=== PATIENT | male | born 1965 ===

== ENCOUNTER 2017-02-21 09:48 | Inpatient (IN) | payer MEDICARE ==
[2017-02-21 10:06] VITALS: BMI 36.3
[2017-02-21] MEDS ORDERED: Albuterol-Ipratrop 3 mg / 0.5 (3 ml) UD IH STA ×2 (11:28→13:46)
[2017-02-21] MEDS ORDERED: Sodium Chloride 0.9% 1,000 ML IV ONE (11:29)
[2017-02-21 11:54] LABS: BASO # 0.1 K/uL (0.0-0.2); BASO % 1.1 % (0.0-2.0); EOS # 0.6 K/uL (0.0-0.7); EOS % 4.2 % (0.0-4.0); HEMATOCRIT 39.1 % (35.0-51.0); LYMPH # 2.5 K/uL (1.0-4.3); LYMPH % 18.4 % (20.0-40.0); MEAN CELL VOLUME 88.2 fL (80.0-94.0); MEAN CORPUSCULAR HEMOGLOBIN 29.4 pg (27.0-31.0); MEAN CORPUSCULAR HGB CONC 33.3 g/dL (33.0-37.0); MEAN PLATELET VOLUME 9.3 fL (7.2-11.7); MONO # 0.9 K/uL (0.0-0.8); MONO % 6.5 % (0.0-10.0); NRBC % 0.1 % (0.0-2.0); RED CELL DISTRIBUTION WIDTH 13.1 % (11.5-14.5); WHITE BLOOD COUNT 13.4 K/uL (4.8-10.8)
--- NOTE | 2017-02-21 12:18 | RAD ---
PROCEDURE: CHEST RADIOGRAPH, 1 VIEW HISTORY: Shortness of breath COMPARISON: 09/28/2016 FINDINGS: LUNGS: Moderate venous congestion. Right hilar prominence. Patchy increased marked at the right lung base. PLEURA: As above. CARDIOVASCULAR: Normal. OSSEOUS STRUCTURES: No significant abnormalities. Probable small loose osteochondral body at the superior aspect of the left glenohumeral joint space. VISUALIZED UPPER ABDOMEN: Normal. OTHER FINDINGS: None. IMPRESSION: Moderate venous congestion. Right hilar prominence. Patchy increased marked at the right lung base.
[2017-02-21 12:21] LABS: URINE BILIRUBIN NEGATIVE (NEGATIVE); URINE BLOOD NEGATIVE (NEGATIVE); URINE COLOR Yellow (YELLOW); URINE GLUCOSE (UA) 3+ mg/dL (Normal); URINE KETONE NEGATIVE (NEGATIVE); URINE LEUKOCYTE ESTERASE NEG Leu/uL (Negative); URINE PROTEIN NEGATIVE (NEGATIVE); URINE UROBILINOGEN NORMAL mg/dL (0.2-1.0)
--- NOTE | 2017-02-21 12:51 | C.PDOC ---
History Of Present Illness 51 year old patient, with a past medical history of asthma, hypertension, hypercholesterolemia, CHF, and diabetes, presents to the emergency department complaining of congestion and shortness of breath developing over the past 2 days. Patient admits to not taking all of his medications for the past 2 weeks because of "insurance problems." Patient describes the shortness of breath feels like "chest tightness". Patient denies fever, chills, severe headache, dizziness, wheezing, palpitations, orthopnea, PND, abdominal pain, nausea, or vomiting, denies peripheral edema. Pt sts, " took all my medication this AM including my BP medictaion, INsulin, Aspirin". PMD: Clinic (Dr Knapp) PMH: as per HPI PSH: Denies Home meds: As per EMR except as noted - Pt takes Levemir 80 units in AM and 50 at night. He is on Novolog sliding scale for in between. He also uses an albuterol inhaler that he did not have with him. Allergies: NKDA FH: DM SH: Smokes about a pack/2-3 days (heavy smoking past 2 ppd/ "years"), social Etoh use, denies drug Time Seen by Provider: 02/21/17 11:23 Chief Complaint (Nursing): Cough, Cold, Congestion History Per: Patient History/Exam Limitations: no limitations Onset/Duration Of Symptoms: Days (2) Current Symptoms Are (Timing): Still Present Location Of Pain: Other (chest tightness) Sick Contacts (Context): None Associated Symptoms: Other (congestion) Ear Symptoms: Bilateral: None Severity: Mild Pain Scale Rating Of: 3 Recent travel outside of the [place]: No Past Medical History Reviewed: Historical Data, Nursing Documentation, Vital Signs Vital Signs: Last Vital Signs Temp 97.3 F L 02/21/17 20:09 Pulse 82 02/21/17 20:09 Resp 20 02/21/17 20:09 BP 92/66 L 02/21/17 20:09 Pulse Ox 95 02/21/17 20:09 - Medical History PMH: Asthma, CHF, Diabetes, HTN, Hypercholesterolemia Family History: States: Unknown Family Hx - Social History Hx Tobacco Use: Yes Hx Alcohol Use: Yes Hx Substance Use: No - Immunization History Hx Tetanus Toxoid Vaccination: No Hx Influenza Vaccination: Yes Hx Pneumococcal Vaccination: No Review Of Systems Except As Marked, All Systems Reviewed And Found Negative. Constitutional: Negative for: Fever, Chills Cardiovascular: Positive for: Other (chest tightness). Negative for: Palpitations Respiratory: Positive for: Shortness of Breath, Other (congestion). Negative for: Wheezing Gastrointestinal: Negative for: Nausea, Vomiting, Abdominal Pain Neurological: Negative for: Headache, Dizziness Physical Exam - Physical Exam Appears: Well, Non-toxic, No Acute Distress Skin: Normal Color, Warm, No Rash Head: Atraumatic, Normacephalic Eye(s): bilateral: PERRL Nose: Discharge (B/L nasal congestion) Oral Mucosa: Moist Tongue: Normal Appearing Throat: Normal Neck: Normal ROM, Trachea Midline Cardiovascular: Rhythm Regular, No JVD Respiratory: Decreased Breath Sounds (slight Right base), No Accessory Muscle Use, No Stridor, No Wheezing Gastrointestinal/Abdominal: Soft, No Tenderness, No Distention, No Guarding Back: No CVA Tenderness Extremity: Normal ROM, No Pedal Edema Neurological/Psych: Oriented x3, Normal Speech ED Course And Treatment - Laboratory Results Result Diagrams: 02/21/17 11:50 02/21/17 12:40 ECG: Interpreted By Me, Viewed By Me ECG Rhythm: Sinus Rhythm, PVC (occasional) ECG Interpretation: No Changes From Prior Interpretation Of ECG: occasional PVC. Left axis deviation. Rate From EC (bpm) O2 Sat by Pulse Oximetry: 94 (room air) Pulse Ox Interpretation: Abnormal - Other Rad CXR X-Ray: Read By Radiologist Interpretation: FINDINGS: LUNGS: Moderate venous congestion. Right hilar prominence. Patchy increased marked at the right lung base. PLEURA: As above. CARDIOVASCULAR: Normal. OSSEOUS STRUCTURES: No significant abnormalities. Probable small loose osteochondral body at the superior aspect of the left glenohumeral joint space. VISUALIZED UPPER ABDOMEN: Normal. OTHER FINDINGS: None. IMPRESSION: Moderate venous congestion. Right hilar prominence. Patchy increased marked at the right lung base. Progress Note: Plan: -EKG. -Labs. -Chest x-ray. -Duoneb, Rocephin, IV fluids , Azithromycin, Solu-Medrol. Diagnostics review, CXR review. Pt has clinical finidngs c/w PNA r/o viral illness, CHF exacerbation. Case discussed with Hospitalist and admission arranged to telementry. Disposition - Disposition Disposition: HOSPITALIZED Disposition Time: 13:28 Condition: STABLE - Clinical Impression Clinical Impression: Acute exacerbation of CHF (congestive heart failure), Pneumonia - PA / TOBY MAKER / Resident Statement MD/DO has reviewed & agrees with the documentation as recorded. - Scribe Statement The provider has reviewed the documentation as recorded by the Scribe Octavia Ellis All medical record entries made by the Scribe were at my direction and personally dictated by me. I have reviewed the chart and agree that the record accurately reflects my personal performance of the history, physical exam, medical decision making, and the department course for this patient. I have also personally directed, reviewed, and agree with the discharge instructions and disposition.
[2017-02-21 12:52] LABS: CHLORIDE 100 mmol/L (98-107); POTASSIUM 4.2 mmol/L (3.6-5.2); SODIUM 139 mmol/L (132-148)
[2017-02-21 12:54] LABS: GFR AFRICAN-AMERICAN > 60
[2017-02-21] MEDS ORDERED: Azithromycin 500 MG in Sodium Chloride 0.9% 250 ML IVPB STA (12:54)
[2017-02-21 12:55] LABS: ALB/GLOB RATIO 1.1 (1.0-2.1); ALKALINE PHOSPHATASE 99 U/L (38-126); ALT/SGPT 11 U/L (21-72); AST/SGOT 13 U/L (17-59); BILIRUBIN,TOTAL 0.9 mg/dL (0.2-1.3); BLOOD UREA NITROGEN 18 mg/dL (9-20); CARBON DIOXIDE 25 mmol/L (22-30); GLUCOSE,RANDOM 235 mg/dL (75-110); TOTAL PROTEIN 7.2 g/dL (6.3-8.3)
[2017-02-21 12:56] LABS: CALCIUM 8.5 mg/dl (8.6-10.4)
[2017-02-21] MEDS ORDERED: Azithromycin 500mg/250ML NS 500 MG/250 ML BAG IVPB ONE (13:05)
[2017-02-21 13:16] LABS: INR 1.1
[2017-02-21] MEDS ORDERED: cefTRIAXone IV 1 gm in Dextros 50 ML IVPB ONE (13:51)
--- NOTE | 2017-02-21 15:39 | CP.PCM.HP ---
<Joo Zamudio - Last Filed: 02/21/17 16:21> History of Present Illness - History of Present Illness History of Present Illness: CC: "I'm having trouble breathing" HPI: 51 year old male with a PMH of DM2, asthma and CHF who presents to the ED with shortness of breath and chest tightness of 2 days duration. He stated that the symptoms came on gradually and progressively gotten worse. He reports that he has not had medication for 2 weeks due to gap between insurance policies. He also states that he felt sick a few nights ago with fevers, chills and diffuse body aches. He awoke with the symptoms resolved but noted some difficulty breathing had worsened. Similar episodes have occurred 5 years ago and 1 year ago, which he was hospitalized. Patient is complaining of chest discomfort but not quantifiable pain. He described it as someone is sitting on his chest. Laying down and exertion exacerbates his symptoms while nothing alleviates them. Patient sleeps with 3 pillows at night. He states that he gets fatigue and SOB after 10 feet of walking. His last ECHO was several years ago. Admits to recent illness, chest pain, palpitations, shortness of breath, wheezing and cough. Denies leg swelling, nausea, vomiting, diarrhea, constipation, abdominal pain. PMH: CHF, DM2, asthma Meds: Lasix, Coreg, Lipitor, Enalapril, ASA 81, Insulin Allergies: NKDA PSH: none Hosp: 2012 and 2016 for CHF FH: Mother has DM2, father of cardiac-related problems, brother from DM2 complications Social: Pt lives with his and 3 children. He is on SSD. Current 6-7 cigarette/day smoker down from 2-3 PPD x 37 yrs. Never a heavy drinker of alcohol. Remote marijuana use in the . Present on Admission - Present on Admission Any Indicators Present on Admission: No History of DVT/PE: No History of Uncontrolled Diabetes: No Urinary Catheter: No Decubitus Ulcer Present: No Review of Systems - Constitutional Constitutional: absent: Chills, Fever - EENT Eyes: absent: Blurred Vision, Change in Vision Ears: absent: Ear Discharge, Dizziness Nose/Mouth/Throat: absent: Nasal Congestion, Nasal Discharge - Cardiovascular Cardiovascular: Chest Pain (described as a tightness in the anterior chest), Chest Pain with Activity, Dyspnea, Dyspnea on Exertion, Orthopnea, Palpitations. absent: Leg Edema - Respiratory Respiratory: Cough, Dyspnea, Dyspnea on Exertion, Wheezing. absent: Hemoptysis - Gastrointestinal Gastrointestinal: absent: Abdominal Pain, Constipation, Diarrhea, Nausea, Vomiting - Genitourinary Genitourinary: absent: Change in Urinary Stream, Difficulty Urinating, Dysuria - Musculoskeletal Musculoskeletal: Arthralgias, Back Pain, Myalgias. absent: Joint Swelling - Integumentary Integumentary: absent: Change in Pigmentation, New Lesions, Wounds - Neurological Neurological: absent: Confusion, Dizziness, Numbness, Syncope, Tingling, Vertigo , Weakness - Psychiatric Psychiatric: absent: Homicidal Ideation, Suicidal Ideation - Endocrine Endocrine: Fatigue. absent: Palpitations, Polydipsia, Polyphagia, Polyuria - Hematologic/Lymphatic Hematologic: absent: Easy Bleeding, Easy Bruising, Lymphadenopathy Past Patient History - Past Medical History & Family History Past Medical History?: Yes - Past Social History Smoking Status: Heavy Smoker > 10 Cigarettes Daily - CARDIAC Hx Congestive Heart Failure: Yes Hx Hypercholesterolemia: Yes Hx Hypertension: Yes - PULMONARY Hx Asthma: Yes - ENDOCRINE/METABOLIC Hx Endocrine Disorders: Yes Hx Diabetes Mellitus Type 2: Yes - MUSCULOSKELETAL/RHEUMATOLOGICAL Hx Falls: No - PSYCHIATRIC Hx Substance Use: No - SURGICAL HISTORY Hx Surgeries: No - ANESTHESIA Hx Anesthesia: No Meds Allergies/Adverse Reactions: Allergies Allergy/AdvReac Type Severity Reaction Status Date / Time No Known Allergies Allergy Verified 02/21/17 10:06 Physical Exam - Constitutional Appears: No Acute Distress - Head Exam Head Exam: ATRAUMATIC, NORMOCEPHALIC - Eye Exam Eye Exam: EOMI, Normal appearance - ENT Exam ENT Exam: Mucous Membranes Moist - Neck Exam Neck exam: Positive for: Normal Inspection - Respiratory Exam Respiratory Exam: Decreased Breath Sounds, Wheezes, NORMAL BREATHING PATTERN. absent: Accessory Muscle Use, Respiratory Distress - Cardiovascular Exam Cardiovascular Exam: RRR, +S1, +S2 - GI/Abdominal Exam GI & Abdominal Exam: Normal Bowel Sounds, Soft. absent: Distended, Firm, Guarding, Rebound, Tenderness - Extremities Exam Extremities exam: Positive for: normal capillary refill, pedal pulses present. Negative for: calf tenderness, pedal edema - Back Exam Back exam: absent: CVA tenderness (L), CVA tenderness (R) - Neurological Exam Neurological exam: Alert, CN II-XII Intact, Oriented x3 - Psychiatric Exam Psychiatric exam: Normal Affect, Normal Mood - Skin Skin Exam: Dry, Intact, Normal Color, Warm Results - Vital Signs Recent Vital Signs: Last Vital Signs Temp 98.4 F 02/21/17 13:42 Pulse 97 H 02/21/17 14:35 Resp 21 02/21/17 14:35 BP 104/71 02/21/17 14:35 Pulse Ox 91 L 02/21/17 14:35 - Labs Result Diagrams: 02/21/17 11:50 02/21/17 12:40 Assessment & Plan - Assessment and Plan (Free Text) Plan: 1. CHF Admit to telemetry CXR: Moderate venous congestion. Right hilar prominence. Patchy increased marked at the right lung base (see full report) EKG HA1C, TSH/T4, Lipid panel Stephany x 3, first one negative ECHO Duoneb 3 ml INH RQ6 ASA 81 mg PO daily Digoxin 0.25 mg PO dialy Enalapril 2.5 mg PO daily Lasix 40 mg PO daily Hold home dose of coreg for now as per Dr. Lizarraga I's & O's daily weights HHD 2. DM ISS Accuchecks HA1C Monitor glucose 3. Prophylactic Measures Protonix 40 mg PO daily SCDs Lovenox 40 mg SC daily <Javy Lizarraga H - Last Filed: 02/21/17 18:45> Results - Vital Signs Recent Vital Signs: Last Vital Signs Temp 98.4 F 02/21/17 13:42 Pulse 97 H 02/21/17 14:35 Resp 18 02/21/17 16:34 BP 104/71 02/21/17 14:35 Pulse Ox 91 L 02/21/17 14:35 - Labs Result Diagrams: 02/21/17 11:50 02/21/17 12:40 Labs: Laboratory Results - last 24 hr 02/21/17 16:38 POC Glucose (mg/dL) 244 H Attending/Attestation - Attestation I have personally seen and examined this patient.: Yes I have fully participated in the care of the patient.: Yes I have reviewed all pertinent clinical information: Yes Notes (Text): 02/21/17 18:43 Medical attending: Patient was seen and examined by me, agrees the above note by medical equipment technician. We reviewed the chest x-ray as well as the lab work. His chest x-ray shows a lot of pulmonary congestion and edema. The patient tells us that normally he takes Lasix however he hasn't taken his medication for the past 2 weeks because he ran out. He has been given Lasix in the emergency room has urinated several times ready he says that he feels only somewhat better. As documented above the resident note the patient has to have several pillows to sleep on, reports orthopnea as well particularly during the night. Shortness of breath on exertion as well So at this time were to give Lasix were to repeat a chest x-ray tomorrow. The patient should get an echo as well just to measure his ejection fraction will hold off on a beta qian for the time being and if tomorrow he feels better after getting more diuresis then we'll consider adding back on something such as Coreg for example Thank you very much, Javy Lizarraga
[2017-02-21] MEDS ORDERED: (Novolin R) Insulin Human Regular 100 units/ml vial ONE (18:13)
[2017-02-21] MEDS: (Novolin R) Insulin Human Regular 100 units/ml vial SC SCH ×3 (18:17→22:29)
[2017-02-21 19:00] LABS: T4 5.8 ug/dL (5.5-11.0)
[2017-02-21 19:14] LABS: THYROID STIMULATING HORMONE 0.52 mIU/L (0.46-4.68)
[2017-02-21] MEDS: Albuterol-Ipratrop 3 mg / 0.5 (3 ml) UD INH SCH (22:19)
[2017-02-21] MEDS ORDERED: (Lantus) Insulin Glargine, Recombinant SC ONE (23:14)
[2017-02-21] MEDS ORDERED: (Novolog) Insulin Aspart, Recombinant 100 u/ml 10 ml vial SC ONE (23:56)
[2017-02-22] MEDS: Albuterol-Ipratrop 3 mg / 0.5 (3 ml) UD INH SCH ×4 (01:40→19:33)
[2017-02-22 06:42] LABS: BASO % 0.1 % (0.0-2.0); HEMATOCRIT 37.4 % (35.0-51.0); LYMPH # 1.3 K/uL (1.0-4.3); LYMPH % 9.2 % (20.0-40.0); MEAN CELL VOLUME 89.1 fL (80.0-94.0); MEAN CORPUSCULAR HEMOGLOBIN 29.4 pg (27.0-31.0); MEAN PLATELET VOLUME 9.8 fL (7.2-11.7); MONO # 0.7 K/uL (0.0-0.8); MONO % 4.7 % (0.0-10.0); PLATELET COUNT 218 K/uL (130-400); RED CELL DISTRIBUTION WIDTH 12.8 % (11.5-14.5)
[2017-02-22 06:50] LABS: CHLORIDE 99 mmol/L (98-107); POTASSIUM 4.4 mmol/L (3.6-5.2); SODIUM 136 mmol/L (132-148)
[2017-02-22 06:52] LABS: ALB/GLOB RATIO 1.2 (1.0-2.1); ALKALINE PHOSPHATASE 107 U/L (38-126); ALT/SGPT 17 U/L (21-72); AST/SGOT 17 U/L (17-59); BILIRUBIN,TOTAL 0.7 mg/dL (0.2-1.3); BLOOD UREA NITROGEN 24 mg/dL (9-20); CARBON DIOXIDE 25 mmol/L (22-30); GFR AFRICAN-AMERICAN > 60; GLUCOSE,RANDOM 355 mg/dL (75-110)
[2017-02-22 06:53] LABS: CALCIUM 8.8 mg/dl (8.6-10.4)
[2017-02-22] MEDS: (Novolin R) Insulin Human Regular 100 units/ml vial SC SCH ×4 (08:18→21:22)
[2017-02-22 08:59] LABS: NEUTROPHIL 88 % (50-75); TOTAL CELLS COUNTED 100
--- NOTE | 2017-02-22 09:58 | CP.PCM.PN ---
<NaamaryJoo wells - Last Filed: 02/22/17 10:45> Subjective - Date & Time of Evaluation Date of Evaluation: 02/22/17 Time of Evaluation: 07:00 - Subjective Subjective: PGY-1 Medicine Progress Note for Dr. Lizarraga Patient seen and examined at bedside this AM. Patient sugars were elevated at 500 overnight, so he was given 80 units of lantus and 12 units of Novolog. Patient restin gin bed comfortably in bed this morning. He states his breathing has improved but still has mild SOB at times. He was able to sleep better last night than previous night at home. Patient tolerating diet and urinating without difficult. Denies fever/chills, cp, palpiations, abd pain, n/v/d, incontinence. Objective - Vital Signs/Intake and Output Vital Signs (last 24 hours): Temp Pulse Resp BP Pulse Ox 97.5 F L 83 20 110/65 97 02/22/17 07:00 02/22/17 07:00 02/22/17 07:00 02/22/17 07:00 02/22/17 07:00 Intake and Output: 02/22/17 02/22/17 06:59 18:59 Intake Total 160 Output Total 500 Balance -340 - Medications Medications: Current Medications Albuterol/Ipratropium (Duoneb 3 Mg/0.5 Mg (3 Ml) Ud) 3 ml INH RQ6 [facility] Last Admin: 02/22/17 07:53 Dose: 3 ml Aspirin (Aspirin Chewable) 81 mg PO DAILY [facility] Digoxin (Lanoxin) 0.25 mg PO DAILY@1800 [facility] Enalapril Maleate (Vasotec) 2.5 mg PO DAILY [facility] Enoxaparin Sodium (Lovenox) 40 mg SC DAILY [facility] Furosemide (Lasix) 40 mg PO DAILY [facility] Azithromycin 500 mg/ Sodium (Chloride) 250 mls @ 250 mls/hr IVPB DAILY [facility] Ceftriaxone Sodium 1 gm/ (Sodium Chloride) 100 mls @ 100 mls/hr IVPB Q12H [facility] Insulin Glargine (Lantus) 50 unit SC Q12 [facility] Insulin Human Regular (Novolin R) 0 unit SC ACHS [facility] PRN Reason: Protocol Last Admin: 02/22/17 08:18 Dose: 8 unit Pantoprazole Sodium (Protonix Ec Tab) 40 mg PO DAILY [facility] - Labs Labs: 02/22/17 06:27 02/22/17 06:27 PT 11.5 SECONDS (9.7-12.2) 02/22/17 06:27 INR 1.0 02/22/17 06:27 APTT 27 SECONDS (21-34) 02/22/17 06:27 - Constitutional Appears: Non-toxic, No Acute Distress - Head Exam Head Exam: ATRAUMATIC, NORMOCEPHALIC - Eye Exam Eye Exam: EOMI, Normal appearance Pupil Exam: PERRL - ENT Exam ENT Exam: Mucous Membranes Moist - Neck Exam Neck Exam: Normal Inspection - Respiratory Exam Respiratory Exam: Decreased Breath Sounds, NORMAL BREATHING PATTERN. absent: Accessory Muscle Use, Respiratory Distress - Cardiovascular Exam Cardiovascular Exam: REGULAR RHYTHM, +S1, +S2 - GI/Abdominal Exam GI & Abdominal Exam: Soft, Normal Bowel Sounds. absent: Tenderness - Extremities Exam Extremities Exam: Normal Capillary Refill. absent: Calf Tenderness, Pedal Edema - Back Exam Back Exam: absent: CVA tenderness (L), CVA tenderness (R) - Neurological Exam Neurological Exam: Alert, Awake, CN II-XII Intact, Oriented x3 - Psychiatric Exam Psychiatric exam: Normal Affect, Normal Mood - Skin Skin Exam: Dry, Intact, Normal Color, Warm Assessment and Plan - Assessment and Plan (Free Text) Plan: 1. CHF telemetry CXR: Moderate venous congestion. Right hilar prominence. Patchy increased marked at the right lung base (see full report) EKG HA1C 11.0 TSH 0.52 T4 5.80 Lipid panel triglycerides 45, total 187, LDL 110, HDL 46 Stephany x 3 negative ECHO Duoneb 3 ml INH RQ6 ASA 81 mg PO daily Digoxin 0.25 mg PO dialy Enalapril 2.5 mg PO daily Lasix 40 mg IVP daily Hold home dose of coreg for now as per Dr. Lizarraga I's & O's daily weights Oxygen PRN HHD, mod carb 2. Suspected Pneumonia Repeat CXR leukocytosis, afebrile CXR: Moderate venous congestion. Right hilar prominence. Patchy increased marked at the right lung base (see full report) Azithromycin 500 mg IVPB daily Rocephin 1 gm IVPB Q12H Oxygen PRN 3. DM Added Lantus 50 units SC Q12H - patient takes 130 units daily at home ISS Accuchecks HA1C 11.0 Monitor glucose HHD, mod carb 3. Prophylactic Measures Protonix 40 mg PO daily SCDs Lovenox 40 mg SC daily <Javy Lizarraga H - Last Filed: 02/22/17 14:39> Objective - Vital Signs/Intake and Output Vital Signs (last 24 hours): Temp Pulse Resp BP Pulse Ox 97.6 F 91 H 20 93/64 L 95 02/22/17 10:51 02/22/17 12:15 02/22/17 10:51 02/22/17 10:53 02/22/17 10:51 Intake and Output: 02/22/17 02/22/17 06:59 18:59 Intake Total 160 Output Total 500 Balance -340 - Medications Medications: Current Medications Albuterol/Ipratropium (Duoneb 3 Mg/0.5 Mg (3 Ml) Ud) 3 ml INH RQ6 [facility] Last Admin: 02/22/17 13:46 Dose: 3 ml Aspirin (Aspirin Chewable) 81 mg PO DAILY [facility] Last Admin: 02/22/17 10:54 Dose: 81 mg Digoxin (Lanoxin) 0.25 mg PO DAILY@1800 [facility] Enalapril Maleate (Vasotec) 2.5 mg PO DAILY [facility] Last Admin: 02/22/17 10:53 Dose: Not Given Enoxaparin Sodium (Lovenox) 40 mg SC DAILY [facility] Last Admin: 02/22/17 10:44 Dose: 40 mg Furosemide (Lasix) 40 mg IVP DAILY [facility] Last Admin: 02/22/17 10:52 Dose: Not Given Azithromycin 500 mg/ Sodium (Chloride) 250 mls @ 250 mls/hr IVPB DAILY [facility] Last Admin: 02/22/17 11:00 Dose: 250 mls/hr Ceftriaxone Sodium 1 gm/ (Sodium Chloride) 100 mls @ 100 mls/hr IVPB Q12H [facility] Last Admin: 02/22/17 10:00 Dose: 100 mls/hr Insulin Glargine (Lantus) 50 unit SC Q12 [facility] Last Admin: 02/22/17 10:27 Dose: 50 units Insulin Human Regular (Novolin R) 0 unit SC ACHS [facility] PRN Reason: Protocol Last Admin: 02/22/17 12:50 Dose: 6 unit Pantoprazole Sodium (Protonix Ec Tab) 40 mg PO DAILY [facility] Last Admin: 02/22/17 10:54 Dose: 40 mg - Labs Labs: 02/22/17 06:27 02/22/17 06:27 PT 11.5 SECONDS (9.7-12.2) 02/22/17 06:27 INR 1.0 02/22/17 06:27 APTT 27 SECONDS (21-34) 02/22/17 06:27 Attending/Attestation - Attestation I have personally seen and examined this patient.: Yes I have fully participated in the care of the patient.: Yes I have reviewed all pertinent clinical information, including history, physical exam and plan: Yes Notes (Text): Medical attending: Patient was seen and examined by me. When we saw him he stated that he is feeling much better and that his breathing had improved substantially. We did not walk him around the hallway however he explains to me that when he does walk he much easier breathing now. We have been giving him Lasix overnight When we saw him he had not yet had a repeat echo done. As mentioned before he has a history of CHF and and he tells us that he has not been taking his medications for about 3 weeks now (ran out. His chest x-ray seems to show some improvement from yesterday. So at this time were currently pending echo. Because he is feeling well he has to go home however I said let's wait for the echo Thank you very much, Javy Lizarraga
[2017-02-22] MEDS: (Lantus) Insulin Glargine, Recombinant SC SCH ×2 (10:27→21:29)
[2017-02-22] MEDS: Enoxaparin 40 mg Syringe SC SCH (10:44)
--- NOTE | 2017-02-22 10:53 | CARD ---
APPROVED REPORT EKG Measurement Heart [id number] IN [id number] <Conclusion> Sinus rhythm with occasional premature ventricular complexes Possible Left atrial enlargement Nonspecific intraventricular conduction delay ST & T wave abnormality, consider lateral ischemia Abnormal ECG
[2017-02-22] MEDS: Pantoprazole 40 mg EC Tab PO SCH (10:54)
[2017-02-22] MEDS: Azithromycin 500 MG in Sodium Chloride 0.9% 250 ML IVPB SCH (11:00)
--- NOTE | 2017-02-22 15:26 | RAD ---
HISTORY: reassess for infiltrate COMPARISON: Comparison is made to the previous study dated 02/21/2017 FINDINGS: LUNGS: Interval improvement in the lungs since the previous exam particularly in the right lower lung. PLEURA: No significant pleural effusion identified, no pneumothorax apparent. CARDIOVASCULAR: Mild cardiomegaly is again noted. OSSEOUS STRUCTURES: No significant abnormalities. VISUALIZED UPPER ABDOMEN: Normal. OTHER FINDINGS: None. IMPRESSION: Interval improvement and almost complete resolving of the previously seen right lower lung increased marking since the previous exam.
[2017-02-22] MEDS: Digoxin 250 mcg (0.25 mg) Tab PO SCH (21:28)
[2017-02-23] MEDS: Albuterol-Ipratrop 3 mg / 0.5 (3 ml) UD INH SCH ×4 (01:30→19:36)
[2017-02-23 06:25] LABS: BASO # 0.1 K/uL (0.0-0.2); BASO % 0.8 % (0.0-2.0); EOS # 0.4 K/uL (0.0-0.7); EOS % 2.7 % (0.0-4.0); HEMATOCRIT 35.7 % (35.0-51.0); LYMPH # 3.5 K/uL (1.0-4.3); LYMPH % 23.4 % (20.0-40.0); MEAN CELL VOLUME 88.9 fL (80.0-94.0); MEAN CORPUSCULAR HGB CONC 33.8 g/dL (33.0-37.0); MEAN PLATELET VOLUME 9.6 fL (7.2-11.7); MONO # 0.8 K/uL (0.0-0.8); MONO % 5.4 % (0.0-10.0); RED CELL DISTRIBUTION WIDTH 13.2 % (11.5-14.5)
[2017-02-23 06:53] LABS: CHLORIDE 101 mmol/L (98-107)
[2017-02-23 06:54] LABS: POTASSIUM 3.4 mmol/L (3.6-5.2); SODIUM 137 mmol/L (132-148)
[2017-02-23 06:56] LABS: AST/SGOT 12 U/L (17-59); BILIRUBIN,TOTAL 0.5 mg/dL (0.2-1.3); BLOOD UREA NITROGEN 26 mg/dL (9-20); CARBON DIOXIDE 24 mmol/L (22-30); GFR AFRICAN-AMERICAN > 60; TOTAL PROTEIN 6.6 g/dL (6.3-8.3)
[2017-02-23 06:57] LABS: ALKALINE PHOSPHATASE 94 U/L (38-126); ALT/SGPT 19 U/L (21-72); CALCIUM 7.6 mg/dl (8.6-10.4); GLUCOSE,RANDOM 211 mg/dL (75-110)
[2017-02-23] MEDS: (Novolin R) Insulin Human Regular 100 units/ml vial SC SCH ×4 (08:09→21:29)
[2017-02-23] MEDS: Enoxaparin 40 mg Syringe SC SCH (09:11)
[2017-02-23] MEDS: Pantoprazole 40 mg EC Tab PO SCH (09:12)
[2017-02-23] MEDS ORDERED: Potassium Chloride 20 mEq ER Tab PO ONE (10:00)
[2017-02-23] MEDS: (Lantus) Insulin Glargine, Recombinant SC SCH ×2 (10:17→21:31)
[2017-02-23] MEDS: Azithromycin 500 MG in Sodium Chloride 0.9% 250 ML IVPB SCH (10:34)
--- NOTE | 2017-02-23 12:20 | CP.PCM.PN ---
<Joo Zamudio - Last Filed: 02/23/17 13:17> Subjective - Date & Time of Evaluation Date of Evaluation: 02/23/17 Time of Evaluation: 07:30 - Subjective Subjective: PGY-1 Medicine Progress Note for Dr. Lizarraga Patient seen and examined at bedside this AM. Patient had 20 beat v tach run overnight and 6 beat v tach run at 9 am. Patient resting in bed comfortably. He stated that he has been asymptomatic overnight and all morning. He was able to sleep fine. Breathing has improved. Patient tolerating diet, urinating without difficulty, and ambulating around the floor with SOB or cp. Denies fever /chills, cp, palpiations, abd pain, n/v/d, incontinence. Objective - Vital Signs/Intake and Output Vital Signs (last 24 hours): Temp Pulse Resp BP Pulse Ox 97.5 F L 97 H 18 98/60 L 96 02/23/17 09:10 02/23/17 10:31 02/23/17 09:10 02/23/17 10:35 02/23/17 09:10 Intake and Output: 02/23/17 02/23/17 06:59 18:59 Intake Total 580 Output Total 2150 Balance -1570 - Medications Medications: Current Medications Albuterol/Ipratropium (Duoneb 3 Mg/0.5 Mg (3 Ml) Ud) 3 ml INH RQ6 [facility] Last Admin: 02/23/17 07:35 Dose: 3 ml Aspirin (Aspirin Chewable) 81 mg PO DAILY [facility] Last Admin: 02/23/17 10:35 Dose: 81 mg Digoxin (Lanoxin) 0.25 mg PO DAILY@1800 [facility] Last Admin: 02/22/17 21:28 Dose: 0.25 mg Enalapril Maleate (Vasotec) 2.5 mg PO DAILY [facility] Last Admin: 02/23/17 10:35 Dose: Not Given Enoxaparin Sodium (Lovenox) 40 mg SC DAILY [facility] Last Admin: 02/23/17 09:11 Dose: 40 mg Furosemide (Lasix) 20 mg IVP DAILY [facility] Azithromycin 500 mg/ Sodium (Chloride) 250 mls @ 250 mls/hr IVPB DAILY [facility] Last Admin: 02/23/17 10:34 Dose: 250 mls/hr Ceftriaxone Sodium 1 gm/ (Sodium Chloride) 100 mls @ 100 mls/hr IVPB Q12H [facility] Last Admin: 02/23/17 09:12 Dose: 100 mls/hr Insulin Glargine (Lantus) 80 unit SC 1000 [facility] Last Admin: 02/23/17 10:17 Dose: 80 unit Insulin Glargine (Lantus) 50 unit SC 2200 [facility] Insulin Human Regular (Novolin R) 0 unit SC ACHS [facility] PRN Reason: Protocol Last Admin: 02/23/17 11:56 Dose: Not Given Pantoprazole Sodium (Protonix Ec Tab) 40 mg PO DAILY [facility] Last Admin: 02/23/17 09:12 Dose: 40 mg - Labs Labs: 02/23/17 06:09 02/23/17 06:09 PT 11.5 SECONDS (9.7-12.2) 02/22/17 06:27 INR 1.0 02/22/17 06:27 APTT 27 SECONDS (21-34) 02/22/17 06:27 - Constitutional Appears: Well, Non-toxic, No Acute Distress - Head Exam Head Exam: ATRAUMATIC, NORMOCEPHALIC - Eye Exam Eye Exam: EOMI, Normal appearance Pupil Exam: PERRL - ENT Exam ENT Exam: Mucous Membranes Moist - Neck Exam Neck Exam: Normal Inspection - Respiratory Exam Respiratory Exam: Clear to Ausculation Bilateral, NORMAL BREATHING PATTERN - Cardiovascular Exam Cardiovascular Exam: Tachycardia, REGULAR RHYTHM, +S1, +S2 - GI/Abdominal Exam GI & Abdominal Exam: Soft, Normal Bowel Sounds. absent: Tenderness - Extremities Exam Extremities Exam: Normal Capillary Refill. absent: Calf Tenderness, Pedal Edema - Back Exam Back Exam: absent: CVA tenderness (L), CVA tenderness (R) - Neurological Exam Neurological Exam: Alert, Awake, CN II-XII Intact, Normal Gait, Oriented x3 - Psychiatric Exam Psychiatric exam: Normal Affect, Normal Mood - Skin Skin Exam: Dry, Intact, Normal Color, Warm Assessment and Plan - Assessment and Plan (Free Text) Plan: 1. CHF telemetry had 20 beat v tach run overnight and 6 beat v tach run at 9 am, patient asymptomatic Restart Coreg 6.125 PO BID Lasix decreased to 20 mg IVP daily Cardiology consult, Dr. Lerner, help appreciated - patient sees him as outpatient 02/22 CXR: interval improvement (see full report) CXR: Moderate venous congestion. Right hilar prominence. Patchy increased marked at the right lung base (see full report) EKG HA1C 11.0 TSH 0.52 T4 5.80 Lipid panel triglycerides 45, total 187, LDL 110, HDL 46 Stephany x 3 negative ECHO Duoneb 3 ml INH RQ6 [facility] 81 mg PO daily Digoxin 0.25 mg PO dialy Enalapril 2.5 mg PO daily I's & O's daily weights Oxygen PRN HHD, mod carb 2. Suspected Pneumonia 02/22 CXR: interval improvement (see full report) leukocytosis, afebrile CXR: Moderate venous congestion. Right hilar prominence. Patchy increased marked at the right lung base (see full report) Azithromycin 500 mg IVPB daily Rocephin 1 gm IVPB Q12H Oxygen PRN 3. DM Lantus 80 units SC in AM and 50 units SC HS - patient takes 130 units daily at home ISS Accuchecks HA1C 11.0 Monitor glucose HHD, mod carb 3. Prophylactic Measures Protonix 40 mg PO daily SCDs Lovenox 40 mg SC daily <Javy Lizarraga H - Last Filed: 02/23/17 14:13> Objective - Vital Signs/Intake and Output Vital Signs (last 24 hours): Temp Pulse Resp BP Pulse Ox 97.5 F L 97 H 18 98/60 L 96 02/23/17 09:10 02/23/17 10:31 02/23/17 09:10 02/23/17 10:35 02/23/17 09:10 Intake and Output: 02/23/17 02/23/17 06:59 18:59 Intake Total 580 Output Total 2150 Balance -1570 - Medications Medications: Current Medications Albuterol/Ipratropium (Duoneb 3 Mg/0.5 Mg (3 Ml) Ud) 3 ml INH RQ6 [facility] Last Admin: 02/23/17 13:16 Dose: 3 ml Aspirin (Aspirin Chewable) 81 mg PO DAILY [facility] Last Admin: 02/23/17 10:35 Dose: 81 mg Carvedilol (Coreg) 6.25 mg PO BID [facility] Digoxin (Lanoxin) 0.25 mg PO DAILY@1800 [facility] Last Admin: 02/22/17 21:28 Dose: 0.25 mg Enalapril Maleate (Vasotec) 2.5 mg PO DAILY [facility] Last Admin: 02/23/17 10:35 Dose: Not Given Enoxaparin Sodium (Lovenox) 40 mg SC DAILY [facility] Last Admin: 02/23/17 09:11 Dose: 40 mg Furosemide (Lasix) 20 mg IVP DAILY [facility] Azithromycin 500 mg/ Sodium (Chloride) 250 mls @ 250 mls/hr IVPB DAILY [facility] Last Admin: 02/23/17 10:34 Dose: 250 mls/hr Ceftriaxone Sodium 1 gm/ (Sodium Chloride) 100 mls @ 100 mls/hr IVPB Q12H [facility] Last Admin: 02/23/17 09:12 Dose: 100 mls/hr Insulin Glargine (Lantus) 80 unit SC 1000 [facility] Last Admin: 02/23/17 10:17 Dose: 80 unit Insulin Glargine (Lantus) 50 unit SC 2200 [facility] Insulin Human Regular (Novolin R) 0 unit SC ACHS [facility] PRN Reason: Protocol Last Admin: 02/23/17 11:56 Dose: Not Given Pantoprazole Sodium (Protonix Ec Tab) 40 mg PO DAILY [facility] Last Admin: 02/23/17 09:12 Dose: 40 mg - Labs Labs: 02/23/17 06:09 02/23/17 06:09 PT 11.5 SECONDS (9.7-12.2) 02/22/17 06:27 INR 1.0 02/22/17 06:27 APTT 27 SECONDS (21-34) 02/22/17 06:27 Attending/Attestation - Attestation I have personally seen and examined this patient.: Yes I have fully participated in the care of the patient.: Yes I have reviewed all pertinent clinical information, including history, physical exam and plan: Yes Notes (Text): 02/23/17 14:10 Medical attending: Patient was seen and examined by me, agrees the above note by biomedical engineering aide. The patient was up and about in his room. We had him walk into the hallway to the nurses station and he was able to do so without becoming short of breath or have chest pain. When we walked him out to the front of the nurses station, I reviewed how the telemetry looked and it looked okay for the immediate. However per the scrolling back on the youth nutritional monitor he has some concerning areas of V. tach. He had one episode of about 6 to 7 beats of V. tach as well as string of 20 beats of V. tach earlier in the morning at about 4:30. The patient completed a 2-D echo earlier this morning, the results of which on not aware of. He did have echo previously which showed that his ejection fraction about several months ago was 25-30% Because of the old echo results as well as the telemetry reading showing episodes of V. tach this, explained to the patient that we will try to get a cardiology evaluation Thank you very much, Javy Lizarraga
--- NOTE | 2017-02-23 13:33 | CARD ---
APPROVED REPORT EXAM: Two-dimensional and M-mode echocardiogram with Doppler and color Doppler. Other Information Quality : GoodRhythm : NSR INDICATION Dyspnea Chest Pain Congestive Heart Failure RISK FACTORS Diabetes M-Mode DIMENSIONS RVDd1.41 (2.1-3.2cm)Left Atrium (MM)5.70 (2.5-4.0cm) IVSd0.78 (0.7-1.1cm)Aortic Root3.16 (2.2-3.7cm) LVDd7.69 (4.0-5.6cm)Aortic Cusp Exc.2.03 (1.5-2.0cm) PWd1.02 (0.7-1.1cm)FS (%) 14 % LVDs6.60 (2.0-3.8cm)LVEF (%)29 (>50%) Aortic Valve AoV Peak Oekxkjku500.1cm/Sarina Peak GR.6mmHg Mitral Valve MV E Dabfekhf684.1cm/sMV A Xhlodhsv79.4cm/sE/A ratio1.7 TDI E/Lateral E'0.0E/Medial E'0.0 Tricuspid Valve TR Peak Sdxypfor521or/sTR Peak Gr.[id number] LEFT VENTRICLE The Left Ventricle is severely dilated. There is normal left ventricular wall thickness. The Ejection Fraction is 25-30%. There is global hypokinesis of the left ventricle. The left atrial pressure is mildly elevated. moderately increased la volume index. moderate degree of lv diastolic dysfunction. RIGHT VENTRICLE The right ventricle is normal size. The right ventricular systolic function is normal. ATRIA The left atrium is severely dilated. The right atrium is mildly dilated. The interatrial septum is intact with no evidence for an atrial septal defect. AORTIC VALVE The aortic valve is normal in structure. No aortic regurgitation is present. MITRAL VALVE The mitral valve is normal in structure. Mitral regurgitation is moderate to severe. TRICUSPID VALVE The tricuspid valve is normal in structure. There is moderate tricuspid regurgitation. Right ventricular systolic pressure is estimated at 50 mmHg. There is moderate pulmonary hypertension. GREAT VESSELS The aortic root is normal in size. ivc is not measured but appears dilated with poor inspiratory collapse.ra of 15. PERICARDIAL EFFUSION There is no pericardial effusion. <Conclusion> The Left Ventricle is severely dilated. There is normal left ventricular wall thickness. The Ejection Fraction is 25-30%. There is global hypokinesis of the left ventricle. The left atrial pressure is mildly elevated. moderately increased la volume index. moderate degree of lv diastolic dysfunction. The left atrium is severely dilated. The right atrium is mildly dilated. Mitral regurgitation is moderate to severe. ivc is not measured but appears dilated with poor inspiratory collapse.ra of 15.
--- NOTE | 2017-02-23 14:19 | CP.PCM.CON ---
History of Present Illness - History of Present Illness History of Present Illness: COMPREHENSIVE CONSULT HPI PT ADMITTED WITH SYS HF SEC CARDIOMYOPATHY . PT BECAME INCREASINGLY SOB AND WAS IN CHF . THERE IS ALSO A POSSIBILITY OF PNEUMONIA . HAD WIDE COMPLEX RUN OF TACHY PAST HIST. DM PERSONAL HIST: Smoking. Y Alcohol. N Allergy N Travel_- . FAMILY HIST : ROS : Constitutional FATIGUE Eyes: Negative for redness, swelling, itching, discharge, vision changes, blurry vision, double vision, glaucoma, cataracts, Ears: Negative for hearing loss, ringing, , tinnitus, vertigo Nose: Negative for rhinorrhea, stuffiness, sniffing, itching, postnasal drip, discoloration, nasal congestion and epistaxis. Throat: Negative for throat clearing, sore throat, hoarseness, difficulty swallowing and difficulty speaking. Respiratory: POS for cough, chest tightness, sputum or phlegm, chronic cough , wheezing, snoring at night, NO pleuritic chest pain and daytime somnolence. Cardiovascular:SOB /WHEEZING , Neurology: Negative for irritability, muscle weakness, numbness and tingling, seizures, tremors, migraines, slurred speech, syncope, memory loss, mood changes , recurrent headaches Gastrointestinal: Negative for difficulty swallowing, diarrhea, constipation, black stools, rectal bleeding, nausea, flatulence, reflux, poor appetite, changes in bowel habits, abdominal pain Genitourinary: Negative for frequent urination, hematuria, discharge, incontinence, urinary retention, frequent UTI, Psychiatric: Negative for depression, anxiety/panic, suicidal tendencies, Musculoskeletal: Negative for swollen joints, back pain, , neck pain, morning stiffness of joints, . Skin: Negative for rash, ulcers, itching, dry skin and pigmented lesions. P/E: Constitutional: Appears stated age and in no apparent distress. Head: Normocephalic. Ears: External ear canals patent without inflammation. Tympanic membranes intact with normal light reflex and landmark. Eyes: Pupils are central, bilaterally equal, symmetrical and reacts to light with normal movements and no icterus or pallor. Nose: External nares are patent. Mucosa is pink Mouth-Throat: Good general appearance and condition. No post-pharyngeal/oropharyngeal erythema and tonsillar hypertrophy. Good dental hygiene. Neck-Lymphatic: Neck is supple with normal ROM, no thyromegaly, lymph nodes or masses. JVD is normal with no carotid bruit. Lungs: Clear to percussion and auscultation with bilateral normal air entry. Cardiovascular: S1 and S2 are normal with no murmurs, gallops and rub. GI Exam: No hepatomegaly. Abdomen is soft and non-tender. No Organomegaly , masses or hernias are evident and bowel sounds are normal and active. Neurology: Higher function and all cranial nerves intact, with no gross motor or sensory deficit. Superficial and deep reflexes are normal with downwards planters. No cerebellar deficit with normal gait. Musculoskeletal: No tender spots with normal curvature of the spine with no swelling or restricted ROM of the small and large joints. Extremities: Homans sign absent. Intact pulses with no pitting edema, calf tenderness or skin color changes. Skin: No rash, eruptions or abnormal skin pigmentation LAB/RADIOLOGY: ASSESMENT : SYSTOLIC HF WITH DEPRESSED EF WIDE COMPLEX TACY DM PNEUMONIA PLAN: WILL EVLAUTE ALL EKGS AND PLAN Past Patient History - Past Medical History & Family History Past Medical History?: Yes - Past Social History Smoking Status: Heavy Smoker > 10 Cigarettes Daily - CARDIAC Hx Congestive Heart Failure: Yes Hx Hypercholesterolemia: Yes Hx Hypertension: Yes - PULMONARY Hx Asthma: Yes - NEUROLOGICAL Hx Neurological Disorder: No - RENAL Hx Chronic Kidney Disease: No - ENDOCRINE/METABOLIC Hx Endocrine Disorders: Yes Hx Diabetes Mellitus Type 2: Yes - HEMATOLOGICAL/ONCOLOGICAL Hx Blood Disorders: No - INTEGUMENTARY Hx Dermatological Problems: No - MUSCULOSKELETAL/RHEUMATOLOGICAL Hx Falls: No - GASTROINTESTINAL Hx Gastrointestinal Disorders: No - GENITOURINARY/GYNECOLOGICAL Hx Genitourinary Disorders: No - PSYCHIATRIC Hx Substance Use: No - SURGICAL HISTORY Hx Surgeries: No Other/Comment: pt. had cardiac cath. - ANESTHESIA Hx Anesthesia: No Hx Anesthesia Reactions: No Hx Malignant Hyperthermia: No Has any member of the family had a problem w/ anesthesia?: No Meds Allergies/Adverse Reactions: Allergies Allergy/AdvReac Type Severity Reaction Status Date / Time No Known Allergies Allergy Verified 02/21/17 10:06 - Medications Medications: Current Medications Albuterol/Ipratropium (Duoneb 3 Mg/0.5 Mg (3 Ml) Ud) 3 ml INH RQ6 [facility] Last Admin: 02/23/17 13:16 Dose: 3 ml Aspirin (Aspirin Chewable) 81 mg PO DAILY [facility] Last Admin: 02/23/17 10:35 Dose: 81 mg Carvedilol (Coreg) 6.25 mg PO BID [facility] Digoxin (Lanoxin) 0.25 mg PO DAILY@1800 [facility] Last Admin: 02/22/17 21:28 Dose: 0.25 mg Enalapril Maleate (Vasotec) 2.5 mg PO DAILY [facility] Last Admin: 02/23/17 10:35 Dose: Not Given Enoxaparin Sodium (Lovenox) 40 mg SC DAILY [facility] Last Admin: 02/23/17 09:11 Dose: 40 mg Furosemide (Lasix) 20 mg IVP DAILY [facility] Azithromycin 500 mg/ Sodium (Chloride) 250 mls @ 250 mls/hr IVPB DAILY [facility] Last Admin: 02/23/17 10:34 Dose: 250 mls/hr Ceftriaxone Sodium 1 gm/ (Sodium Chloride) 100 mls @ 100 mls/hr IVPB Q12H [facility] Last Admin: 02/23/17 09:12 Dose: 100 mls/hr Insulin Glargine (Lantus) 80 unit SC 1000 [facility] Last Admin: 02/23/17 10:17 Dose: 80 unit Insulin Glargine (Lantus) 50 unit SC 2200 [facility] Insulin Human Regular (Novolin R) 0 unit SC ACHS [facility] PRN Reason: Protocol Last Admin: 02/23/17 11:56 Dose: Not Given Pantoprazole Sodium (Protonix Ec Tab) 40 mg PO DAILY [facility] Last Admin: 02/23/17 09:12 Dose: 40 mg Results - Vital Signs Recent Vital Signs: Last Vital Signs Temp 97.5 F L 02/23/17 09:10 Pulse 96 H 02/23/17 12:20 Resp 18 02/23/17 09:10 BP 98/60 L 02/23/17 10:35 Pulse Ox 96 02/23/17 09:10 - Labs Result Diagrams: 02/23/17 06:09 02/23/17 06:09 Labs: Laboratory Results - last 24 hr 02/22/17 02/22/17 02/23/17 16:47 21:03 06:09 WBC 15.0 H RBC 4.02 L Hgb 12.1 Hct 35.7 MCV 88.9 MCH 30.0 MCHC 33.8 RDW 13.2 Plt Count 222 MPV 9.6 Neut % (Auto) 67.7 Lymph % (Auto) 23.4 Borden % (Auto) 5.4 Eos % (Auto) 2.7 Baso % (Auto) 0.8 Neut # 10.2 H Lymph # 3.5 Borden # 0.8 Eos # 0.4 Baso # 0.1 Sodium Potassium Chloride Carbon Dioxide Anion Gap BUN Creatinine Est GFR ( Amer) Est GFR (Non-Af Amer) POC Glucose (mg/dL) 377 H 273 H Random Glucose Calcium Total Bilirubin AST ALT Alkaline Phosphatase Total Protein Albumin Globulin Albumin/Globulin Ratio 02/23/17 02/23/17 02/23/17 06:09 06:10 11:15 WBC RBC Hgb Hct MCV MCH MCHC RDW Plt Count MPV Neut % (Auto) Lymph % (Auto) Borden % (Auto) Eos % (Auto) Baso % (Auto) Neut # Lymph # Borden # Eos # Baso # Sodium 137 Potassium 3.4 L Chloride 101 Carbon Dioxide 24 Anion Gap 16 BUN 26 H Creatinine 0.8 Est GFR ( Amer) > 60 Est GFR (Non-Af Amer) > 60 POC Glucose (mg/dL) 217 H 137 H Random Glucose 211 H Calcium 7.6 L Total Bilirubin 0.5 AST 12 L D ALT 19 L Alkaline Phosphatase 94 Total Protein 6.6 Albumin 3.3 L Globulin 3.3 Albumin/Globulin Ratio 1.0
[2017-02-23 15:34] VITALS: RESP 20
[2017-02-23] MEDS: Digoxin 250 mcg (0.25 mg) Tab PO SCH (17:38)
[2017-02-23 17:39] VITALS: PULSE 98
[2017-02-24] MEDS: Albuterol-Ipratrop 3 mg / 0.5 (3 ml) UD INH SCH ×3 (02:26→19:30)
[2017-02-24 07:58] LABS: BASO # 0.1 K/uL (0.0-0.2); BASO % 0.8 % (0.0-2.0); EOS # 0.6 K/uL (0.0-0.7); EOS % 5.9 % (0.0-4.0); HEMATOCRIT 37.9 % (35.0-51.0); LYMPH # 2.9 K/uL (1.0-4.3); LYMPH % 28.1 % (20.0-40.0); MEAN CELL VOLUME 88.2 fL (80.0-94.0); MEAN CORPUSCULAR HEMOGLOBIN 29.6 pg (27.0-31.0); MEAN CORPUSCULAR HGB CONC 33.5 g/dL (33.0-37.0); MEAN PLATELET VOLUME 9.8 fL (7.2-11.7); MONO # 0.7 K/uL (0.0-0.8); MONO % 6.7 % (0.0-10.0); RED CELL DISTRIBUTION WIDTH 12.9 % (11.5-14.5); WHITE BLOOD COUNT 10.5 K/uL (4.8-10.8)
[2017-02-24 08:12] LABS: CHLORIDE 100 mmol/L (98-107); POTASSIUM 3.9 mmol/L (3.6-5.2); SODIUM 139 mmol/L (132-148)
[2017-02-24 08:14] LABS: BILIRUBIN,TOTAL 0.6 mg/dL (0.2-1.3); GFR AFRICAN-AMERICAN > 60
[2017-02-24 08:15] LABS: ALKALINE PHOSPHATASE 90 U/L (38-126); ALT/SGPT 29 U/L (21-72); AST/SGOT 18 U/L (17-59); BLOOD UREA NITROGEN 24 mg/dL (9-20); CARBON DIOXIDE 29 mmol/L (22-30); GLUCOSE,RANDOM 175 mg/dL (75-110); TOTAL PROTEIN 6.7 g/dL (6.3-8.3)
[2017-02-24] MEDS: (Novolin R) Insulin Human Regular 100 units/ml vial SC SCH ×5 (08:19→21:51)
[2017-02-24] MEDS: Pantoprazole 40 mg EC Tab PO SCH (09:59)
[2017-02-24] MEDS ORDERED: Potassium Chloride 20 mEq ER Tab PO ONE (10:00)
[2017-02-24] MEDS: Azithromycin 500 MG in Sodium Chloride 0.9% 250 ML IVPB SCH (10:00)
[2017-02-24] MEDS: (Lantus) Insulin Glargine, Recombinant SC SCH ×2 (10:03→21:55)
[2017-02-24] MEDS: Enoxaparin 40 mg Syringe SC SCH (10:07)
--- NOTE | 2017-02-24 11:21 | CP.PCM.CON ---
<Jeffrey Fair - Last Filed: 02/24/17 11:17> History of Present Illness - History of Present Illness History of Present Illness: Cardiology Consultation Note Dr. Longoria CC: Ventricular Tachycardia events x2 on 02/23/17 HPI: This is a 51 year old male with PMH of CHF, DM2, and Asthma who presents for cardiac evaluation of non-sustained ventricular tachycardia. He was admitted to the hospital on 02/21/17 for 2 day duration of SOB and CHF exacerbation. On 02/23/17 around 04:00 he had a 20 beat ventricular tachcardia and also a 6 beat ventricular tachycardia at 09:00am on 02/23/17. Per nursing staff the patient was symptomatic during the overnight event, but asymptomatic during the short, 6 beat event. During his hospital stay he reports that his breathing has improved. He reports that he sleeps with 1-2 pillows and can walk 1-2 blocks before getting SOB. He denies constitutional symptoms, chest discomfort, chest pain, palpitations, SOB, cough, wheezes, leg swelling, leg cramps, syncope. Patient states that he was diagnosed with CHF 4-5 years ago. He reports having a cath done prior to that diagnosis. He medical records show multiple ECHO and EKG dating from 2012 which shows gradual progression of his CHF. Social: hx of heavy smoking 2.5 PPD x 36 years, within past year cut back to 6- 7 cigarettes daily. He is unemployed and lives with and kids. Social EtOH use, occasional marijuana use, denies other illicit drug use. PMH: CHF, DM2, Asthma Allergies: NKDA PSH: none FH: Father &Uncle - of heart disease; Mother & Brother - of DM complications PMD: [facility] Cardio: Dr. Lerner Review of Systems - Constitutional Constitutional: As Per HPI. absent: Chills, Fever, Headache, Weight Gain, Weight Loss - EENT Eyes: absent: Blurred Vision, Change in Vision Ears: absent: Disequilibrium, Dizziness Nose/Mouth/Throat: absent: Nasal Discharge, Sore Throat, Facial Pain, Neck Pain - Cardiovascular Cardiovascular: Palpitations (durign the overnight 20 beat VT event). absent: Chest Pain, Chest Pain with Activity, Diaphoresis, Dyspnea, Edema, Leg Edema, Lightheadedness, Orthopnea, Syncope - Respiratory Respiratory: absent: Cough, Dyspnea, Dyspnea on Exertion, Wheezing - Gastrointestinal Gastrointestinal: absent: Abdominal Pain, Constipation, Diarrhea, Nausea, Vomiting - Genitourinary Genitourinary: absent: Change in Urinary Stream, Difficulty Urinating, Dysuria - Musculoskeletal Musculoskeletal: absent: Joint Swelling, Muscle Cramps, Muscle Weakness, Tingling - Integumentary Integumentary: absent: Lesions, Rash, Wounds - Neurological Neurological: absent: Dizziness, Numbness, Sensory Deficit, Syncope, Tingling, Tremor, Vertigo, Weakness - Endocrine Endocrine: absent: Cold Intolorance, Heat Intolorance, Polydipsia, Polyphagia Past Patient History - Past Medical History & Family History Past Medical History?: Yes - Past Social History Smoking Status: Heavy Smoker > 10 Cigarettes Daily - CARDIAC Hx Congestive Heart Failure: Yes Hx Hypercholesterolemia: Yes Hx Hypertension: Yes - PULMONARY Hx Asthma: Yes - NEUROLOGICAL Hx Neurological Disorder: No - RENAL Hx Chronic Kidney Disease: No - ENDOCRINE/METABOLIC Hx Endocrine Disorders: Yes Hx Diabetes Mellitus Type 2: Yes - HEMATOLOGICAL/ONCOLOGICAL Hx Blood Disorders: No - INTEGUMENTARY Hx Dermatological Problems: No - MUSCULOSKELETAL/RHEUMATOLOGICAL Hx Falls: No - GASTROINTESTINAL Hx Gastrointestinal Disorders: No - GENITOURINARY/GYNECOLOGICAL Hx Genitourinary Disorders: No - PSYCHIATRIC Hx Substance Use: No - SURGICAL HISTORY Hx Surgeries: No Other/Comment: pt. had cardiac cath. - ANESTHESIA Hx Anesthesia: No Hx Anesthesia Reactions: No Hx Malignant Hyperthermia: No Has any member of the family had a problem w/ anesthesia?: No Meds Allergies/Adverse Reactions: Allergies Allergy/AdvReac Type Severity Reaction Status Date / Time No Known Allergies Allergy Verified 02/21/17 10:06 - Medications Medications: Current Medications Albuterol/Ipratropium (Duoneb 3 Mg/0.5 Mg (3 Ml) Ud) 3 ml INH RQ6 [facility] Last Admin: 02/24/17 07:26 Dose: 3 ml Amiodarone HCl (Cordarone) 400 mg PO TID [facility] Last Admin: 02/24/17 09:59 Dose: 400 mg Aspirin (Aspirin Chewable) 81 mg PO DAILY [facility] Last Admin: 02/24/17 10:03 Dose: 81 mg Carvedilol (Coreg) 6.25 mg PO BID [facility] Last Admin: 02/24/17 09:59 Dose: 6.25 mg Digoxin (Lanoxin) 0.25 mg PO DAILY@1800 [facility] Last Admin: 02/23/17 17:38 Dose: 0.25 mg Enalapril Maleate (Vasotec) 2.5 mg PO DAILY [facility] Last Admin: 02/24/17 09:59 Dose: 2.5 mg Enoxaparin Sodium (Lovenox) 40 mg SC DAILY [facility] Last Admin: 02/24/17 10:07 Dose: Not Given Furosemide (Lasix) 20 mg IVP DAILY [facility] Last Admin: 02/24/17 10:00 Dose: 20 mg Azithromycin 500 mg/ Sodium (Chloride) 250 mls @ 250 mls/hr IVPB DAILY [facility] Last Admin: 02/24/17 10:00 Dose: 250 mls/hr Ceftriaxone Sodium 1 gm/ (Sodium Chloride) 100 mls @ 100 mls/hr IVPB Q12H [facility] Last Admin: 02/24/17 10:00 Dose: 100 mls/hr Insulin Glargine (Lantus) 80 unit SC 1000 [facility] Last Admin: 02/24/17 10:03 Dose: Not Given Insulin Glargine (Lantus) 50 unit SC 2200 [facility] Last Admin: 02/23/17 21:31 Dose: 50 units Insulin Human Regular (Novolin R) 0 unit SC ACHS [facility] PRN Reason: Protocol Last Admin: 02/24/17 08:21 Dose: 2 unit Pantoprazole Sodium (Protonix Ec Tab) 40 mg PO DAILY [facility] Last Admin: 02/24/17 09:59 Dose: 40 mg Physical Exam - Constitutional Appears: Well, No Acute Distress - Head Exam Head Exam: ATRAUMATIC, NORMAL INSPECTION, NORMOCEPHALIC - Eye Exam Eye Exam: EOMI, Normal appearance - ENT Exam ENT Exam: Mucous Membranes Moist, Normal Exam - Neck Exam Neck exam: Positive for: Full Rom, Normal Inspection. Negative for: Lymphadenopathy, Tenderness - Respiratory Exam Respiratory Exam: Clear to Auscultation Bilateral, NORMAL BREATHING PATTERN. absent: Rales, Rhonchi, Wheezes, Stridor - Cardiovascular Exam Cardiovascular Exam: REGULAR RHYTHM, RRR, +S1, +S2. absent: Diastolic murmur, Systolic Murmur - GI/Abdominal Exam GI & Abdominal Exam: Normal Bowel Sounds, Soft. absent: Distended, Firm, Guarding, Tenderness - Extremities Exam Extremities exam: Positive for: normal capillary refill, normal inspection, pedal pulses present. Negative for: tenderness - Neurological Exam Neurological exam: Alert, CN II-XII Intact, Oriented x3 - Skin Skin Exam: Dry, Intact, Normal Color, Warm Results - Vital Signs Recent Vital Signs: Last Vital Signs Temp 97 F L 02/24/17 07:00 Pulse 91 H 02/24/17 08:00 Resp 20 02/24/17 07:00 BP 110/70 02/24/17 10:00 Pulse Ox 99 02/24/17 07:00 - Labs Result Diagrams: 02/24/17 07:36 02/24/17 07:36 Labs: Laboratory Results - last 24 hr 02/23/17 02/23/17 02/23/17 11:15 16:17 17:11 WBC RBC Hgb Hct MCV MCH MCHC RDW Plt Count MPV Neut % (Auto) Lymph % (Auto) Barton % (Auto) Eos % (Auto) Baso % (Auto) Neut # Lymph # Barton # Eos # Baso # Sodium Potassium Chloride Carbon Dioxide Anion Gap BUN Creatinine Est GFR ( Amer) Est GFR (Non-Af Amer) POC Glucose (mg/dL) 137 H 187 H Random Glucose Calcium Total Bilirubin AST ALT Alkaline Phosphatase Total Protein Albumin Globulin Albumin/Globulin Ratio Digoxin < 0.4 L 02/23/17 02/24/17 02/24/17 21:02 06:17 07:36 WBC 10.5 RBC 4.29 L Hgb 12.7 Hct 37.9 MCV 88.2 MCH 29.6 MCHC 33.5 RDW 12.9 Plt Count 253 MPV 9.8 Neut % (Auto) 58.5 Lymph % (Auto) 28.1 Barton % (Auto) 6.7 Eos % (Auto) 5.9 H Baso % (Auto) 0.8 Neut # 6.1 Lymph # 2.9 Barton # 0.7 Eos # 0.6 Baso # 0.1 Sodium Potassium Chloride Carbon Dioxide Anion Gap BUN Creatinine Est GFR ( Amer) Est GFR (Non-Af Amer) POC Glucose (mg/dL) 206 H 190 H Random Glucose Calcium Total Bilirubin AST ALT Alkaline Phosphatase Total Protein Albumin Globulin Albumin/Globulin Ratio Digoxin 02/24/17 07:36 WBC RBC Hgb Hct MCV MCH MCHC RDW Plt Count MPV Neut % (Auto) Lymph % (Auto) Barton % (Auto) Eos % (Auto) Baso % (Auto) Neut # Lymph # Barton # Eos # Baso # Sodium 139 Potassium 3.9 Chloride 100 Carbon Dioxide 29 Anion Gap 14 BUN 24 H Creatinine 0.9 Est GFR ( Amer) > 60 Est GFR (Non-Af Amer) > 60 POC Glucose (mg/dL) Random Glucose 175 H Calcium 8.0 L Total Bilirubin 0.6 AST 18 ALT 29 Alkaline Phosphatase 90 Total Protein 6.7 Albumin 3.4 L Globulin 3.3 Albumin/Globulin Ratio 1.0 Digoxin Assessment & Plan (1) Ventricular tachycardia Assessment and Plan: For transfer to [facility] today for ICD placement Dr. Alvarado accepting physician at [facility] form completed in chart Loading Amiodarone dose 400mg PO TID after 3 doses, continue Amiodarone 200mg PO daily - EKG 02/21: NSR with occasional PVC, 100 bpm, normal physio axis, FL interval normal, QRS 124, QTC prolonged 472, ST elevation in V2-V3, LA enlargement. - Echo 02/21: LVEF 29%, LV severely dilated. Global hypokinesis of LV, LAP mildly elevated, moderated degree of LA diastolic dysfunction. - 02/22 CXR: semi-erect portable, interval improvement and almost complete relolustion of RLL increased markings since previous exam. - 02/23 Rhythm strip: both VT events showed sustained VTs with R on T phenomena. Spontaneous resolution in both events. - Discussed with patient the risks, benefits, and alternatives of ICD placement. Patient verbally confirmed understanding and has agreed to have ICD placed. Case Discussed with Dr. Von Fair PGY1 Status: Acute <Krista Longoria - Last Filed: 03/08/17 12:18> Results - Vital Signs Recent Vital Signs: Last Vital Signs Temp 97.5 F L 02/25/17 07:07 Pulse 68 02/25/17 08:00 Resp 20 02/25/17 07:07 BP 146/65 02/25/17 10:04 Pulse Ox 95 02/25/17 07:07 - Labs Result Diagrams: 02/25/17 06:27 02/25/17 06:27 Attending/Attestation - Attestation I have personally seen and examined this patient.: Yes I have fully participated in the care of the patient.: Yes I have reviewed all pertinent clinical information: Yes Notes (Text): 03/08/17 12:18 will schedule tx for ICD VT run low ef
--- NOTE | 2017-02-24 13:25 | CP.PCM.PN ---
Subjective - Date & Time of Evaluation Date of Evaluation: 02/24/17 Time of Evaluation: 13:24 - Subjective Subjective: D/W DR. Salas , PT WILL BE TRANSFERRED TO [facility] FOR AICD ON [facility] PT HAD NORMAL CORONARIES BY CATH Objective - Vital Signs/Intake and Output Vital Signs (last 24 hours): Temp Pulse Resp BP Pulse Ox 97 F L 91 H 20 110/70 99 02/24/17 07:00 02/24/17 08:00 02/24/17 07:00 02/24/17 10:00 02/24/17 07:00 Intake and Output: 02/24/17 02/24/17 11:59 23:59 Intake Total 240 Balance 240 - Medications Medications: Current Medications Albuterol/Ipratropium (Duoneb 3 Mg/0.5 Mg (3 Ml) Ud) 3 ml INH RQ6 [facility] Last Admin: 02/24/17 07:26 Dose: 3 ml Amiodarone HCl (Cordarone) 400 mg PO TID [facility] Stop: 02/25/17 00:00 Last Admin: 02/24/17 09:59 Dose: 400 mg Amiodarone HCl (Cordarone) 200 mg PO DAILY [facility] Aspirin (Aspirin Chewable) 81 mg PO DAILY [facility] Last Admin: 02/24/17 10:03 Dose: 81 mg Carvedilol (Coreg) 6.25 mg PO BID [facility] Last Admin: 02/24/17 09:59 Dose: 6.25 mg Digoxin (Lanoxin) 0.25 mg PO DAILY@1800 [facility] Last Admin: 02/23/17 17:38 Dose: 0.25 mg Enalapril Maleate (Vasotec) 2.5 mg PO DAILY [facility] Last Admin: 02/24/17 09:59 Dose: 2.5 mg Enoxaparin Sodium (Lovenox) 40 mg SC DAILY [facility] Last Admin: 02/24/17 10:07 Dose: Not Given Furosemide (Lasix) 20 mg IVP DAILY [facility] Last Admin: 02/24/17 10:00 Dose: 20 mg Azithromycin 500 mg/ Sodium (Chloride) 250 mls @ 250 mls/hr IVPB DAILY [facility] Last Admin: 02/24/17 10:00 Dose: 250 mls/hr Ceftriaxone Sodium 1 gm/ (Sodium Chloride) 100 mls @ 100 mls/hr IVPB Q12H [facility] Last Admin: 02/24/17 10:00 Dose: 100 mls/hr Insulin Glargine (Lantus) 80 unit SC 1000 [facility] Last Admin: 02/24/17 10:03 Dose: Not Given Insulin Glargine (Lantus) 50 unit SC 2200 [facility] Last Admin: 02/23/17 21:31 Dose: 50 units Insulin Human Regular (Novolin R) 0 unit SC ACHS [facility] PRN Reason: Protocol Last Admin: 02/24/17 11:55 Dose: Not Given Pantoprazole Sodium (Protonix Ec Tab) 40 mg PO DAILY [facility] Last Admin: 02/24/17 09:59 Dose: 40 mg - Labs Labs: 02/24/17 07:36 02/24/17 07:36 PT 11.5 SECONDS (9.7-12.2) 02/22/17 06:27 INR 1.0 02/22/17 06:27 APTT 27 SECONDS (21-34) 02/22/17 06:27
--- NOTE | 2017-02-24 16:07 | CP.PCM.PN ---
<Joo Zamudio - Last Filed: 02/24/17 16:04> Subjective - Date & Time of Evaluation Date of Evaluation: 02/24/17 Time of Evaluation: 16:04 - Subjective Subjective: PGY-1 Medicine Progress Note for Dr. Lizarraga Patient seen and examined at bedside this AM. No acute vent overnight. Patient resting in bed comfortably. Patient going for cardiac cath today. Patient will also be transferred to [facility] for AICD placement. Breathing has improved. Patient tolerating diet, urinating without difficulty, and ambulating around the floor with SOB or cp. Denies fever/chills, cp, palpiations, abd pain, n/v/d , incontinence. Objective - Vital Signs/Intake and Output Vital Signs (last 24 hours): Temp Pulse Resp BP Pulse Ox 97 F L 97 H 20 110/70 99 02/24/17 07:00 02/24/17 12:00 02/24/17 07:00 02/24/17 10:00 02/24/17 07:00 Intake and Output: 02/24/17 02/24/17 06:59 18:59 Intake Total 310 830 Output Total 900 Balance -590 830 - Medications Medications: Current Medications Albuterol/Ipratropium (Duoneb 3 Mg/0.5 Mg (3 Ml) Ud) 3 ml INH RQ6 [facility] Last Admin: 02/24/17 07:26 Dose: 3 ml Amiodarone HCl (Cordarone) 400 mg PO TID [facility] Stop: 02/25/17 00:00 Last Admin: 02/24/17 13:45 Dose: Not Given Amiodarone HCl (Cordarone) 200 mg PO DAILY [facility] Aspirin (Aspirin Chewable) 81 mg PO DAILY [facility] Last Admin: 02/24/17 10:03 Dose: 81 mg Carvedilol (Coreg) 6.25 mg PO BID [facility] Last Admin: 02/24/17 09:59 Dose: 6.25 mg Digoxin (Lanoxin) 0.25 mg PO DAILY@1800 [facility] Last Admin: 02/23/17 17:38 Dose: 0.25 mg Enalapril Maleate (Vasotec) 2.5 mg PO DAILY [facility] Last Admin: 02/24/17 09:59 Dose: 2.5 mg Enoxaparin Sodium (Lovenox) 40 mg SC DAILY [facility] Last Admin: 02/24/17 10:07 Dose: Not Given Furosemide (Lasix) 20 mg IVP DAILY [facility] Last Admin: 02/24/17 10:00 Dose: 20 mg Azithromycin 500 mg/ Sodium (Chloride) 250 mls @ 250 mls/hr IVPB DAILY [facility] Last Admin: 02/24/17 10:00 Dose: 250 mls/hr Ceftriaxone Sodium 1 gm/ (Sodium Chloride) 100 mls @ 100 mls/hr IVPB Q12H [facility] Last Admin: 02/24/17 10:00 Dose: 100 mls/hr Insulin Glargine (Lantus) 80 unit SC 1000 [facility] Last Admin: 02/24/17 10:03 Dose: Not Given Insulin Glargine (Lantus) 50 unit SC 2200 [facility] Last Admin: 02/23/17 21:31 Dose: 50 units Insulin Human Regular (Novolin R) 0 unit SC ACHS [facility] PRN Reason: Protocol Last Admin: 02/24/17 11:55 Dose: Not Given Pantoprazole Sodium (Protonix Ec Tab) 40 mg PO DAILY [facility] Last Admin: 02/24/17 09:59 Dose: 40 mg - Labs Labs: 02/24/17 07:36 02/24/17 07:36 PT 11.5 SECONDS (9.7-12.2) 02/22/17 06:27 INR 1.0 02/22/17 06:27 APTT 27 SECONDS (21-34) 02/22/17 06:27 - Constitutional Appears: No Acute Distress - Head Exam Head Exam: ATRAUMATIC, NORMOCEPHALIC - Eye Exam Eye Exam: EOMI, Normal appearance Pupil Exam: PERRL - ENT Exam ENT Exam: Mucous Membranes Moist - Neck Exam Neck Exam: Normal Inspection - Respiratory Exam Respiratory Exam: Clear to Ausculation Bilateral, NORMAL BREATHING PATTERN. absent: Accessory Muscle Use, Respiratory Distress - Cardiovascular Exam Cardiovascular Exam: REGULAR RHYTHM, +S1, +S2 - GI/Abdominal Exam GI & Abdominal Exam: Soft, Normal Bowel Sounds. absent: Tenderness - Extremities Exam Extremities Exam: Normal Capillary Refill. absent: Calf Tenderness, Pedal Edema - Back Exam Back Exam: absent: CVA tenderness (L), CVA tenderness (R) - Neurological Exam Neurological Exam: Alert, Awake, CN II-XII Intact, Normal Gait, Oriented x3 - Psychiatric Exam Psychiatric exam: Normal Affect, Normal Mood - Skin Skin Exam: Dry, Intact, Normal Color, Warm Assessment and Plan - Assessment and Plan (Free Text) Plan: 1. CHF telemetry Acute on Chronic CHF (systolic dysfunction) Patient will be transferred to [facility] for AICD Patient had cardiac cath today - normal coronaries Amiodarone 200 mg PO daily ECHO: LV severely dilated, EF 25-30%, global hypokinesis of LV, Left atrial pressure slightly elevated, mod degree of LV diastolic dysfuntion, left atrium is severely dilated, right atrium mildly elevated, mitral regurg mod to severe ( see full report). had 20 beat v tach run overnight and 6 beat v tach run at 9 am, patient asymptomatic Restart Coreg 6.125 PO BID Lasix decreased to 20 mg IVP daily Cardiology consult, Dr. Lerner, help appreciated - patient sees him as outpatient 02/22 CXR: interval improvement (see full report) CXR: Moderate venous congestion. Right hilar prominence. Patchy increased marked at the right lung base (see full report) EKG HA1C 11.0 TSH 0.52 T4 5.80 Lipid panel triglycerides 45, total 187, LDL 110, HDL 46 Stephany x 3 negative ECHO Duoneb 3 ml INH RQ6 [facility] 81 mg PO daily Digoxin 0.25 mg PO dialy Enalapril 2.5 mg PO daily I's & O's daily weights Oxygen PRN HHD, mod carb 2. Suspected Pneumonia 02/22 CXR: interval improvement (see full report) leukocytosis, afebrile CXR: Moderate venous congestion. Right hilar prominence. Patchy increased marked at the right lung base (see full report) Azithromycin 500 mg IVPB daily Rocephin 1 gm IVPB Q12H Oxygen PRN 3. DM Lantus 80 units SC in AM and 50 units SC HS - patient takes 130 units daily at home ISS Accuchecks HA1C 11.0 Monitor glucose HHD, mod carb 3. Prophylactic Measures Protonix 40 mg PO daily SCDs Lovenox 40 mg SC daily <Lizarraga,Peter H - Last Filed: 02/24/17 17:20> Objective - Vital Signs/Intake and Output Vital Signs (last 24 hours): Temp Pulse Resp BP Pulse Ox 97 F L 97 H 20 110/70 99 02/24/17 07:00 02/24/17 12:00 02/24/17 07:00 02/24/17 10:00 02/24/17 07:00 Intake and Output: 02/24/17 02/24/17 06:59 18:59 Intake Total 310 830 Output Total 900 Balance -590 830 - Medications Medications: Current Medications Albuterol/Ipratropium (Duoneb 3 Mg/0.5 Mg (3 Ml) Ud) 3 ml INH RQ6 [facility] Last Admin: 02/24/17 07:26 Dose: 3 ml Amiodarone HCl (Cordarone) 400 mg PO TID [facility] Stop: 02/25/17 00:00 Last Admin: 02/24/17 13:45 Dose: Not Given Amiodarone HCl (Cordarone) 200 mg PO DAILY [facility] Aspirin (Aspirin Chewable) 81 mg PO DAILY [facility] Last Admin: 02/24/17 10:03 Dose: 81 mg Carvedilol (Coreg) 6.25 mg PO BID [facility] Last Admin: 02/24/17 09:59 Dose: 6.25 mg Digoxin (Lanoxin) 0.25 mg PO DAILY@1800 [facility] Last Admin: 02/23/17 17:38 Dose: 0.25 mg Enalapril Maleate (Vasotec) 2.5 mg PO DAILY [facility] Last Admin: 02/24/17 09:59 Dose: 2.5 mg Enoxaparin Sodium (Lovenox) 40 mg SC DAILY [facility] Last Admin: 02/24/17 10:07 Dose: Not Given Furosemide (Lasix) 20 mg IVP DAILY [facility] Last Admin: 02/24/17 10:00 Dose: 20 mg Azithromycin 500 mg/ Sodium (Chloride) 250 mls @ 250 mls/hr IVPB DAILY [facility] Last Admin: 02/24/17 10:00 Dose: 250 mls/hr Ceftriaxone Sodium 1 gm/ (Sodium Chloride) 100 mls @ 100 mls/hr IVPB Q12H [facility] Last Admin: 02/24/17 10:00 Dose: 100 mls/hr Insulin Glargine (Lantus) 80 unit SC 1000 [facility] Last Admin: 02/24/17 10:03 Dose: Not Given Insulin Glargine (Lantus) 50 unit SC 2200 [facility] Last Admin: 02/23/17 21:31 Dose: 50 units Insulin Human Regular (Novolin R) 0 unit SC ACHS [facility] PRN Reason: Protocol Last Admin: 02/24/17 11:55 Dose: Not Given Pantoprazole Sodium (Protonix Ec Tab) 40 mg PO DAILY [facility] Last Admin: 02/24/17 09:59 Dose: 40 mg - Labs Labs: 02/24/17 07:36 02/24/17 07:36 PT 11.5 SECONDS (9.7-12.2) 02/22/17 06:27 INR 1.0 02/22/17 06:27 APTT 27 SECONDS (21-34) 02/22/17 06:27 Attending/Attestation - Attestation I have personally seen and examined this patient.: Yes I have fully participated in the care of the patient.: Yes I have reviewed all pertinent clinical information, including history, physical exam and plan: Yes Notes (Text): Medical Attending: Patient was seen and examined by me. Agree with the above by the resident. Patient will be having to go to [facility] after discussing with EP cardiology. The echo returned and shows there's an EF of 25 to 30% as well as severeled dialted ventricles and hypokinesis. In the mean time restarted Coreg and continue with digoxin, vasotech. Amiodarone has been started. Javy Lizarraga
[2017-02-24] MEDS: Digoxin 250 mcg (0.25 mg) Tab PO SCH (18:00)
[2017-02-25] MEDS: Albuterol-Ipratrop 3 mg / 0.5 (3 ml) UD INH SCH ×2 (01:22→09:08)
[2017-02-25 01:24] VITALS: O2SAT 95
[2017-02-25 06:55] LABS: CHLORIDE 97 mmol/L (98-107)
[2017-02-25 06:56] LABS: SODIUM 134 mmol/L (132-148)
[2017-02-25 06:58] LABS: AST/SGOT 18 U/L (17-59); BILIRUBIN,TOTAL 0.6 mg/dL (0.2-1.3); CARBON DIOXIDE 29 mmol/L (22-30); GFR AFRICAN-AMERICAN > 60; TOTAL PROTEIN 6.5 g/dL (6.3-8.3)
[2017-02-25 06:59] LABS: ALKALINE PHOSPHATASE 108 U/L (38-126); ALT/SGPT 29 U/L (21-72); BLOOD UREA NITROGEN 19 mg/dL (9-20); CALCIUM 7.9 mg/dl (8.6-10.4); GLUCOSE,RANDOM 227 mg/dL (75-110)
[2017-02-25 07:00] LABS: BASO # 0.1 K/uL (0.0-0.2); BASO % 0.6 % (0.0-2.0); EOS # 0.5 K/uL (0.0-0.7); EOS % 4.9 % (0.0-4.0); HEMATOCRIT 38.1 % (35.0-51.0); LYMPH # 2.4 K/uL (1.0-4.3); LYMPH % 22.3 % (20.0-40.0); MEAN CELL VOLUME 88.4 fL (80.0-94.0); MEAN CORPUSCULAR HEMOGLOBIN 29.3 pg (27.0-31.0); MEAN CORPUSCULAR HGB CONC 33.2 g/dL (33.0-37.0); MEAN PLATELET VOLUME 9.4 fL (7.2-11.7); MONO # 0.7 K/uL (0.0-0.8); MONO % 6.4 % (0.0-10.0); NRBC % 0.2 % (0.0-2.0); RED CELL DISTRIBUTION WIDTH 13.3 % (11.5-14.5); WHITE BLOOD COUNT 10.7 K/uL (4.8-10.8)
--- NOTE | 2017-02-25 07:47 | CP.PCM.PN ---
Subjective - Date & Time of Evaluation Date of Evaluation: 02/25/17 Time of Evaluation: 07:40 - Subjective Subjective: Pt wound c/d/I no pain at site tolerating PO Objective - Vital Signs/Intake and Output Vital Signs (last 24 hours): Temp Pulse Resp BP Pulse Ox 97.3 F L 59 L 20 96/67 L 95 02/24/17 23:10 02/24/17 23:10 02/24/17 23:10 02/24/17 23:10 02/24/17 23:10 Intake and Output: 02/25/17 02/25/17 06:59 18:59 Intake Total 340 Balance 340 - Medications Medications: Current Medications Albuterol/Ipratropium (Duoneb 3 Mg/0.5 Mg (3 Ml) Ud) 3 ml INH RQ6 [facility] Last Admin: 02/25/17 01:22 Dose: 3 ml Amiodarone HCl (Cordarone) 200 mg PO DAILY [facility] Aspirin (Aspirin Chewable) 81 mg PO DAILY [facility] Last Admin: 02/24/17 10:03 Dose: 81 mg Carvedilol (Coreg) 6.25 mg PO BID [facility] Last Admin: 02/24/17 18:00 Dose: Not Given Digoxin (Lanoxin) 0.25 mg PO DAILY@1800 [facility] Last Admin: 02/24/17 18:00 Dose: Not Given Enalapril Maleate (Vasotec) 2.5 mg PO DAILY [facility] Last Admin: 02/24/17 09:59 Dose: 2.5 mg Enoxaparin Sodium (Lovenox) 40 mg SC DAILY [facility] Last Admin: 02/24/17 10:07 Dose: Not Given Furosemide (Lasix) 20 mg IVP DAILY [facility] Last Admin: 02/24/17 10:00 Dose: 20 mg Azithromycin 500 mg/ Sodium (Chloride) 250 mls @ 250 mls/hr IVPB DAILY [facility] Last Admin: 02/24/17 10:00 Dose: 250 mls/hr Ceftriaxone Sodium 1 gm/ (Sodium Chloride) 100 mls @ 100 mls/hr IVPB Q12H [facility] Last Admin: 02/24/17 21:52 Dose: 100 mls/hr Insulin Glargine (Lantus) 80 unit SC 1000 [facility] Last Admin: 02/24/17 10:03 Dose: Not Given Insulin Glargine (Lantus) 50 unit SC 2200 [facility] Last Admin: 02/24/17 21:55 Dose: 50 units Insulin Human Regular (Novolin R) 0 unit SC ACHS [facility] PRN Reason: Protocol Last Admin: 02/24/17 21:51 Dose: Not Given Pantoprazole Sodium (Protonix Ec Tab) 40 mg PO DAILY [facility] Last Admin: 02/24/17 09:59 Dose: 40 mg - Labs Labs: 02/25/17 06:27 02/25/17 06:27 PT 11.5 SECONDS (9.7-12.2) 02/22/17 06:27 INR 1.0 02/22/17 06:27 APTT 27 SECONDS (21-34) 02/22/17 06:27 - Constitutional Appears: Well - Head Exam Head Exam: ATRAUMATIC - Eye Exam Eye Exam: Normal appearance - ENT Exam ENT Exam: Mucous Membranes Moist - Respiratory Exam Respiratory Exam: Clear to Ausculation Bilateral - Cardiovascular Exam Cardiovascular Exam: REGULAR RHYTHM, Murmur - GI/Abdominal Exam GI & Abdominal Exam: Normal Bowel Sounds - Exam External exam: NORMAL EXTERNAL EXAM - Extremities Exam Extremities Exam: Normal Inspection - Neurological Exam Neurological Exam: Alert, Awake - Psychiatric Exam Psychiatric exam: Normal Affect, Normal Mood - Skin Skin Exam: Dry Assessment and Plan (1) Acute exacerbation of CHF (congestive heart failure) Assessment & Plan: continue chf meds ICD stable fx normal follow up as outpt Status: Acute (2) Ventricular tachycardia Status: Acute
[2017-02-25 08:12] VITALS: TEMP 97.5
[2017-02-25] MEDS: (Novolin R) Insulin Human Regular 100 units/ml vial SC SCH ×2 (08:59→13:08)
[2017-02-25] MEDS: Enoxaparin 40 mg Syringe SC SCH (10:02)
[2017-02-25] MEDS: Pantoprazole 40 mg EC Tab PO SCH (10:03)
[2017-02-25] MEDS: Azithromycin 500 MG in Sodium Chloride 0.9% 250 ML IVPB SCH (10:12)
[2017-02-25] MEDS: (Lantus) Insulin Glargine, Recombinant SC SCH (10:12)
[2017-02-25 10:13] VITALS: BP 146/65
--- NOTE | 2017-02-25 11:02 | CP.PCM.DIS ---
<Agustina Hodge - Last Filed: 02/25/17 17:32> Provider - Provider Date of Admission: 02/21/17 13:27 Attending physician: Javy Lizarraga DO Primary care physician: Dr. Knapp Consults: [facility] cardiology - Dr. Longoria Cardiology - Dr. Lerner Time Spent in preparation of Discharge (in minutes): 35 Hospital Course - Lab Results Lab Results: Most Recent Lab Values WBC 10.7 K/uL (4.8-10.8) 02/25/17 06:27 RBC 4.31 Mil/uL (4.40-5.90) L 02/25/17 06:27 Hgb 12.6 g/dL (12.0-18.0) 02/25/17 06:27 Hct 38.1 % (35.0-51.0) 02/25/17 06:27 MCV 88.4 fL (80.0-94.0) 02/25/17 06:27 MCH 29.3 pg (27.0-31.0) 02/25/17 06:27 MCHC 33.2 g/dL (33.0-37.0) 02/25/17 06:27 RDW 13.3 % (11.5-14.5) 02/25/17 06:27 Plt Count 240 K/uL (130-400) 02/25/17 06:27 MPV 9.4 fL (7.2-11.7) 02/25/17 06:27 Neut % (Auto) 65.8 % (50.0-75.0) 02/25/17 06:27 Lymph % (Auto) 22.3 % (20.0-40.0) 02/25/17 06:27 Sullivan % (Auto) 6.4 % (0.0-10.0) 02/25/17 06:27 Eos % (Auto) 4.9 % (0.0-4.0) H 02/25/17 06:27 Baso % (Auto) 0.6 % (0.0-2.0) 02/25/17 06:27 Neut # 7.1 K/uL (1.8-7.0) H 02/25/17 06:27 Lymph # 2.4 K/uL (1.0-4.3) 02/25/17 06:27 Sullivan # 0.7 K/uL (0.0-0.8) 02/25/17 06:27 Eos # 0.5 K/uL (0.0-0.7) 02/25/17 06:27 Baso # 0.1 K/uL (0.0-0.2) 02/25/17 06:27 Neutrophils % (Manual) 88 % (50-75) H 02/22/17 06:27 Band Neutrophils % 1 % (0-2) 02/22/17 06:27 Lymphocytes % (Manual) 6 % (20-40) L 02/22/17 06:27 Monocytes % (Manual) 5 % (0-10) 02/22/17 06:27 Platelet Estimate Normal (NORMAL) 02/22/17 06:27 RBC Morphology Normal 02/22/17 06:27 PT 11.5 SECONDS (9.7-12.2) 02/22/17 06:27 INR 1.0 02/22/17 06:27 APTT 27 SECONDS (21-34) 02/22/17 06:27 Sodium 134 mmol/L (132-148) 02/25/17 06:27 Potassium 4.0 mmol/L (3.6-5.2) 02/25/17 06:27 Chloride 97 mmol/L (98-107) L 02/25/17 06:27 Carbon Dioxide 29 mmol/L (22-30) 02/25/17 06:27 Anion Gap 12 (10-20) 02/25/17 06:27 BUN 19 mg/dL (9-20) 02/25/17 06:27 Creatinine 0.7 MG/DL (0.8-1.5) L 02/25/17 06:27 Est GFR ( Amer) > 60 02/25/17 06:27 Est GFR (Non-Af Amer) > 60 02/25/17 06:27 POC Glucose (mg/dL) 215 mg/dL (65-110) H 02/25/17 06:18 Random Glucose 227 mg/dL (75-110) H 02/25/17 06:27 Hemoglobin A1c 11.0 % (4.2-6.5) H 02/21/17 18:25 Calcium 7.9 mg/dl (8.6-10.4) L 02/25/17 06:27 Total Bilirubin 0.6 mg/dL (0.2-1.3) 02/25/17 06:27 AST 18 U/L (17-59) 02/25/17 06:27 ALT 29 U/L (21-72) 02/25/17 06:27 Alkaline Phosphatase 108 U/L (38-126) 02/25/17 06:27 Total Creatine Kinase 132 U/L (55-170) 02/22/17 00:36 CK-MB (Mass) 1.45 ng/mL (0.0-3.38) 02/22/17 00:36 Troponin I 0.0760 ng/mL (0.00-0.120) 02/21/17 12:40 Troponin I, Quant 0.0580 ng/mL (0.00-0.120) 02/22/17 00:36 NT-Pro-B Natriuret Pep 1940 pg/mL (0-900) H 02/21/17 12:40 Total Protein 6.5 g/dL (6.3-8.3) 02/25/17 06:27 Albumin 3.3 g/dL (3.5-5.0) L 02/25/17 06:27 Globulin 3.2 gm/dL (2.2-3.9) 02/25/17 06:27 Albumin/Globulin Ratio 1.0 (1.0-2.1) 02/25/17 06:27 Triglycerides 45 mg/dL (0-149) D 02/21/17 18:25 Cholesterol 187 mg/dL (0-199) 02/21/17 18:25 LDL Cholesterol Direct 110 mg/dL (0-129) 02/21/17 18:25 HDL Cholesterol 46 mg/dL (30-70) 02/21/17 18:25 Thyroxine (T4) 5.80 ug/dL (5.5-11.0) 02/21/17 18:25 TSH 3rd Generation 0.52 mIU/L (0.46-4.68) 02/21/17 18:25 Urine Color Yellow (YELLOW) 02/21/17 12:13 Urine Clarity Clear (Clear) 02/21/17 12:13 Urine pH 5.0 (5.0-8.0) 02/21/17 12:13 Ur Specific [place] 1.013 (1.003-1.030) 02/21/17 12:13 Urine Protein Negative mg/dL (NEGATIVE) 02/21/17 12:13 Urine Glucose (UA) 3+ mg/dL (Normal) H 02/21/17 12:13 Urine Ketones Negative mg/dL (NEGATIVE) 02/21/17 12:13 Urine Blood Negative (NEGATIVE) 02/21/17 12:13 Urine Nitrate Negative (NEGATIVE) 02/21/17 12:13 Urine Bilirubin Negative (NEGATIVE) 02/21/17 12:13 Urine Urobilinogen Normal mg/dL (0.2-1.0) 02/21/17 12:13 Ur Leukocyte Esterase Neg Maddie/uL (Negative) 02/21/17 12:13 Ur Squamous Epith Cells 1 /hpf (0-5) 02/21/17 12:13 Digoxin < 0.4 ng/mL (0.8-2.0) L 02/23/17 17:11 Influenza Typ A,B (EIA) Negative for flu a/b (NEGATIVE) 02/21/17 16:10 - Hospital Course Hospital Course: On admission: CC: "I'm having trouble breathing" HPI: 51 year old male with a PMH of DM2, asthma and CHF who presents to the ED with shortness of breath and chest tightness of 2 days duration. He stated that the symptoms came on gradually and progressively gotten worse. He reports that he has not had medication for 2 weeks due to gap between insurance policies. He also states that he felt sick a few nights ago with fevers, chills and diffuse body aches. He awoke with the symptoms resolved but noted some difficulty breathing had worsened. Similar episodes have occurred 5 years ago and 1 year ago, which he was hospitalized. Patient is complaining of chest discomfort but not quantifiable pain. He described it as someone is sitting on his chest. Laying down and exertion exacerbates his symptoms while nothing alleviates them. Patient sleeps with 3 pillows at night. He states that he gets fatigue and SOB after 10 feet of walking. His last ECHO was several years ago. Admits to recent illness, chest pain, palpitations, shortness of breath, wheezing and cough. Denies leg swelling, nausea, vomiting, diarrhea, constipation, abdominal pain. PMH: CHF, DM2, asthma Meds: Lasix, Coreg, Lipitor, Enalapril, ASA 81, Insulin Allergies: NKDA PSH: none Hosp: 2012 and 2016 for CHF FH: Mother has DM2, father of cardiac-related problems, brother from DM2 complications Social: Pt lives with his and 3 children. He is on SSD. Current 6-7 cigarette/day smoker down from 2-3 PPD x 37 yrs. Never a heavy drinker of alcohol. Remote marijuana use in the . Hospital course: Patient was treated for acute on chronic systolic CHF. Patient had ECHO on which showed LV severely dilated, EF 25-30%, global hypokinesis of LV, Left atrial pressure slightly elevated, mod degree of LV diastolic dysfuntion, left atrium is severely dilated, right atrium mildly elevated, mitral regurg mod to severe (see full report). Patient had cardiac cath 02/24/17 which showed normal coronaries. Patient was placed on amiodarone 200mg PO daily in addition to his home medications. Patient had AICD placed 02/24/[address] Longoria. Patient had AICD interogated this AM. Everything was normal. Dr. Longoria requests discharge with keflex for 3 days. Patient also treated for suspected pneumonia on CXR as he had leukocytosis. Patient finished a 5 day course of azithromycin 500mg IVPB daily and Rocephin 1gm IVPB Q12H. Patient has no complaints of cough or SOB today. Patient seen and examined this AM. He has no complaints except slight tenderness at site of biventricular AICD insertion. Patient walking around and says he feels good and wants to go home. Patient discharged with amiodarone 200mg PO daily #30 and Keflex 500mg PO BID # 6 scripts. Patient instructed to follow up with Dr. Lerner, Dr. Longoria and PMD in the [facility]. Imaging and results: ECHO: LV severely dilated, EF 25-30%, global hypokinesis of LV, Left atrial pressure slightly elevated, mod degree of LV diastolic dysfuntion, left atrium is severely dilated, right atrium mildly elevated, mitral regurg mod to severe ( see full report). had 20 beat v tach run overnight and 6 beat v tach run at 9 am, patient asymptomatic 02/22 CXR: interval improvement CXR: Moderate venous congestion. Right hilar prominence. Patchy increased marked at the right lung base (see full report) HgbA1C 11.0 TSH 0.52 T4 5.80 Lipid panel triglycerides 45, total 187, LDL 110, HDL 46 Stephany x 3 negative Discharge Exam - Head Exam Head Exam: ATRAUMATIC, NORMOCEPHALIC - Eye Exam Eye Exam: EOMI - ENT Exam ENT Exam: Mucous Membranes Moist - Respiratory Exam Respiratory Exam: Chest Wall Tenderness (at site of AICD insertion) Additional comments: 1.5inch wound at surgical site for AICD insertion. no hematoma. no inflammation. no drainage - Cardiovascular Exam Cardiovascular Exam: REGULAR RHYTHM, +S1, +S2. absent: Gallop, Rubs - GI/Abdominal Exam GI & Abdominal Exam: Normal Bowel Sounds, Soft. absent: Distended, Tenderness - Extremities Exam Extremities exam: normal capillary refill - Neurological Exam Neurological exam: Alert, Oriented x3 - Psychiatric Exam Psychiatric exam: Normal Affect, Normal Mood - Skin Skin Exam: Normal Color, Warm Discharge Plan - Discharge Medications Prescriptions: Amiodarone HCl [Pacerone] 200 mg PO DAILY #30 tab Cephalexin [cephalexin] 500 mg PO Q12H #6 cap - Follow Up Plan Condition: STABLE Disposition: HOME/ ROUTINE Additional Instructions: Patient to be discharged home per Dr. Yasmine Lizarraga. Patient should resume all home medications. Patient should also take newly prescribed medications as directed below. Patient should follow up with front desk manager, Dr. Longoria, within one week and with PMD within one week. If patient does not have PMD, [facility] info has been given. Patient should return to ED immediately if symptoms return or worsen. New Medications: Amiodarone 100mg: take 2 tabs by mouth once a day #60 tabs Keflex 500mg: take 1 tab by mouth twice a day for 3 days #6 tabs Referrals: [facility] at [facility] [Outside] Krista Longoria MD [Staff Provider] - <Javy Lizarraga - Last Filed: 02/25/17 18:17> Provider - Provider Date of Admission: 02/21/17 13:27 Attending physician: Javy Lizarraga DO Hospital Course - Lab Results Lab Results: Most Recent Lab Values WBC 10.7 K/uL (4.8-10.8) 02/25/17 06:27 RBC 4.31 Mil/uL (4.40-5.90) L 02/25/17 06:27 Hgb 12.6 g/dL (12.0-18.0) 02/25/17 06:27 Hct 38.1 % (35.0-51.0) 02/25/17 06:27 MCV 88.4 fL (80.0-94.0) 02/25/17 06:27 MCH 29.3 pg (27.0-31.0) 02/25/17 06:27 MCHC 33.2 g/dL (33.0-37.0) 02/25/17 06:27 RDW 13.3 % (11.5-14.5) 02/25/17 06:27 Plt Count 240 K/uL (130-400) 02/25/17 06:27 MPV 9.4 fL (7.2-11.7) 02/25/17 06:27 Neut % (Auto) 65.8 % (50.0-75.0) 02/25/17 06:27 Lymph % (Auto) 22.3 % (20.0-40.0) 02/25/17 06:27 Sullivan % (Auto) 6.4 % (0.0-10.0) 02/25/17 06:27 Eos % (Auto) 4.9 % (0.0-4.0) H 02/25/17 06:27 Baso % (Auto) 0.6 % (0.0-2.0) 02/25/17 06:27 Neut # 7.1 K/uL (1.8-7.0) H 02/25/17 06:27 Lymph # 2.4 K/uL (1.0-4.3) 02/25/17 06:27 Sullivan # 0.7 K/uL (0.0-0.8) 02/25/17 06:27 Eos # 0.5 K/uL (0.0-0.7) 02/25/17 06:27 Baso # 0.1 K/uL (0.0-0.2) 02/25/17 06:27 Neutrophils % (Manual) 88 % (50-75) H 02/22/17 06:27 Band Neutrophils % 1 % (0-2) 02/22/17 06:27 Lymphocytes % (Manual) 6 % (20-40) L 02/22/17 06:27 Monocytes % (Manual) 5 % (0-10) 02/22/17 06:27 Platelet Estimate Normal (NORMAL) 02/22/17 06:27 RBC Morphology Normal 02/22/17 06:27 PT 11.5 SECONDS (9.7-12.2) 02/22/17 06:27 INR 1.0 02/22/17 06:27 APTT 27 SECONDS (21-34) 02/22/17 06:27 Sodium 134 mmol/L (132-148) 02/25/17 06:27 Potassium 4.0 mmol/L (3.6-5.2) 02/25/17 06:27 Chloride 97 mmol/L (98-107) L 02/25/17 06:27 Carbon Dioxide 29 mmol/L (22-30) 02/25/17 06:27 Anion Gap 12 (10-20) 02/25/17 06:27 BUN 19 mg/dL (9-20) 02/25/17 06:27 Creatinine 0.7 MG/DL (0.8-1.5) L 02/25/17 06:27 Est GFR ( Amer) > 60 02/25/17 06:27 Est GFR (Non-Af Amer) > 60 02/25/17 06:27 POC Glucose (mg/dL) 199 mg/dL (65-110) H 02/25/17 11:34 Random Glucose 227 mg/dL (75-110) H 02/25/17 06:27 Hemoglobin A1c 11.0 % (4.2-6.5) H 02/21/17 18:25 Calcium 7.9 mg/dl (8.6-10.4) L 02/25/17 06:27 Total Bilirubin 0.6 mg/dL (0.2-1.3) 02/25/17 06:27 AST 18 U/L (17-59) 02/25/17 06:27 ALT 29 U/L (21-72) 02/25/17 06:27 Alkaline Phosphatase 108 U/L (38-126) 02/25/17 06:27 Total Creatine Kinase 132 U/L (55-170) 02/22/17 00:36 CK-MB (Mass) 1.45 ng/mL (0.0-3.38) 02/22/17 00:36 Troponin I 0.0760 ng/mL (0.00-0.120) 02/21/17 12:40 Troponin I, Quant 0.0580 ng/mL (0.00-0.120) 02/22/17 00:36 NT-Pro-B Natriuret Pep 1940 pg/mL (0-900) H 02/21/17 12:40 Total Protein 6.5 g/dL (6.3-8.3) 02/25/17 06:27 Albumin 3.3 g/dL (3.5-5.0) L 02/25/17 06:27 Globulin 3.2 gm/dL (2.2-3.9) 02/25/17 06:27 Albumin/Globulin Ratio 1.0 (1.0-2.1) 02/25/17 06:27 Triglycerides 45 mg/dL (0-149) D 02/21/17 18:25 Cholesterol 187 mg/dL (0-199) 02/21/17 18:25 LDL Cholesterol Direct 110 mg/dL (0-129) 02/21/17 18:25 HDL Cholesterol 46 mg/dL (30-70) 02/21/17 18:25 Thyroxine (T4) 5.80 ug/dL (5.5-11.0) 02/21/17 18:25 TSH 3rd Generation 0.52 mIU/L (0.46-4.68) 02/21/17 18:25 Urine Color Yellow (YELLOW) 02/21/17 12:13 Urine Clarity Clear (Clear) 02/21/17 12:13 Urine pH 5.0 (5.0-8.0) 02/21/17 12:13 Ur Specific [place] 1.013 (1.003-1.030) 02/21/17 12:13 Urine Protein Negative mg/dL (NEGATIVE) 02/21/17 12:13 Urine Glucose (UA) 3+ mg/dL (Normal) H 02/21/17 12:13 Urine Ketones Negative mg/dL (NEGATIVE) 02/21/17 12:13 Urine Blood Negative (NEGATIVE) 02/21/17 12:13 Urine Nitrate Negative (NEGATIVE) 02/21/17 12:13 Urine Bilirubin Negative (NEGATIVE) 02/21/17 12:13 Urine Urobilinogen Normal mg/dL (0.2-1.0) 02/21/17 12:13 Ur Leukocyte Esterase Neg Maddie/uL (Negative) 02/21/17 12:13 Ur Squamous Epith Cells 1 /hpf (0-5) 02/21/17 12:13 Digoxin < 0.4 ng/mL (0.8-2.0) L 02/23/17 17:11 Influenza Typ A,B (EIA) Negative for flu a/b (NEGATIVE) 02/21/17 16:10 Attending/Attestation - Attestation I have personally seen and examined this patient.: Yes I have fully participated in the care of the patient.: Yes I have reviewed all pertinent clinical information, including history, physical exam and plan: Yes Notes (Text): 02/25/17 18:16 Medical Attending: Patient was seen and examined by me. Agree with the above note by the resident Patient overnight went to [facility] and had a Bi-Ventricular ICD placed. He is doing well - he is walking in the hallway and asking to go home. Cardiology called this morning and would like for patient to follow up in several days. He needs to take Keflex for 3 more day. thank you Javy Lizarraga
[2017-02-25 12:15] VITALS: PULSE 68
--- NOTE | 2017-02-25 14:02 | CP.PCM.PN ---
Subjective - Date & Time of Evaluation Date of Evaluation: 02/25/17 Time of Evaluation: 14:02 - Subjective Subjective: PT. S/P AICD TOLERATED PROCEDURE WILL F/U OP Objective - Vital Signs/Intake and Output Vital Signs (last 24 hours): Temp Pulse Resp BP Pulse Ox 97.5 F L 68 20 146/65 95 02/25/17 07:07 02/25/17 08:00 02/25/17 07:07 02/25/17 10:04 02/25/17 07:07 - Labs Labs: 02/25/17 06:27 02/25/17 06:27 PT 11.5 SECONDS (9.7-12.2) 02/22/17 06:27 INR 1.0 02/22/17 06:27 APTT 27 SECONDS (21-34) 02/22/17 06:27
--- NOTE | 2017-03-03 07:55 | PCM.HF ---
Heart Failure Core Measure - Heart Failure Ejection Fraction: Less Than 40 % (EF 25-30%) SILVANA Inhibitor Prescribed: Yes Beta-Papi Prescribed: Carvedilol Angiotensin II Receptor Papi Prescribed: No Contraindication/Reason for not providing: ON SILVANA AnticoagulationTherapy for Atrial Fibrillation/Atrialflutter: No Contraindication/Reason for not providing: no afib Aldosterone Antagonist Prescribed: No Contraindication/Reason for not providing: BP controlled Hydralazine Nitrate Prescribed: No Contraindication/Reason for not providing: on amiodarone Implantable Cardioverter Defibrillator Therapy: Yes Cardiac Resynchronization Therapy Prescribed: No Contraindication/Reason for not providing: not indicated - Follow up Will be discharged to: Home Follow Up Date (must be within 7 days from discharge): 03/01/17 Follow Up Time: 09:00
== END 2017-02-25 13:55 | disposition home or self-care (01) | DRG 291 ==
LOC: C.ER 09:48 → C.9E 13:27 → C.6T 19:36
PROVIDERS: ADMIT Hospitalist; ATTEND Hospitalist
DX: I11.0 Hypertensive heart disease with heart failure (principal); J18.9 Pneumonia, unspecified organism; I47.2 Ventricular tachycardia; I50.23 Acute on chronic systolic (congestive) heart failure; F17.210 Nicotine dependence, cigarettes, uncomplicated; E11.9 Type 2 diabetes mellitus without complications; J45.909 Unspecified asthma, uncomplicated; E78.00 Pure hypercholesterolemia, unspecified; Z79.4 Long term (current) use of insulin

== ENCOUNTER 2018-04-09 15:18 | Emergency (ER) | payer MEDICARE ==
[2018-04-09 15:18] VITALS: PULSE 98; BMI 38.0
[2018-04-09 15:42] VITALS: TEMP 98.2
[2018-04-09 16:25] LABS: BASO # 0.1 K/uL (0.0-0.2); EOS # 0.5 K/uL (0.0-0.7); EOS % 4.5 % (0.0-4.0); HEMOGLOBIN 13.6 g/dL (12.0-18.0); LYMPH # 2.6 K/uL (1.0-4.3); LYMPH % 23.3 % (20.0-40.0); MEAN CELL VOLUME 88.9 fL (80.0-94.0); MEAN CORPUSCULAR HEMOGLOBIN 29.9 pg (27.0-31.0); MEAN CORPUSCULAR HGB CONC 33.6 g/dL (33.0-37.0); MEAN PLATELET VOLUME 8.4 fL (7.2-11.7); MONO # 0.8 K/uL (0.0-0.8); MONO % 6.7 % (0.0-10.0); NEUT # 7.2 K/uL (1.8-7.0); NEUT % 64.5 % (50.0-75.0); RBC 4.54 Mil/uL (4.40-5.90); RED CELL DISTRIBUTION WIDTH 13.4 % (11.5-14.5); WHITE BLOOD COUNT 11.2 K/uL (4.8-10.8)
[2018-04-09 16:33] LABS: PROTHROMBIN TIME 11.2 SECONDS (9.7-12.2)
[2018-04-09 16:36] LABS: ALB/GLOB RATIO 1.2 (1.0-2.1); ALBUMIN 4.1 g/dL (3.5-5.0); ALT/SGPT 42 U/L (21-72); AST/SGOT 25 U/L (17-59); BLOOD UREA NITROGEN 16 mg/dL (9-20); CALCIUM 8.9 mg/dl (8.6-10.4); GFR AFRICAN-AMERICAN > 60; GFR NON-AFRICAN AMERICAN > 60
[2018-04-09 16:43] VITALS: O2SAT 96
[2018-04-09 16:48] LABS: B-TYPE NATRIURETIC PEPTIDE 818 pg/mL (0-900); CK-MB 2.82 ng/mL (0.0-3.38)
--- NOTE | 2018-04-09 16:50 | RAD ---
PROCEDURE: CHEST RADIOGRAPH, 1 VIEW HISTORY: SOB COMPARISON: 02/22/2017 FINDINGS: LUNGS: Clear. PLEURA: No pneumothorax or pleural fluid seen. CARDIOVASCULAR: AICD. Normal heart size. No congestive change. OSSEOUS STRUCTURES: No significant abnormalities. VISUALIZED UPPER ABDOMEN: Normal. OTHER FINDINGS: None. IMPRESSION: No active disease.
--- NOTE | 2018-04-09 16:53 | C.PDOC ---
History Of Present Illness 52 y/o male, with PMHx of CHF since 5 years ago, presents to ED for complaints of orthopnea that began 2 days ago. Patient states he uses 3 pillows to sleep. Denies chest pain, abdominal pain, nausea, vomiting, or any other physical complaints. Patient states he has an appointment with Dr. Yu on 04/17/18. Allergist: Analisa/ Mustapha Da Silva Time Seen by Provider: 04/09/18 15:53 Chief Complaint (Nursing): Shortness Of Breath History Per: Patient History/Exam Limitations: no limitations Onset/Duration Of Symptoms: Days (2) Current Symptoms Are (Timing): Still Present Exacerbating Factor(s): Laying Flat Current Respiratory Medications: See Home Med List Associated Symptoms: denies: Fever, Chills, Chest Pain Recent travel outside of the [place]: No Past Medical History Reviewed: Historical Data, Nursing Documentation, Vital Signs Vital Signs: Last Vital Signs Temp 98.2 F 04/09/18 15:38 Pulse 72 04/09/18 15:38 Resp 21 04/09/18 16:21 BP 114/71 04/09/18 15:38 Pulse Ox 96 04/09/18 17:08 - Medical History PMH: Asthma, CHF, Diabetes, HTN, Hypercholesterolemia, Peripheral Edema Family History: States: Unknown Family Hx - Social History Hx Tobacco Use: Yes Hx Alcohol Use: Yes Hx Substance Use: No - Immunization History Hx Tetanus Toxoid Vaccination: Yes Hx Influenza Vaccination: Yes Hx Pneumococcal Vaccination: Yes Review Of Systems Constitutional: Negative for: Fever, Chills Cardiovascular: Negative for: Chest Pain Respiratory: Positive for: Shortness of Breath Gastrointestinal: Negative for: Nausea, Vomiting, Abdominal Pain, Diarrhea Skin: Negative for: Rash Neurological: Negative for: Weakness, Numbness Physical Exam - Physical Exam Appears: Non-toxic, No Acute Distress Skin: Warm, Dry Head: Atraumatic, Normacephalic Eye(s): bilateral: Normal Inspection, PERRL, EOMI Oral Mucosa: Moist Neck: Supple Chest: Symmetrical, No Tenderness Cardiovascular: Rhythm Regular, No Murmur Respiratory: Normal Breath Sounds, No Decreased Breath Sounds, No Rales, No Rhonchi, No Wheezing Gastrointestinal/Abdominal: Soft, No Tenderness Extremity: Normal ROM, No Pedal Edema, No Deformity Extremity: Bilateral: Atraumatic, Normal Color And Temperature, Normal ROM Pulses: Left Dorsalis Pedis: Normal, Right Dorsalis Pedis: Normal Neurological/Psych: Oriented x3 (Awake and alert), Normal Speech (Speaking in full sentences), Other (No focal deficits ) Gait: Steady ED Course And Treatment - Laboratory Results Result Diagrams: 04/09/18 16:18 04/09/18 16:18 O2 Sat by Pulse Oximetry: 96 (RA) Pulse Ox Interpretation: Normal - Other Rad CXR X-Ray: Viewed By Me, Read By Radiologist Interpretation: PROCEDURE: CHEST RADIOGRAPH, 1 VIEW. HISTORY: SOB. COMPARISON: 02/22/2017. FINDINGS: LUNGS: Clear. PLEURA: No pneumothorax or pleural fluid seen. CARDIOVASCULAR: AICD. Normal heart size. No congestive change. OSSEOUS STRUCTURES: No significant abnormalities. VISUALIZED UPPER ABDOMEN: Normal. OTHER FINDINGS: None. IMPRESSION: No active disease. Progress Note: Administered Lasix. Ordered blood work, CXR, and urinalysis. Spoke with for admission, and she accepted. Disposition - Disposition Disposition: HOSPITALIZED Disposition Time: 17:02 Condition: FAIR - Clinical Impression Clinical Impression: Dyspnea, Orthopnea, CHF exacerbation - PA / CATTLE [employer]IPPER / Resident Statement MD/DO has reviewed & agrees with the documentation as recorded. - Scribe Statement The provider has reviewed the documentation as recorded by the Scribmarline Rios All medical record entries made by the Scribe were at my direction and personally dictated by me. I have reviewed the chart and agree that the record accurately reflects my personal performance of the history, physical exam, medical decision making, and the department course for this patient. I have also personally directed, reviewed, and agree with the discharge instructions and disposition. Decision To Admit - Pt Status Changed To: Hospital Disposition Of: Observation - . Bed Request Type: Telemetry Admitting Physician: Kacie Olvera Patient Diagnosis: Dyspnea, Orthopnea, CHF exacerbation
[2018-04-09 17:09] LABS: SQUAMOUS EPITHIAL < 1 /hpf (0-5); URINE BILIRUBIN NEGATIVE (NEGATIVE); URINE BLOOD NEGATIVE (NEGATIVE); URINE CLARITY Clear (Clear); URINE COLOR Straw (YELLOW); URINE GLUCOSE (UA) NORMAL (Normal); URINE LEUKOCYTE ESTERASE NEG Leu/uL (Negative); URINE PROTEIN NEGATIVE (NEGATIVE); URINE UROBILINOGEN NORMAL mg/dL (0.2-1.0)
[2018-04-09 18:01] VITALS: BP 110/50; PULSE 61; RESP 15
--- NOTE | 2018-04-09 19:47 | CP.PCM.PN ---
<LicoDestiny hanbryant - Last Filed: 04/09/18 20:13> Subjective - Date & Time of Evaluation Date of Evaluation: 04/09/18 Time of Evaluation: 17:11 - Subjective Subjective: Medicine AMA Progress Note- Dr. Olvera's service 52 year old male with past medical history significant for asthma, CHF and diabetes mellitus initially presented with and family with concerns for further evaluation of shortness of breath. Patient states that he attended a barbeque yesterday between the hours of 1pm and 8/9 pm whereby he was nearby a grilling area for the extent of his hours outside. Patient states that it was quite warm and smoky outside. Patient states that upon returning home last night , he began experiencing shortness of breath requiring the use of his nebulizer. He states that his administered a treatment around 11pm last night. He states that he normally sleeps with two pillows at night, but needed a third small pillow to sleep with. Patient states that this morning upon arising, he felt better. he does admit to using his Combivent pump on two occasions today with relief of his initial symptoms. Patient further states that upon ambulation , he felt short of breath last night. This resolved today. He denies ordinarily feeling short of breath with ambulation. Patient states that he has an appointment to see [facility], Dr. Yu on Monday, April 11 for an initial visit. Patient was to be admitted to the hospitalist service; however he expressed not particularly wanting to remain in the hospital overnight. He felt that his symptoms were overall improved. Reasons for admission were reviewed and explained to patient and who expressed understanding; however so he did not want to wait. Patient stated that he would return to the ER if his symptoms returned. Patient thus signed an AMA note and left against medical advice. Objective - Vital Signs/Intake and Output Vital Signs (last 24 hours): Temp Pulse Resp BP Pulse Ox 98.2 F 61 15 110/50 L 96 04/09/18 15:38 04/09/18 17:21 04/09/18 17:21 04/09/18 17:21 04/09/18 17:59 - Labs Labs: 04/09/18 16:18 04/09/18 16:18 PT 11.2 SECONDS (9.7-12.2) 04/09/18 16:18 INR 1.0 04/09/18 16:18 APTT 34 SECONDS (21-34) 04/09/18 16:18 - Constitutional Appears: Non-toxic, No Acute Distress - Head Exam Head Exam: ATRAUMATIC - Eye Exam Eye Exam: EOMI - ENT Exam ENT Exam: Mucous Membranes Moist - Neck Exam Neck Exam: Full ROM - Respiratory Exam Respiratory Exam: Wheezes (RUQ) - Cardiovascular Exam Cardiovascular Exam: +S1, +S2 - GI/Abdominal Exam GI & Abdominal Exam: Soft, Normal Bowel Sounds - Extremities Exam Extremities Exam: Normal Capillary Refill, Normal Inspection. absent: Pedal Edema - Back Exam Back Exam: Full ROM - Neurological Exam Neurological Exam: Alert, Awake, Normal Gait, Oriented x3 - Psychiatric Exam Psychiatric exam: Normal Affect, Normal Mood - Skin Skin Exam: Dry, Normal Color, Warm <Kacie Olvera V - Last Filed: 04/09/18 20:58> Objective - Vital Signs/Intake and Output Vital Signs (last 24 hours): Temp Pulse Resp BP Pulse Ox 98.2 F 61 15 110/50 L 96 04/09/18 15:38 04/09/18 17:21 04/09/18 17:21 04/09/18 17:21 04/09/18 17:59 - Labs Labs: 04/09/18 16:18 04/09/18 16:18 PT 11.2 SECONDS (9.7-12.2) 04/09/18 16:18 INR 1.0 04/09/18 16:18 APTT 34 SECONDS (21-34) 04/09/18 16:18 Attending/Attestation - Attestation I have personally seen and examined this patient.: Yes I have fully participated in the care of the patient.: Yes I have reviewed all pertinent clinical information, including history, physical exam and plan: Yes Notes (Text): Patient seen, examined and case discussed with medical operations supervisor. Patient with extensive medical history including asthma, systolic CHF, defebrillator came in following shortness of breathe and orthopena worsened by recent barbeque fumes. Patient was recommended to stay overnight in the hospital however he did not want to. I have explained in regards he poses himself as risk for worsening of his symptoms, cardiac arrhytmia, and cardiopulmonary arrest. Risk were explained again by the resident. Patient reports he understands the risks and chooses to leave against medical advice. Conversation witnessed with ED nurse. I have spoken with the ED physicianRoya that patient does not want to be admitted.
== END 2018-04-09 19:00 | disposition left against medical advice (07) ==
LOC: C.ER 15:18 → UNDOADMOB 17:00 → C.9E 17:00 → C.6T 18:27 → UNDODISOB 18:43 → C.ER 19:00
DX: I11.0 Hypertensive heart disease with heart failure (principal); I50.20 Unspecified systolic (congestive) heart failure; Z95.810 Presence of automatic (implantable) cardiac defibrillator; E11.9 Type 2 diabetes mellitus without complications; J45.909 Unspecified asthma, uncomplicated; E78.00 Pure hypercholesterolemia, unspecified; Z87.891 Personal history of nicotine dependence
CPT/HCPCS: 71045; 80053; 81001; 82550; 82553; 83880; 84484; 85025; 85610; 85730; G0378

== ENCOUNTER 2018-05-31 13:39 | Inpatient (IN) | payer MEDICARE ==
[2018-05-31 13:39] VITALS: PULSE 98
[2018-05-31 13:49] VITALS: BMI 38.5
--- NOTE | 2018-05-31 14:44 | C.PDOC ---
History Of Present Illness 52 y/o male with history of DM, CHF and Asthma presents to ED with c/o worsening sob for 7 days associated with persistent white phlegm productive cough and chest pressure. Patient saw Dr. Yu 3 days ago and was discontinued on medication, as per doctor did not need medication. Patient denies fever, chills, nausea, vomiting, leg swelling or any other complaints at this time. Time Seen by Provider: 05/31/18 14:05 Chief Complaint (Nursing): Chest Pain History Per: Patient History/Exam Limitations: no limitations Onset/Duration Of Symptoms: Days Current Symptoms Are (Timing): Still Present Past Medical History Reviewed: Historical Data, Nursing Documentation, Vital Signs Vital Signs: Last Vital Signs Temp 97.6 F 05/31/18 13:48 Pulse 76 05/31/18 15:35 Resp 18 05/31/18 15:35 BP 102/61 05/31/18 15:35 Pulse Ox 96 05/31/18 15:35 - Medical History PMH: Asthma, CHF, Diabetes, HTN, Hypercholesterolemia, Peripheral Edema Surgical History: No Surg Hx Family History: States: No Known Family Hx - Social History Hx Tobacco Use: Yes Hx Alcohol Use: Yes Hx Substance Use: No - Immunization History Hx Tetanus Toxoid Vaccination: Yes Hx Influenza Vaccination: Yes Hx Pneumococcal Vaccination: Yes Review Of Systems Except As Marked, All Systems Reviewed And Found Negative. Cardiovascular: Positive for: Chest Pain Respiratory: Positive for: Cough, Shortness of Breath Physical Exam - Physical Exam Appears: Non-toxic, No Acute Distress Skin: Warm, Dry, No Rash Head: Atraumatic, Normacephalic Eye(s): bilateral: Normal Inspection Oral Mucosa: Moist Neck: Supple Cardiovascular: Rhythm Regular Respiratory: Rales (faint bialterally), No Rhonchi, No Wheezing Gastrointestinal/Abdominal: Soft, No Tenderness, No Guarding, No Rebound Extremity: Normal ROM, No Pedal Edema, Capillary Refill (<2 seconds) Neurological/Psych: Oriented x3, Normal Speech, Normal Cognition ED Course And Treatment - Laboratory Results Result Diagrams: 05/31/18 14:40 05/31/18 14:40 ECG: Interpreted By Me, Viewed By Me ECG Rhythm: Idioventricular Rhythm Rate From EC (BPM) O2 Sat by Pulse Oximetry: 98 (RA) Pulse Ox Interpretation: Normal Medical Decision Making Medical Decision Making: Assessment: Asthma 1656 - patient resting comfortably case discussed with hospitalist and will admit to tele observation Disposition Discussed With Dr.: Javy Lizarraga Doctor Will See Patient In The: Hospital Counseled Patient/Family Regarding: Studies Performed, Diagnosis - Disposition Disposition: HOSPITALIZED Disposition Time: 16:57 Condition: FAIR Forms: [facility] (Uzbek) - POA Core Measure Indicators: Chest Pain - Clinical Impression Clinical Impression: Chest pain - Scribe Statement The provider has reviewed the documentation as recorded by the Ivanaibmarline Pink All medical record entries made by the Betsy were at my direction and personally dictated by me. I have reviewed the chart and agree that the record accurately reflects my personal performance of the history, physical exam, medical decision making, and the department course for this patient. I have also personally directed, reviewed, and agree with the discharge instructions and disposition.
[2018-05-31 14:46] LABS: BASO # 0.2 K/uL (0.0-0.2); BASO % 1.4 % (0.0-2.0); EOS # 0.6 K/uL (0.0-0.7); EOS % 5.5 % (0.0-4.0); HEMOGLOBIN 13.6 g/dL (12.0-18.0); LYMPH # 2.3 K/uL (1.0-4.3); LYMPH % 21.5 % (20.0-40.0); MEAN CELL VOLUME 89.2 fL (80.0-94.0); MEAN CORPUSCULAR HEMOGLOBIN 30.1 pg (27.0-31.0); MEAN CORPUSCULAR HGB CONC 33.8 g/dL (33.0-37.0); MONO # 0.7 K/uL (0.0-0.8); MONO % 6.5 % (0.0-10.0); NEUT # 6.8 K/uL (1.8-7.0); NEUT % 65.1 % (50.0-75.0); RBC 4.51 Mil/uL (4.40-5.90); WHITE BLOOD COUNT 10.5 K/uL (4.8-10.8)
[2018-05-31 14:55] LABS: INR 1.1; PROTHROMBIN TIME 11.5 SECONDS (9.7-12.2)
[2018-05-31 14:58] LABS: ALB/GLOB RATIO 1.1 (1.0-2.1); ALBUMIN 4.1 g/dL (3.5-5.0); CALCIUM 9.2 mg/dl (8.6-10.4); GFR AFRICAN-AMERICAN > 60; GFR NON-AFRICAN AMERICAN > 60
[2018-05-31 15:10] LABS: B-TYPE NATRIURETIC PEPTIDE 1140 pg/mL (0-900)
[2018-05-31 15:21] LABS: ALT/SGPT 56 U/L (21-72); AST/SGOT 37 U/L (17-59); BLOOD UREA NITROGEN 17 mg/dL (9-20)
--- NOTE | 2018-05-31 15:27 | RAD ---
Date of service: 05/31/2018 PROCEDURE: CHEST RADIOGRAPH, 1 VIEW HISTORY: SOB COMPARISON: 04/09/2018 FINDINGS: LUNGS: Clear. PLEURA: No pneumothorax or pleural fluid seen. CARDIOVASCULAR: No radiographic findings to suggest acute or significant cardiovascular disease. Position/ configuration of pacemaker device: Satisfactory. OSSEOUS STRUCTURES: No significant abnormalities. VISUALIZED UPPER ABDOMEN: Normal. OTHER FINDINGS: None. IMPRESSION: No active disease. No acute/significant interval changes.
[2018-05-31] MEDS ORDERED: Glucagon Recombinant 1 mg Inj IM PRN (18:58)
[2018-05-31] MEDS ORDERED: Dextrose 50% SYRINGE Inj (50 ml) IV PRN (18:58)
--- NOTE | 2018-05-31 20:03 | CP.PCM.HP ---
<Hue Randolph - Last Filed: 05/31/18 20:33> History of Present Illness - History of Present Illness History of Present Illness: CC: chest pain HPI: Patient is a 52 yo male who presents to the ED for evaluation of chest pain a/w shortness of breath. Patient states the pain started 1.5 weeks ago which progressed to worsening chest pain and shortness of breath prompting him to come to the hospital. Patient reports no sleep as laying down makes it more difficult to breathe and exacerbated the chest pain. Patient reports pain in the epigastric region, nonradiating described to be a deep pressure with a pain level of 5/10. Patient states he has not felt this pain prior. Patient reports the pain to be all night especially when he is trying to go to sleep. Patient reports a productive cough with white phlegm. Patient denies fevers or chills. PMH: DM2, CHF, HTN, COPD PSH: Denies FH: Mom (DM), Father (CVD) Meds: Aspirin 81mg po daily; Enalapril 2.5mg po daily, atorvastatin 10mg po daily, carvediolol 6.25mg po bid, Combivent, Furosemide 40mg po daily, Humalog, Lantus Allergies: NKDA Code: Full Code Social: Smokes 1 pack/3 days; social drinker 2-3 beers per event; denies drug use; currently unemployed living with family at home PMD: Dr. Yu Review of Systems Pertinent Positives: cough with clear white phlegm, palpitations, chest pain, shortness of breath, orthopnea Pertinent Negatives: nausea/vomiting, constipation/diarrhea, dizziness, lightheadedness, vision changes, headaches, fevers, chills Present on Admission - Present on Admission Any Indicators Present on Admission: No Review of Systems - Constitutional Constitutional: absent: Chills, Headache, Weight Loss - EENT Eyes: absent: Blurred Vision, Change in Vision - Cardiovascular Cardiovascular: Chest Pain, Dyspnea, Orthopnea, Palpitations. absent: Lightheadedness - Respiratory Respiratory: Cough, Dyspnea. absent: Hemoptysis - Gastrointestinal Gastrointestinal: absent: Abdominal Pain, Constipation, Diarrhea, Nausea, Vomiting - Genitourinary Genitourinary: absent: Change in Urinary Stream, Difficulty Urinating - Neurological Neurological: absent: Dizziness, Weakness Past Patient History - Past Medical History & Family History Past Medical History?: Yes - Past Social History Smoking Status: Light Smoker < 10 Cigarettes Daily - CARDIAC Hx Congestive Heart Failure: Yes Hx Hypercholesterolemia: Yes Hx Hypertension: Yes Hx Peripheral Edema: Yes - PULMONARY Hx Asthma: Yes - NEUROLOGICAL Hx Neurological Disorder: No - RENAL Hx Chronic Kidney Disease: No - ENDOCRINE/METABOLIC Hx Endocrine Disorders: Yes Hx Diabetes Mellitus Type 2: Yes - HEMATOLOGICAL/ONCOLOGICAL Hx Blood Disorders: No - INTEGUMENTARY Hx Dermatological Problems: No - MUSCULOSKELETAL/RHEUMATOLOGICAL Hx Falls: No - GASTROINTESTINAL Hx Gastrointestinal Disorders: No - GENITOURINARY/GYNECOLOGICAL Hx Genitourinary Disorders: No - PSYCHIATRIC Hx Substance Use: No - SURGICAL HISTORY Hx Surgeries: Yes Hx Cardiac Catheterization: Yes Other/Comment: AICD placement - ANESTHESIA Hx Anesthesia: No Hx Anesthesia Reactions: No Hx Malignant Hyperthermia: No Meds Allergies/Adverse Reactions: Allergies Allergy/AdvReac Type Severity Reaction Status Date / Time No Known Allergies Allergy Verified 05/31/18 13:47 Physical Exam - Constitutional Appears: Non-toxic, No Acute Distress - Head Exam Head Exam: NORMAL INSPECTION, NORMOCEPHALIC - Eye Exam Eye Exam: EOMI, Normal appearance. absent: Nystagmus, Scleral icterus - Respiratory Exam Respiratory Exam: Clear to Auscultation Bilateral, NORMAL BREATHING PATTERN. absent: Rales, Rhonchi, Wheezes, Respiratory Distress - Cardiovascular Exam Cardiovascular Exam: REGULAR RHYTHM, +S1, +S2. absent: Tachycardia, Systolic Murmur - GI/Abdominal Exam GI & Abdominal Exam: Normal Bowel Sounds, Soft. absent: Distended, Firm, Tenderness - Extremities Exam Extremities exam: Positive for: normal inspection. Negative for: calf tenderness, pedal edema - Back Exam Back exam: NORMAL INSPECTION. absent: CVA tenderness (L), CVA tenderness (R) - Neurological Exam Neurological exam: Alert, Oriented x3 - Psychiatric Exam Psychiatric exam: Agitated - Skin Skin Exam: Intact, Normal Color Results - Vital Signs Recent Vital Signs: Last Vital Signs Temp 97.9 F 05/31/18 19:00 Pulse 84 05/31/18 19:00 Resp 18 05/31/18 19:00 BP 99/67 L 05/31/18 19:00 Pulse Ox 96 05/31/18 19:00 - Labs Result Diagrams: 05/31/18 14:40 05/31/18 14:40 Labs: Laboratory Results - last 24 hr 05/31/18 05/31/18 05/31/18 14:40 14:40 14:40 WBC 10.5 RBC 4.51 Hgb 13.6 Hct 40.2 MCV 89.2 MCH 30.1 MCHC 33.8 RDW 14.0 Plt Count 239 MPV 9.0 Neut % (Auto) 65.1 Lymph % (Auto) 21.5 [place] % (Auto) 6.5 Eos % (Auto) 5.5 H Baso % (Auto) 1.4 Neut # (Auto) 6.8 Lymph # (Auto) 2.3 [place] # (Auto) 0.7 Eos # (Auto) 0.6 Baso # (Auto) 0.2 PT 11.5 INR 1.1 APTT 32 Sodium 142 Potassium 4.4 Chloride 104 Carbon Dioxide 29 Anion Gap 14 BUN 17 Creatinine 0.9 Est GFR ( Amer) > 60 Est GFR (Non-Af Amer) > 60 Random Glucose 135 H Calcium 9.2 Total Bilirubin 0.6 AST 37 ALT 56 Alkaline Phosphatase 117 Troponin I 0.0130 NT-Pro-B Natriuret Pep 1140 H Total Protein 7.9 Albumin 4.1 Globulin 3.8 Albumin/Globulin Ratio 1.1 Digoxin 05/31/18 14:44 WBC RBC Hgb Hct MCV MCH MCHC RDW Plt Count MPV Neut % (Auto) Lymph % (Auto) [place] % (Auto) Eos % (Auto) Baso % (Auto) Neut # (Auto) Lymph # (Auto) [place] # (Auto) Eos # (Auto) Baso # (Auto) PT INR APTT Sodium Potassium Chloride Carbon Dioxide Anion Gap BUN Creatinine Est GFR ( Amer) Est GFR (Non-Af Amer) Random Glucose Calcium Total Bilirubin AST ALT Alkaline Phosphatase Troponin I NT-Pro-B Natriuret Pep Total Protein Albumin Globulin Albumin/Globulin Ratio Digoxin < 0.4 L Assessment & Plan - Assessment and Plan (Free Text) Assessment: 52 y.o male with PMH of DM, CHF, HTN, COPD presents to hospital for evaluation of chest pain with shortness of breath Plan: Chest Pain EKG x3; EZRA x3 Echo pending Aspirin 81mg po daily Cardiology Consulted: Dr. Yu- recommendations appreciated COPD Duonebs 3ml inh q4 Pulmicort 0.5 mg inh q12 Solumedrol 40mg IVP q6h CHF Carvedilol 6.25mg po bid Enalipril 2.5mg po daily Lasix 40mg po daily BNP- 1140 Hyperlipidemia Crestor 5mg po HS Diabetes Meillitus Lantus 20 unit sc bid ISS-high dose Hypoglycemic protocol; ACHS Prophylaxis DVT prophylaxis: SCDS; Heparin 5000 units sub q8 GI prophylaxis: Pepcid 20mg po daily <Javy Lizarraga H - Last Filed: 06/01/18 07:36> Results - Vital Signs Recent Vital Signs: Last Vital Signs Temp 97.5 F L 05/31/18 23:15 Pulse 86 06/01/18 03:53 Resp 20 06/01/18 03:46 BP 114/70 06/01/18 03:46 Pulse Ox 95 05/31/18 23:15 - Labs Result Diagrams: 06/01/18 06:54 06/01/18 06:54 Labs: Laboratory Results - last 24 hr 05/31/18 05/31/18 05/31/18 14:40 14:40 14:40 WBC 10.5 RBC 4.51 Hgb 13.6 Hct 40.2 MCV 89.2 MCH 30.1 MCHC 33.8 RDW 14.0 Plt Count 239 MPV 9.0 Neut % (Auto) 65.1 Lymph % (Auto) 21.5 [place] % (Auto) 6.5 Eos % (Auto) 5.5 H Baso % (Auto) 1.4 Neut # (Auto) 6.8 Lymph # (Auto) 2.3 [place] # (Auto) 0.7 Eos # (Auto) 0.6 Baso # (Auto) 0.2 PT 11.5 INR 1.1 APTT 32 Sodium 142 Potassium 4.4 Chloride 104 Carbon Dioxide 29 Anion Gap 14 BUN 17 Creatinine 0.9 Est GFR ( Amer) > 60 Est GFR (Non-Af Amer) > 60 POC Glucose (mg/dL) Random Glucose 135 H Calcium 9.2 Phosphorus Magnesium Total Bilirubin 0.6 AST 37 ALT 56 Alkaline Phosphatase 117 Total Creatine Kinase CK-MB (Mass) Troponin I 0.0130 NT-Pro-B Natriuret Pep 1140 H Total Protein 7.9 Albumin 4.1 Globulin 3.8 Albumin/Globulin Ratio 1.1 Digoxin 05/31/18 05/31/18 05/31/18 14:44 21:18 21:23 WBC RBC Hgb Hct MCV MCH MCHC RDW Plt Count MPV Neut % (Auto) Lymph % (Auto) [place] % (Auto) Eos % (Auto) Baso % (Auto) Neut # (Auto) Lymph # (Auto) [place] # (Auto) Eos # (Auto) Baso # (Auto) PT INR APTT Sodium Potassium Chloride Carbon Dioxide Anion Gap BUN Creatinine Est GFR ( Amer) Est GFR (Non-Af Amer) POC Glucose (mg/dL) 140 H Random Glucose Calcium Phosphorus Magnesium Total Bilirubin AST ALT Alkaline Phosphatase Total Creatine Kinase 233 H CK-MB (Mass) 2.73 Troponin I < 0.0120 NT-Pro-B Natriuret Pep Total Protein Albumin Globulin Albumin/Globulin Ratio Digoxin < 0.4 L 06/01/18 06/01/18 06/01/18 03:29 06:54 06:54 WBC 11.8 H RBC 4.27 L Hgb 12.8 Hct 37.7 MCV 88.2 MCH 30.0 MCHC 34.1 RDW 13.7 Plt Count 226 MPV 8.8 Neut % (Auto) 93.0 H Lymph % (Auto) 5.6 L [place] % (Auto) 0.8 Eos % (Auto) 0.1 Baso % (Auto) 0.5 Neut # (Auto) 10.9 H Lymph # (Auto) 0.7 L [place] # (Auto) 0.1 Eos # (Auto) 0.0 Baso # (Auto) 0.1 PT INR APTT Sodium 138 Potassium 4.4 Chloride 101 Carbon Dioxide 23 Anion Gap 19 BUN 21 H Creatinine 0.8 Est GFR ( Amer) > 60 Est GFR (Non-Af Amer) > 60 POC Glucose (mg/dL) Random Glucose 250 H Calcium 8.9 Phosphorus 3.0 Magnesium 1.7 Total Bilirubin 0.4 AST 27 ALT 49 Alkaline Phosphatase 114 Total Creatine Kinase 198 H CK-MB (Mass) 2.30 Troponin I < 0.0120 NT-Pro-B Natriuret Pep Total Protein 7.3 Albumin 4.0 Globulin 3.2 Albumin/Globulin Ratio 1.2 Digoxin Attending/Attestation - Attestation I have personally seen and examined this patient.: Yes I have fully participated in the care of the patient.: Yes I have reviewed all pertinent clinical information: Yes Notes (Text): 06/01/18 07:29 Medical attending: Patient was seen and examined in the ER last night. He was he said to me upset that he was waiting for a long time and was considering leaving AMA. Regardless this is a 52 year old male who as mentioned in the above note by the resident has an extensive cardiac history. The patient has had a low EF requiring a Pacer/AICD. The patient has been short of breath he says in particular when he lays down. As well as shortness of breath on exertion more so than usual. He says he has been taking his medication regularly. XRAY did not suggest fluid overload, will hold of on CT of chest for now. Because of his cardiac history will check a 2 decho since he may have something such as pulmonary HTN or problems with the valves. He reports he does smoke. Will try patient on IV solumedrol, nebulizer treatments as well as pulmicort to see if there is an improvement to his breathing Javy Lizarraga
[2018-05-31] MEDS: MethylPREDNISolone 40 mg Vial IVP SCH (20:38)
[2018-05-31] MEDS: Budesonide 0.5 mg/2 ml Inhal Susp UD INH SCH (21:11)
[2018-05-31] MEDS: Albuterol-Ipratrop 3 mg / 0.5 (3 ml) UD INH SCH (21:11)
[2018-05-31] MEDS: (Novolin R) Insulin Human Regular 100 units/ml vial SC SCH (21:37)
[2018-05-31 21:50] LABS: CK-MB 2.73 ng/mL (0.0-3.38)
[2018-05-31] MEDS ORDERED: (Novolin R) Insulin Human Regular 100 units/ml vial SC SCH (22:00)
[2018-05-31] MEDS: (Lantus) Insulin Glargine, Recombinant SC SCH (22:04)
[2018-06-01] MEDS: Albuterol-Ipratrop 3 mg / 0.5 (3 ml) UD INH SCH ×6 (00:23→19:30)
[2018-06-01] MEDS: MethylPREDNISolone 40 mg Vial IVP SCH ×4 (00:44→19:11)
[2018-06-01 07:09] LABS: BASO # 0.1 K/uL (0.0-0.2); BASO % 0.5 % (0.0-2.0); EOS % 0.1 % (0.0-4.0); HEMOGLOBIN 12.8 g/dL (12.0-18.0); LYMPH # 0.7 K/uL (1.0-4.3); LYMPH % 5.6 % (20.0-40.0); MEAN CELL VOLUME 88.2 fL (80.0-94.0); MEAN CORPUSCULAR HGB CONC 34.1 g/dL (33.0-37.0); MEAN PLATELET VOLUME 8.8 fL (7.2-11.7); MONO # 0.1 K/uL (0.0-0.8); MONO % 0.8 % (0.0-10.0); NEUT # 10.9 K/uL (1.8-7.0); NRBC % 0.1 % (0.0-2.0); PLATELET COUNT 226 K/uL (130-400); RBC 4.27 Mil/uL (4.40-5.90); RED CELL DISTRIBUTION WIDTH 13.7 % (11.5-14.5); WHITE BLOOD COUNT 11.8 K/uL (4.8-10.8)
[2018-06-01 07:21] LABS: ALB/GLOB RATIO 1.2 (1.0-2.1); ALT/SGPT 49 U/L (21-72); AST/SGOT 27 U/L (17-59); BLOOD UREA NITROGEN 21 mg/dL (9-20); CALCIUM 8.9 mg/dl (8.6-10.4); GFR AFRICAN-AMERICAN > 60; GFR NON-AFRICAN AMERICAN > 60
[2018-06-01] MEDS: (Novolin R) Insulin Human Regular 100 units/ml vial SC SCH ×4 (08:00→21:30)
[2018-06-01] MEDS: Budesonide 0.5 mg/2 ml Inhal Susp UD INH SCH ×2 (08:05→19:30)
[2018-06-01 08:47] LABS: LYMPHOCYTE 7 % (20-40); MONOCYTE 1 % (0-10); NEUTROPHIL 92 % (50-75); PLATELET ESTIMATE NORMAL (NORMAL); TOTAL CELLS COUNTED 100
[2018-06-01] MEDS: (Lantus) Insulin Glargine, Recombinant SC SCH ×2 (09:00→17:38)
--- NOTE | 2018-06-01 09:39 | CP.PCM.PN ---
Subjective - Date & Time of Evaluation Date of Evaluation: 06/01/18 Time of Evaluation: 09:36 - Subjective Subjective: PGY-1 Medicine Progress Note for Dr. Lizarraga's Service Patient seen and examined at bedside. Patient is agitated because he states he is hungry, however, NPO for cardiac cath today with Dr. Yu. Patient reports continued SOB and productive cough with white sputum. Patient denies chest pain , n/v, palpitations, dizziness, weakness, fevers, chills, constipation or diarrhea. Objective - Vital Signs/Intake and Output Vital Signs (last 24 hours): Temp Pulse Resp BP Pulse Ox 98.1 F 78 18 99/64 L 95 06/01/18 07:55 06/01/18 07:55 06/01/18 07:55 06/01/18 07:55 06/01/18 07:55 Intake and Output: 06/01/18 06/01/18 06:59 18:59 Intake Total 480 Balance 480 - Medications Medications: Current Medications Albuterol/Ipratropium (Duoneb 3 Mg/0.5 Mg (3 Ml) Ud) 3 ml INH RQ4 [facility] Last Admin: 06/01/18 08:05 Dose: 3 ml Aspirin (Ecotrin) 81 mg PO DAILY LUIS Budesonide (Pulmicort Respules) 0.5 mg INH RQ12 [facility] Last Admin: 06/01/18 08:05 Dose: 0.5 mg Carvedilol (Coreg) 6.25 mg PO BID [facility] Last Admin: 05/31/18 17:58 Dose: Not Given Dextrose (Dextrose 50% Inj) 0 ml IV STAT PRN; Protocol PRN Reason: Hypoglycemia Protocol Dextrose (Glutose 15) 0 gm PO ONCE PRN; Protocol PRN Reason: Hypoglycemia Protocol Enalapril Maleate (Vasotec) 2.5 mg PO DAILY [facility] Famotidine (Pepcid) 20 mg PO DAILY LUIS Furosemide (Lasix) 40 mg PO DAILY LUIS Glucagon (Glucagen Diagnostic Kit) 0 mg IM STAT PRN; Protocol PRN Reason: Hypoglycemia Protocol Heparin Sodium (Porcine) (Heparin) 5,000 units SC Q8 [facility] Last Admin: 06/01/18 06:38 Dose: 5,000 units Dextrose (Dextrose 5% In Water 1000 Ml) 1,000 mls @ 0 mls/hr IV .Q0M PRN; Protocol; Per Protocol PRN Reason: Hypoglycemia Protocol Insulin Glargine (Lantus) 20 unit SC BID [facility] Last Admin: 05/31/18 22:04 Dose: 20 units Insulin Human Regular (Novolin R) 0 unit SC ACHS [facility] PRN Reason: Protocol Last Admin: 05/31/18 21:37 Dose: Not Given Methylprednisolone (Solu-Medrol) 40 mg IVP Q6H [facility] Last Admin: 06/01/18 06:36 Dose: 40 mg Rosuvastatin Calcium (Crestor) 5 mg PO HS [facility] Last Admin: 05/31/18 22:03 Dose: Not Given - Labs Labs: 06/01/18 06:54 06/01/18 06:54 PT 11.5 SECONDS (9.7-12.2) 05/31/18 14:40 INR 1.1 05/31/18 14:40 APTT 32 SECONDS (21-34) 05/31/18 14:40 - Constitutional Appears: Non-toxic, No Acute Distress - Head Exam Head Exam: NORMAL INSPECTION, NORMOCEPHALIC - Eye Exam Eye Exam: EOMI, Normal appearance. absent: Nystagmus, Scleral icterus - Respiratory Exam Respiratory Exam: Clear to Ausculation Bilateral, NORMAL BREATHING PATTERN. absent: Respiratory Distress - Cardiovascular Exam Cardiovascular Exam: REGULAR RHYTHM, +S1, +S2. absent: Tachycardia - GI/Abdominal Exam GI & Abdominal Exam: Soft, Normal Bowel Sounds. absent: Distended, Firm, Guarding, Tenderness - Extremities Exam Extremities Exam: Normal Inspection. absent: Calf Tenderness, Pedal Edema - Back Exam Back Exam: NORMAL INSPECTION - Neurological Exam Neurological Exam: Alert, Awake, Normal Gait, Oriented x3 - Psychiatric Exam Psychiatric exam: Agitated - Skin Skin Exam: Intact, Warm. absent: Pallor, Rash Assessment and Plan - Assessment and Plan (Free Text) Assessment: Patient is a 52 yo male w/ PMH of DM2, CHF, HTN, COPD presents with chest pain for 1.5 weeks a/w shortness of breath; EZRA X 3 negative; echo pending; cardiology consulted Dr. Yu; Cardiac cath was ordered; pending report cath report Plan: Chest Pain (Resolved) Likely secondary to CHF EKG x3; EZRA x3 negative Echo pending Cardiac cath report pending Cardiology Consulted: Dr. Yu- recommendations appreciated Aspirin 81mg po daily Acute exacerbation of COPD Duonebs 3ml inh q4 Pulmicort 0.5 mg inh q12 Solumedrol 40mg IVP q6h Acute exacerbation of CHF Carvedilol 6.25mg po bid Enalipril 2.5mg po daily Lasix 40mg po daily BNP- 1140 Pending echo report Hyperlipidemia Crestor 5mg po HS Diabetes Meillitus Lantus 20 unit sc bid ISS-high dose Hypoglycemic protocol; ACHS Prophylaxis DVT prophylaxis: SCDS; Lovenox 40mg sq daily GI prophylaxis: Pepcid 20mg po daily Heart Healthy Diet
[2018-06-01] MEDS ORDERED: Sodium Chloride 0.45% 1,000 ML IV SCH (10:45)
--- NOTE | 2018-06-01 16:11 | CARD ---
APPROVED REPORT Date of service: 06/01/2018 EXAM: Two-dimensional and M-mode echocardiogram with Doppler and color Doppler. Other Information Quality : GoodRhythm : INDICATION Dyspnea Chest Pain Congestive Heart Failure COPD RISK FACTORS Hypertension Obesity Diabetes 2D DIMENSIONS IVSd0.8 (0.7-1.1cm)Aortic Root (2D)3.4 (2.0-3.7cm) LVDd7.5 (3.9-5.9cm)PWd1.0 (0.7-1.1cm) LVDs6.5 (2.5-4.0cm)FS (%) 13.7 % LVEF (%)28.3 (>50%) M-Mode DIMENSIONS RVDd1.57 (2.1-3.2cm)Left Atrium (MM)4.96 (2.5-4.0cm) IVSd0.87 (0.7-1.1cm)Aortic Root3.58 (2.2-3.7cm) LVDd7.58 (4.0-5.6cm)Aortic Cusp Exc.2.09 (1.5-2.0cm) PWd0.99 (0.7-1.1cm)FS (%) 22 % LVDs5.93 (2.0-3.8cm)LVEF (%)30 (>50%) Mitral Valve MV E Hqilybeh055.3cm/sMV A Ytbqwulw79.3cm/sE/A ratio2.6 PISA0.91 cm TDI E/Lateral E'0.0E/Medial E'0.0 Tricuspid Valve TR Peak [id number]/sTR Peak Gr.[id number] LEFT VENTRICLE The Left Ventricle is severely dilated. There is normal left ventricular wall thickness. Left ventricle systolic function is severely impaired. The Ejection Fraction is - 28 - 32 % There is global hypokinesis of the left ventricle. Transmitral Doppler flow pattern is Grade III restrictive diastolic dysfunction. Tissue Dopper compatible with severely elevated left atrial pressure. RIGHT VENTRICLE The right ventricle is normal size. The right ventricular systolic function is normal. ATRIA The left atrium is moderately to severely dilated. The right atrium is moderately dilated. Pacemaker leads seen in the right atrium. The interatrial septum is intact with no evidence for an atrial septal defect. AORTIC VALVE The aortic valve is normal in structure. No aortic regurgitation is present. MITRAL VALVE The mitral valve is normal in structure. Mitral regurgitation is moderate. TRICUSPID VALVE The tricuspid valve is normal in structure. There is moderate tricuspid regurgitation. Right ventricular systolic pressure is estimated at - 52 mmHg. There is moderate pulmonary hypertension. PULMONIC VALVE The pulmonary valve is normal in structure. There is mild pulmonic valvular regurgitation. GREAT VESSELS The aortic root is normal in size. Dilated IVC with poor inspiration collapse is consistent with elevated right atrial pressure. PERICARDIAL EFFUSION There is no pericardial effusion. <Conclusion> The left ventricle is severely dilated with global hypokinesis. Left ventricle systolic function is severely impaired. The Ejection Fraction is - 28 - 32 % Severe Grade III restrictive diastolic dysfunction. Tissue Dopper compatible with severely elevated left atrial pressure. The left atrium is moderately to severely dilated. The right ventricular systolic function is normal. The right atrium is moderately dilated. Pacemaker leads seen in the right atrium. Moderate mitral regurgitation.. Moderate pulmonary hypertension. There is no pericardial effusion.
[2018-06-02] MEDS: MethylPREDNISolone 40 mg Vial IVP SCH ×4 (00:12→21:31)
[2018-06-02] MEDS: Albuterol-Ipratrop 3 mg / 0.5 (3 ml) UD INH SCH ×7 (00:36→23:38)
--- NOTE | 2018-06-02 06:35 | CP.PCM.PN ---
Subjective - Date & Time of Evaluation Date of Evaluation: 06/01/18 Time of Evaluation: 15:15 - Subjective Subjective: Patient s/p cath Normal coronaries EF 20% Medical management for systolic CHF Objective - Vital Signs/Intake and Output Vital Signs (last 24 hours): Temp Pulse Resp BP Pulse Ox 97.7 F 88 20 117/68 95 06/01/18 23:20 06/02/18 01:27 06/01/18 23:20 06/01/18 23:20 06/01/18 23:20 Intake and Output: 06/01/18 06/02/18 18:59 06:59 Intake Total 100 Balance 100 - Medications Medications: Current Medications Albuterol/Ipratropium (Duoneb 3 Mg/0.5 Mg (3 Ml) Ud) 3 ml INH RQ4 [facility] Last Admin: 06/02/18 04:17 Dose: 3 ml Aspirin (Ecotrin) 81 mg PO DAILY [facility] Last Admin: 06/01/18 10:18 Dose: Not Given Budesonide (Pulmicort Respules) 0.5 mg INH RQ12 [facility] Last Admin: 06/01/18 19:30 Dose: 0.5 mg Carvedilol (Coreg) 6.25 mg PO BID [facility] Last Admin: 06/01/18 21:29 Dose: 6.25 mg Dextrose (Dextrose 50% Inj) 0 ml IV STAT PRN; Protocol PRN Reason: Hypoglycemia Protocol Dextrose (Glutose 15) 0 gm PO ONCE PRN; Protocol PRN Reason: Hypoglycemia Protocol Enalapril Maleate (Vasotec) 2.5 mg PO DAILY [facility] Last Admin: 06/01/18 10:20 Dose: Not Given Enoxaparin Sodium (Lovenox) 40 mg SC DAILY [facility] Famotidine (Pepcid) 20 mg PO DAILY [facility] Last Admin: 06/01/18 10:19 Dose: Not Given Furosemide (Lasix) 40 mg IVP DAILY [facility] Glucagon (Glucagen Diagnostic Kit) 0 mg IM STAT PRN; Protocol PRN Reason: Hypoglycemia Protocol Dextrose (Dextrose 5% In Water 1000 Ml) 1,000 mls @ 0 mls/hr IV .Q0M PRN; Protocol; Per Protocol PRN Reason: Hypoglycemia Protocol Insulin Glargine (Lantus) 20 unit SC BID [facility] Last Admin: 06/01/18 17:38 Dose: 20 units Insulin Human Regular (Novolin R) 0 unit SC ACHS [facility] PRN Reason: Protocol Last Admin: 06/01/18 21:30 Dose: 2 u Methylprednisolone (Solu-Medrol) 40 mg IVP Q6H [facility] Last Admin: 06/02/18 00:12 Dose: 40 mg Rosuvastatin Calcium (Crestor) 5 mg PO HS [facility] Last Admin: 06/01/18 21:29 Dose: 5 mg - Labs Labs: 06/01/18 06:54 06/01/18 06:54 PT 11.5 SECONDS (9.7-12.2) 05/31/18 14:40 INR 1.1 05/31/18 14:40 APTT 32 SECONDS (21-34) 05/31/18 14:40
[2018-06-02] MEDS: (Novolin R) Insulin Human Regular 100 units/ml vial SC SCH ×4 (07:40→21:30)
[2018-06-02 08:08] LABS: BASO % 0.1 % (0.0-2.0); HEMOGLOBIN 12.2 g/dL (12.0-18.0); LYMPH # 0.8 K/uL (1.0-4.3); MEAN CELL VOLUME 89.4 fL (80.0-94.0); MEAN CORPUSCULAR HEMOGLOBIN 30.1 pg (27.0-31.0); MEAN CORPUSCULAR HGB CONC 33.7 g/dL (33.0-37.0); MEAN PLATELET VOLUME 9.1 fL (7.2-11.7); MONO # 0.6 K/uL (0.0-0.8); MONO % 2.7 % (0.0-10.0); NEUT # 19.3 K/uL (1.8-7.0); NEUT % 93.2 % (50.0-75.0); PLATELET COUNT 227 K/uL (130-400); RBC 4.06 Mil/uL (4.40-5.90)
[2018-06-02 08:09] LABS: WHITE BLOOD COUNT 20.7 K/uL (4.8-10.8)
[2018-06-02 08:31] LABS: ALB/GLOB RATIO 1.2 (1.0-2.1); ALBUMIN 3.9 g/dL (3.5-5.0); ALT/SGPT 42 U/L (21-72); AST/SGOT 17 U/L (17-59); BLOOD UREA NITROGEN 27 mg/dL (9-20); CALCIUM 9.3 mg/dl (8.6-10.4); GFR AFRICAN-AMERICAN > 60; GFR NON-AFRICAN AMERICAN > 60
[2018-06-02 09:10] LABS: ANISOCYTOSIS SLIGHT; LYMPHOCYTE 5 % (20-40); MONOCYTE 3 % (0-10); NEUTROPHIL 92 % (50-75); PLATELET ESTIMATE NORMAL (NORMAL); TOTAL CELLS COUNTED 100
[2018-06-02] MEDS: Budesonide 0.5 mg/2 ml Inhal Susp UD INH SCH ×2 (09:10→19:11)
[2018-06-02 09:11] LABS: HYPOCHROMIC SLIGHT; POLYCHROMIC SLIGHT
--- NOTE | 2018-06-02 09:28 | CP.PCM.PN ---
Subjective - Date & Time of Evaluation Date of Evaluation: 06/02/18 Time of Evaluation: 09:24 - Subjective Subjective: PGY-1 Medicine Progress Note Patient seen and examined at bedside. Patient reports continued shortness of breath worsened when laying down. Patient reports ongoing cough but now cough is nonproductive, prior it was clear phelgm. Patient denies chest pain, n/v, palpitations, headaches, dizziness, constipation, diarrhea, dysuria. Objective - Vital Signs/Intake and Output Vital Signs (last 24 hours): Temp Pulse Resp BP Pulse Ox 97.4 F L 82 20 108/66 94 L 06/02/18 07:00 06/02/18 07:00 06/02/18 07:00 06/02/18 07:00 06/02/18 07:00 - Medications Medications: Current Medications Albuterol/Ipratropium (Duoneb 3 Mg/0.5 Mg (3 Ml) Ud) 3 ml INH RQ4 [facility] Last Admin: 06/02/18 09:10 Dose: 3 ml Aspirin (Ecotrin) 81 mg PO DAILY [facility] Last Admin: 06/01/18 10:18 Dose: Not Given Budesonide (Pulmicort Respules) 0.5 mg INH RQ12 [facility] Last Admin: 06/02/18 09:10 Dose: 0.5 mg Carvedilol (Coreg) 6.25 mg PO BID [facility] Last Admin: 06/01/18 21:29 Dose: 6.25 mg Dextrose (Dextrose 50% Inj) 0 ml IV STAT PRN; Protocol PRN Reason: Hypoglycemia Protocol Dextrose (Glutose 15) 0 gm PO ONCE PRN; Protocol PRN Reason: Hypoglycemia Protocol Enalapril Maleate (Vasotec) 2.5 mg PO DAILY [facility] Last Admin: 06/01/18 10:20 Dose: Not Given Enoxaparin Sodium (Lovenox) 40 mg SC DAILY [facility] Famotidine (Pepcid) 20 mg PO DAILY [facility] Last Admin: 06/01/18 10:19 Dose: Not Given Furosemide (Lasix) 40 mg IVP DAILY [facility] Glucagon (Glucagen Diagnostic Kit) 0 mg IM STAT PRN; Protocol PRN Reason: Hypoglycemia Protocol Guaifenesin (Mucinex La) 600 mg PO BID [facility] Dextrose (Dextrose 5% In Water 1000 Ml) 1,000 mls @ 0 mls/hr IV .Q0M PRN; Protocol; Per Protocol PRN Reason: Hypoglycemia Protocol Insulin Glargine (Lantus) 20 unit SC BID [facility] Last Admin: 06/01/18 17:38 Dose: 20 units Insulin Human Regular (Novolin R) 0 unit SC ACHS [facility] PRN Reason: Protocol Last Admin: 06/02/18 07:40 Dose: 5 u Methylprednisolone (Solu-Medrol) 40 mg IVP Q6H [facility] Last Admin: 06/02/18 00:12 Dose: 40 mg Rosuvastatin Calcium (Crestor) 5 mg PO HS [facility] Last Admin: 06/01/18 21:29 Dose: 5 mg - Labs Labs: 06/02/18 07:46 06/02/18 07:46 PT 11.5 SECONDS (9.7-12.2) 05/31/18 14:40 INR 1.1 05/31/18 14:40 APTT 32 SECONDS (21-34) 05/31/18 14:40 - Constitutional Appears: Non-toxic, No Acute Distress - Head Exam Head Exam: NORMAL INSPECTION, NORMOCEPHALIC - Eye Exam Eye Exam: EOMI, Normal appearance. absent: Nystagmus, Scleral icterus - Respiratory Exam Respiratory Exam: Wheezes, NORMAL BREATHING PATTERN. absent: Rales, Rhonchi, Respiratory Distress - Cardiovascular Exam Cardiovascular Exam: REGULAR RHYTHM, +S1, +S2. absent: Tachycardia, Murmur - GI/Abdominal Exam GI & Abdominal Exam: Soft, Normal Bowel Sounds. absent: Distended, Guarding, Rigid, Tenderness - Extremities Exam Extremities Exam: Normal Inspection. absent: Calf Tenderness, Pedal Edema - Back Exam Back Exam: NORMAL INSPECTION. absent: CVA tenderness (L), CVA tenderness (R) - Neurological Exam Neurological Exam: Alert, Awake, Normal Gait - Psychiatric Exam Psychiatric exam: Anxious - Skin Skin Exam: Intact, Normal Color Assessment and Plan - Assessment and Plan (Free Text) Assessment: Patient is a 52 yo male w/ PMH of DM2, CHF, HTN, COPD presents with chest pain for 1.5 weeks a/w shortness of breath; EZRA X 3 negative; echo pending; cardiology consulted Dr. Yu; Cardiac cath was ordered and showed no acute abnormalities; medical management for chf as per Dr. Yu Plan: Acute exacerbation of CHF Aspirin 81mg po daily Carvedilol 6.25mg po bid Enalipril 2.5mg po daily Lasix 40mg po daily BNP- 1140 on admission (05/31) EKG x3; EZRA x3 negative 05/31/18 Echo : LV is severly dilated with global hypokinesis. LV systolic function is severly impaired. EF is 28-32%. Severe Grade 3 restrictive diastolic dysfunction. Tissue Doppler compatible with severly elevated left atrial pressure. LA is moderately to severely dilated. RV systolic function is normal. RA is moderately dilated. Pacemaker leads seen in the RA. Moderate MR; Moderate pulm HTN; no pericardial effusion Cardiac cath - no acute abnormalities; manage chf medically Cardiology Consulted: Dr. Yu- recommends medical management of chf Acute exacerbation of COPD Duonebs 3ml inh q4 Pulmicort 0.5 mg inh q12 Solumedrol 40mg IVP q6h Hyperlipidemia Crestor 5mg po HS Diabetes Meillitus Lantus 20 unit sc bid ISS-high dose Hypoglycemic protocol; ACHS Prophylaxis DVT prophylaxis: SCDS; Lovenox 40mg sq daily GI prophylaxis: Pepcid 20mg po daily Heart Healthy Diet
[2018-06-02] MEDS: guaiFENesin 600 mg ER Tab PO SCH ×2 (10:20→17:46)
[2018-06-02] MEDS: (Lantus) Insulin Glargine, Recombinant SC SCH ×2 (10:23→21:30)
[2018-06-02] MEDS: Enoxaparin 40 mg Syringe SC SCH (10:25)
--- NOTE | 2018-06-02 12:41 | CARD ---
APPROVED REPORT Date of service: 05/31/2018 EKG Measurement Heart [id number] <Conclusion> Atrial-sensed ventricular-paced rhythm Abnormal ECG
--- NOTE | 2018-06-02 12:41 | CARD ---
APPROVED REPORT Date of service: 06/01/2018 EKG Measurement Heart [id number] <Conclusion> Atrial-sensed ventricular-paced rhythm Abnormal ECG
--- NOTE | 2018-06-02 12:41 | CARD ---
APPROVED REPORT Date of service: 05/31/2018 EKG Measurement Heart [id number] <Conclusion> Atrial-sensed ventricular-paced rhythm Abnormal ECG
--- NOTE | 2018-06-03 00:20 | CP.PCM.PN ---
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 absent: Nystagmus, Scleral icterus - Respiratory Exam Respiratory Exam: Clear to Ausculation Bilateral, NORMAL BREATHING PATTERN. absent: Respiratory Distress - Cardiovascular Exam Cardiovascular Exam: REGULAR RHYTHM, +S1, +S2. absent: Tachycardia - GI/Abdominal Exam GI & Abdominal Exam: Soft, Normal Bowel Sounds. absent: Distended, Firm, Guarding, Tenderness - Extremities Exam Extremities Exam: Normal Inspection. absent: Calf Tenderness, Pedal Edema - Back Exam Back Exam: NORMAL INSPECTION - Neurological Exam Neurological Exam: Alert, Awake, Normal Gait, Oriented x3 - Psychiatric Exam Psychiatric exam: Agitated - Skin Skin Exam: Intact, Warm. absent: Pallor, Rash Objective - Vital Signs/Intake and Output Vital Signs (last 24 hours): Temp Pulse Resp BP Pulse Ox 97.5 F L 84 20 103/71 94 L 06/02/18 15:00 06/02/18 15:00 06/02/18 15:00 06/02/18 15:00 06/02/18 15:00 - Medications Medications: Current Medications Albuterol/Ipratropium (Duoneb 3 Mg/0.5 Mg (3 Ml) Ud) 3 ml INH RQ4 [facility] Last Admin: 06/02/18 23:38 Dose: 3 ml Aspirin (Ecotrin) 81 mg PO DAILY [facility] Last Admin: 06/02/18 10:37 Dose: 81 mg Budesonide (Pulmicort Respules) 0.5 mg INH RQ12 [facility] Last Admin: 06/02/18 19:11 Dose: 0.5 mg Carvedilol (Coreg) 6.25 mg PO BID [facility] Last Admin: 06/02/18 17:46 Dose: 6.25 mg Dextrose (Dextrose 50% Inj) 0 ml IV STAT PRN; Protocol PRN Reason: Hypoglycemia Protocol Dextrose (Glutose 15) 0 gm PO ONCE PRN; Protocol PRN Reason: Hypoglycemia Protocol Enalapril Maleate (Vasotec) 2.5 mg PO DAILY [facility] Last Admin: 06/02/18 10:19 Dose: 2.5 mg Enoxaparin Sodium (Lovenox) 40 mg SC DAILY [facility] Last Admin: 06/02/18 10:25 Dose: 40 mg Famotidine (Pepcid) 20 mg PO DAILY [facility] Last Admin: 06/02/18 10:24 Dose: 20 mg Furosemide (Lasix) 40 mg IVP DAILY [facility] Last Admin: 06/02/18 10:39 Dose: 40 mg Glucagon (Glucagen Diagnostic Kit) 0 mg IM STAT PRN; Protocol PRN Reason: Hypoglycemia Protocol Guaifenesin (Mucinex La) 600 mg PO BID [facility] Last Admin: 06/02/18 17:46 Dose: 600 mg Dextrose (Dextrose 5% In Water 1000 Ml) 1,000 mls @ 0 mls/hr IV .Q0M PRN; Protocol; Per Protocol PRN Reason: Hypoglycemia Protocol Insulin Glargine (Lantus) 20 unit SC BID [facility] Last Admin: 06/02/18 21:30 Dose: 20 units Insulin Human Regular (Novolin R) 0 unit SC [facility] PRN Reason: Protocol Last Admin: 06/02/18 21:30 Dose: 2 u Methylprednisolone (Solu-Medrol) 40 mg IVP Q6H [facility] Last Admin: 06/02/18 21:31 Dose: 40 mg Rosuvastatin Calcium (Crestor) 5 mg PO HS [facility] Last Admin: 06/02/18 21:30 Dose: 5 mg - Labs Labs: 06/02/18 07:46 06/02/18 07:46 PT 11.5 SECONDS (9.7-12.2) 05/31/18 14:40 INR 1.1 05/31/18 14:40 APTT 32 SECONDS (21-34) 05/31/18 14:40 Assessment and Plan - Assessment and Plan (Free Text) Assessment: Chest Pain (Resolved) Likely secondary to CHF EKG x3; EZRA x3 negative Normal Coronaries Acute exacerbation of COPD Duonebs 3ml inh q4 Pulmicort 0.5 mg inh q12 Solumedrol 40mg IVP q6h Acute exacerbation of CHF Carvedilol 6.25mg po bid Enalipril 2.5mg po daily Lasix Hyperlipidemia Crestor 5mg po HS Diabetes Meillitus Lantus 20 unit sc bid ISS-high dose Hypoglycemic protocol; ACHS Prophylaxis DVT prophylaxis: SCDS; Lovenox 40mg sq daily GI prophylaxis: Pepcid 20mg po daily Heart Healthy Diet
[2018-06-03] MEDS: MethylPREDNISolone 40 mg Vial IVP SCH ×2 (01:13→06:28)
[2018-06-03] MEDS: Albuterol-Ipratrop 3 mg / 0.5 (3 ml) UD INH SCH ×6 (03:34→23:34)
[2018-06-03] MEDS: (Novolin R) Insulin Human Regular 100 units/ml vial SC SCH ×4 (07:29→21:23)
[2018-06-03] MEDS: Budesonide 0.5 mg/2 ml Inhal Susp UD INH SCH ×2 (07:50→19:47)
[2018-06-03 08:03] LABS: HEMOGLOBIN 12.1 g/dL (12.0-18.0); LYMPH # 0.6 K/uL (1.0-4.3); LYMPH % 2.7 % (20.0-40.0); MEAN CORPUSCULAR HEMOGLOBIN 30.4 pg (27.0-31.0); MEAN CORPUSCULAR HGB CONC 33.8 g/dL (33.0-37.0); MEAN PLATELET VOLUME 9.5 fL (7.2-11.7); MONO # 0.5 K/uL (0.0-0.8); MONO % 2.2 % (0.0-10.0); NEUT # 19.9 K/uL (1.8-7.0); NEUT % 95.1 % (50.0-75.0); PLATELET COUNT 233 K/uL (130-400); RBC 3.97 Mil/uL (4.40-5.90); RED CELL DISTRIBUTION WIDTH 14.2 % (11.5-14.5); WHITE BLOOD COUNT 20.9 K/uL (4.8-10.8)
[2018-06-03 08:09] LABS: ALB/GLOB RATIO 1.1 (1.0-2.1); ALBUMIN 3.8 g/dL (3.5-5.0); ALT/SGPT 44 U/L (21-72); AST/SGOT 16 U/L (17-59); BLOOD UREA NITROGEN 34 mg/dL (9-20); CALCIUM 9.3 mg/dl (8.6-10.4); GFR AFRICAN-AMERICAN > 60; GFR NON-AFRICAN AMERICAN > 60
[2018-06-03 09:26] LABS: LYMPHOCYTE 4 % (20-40); MONOCYTE 2 % (0-10); NEUTROPHIL 94 % (50-75); TOTAL CELLS COUNTED 100
[2018-06-03 09:27] LABS: ANISOCYTOSIS SLIGHT; PLATELET ESTIMATE NORMAL (NORMAL); POLYCHROMIC SLIGHT; TOXIC GRANULATION PRESENT
--- NOTE | 2018-06-03 09:52 | CP.PCM.PN ---
Subjective - Date & Time of Evaluation Date of Evaluation: 06/03/18 Time of Evaluation: 09:49 - Subjective Subjective: PGY-1 Medicine Progress Note for Dr. Baptiste's service Patient seen and examined at bedside. Patient states he was having a headache last night which has resolved. Patient reports he still has difficulty breathing and notes that it is more in the morning and at night. Patient states after his treatment with lasix yesterday in the morning his breathing had improved however at night and up until this morning when the sob returned. Patient denies chest pain, palpitations, n/v, constipation, diarrhea, dysuria. Objective - Vital Signs/Intake and Output Vital Signs (last 24 hours): Temp Pulse Resp BP Pulse Ox 97.4 F L 80 20 111/68 96 06/03/18 04:00 06/03/18 08:00 06/03/18 04:00 06/03/18 04:00 06/03/18 04:00 Intake and Output: 06/03/18 06/03/18 06:59 18:59 Intake Total 120 Balance 120 - Medications Medications: Current Medications Acetaminophen (Tylenol 325mg Tab) 650 mg PO Q6 PRN PRN Reason: Pain, moderate (4-7) Last Admin: 06/03/18 06:27 Dose: 650 mg Albuterol/Ipratropium (Duoneb 3 Mg/0.5 Mg (3 Ml) Ud) 3 ml INH RQ4 [facility] Last Admin: 06/03/18 07:50 Dose: 3 ml Aspirin (Ecotrin) 81 mg PO DAILY [facility] Last Admin: 06/02/18 10:37 Dose: 81 mg Budesonide (Pulmicort Respules) 0.5 mg INH RQ12 [facility] Last Admin: 06/03/18 07:50 Dose: 0.5 mg Carvedilol (Coreg) 6.25 mg PO BID [facility] Last Admin: 06/02/18 17:46 Dose: 6.25 mg Dextrose (Dextrose 50% Inj) 0 ml IV STAT PRN; Protocol PRN Reason: Hypoglycemia Protocol Dextrose (Glutose 15) 0 gm PO ONCE PRN; Protocol PRN Reason: Hypoglycemia Protocol Enalapril Maleate (Vasotec) 2.5 mg PO DAILY [facility] Last Admin: 06/02/18 10:19 Dose: 2.5 mg Enoxaparin Sodium (Lovenox) 40 mg SC DAILY [facility] Last Admin: 06/02/18 10:25 Dose: 40 mg Famotidine (Pepcid) 20 mg PO DAILY [facility] Last Admin: 06/02/18 10:24 Dose: 20 mg Furosemide (Lasix) 40 mg IVP DAILY [facility] Last Admin: 06/02/18 10:39 Dose: 40 mg Glucagon (Glucagen Diagnostic Kit) 0 mg IM STAT PRN; Protocol PRN Reason: Hypoglycemia Protocol Guaifenesin (Mucinex La) 600 mg PO BID [facility] Last Admin: 06/02/18 17:46 Dose: 600 mg Dextrose (Dextrose 5% In Water 1000 Ml) 1,000 mls @ 0 mls/hr IV .Q0M PRN; Protocol; Per Protocol PRN Reason: Hypoglycemia Protocol Insulin Glargine (Lantus) 20 unit SC BID [facility] Last Admin: 06/02/18 21:30 Dose: 20 units Insulin Human Regular (Novolin R) 0 unit SC ACHS [facility] PRN Reason: Protocol Last Admin: 06/03/18 07:29 Dose: 6 u Methylprednisolone (Solu-Medrol) 40 mg IVP Q6H [facility] Last Admin: 06/03/18 06:28 Dose: 40 mg Rosuvastatin Calcium (Crestor) 5 mg PO HS [facility] Last Admin: 06/02/18 21:30 Dose: 5 mg - Labs Labs: 06/03/18 07:43 06/03/18 07:43 PT 11.5 SECONDS (9.7-12.2) 05/31/18 14:40 INR 1.1 05/31/18 14:40 APTT 32 SECONDS (21-34) 05/31/18 14:40 - Constitutional Appears: Non-toxic, No Acute Distress - Head Exam Head Exam: NORMAL INSPECTION, NORMOCEPHALIC - Eye Exam Eye Exam: EOMI, Normal appearance. absent: Nystagmus, Scleral icterus - ENT Exam ENT Exam: Mucous Membranes Moist, Normal Exam - Respiratory Exam Respiratory Exam: Clear to Ausculation Bilateral, NORMAL BREATHING PATTERN. absent: Wheezes, Respiratory Distress - Cardiovascular Exam Cardiovascular Exam: REGULAR RHYTHM, +S1, +S2. absent: Tachycardia, Murmur - GI/Abdominal Exam GI & Abdominal Exam: Soft, Normal Bowel Sounds. absent: Distended, Guarding, Rigid, Tenderness - Extremities Exam Extremities Exam: Normal Inspection. absent: Calf Tenderness, Pedal Edema - Neurological Exam Neurological Exam: Alert, Awake, Oriented x3 - Psychiatric Exam Psychiatric exam: Normal Affect, Normal Mood - Skin Skin Exam: Intact, Normal Color Assessment and Plan - Assessment and Plan (Free Text) Assessment: Patient is a 52 yo male w/ PMH of DM2, CHF, HTN, COPD presents with chest pain for 1.5 weeks a/w shortness of breath; EZRA X 3 negative; echo pending; cardiology consulted Dr. Yu; Cardiac cath was ordered and showed no acute abnormalities; medical management for chf as per Dr. Yu Plan: Acute exacerbation of CHF Aspirin 81mg po daily Carvedilol 6.25mg po bid Enalipril 2.5mg po daily Increase Lasix 40mg IVP bid BNP- 1140 on admission (05/31) EKG x3; EZRA x3 negative 05/31/18 Echo : LV is severly dilated with global hypokinesis. LV systolic function is severly impaired. EF is 28-32%. Severe Grade 3 restrictive diastolic dysfunction. Tissue Doppler compatible with severly elevated left atrial pressure. LA is moderately to severely dilated. RV systolic function is normal. RA is moderately dilated. Pacemaker leads seen in the RA. Moderate MR; Moderate pulm HTN; no pericardial effusion Cardiac cath - no acute abnormalities; manage chf medically Cardiology Consulted: Dr. Yu- recommends medical management of chf Acute exacerbation of COPD Duonebs 3ml inh q4 Pulmicort 0.5 mg inh q12 Solumedrol 40mg IVP q6h Hyperlipidemia Crestor 5mg po HS Diabetes Meillitus Lantus 20 unit sc bid ISS-high dose Hypoglycemic protocol; ACHS Prophylaxis DVT prophylaxis: SCDS; Lovenox 40mg sq daily GI prophylaxis: Pepcid 20mg po daily Heart Healthy Diet
[2018-06-03] MEDS: guaiFENesin 600 mg ER Tab PO SCH ×2 (10:41→17:44)
[2018-06-03] MEDS: Enoxaparin 40 mg Syringe SC SCH (10:49)
[2018-06-03] MEDS: (Lantus) Insulin Glargine, Recombinant SC SCH ×2 (10:50→21:22)
[2018-06-03] MEDS ORDERED: MethylPREDNISolone 40 mg Vial IVP SCH (14:00)
--- NOTE | 2018-06-03 16:59 | RAD ---
Date of service: 06/02/2018 HISTORY: chf, sob COMPARISON: Chest radiograph dated 05/31/2018 FINDINGS: LUNGS: Pulmonary vascular congestion. PLEURA: No significant pleural effusion identified, no pneumothorax apparent. CARDIOVASCULAR: Left subclavian access AICD/ pacemaker redemonstrated. Cardiomegaly. OSSEOUS STRUCTURES: Unchanged. VISUALIZED UPPER ABDOMEN: Normal. OTHER FINDINGS: None. IMPRESSION: Pulmonary vascular congestion. No focal consolidation or pleural effusion.
--- NOTE | 2018-06-03 22:08 | CP.PCM.PN ---
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 absent: Nystagmus, Scleral icterus - Respiratory Exam Respiratory Exam: Clear to Ausculation Bilateral, NORMAL BREATHING PATTERN. absent: Respiratory Distress - Cardiovascular Exam Cardiovascular Exam: REGULAR RHYTHM, +S1, +S2. absent: Tachycardia - GI/Abdominal Exam GI & Abdominal Exam: Soft, Normal Bowel Sounds. absent: Distended, Firm, Guarding, Tenderness - Extremities Exam Extremities Exam: Normal Inspection. absent: Calf Tenderness, Pedal Edema - Back Exam Back Exam: NORMAL INSPECTION - Neurological Exam Neurological Exam: Alert, Awake, Normal Gait, Oriented x3 - Psychiatric Exam Psychiatric exam: Agitated - Skin Skin Exam: Intact, Warm. absent: Pallor, Rash Objective - Vital Signs/Intake and Output Vital Signs (last 24 hours): Temp Pulse Resp BP Pulse Ox 97.3 F L 79 20 113/73 97 06/03/18 15:00 06/03/18 15:00 06/03/18 15:00 06/03/18 17:46 06/03/18 15:00 - Medications Medications: Current Medications Acetaminophen (Tylenol 325mg Tab) 650 mg PO Q6 PRN PRN Reason: Pain, moderate (4-7) Last Admin: 06/03/18 15:33 Dose: 650 mg Albuterol/Ipratropium (Duoneb 3 Mg/0.5 Mg (3 Ml) Ud) 3 ml INH RQ4 [facility] Last Admin: 06/03/18 19:47 Dose: 3 ml Aspirin (Ecotrin) 81 mg PO DAILY [facility] Last Admin: 06/03/18 10:41 Dose: 81 mg Budesonide (Pulmicort Respules) 0.5 mg INH RQ12 [facility] Last Admin: 06/03/18 19:47 Dose: 0.5 mg Carvedilol (Coreg) 6.25 mg PO BID [facility] Last Admin: 06/03/18 19:00 Dose: Not Given Dextrose (Dextrose 50% Inj) 0 ml IV STAT PRN; Protocol PRN Reason: Hypoglycemia Protocol Dextrose (Glutose 15) 0 gm PO ONCE PRN; Protocol PRN Reason: Hypoglycemia Protocol Enalapril Maleate (Vasotec) 2.5 mg PO DAILY [facility] Last Admin: 06/03/18 10:41 Dose: 2.5 mg Enoxaparin Sodium (Lovenox) 40 mg SC DAILY [facility] Last Admin: 06/03/18 10:49 Dose: 40 mg Famotidine (Pepcid) 20 mg PO DAILY [facility] Last Admin: 06/03/18 10:41 Dose: 20 mg Furosemide (Lasix) 40 mg IVP BID [facility] Last Admin: 06/03/18 17:46 Dose: 40 mg Glucagon (Glucagen Diagnostic Kit) 0 mg IM STAT PRN; Protocol PRN Reason: Hypoglycemia Protocol Guaifenesin (Mucinex La) 600 mg PO BID [facility] Last Admin: 06/03/18 17:44 Dose: 600 mg Dextrose (Dextrose 5% In Water 1000 Ml) 1,000 mls @ 0 mls/hr IV .Q0M PRN; Protocol; Per Protocol PRN Reason: Hypoglycemia Protocol Insulin Glargine (Lantus) 20 unit SC BID [facility] Last Admin: 06/03/18 21:22 Dose: 20 units Insulin Human Regular (Novolin R) 0 unit SC ACHS [facility] PRN Reason: Protocol Last Admin: 06/03/18 21:23 Dose: Not Given Rosuvastatin Calcium (Crestor) 5 mg PO HS [facility] Last Admin: 06/03/18 21:21 Dose: 5 mg - Labs Labs: 06/03/18 07:43 06/03/18 07:43 PT 11.5 SECONDS (9.7-12.2) 05/31/18 14:40 INR 1.1 05/31/18 14:40 APTT 32 SECONDS (21-34) 05/31/18 14:40 Assessment and Plan - Assessment and Plan (Free Text) Assessment: Chest Pain (Resolved) Likely secondary to CHF EKG x3; EZRA x3 negative Normal Coronaries Acute exacerbation of COPD Duonebs 3ml inh q4 Pulmicort 0.5 mg inh q12 Solumedrol 40mg IVP q6h Acute exacerbation of CHF Carvedilol 6.25mg po bid Enalipril 2.5mg po daily Lasix Hyperlipidemia Crestor 5mg po HS Diabetes Meillitus Lantus 20 unit sc bid ISS-high dose Hypoglycemic protocol; ACHS Prophylaxis DVT prophylaxis: SCDS; Lovenox 40mg sq daily GI prophylaxis: Pepcid 20mg po daily Heart Healthy Diet
[2018-06-04] MEDS: Albuterol-Ipratrop 3 mg / 0.5 (3 ml) UD INH SCH ×5 (03:14→19:38)
[2018-06-04 06:15] LABS: BASO # 0.1 K/uL (0.0-0.2); BASO % 0.4 % (0.0-2.0); EOS % 0.1 % (0.0-4.0); HEMOGLOBIN 13.5 g/dL (12.0-18.0); LYMPH # 1.5 K/uL (1.0-4.3); LYMPH % 7.2 % (20.0-40.0); MEAN CELL VOLUME 88.4 fL (80.0-94.0); MEAN CORPUSCULAR HEMOGLOBIN 29.5 pg (27.0-31.0); MEAN CORPUSCULAR HGB CONC 33.3 g/dL (33.0-37.0); MEAN PLATELET VOLUME 9.3 fL (7.2-11.7); MONO # 1.3 K/uL (0.0-0.8); MONO % 6.1 % (0.0-10.0); NEUT # 18.2 K/uL (1.8-7.0); NEUT % 86.2 % (50.0-75.0); PLATELET COUNT 244 K/uL (130-400); RBC 4.57 Mil/uL (4.40-5.90); RED CELL DISTRIBUTION WIDTH 13.8 % (11.5-14.5); WHITE BLOOD COUNT 21.1 K/uL (4.8-10.8)
[2018-06-04 07:00] LABS: ALB/GLOB RATIO 1.2 (1.0-2.1); ALBUMIN 3.9 g/dL (3.5-5.0); ALT/SGPT 46 U/L (21-72); AST/SGOT 19 U/L (17-59); BLOOD UREA NITROGEN 41 mg/dL (9-20); CALCIUM 9.2 mg/dl (8.6-10.4); GFR AFRICAN-AMERICAN > 60; GFR NON-AFRICAN AMERICAN 58
[2018-06-04] MEDS: (Novolin R) Insulin Human Regular 100 units/ml vial SC SCH ×4 (07:04→21:27)
--- NOTE | 2018-06-04 07:12 | CP.PCM.PN ---
Subjective - Date & Time of Evaluation Date of Evaluation: 06/04/18 Time of Evaluation: 13:08 - Subjective Subjective: PGY-1 Medicine Progress Note for Dr. Baptiste's service Patient seen and examined at bedside. Patient reports extreme headache beginning yesterday afternoon. Patient states it is located in the front and does not wrap around to the back. Patient reports no prior episodes of this in the past. Patient states the nurse gave him tylenol and ibuprofen however it did not relieve the pain. Patient denies chest pain, sob, n/v, constipation, diarrhea, dizziness, vision changes, rhinorrhea. Objective - Vital Signs/Intake and Output Vital Signs (last 24 hours): Temp Pulse Resp BP Pulse Ox 97.4 F L 69 20 113/69 95 06/04/18 05:30 06/04/18 05:30 06/04/18 05:30 06/04/18 05:30 06/04/18 05:30 Intake and Output: 06/04/18 06/04/18 06:59 18:59 Intake Total 100 Balance 100 - Medications Medications: Current Medications Acetaminophen (Tylenol 325mg Tab) 650 mg PO Q6 PRN PRN Reason: Pain, moderate (4-7) Last Admin: 06/03/18 15:33 Dose: 650 mg Albuterol/Ipratropium (Duoneb 3 Mg/0.5 Mg (3 Ml) Ud) 3 ml INH RQ4 [facility] Last Admin: 06/04/18 03:14 Dose: 3 ml Aspirin (Ecotrin) 81 mg PO DAILY [facility] Last Admin: 06/03/18 10:41 Dose: 81 mg Budesonide (Pulmicort Respules) 0.5 mg INH RQ12 [facility] Last Admin: 06/03/18 19:47 Dose: 0.5 mg Carvedilol (Coreg) 6.25 mg PO BID [facility] Last Admin: 06/03/18 19:00 Dose: Not Given Dextrose (Dextrose 50% Inj) 0 ml IV STAT PRN; Protocol PRN Reason: Hypoglycemia Protocol Dextrose (Glutose 15) 0 gm PO ONCE PRN; Protocol PRN Reason: Hypoglycemia Protocol Enalapril Maleate (Vasotec) 2.5 mg PO DAILY [facility] Last Admin: 06/03/18 10:41 Dose: 2.5 mg Enoxaparin Sodium (Lovenox) 40 mg SC DAILY [facility] Last Admin: 06/03/18 10:49 Dose: 40 mg Famotidine (Pepcid) 20 mg PO DAILY [facility] Last Admin: 06/03/18 10:41 Dose: 20 mg Furosemide (Lasix) 40 mg IVP BID [facility] Last Admin: 06/03/18 17:46 Dose: 40 mg Glucagon (Glucagen Diagnostic Kit) 0 mg IM STAT PRN; Protocol PRN Reason: Hypoglycemia Protocol Guaifenesin (Mucinex La) 600 mg PO BID [facility] Last Admin: 06/03/18 17:44 Dose: 600 mg Dextrose (Dextrose 5% In Water 1000 Ml) 1,000 mls @ 0 mls/hr IV .Q0M PRN; Protocol; Per Protocol PRN Reason: Hypoglycemia Protocol Insulin Glargine (Lantus) 20 unit SC BID [facility] Last Admin: 06/03/18 21:22 Dose: 20 units Insulin Human Regular (Novolin R) 0 unit SC ACHS [facility] PRN Reason: Protocol Last Admin: 06/04/18 07:04 Dose: 6 u Rosuvastatin Calcium (Crestor) 5 mg PO HS [facility] Last Admin: 06/03/18 21:21 Dose: 5 mg - Labs Labs: 06/04/18 06:05 06/04/18 06:05 PT 11.5 SECONDS (9.7-12.2) 05/31/18 14:40 INR 1.1 05/31/18 14:40 APTT 32 SECONDS (21-34) 05/31/18 14:40 - Constitutional Appears: Non-toxic, No Acute Distress, In Acute Distress - Head Exam Head Exam: NORMAL INSPECTION, NORMOCEPHALIC - Eye Exam Eye Exam: EOMI, Normal appearance. absent: Nystagmus, Scleral icterus - Respiratory Exam Respiratory Exam: Clear to Ausculation Bilateral, NORMAL BREATHING PATTERN. absent: Rales, Rhonchi, Wheezes, Respiratory Distress - Cardiovascular Exam Cardiovascular Exam: REGULAR RHYTHM, +S1, +S2. absent: Tachycardia, Murmur - GI/Abdominal Exam GI & Abdominal Exam: Soft, Normal Bowel Sounds. absent: Distended, Firm, Guarding, Tenderness - Extremities Exam Extremities Exam: Normal Inspection. absent: Calf Tenderness, Pedal Edema - Back Exam Back Exam: NORMAL INSPECTION. absent: CVA tenderness (L), CVA tenderness (R), vertebral tenderness - Neurological Exam Neurological Exam: Alert, Awake, Oriented x3 - Psychiatric Exam Psychiatric exam: Normal Affect, Normal Mood - Skin Skin Exam: Intact, Normal Color Assessment and Plan - Assessment and Plan (Free Text) Assessment: Patient is a 52 yo male w/ PMH of DM2, CHF, HTN, COPD presents with chest pain for 1.5 weeks a/w shortness of breath; EZRA X 3 negative; echo pending; cardiology consulted Dr. Yu; Cardiac cath was ordered and showed no acute abnormalities; medical management for chf as per Dr. Yu Plan: Acute exacerbation of CHF Aspirin 81mg po daily Carvedilol 6.25mg po bid Enalipril 2.5mg po daily Lasix 40mg IVP bid BNP- 1140 on admission (05/31) EKG x3; EZRA x3 negative 05/31/18 Echo : LV is severly dilated with global hypokinesis. LV systolic function is severly impaired. EF is 28-32%. Severe Grade 3 restrictive diastolic dysfunction. Tissue Doppler compatible with severly elevated left atrial pressure. LA is moderately to severely dilated. RV systolic function is normal. RA is moderately dilated. Pacemaker leads seen in the RA. Moderate MR; Moderate pulm HTN; no pericardial effusion Cardiac cath - no acute abnormalities; manage chf medically Cardiology Consulted: Dr. Yu- recommends medical management of chf Acute exacerbation of COPD Duonebs 3ml inh q4 Pulmicort 0.5 mg inh q[address] head negative 1x dose Prednisone 40mg- no relief 1x Percocet 5mg Hyperlipidemia Crestor 5mg po HS Diabetes Meillitus Sugars in AM> 385; Lantus 20 unit sc bid ISS-high dose Hypoglycemic protocol; ACHS Prophylaxis DVT prophylaxis: SCDS; Lovenox 40mg sq daily GI prophylaxis: Pepcid 20mg po daily Heart Healthy Diet
[2018-06-04] MEDS: Budesonide 0.5 mg/2 ml Inhal Susp UD INH SCH ×2 (07:31→19:38)
[2018-06-04 08:28] LABS: LYMPHOCYTE 7 % (20-40); MONOCYTE 5 % (0-10); NEUTROPHIL 88 % (50-75); PLATELET ESTIMATE NORMAL (NORMAL); TOTAL CELLS COUNTED 100
[2018-06-04] MEDS: guaiFENesin 600 mg ER Tab PO SCH ×2 (10:44→17:43)
[2018-06-04] MEDS: Enoxaparin 40 mg Syringe SC SCH (10:46)
[2018-06-04] MEDS: (Lantus) Insulin Glargine, Recombinant SC SCH ×2 (10:54→17:43)
--- NOTE | 2018-06-04 12:14 | CT ---
Date of service: 06/04/2018 PROCEDURE: CT HEAD WITHOUT CONTRAST. HISTORY: extreme headache COMPARISON: None available. TECHNIQUE: Axial computed tomography images were obtained through the head/brain without intravenous contrast. Radiation dose: Total exam DLP = 886.0 mGy-cm. This CT exam was performed using one or more of the following dose reduction techniques: Automated exposure control, adjustment of the mA and/or kV according to patient size, and/or use of iterative reconstruction technique. FINDINGS: HEMORRHAGE: No intracranial hemorrhage. BRAIN: No mass effect or edema. No atrophy or chronic microvascular ischemic changes. VENTRICLES: Unremarkable. No hydrocephalus. CALVARIUM: Unremarkable. PARANASAL SINUSES: Unremarkable as visualized. No significant inflammatory changes. MASTOID AIR CELLS: Unremarkable as visualized. No inflammatory changes. OTHER FINDINGS: None. IMPRESSION: No evidence of acute intracranial hemorrhage intracranial collection mass effect or midline shift.
--- NOTE | 2018-06-04 12:15 | CP.PCM.PN ---
<Trina Sharp - Last Filed: 06/04/18 16:22> Subjective - Date & Time of Evaluation Date of Evaluation: 06/04/18 Time of Evaluation: 12:13 - Subjective Subjective: Cardiology Progress Note - Dr Yu Patient seen and examined at bedside. Patient reports having a severe headache that started yesterday. States he has never had a headache like this before. Feels the pressure radiate to the back of his head. Took tylenol and motrin with minimal relief. Patient just returned from CT head. Denies chest pain or dyspnea. Objective - Vital Signs/Intake and Output Vital Signs (last 24 hours): Temp Pulse Resp BP Pulse Ox 98.2 F 79 18 118/69 97 06/04/18 08:45 06/04/18 08:45 06/04/18 08:45 06/04/18 10:45 06/04/18 08:45 Intake and Output: 06/04/18 06/04/18 06:59 18:59 Intake Total 100 Balance 100 - Medications Medications: Current Medications Acetaminophen (Tylenol 325mg Tab) 650 mg PO Q6 PRN PRN Reason: Pain, moderate (4-7) Last Admin: 06/04/18 10:42 Dose: 650 mg Albuterol/Ipratropium (Duoneb 3 Mg/0.5 Mg (3 Ml) Ud) 3 ml INH RQ4 [facility] Last Admin: 06/04/18 07:31 Dose: 3 ml Aspirin (Ecotrin) 81 mg PO DAILY [facility] Last Admin: 06/04/18 10:44 Dose: 81 mg Budesonide (Pulmicort Respules) 0.5 mg INH RQ12 [facility] Last Admin: 06/04/18 07:31 Dose: 0.5 mg Carvedilol (Coreg) 6.25 mg PO BID [facility] Last Admin: 06/04/18 10:47 Dose: 6.25 mg Dextrose (Dextrose 50% Inj) 0 ml IV STAT PRN; Protocol PRN Reason: Hypoglycemia Protocol Dextrose (Glutose 15) 0 gm PO ONCE PRN; Protocol PRN Reason: Hypoglycemia Protocol Enalapril Maleate (Vasotec) 2.5 mg PO DAILY [facility] Last Admin: 06/04/18 10:45 Dose: 2.5 mg Enoxaparin Sodium (Lovenox) 40 mg SC DAILY [facility] Last Admin: 06/04/18 10:46 Dose: 40 mg Famotidine (Pepcid) 20 mg PO DAILY [facility] Last Admin: 06/04/18 10:44 Dose: 20 mg Furosemide (Lasix) 40 mg IVP BID [facility] Last Admin: 06/03/18 17:46 Dose: 40 mg Glucagon (Glucagen Diagnostic Kit) 0 mg IM STAT PRN; Protocol PRN Reason: Hypoglycemia Protocol Guaifenesin (Mucinex La) 600 mg PO BID [facility] Last Admin: 06/04/18 10:44 Dose: 600 mg Dextrose (Dextrose 5% In Water 1000 Ml) 1,000 mls @ 0 mls/hr IV .Q0M PRN; Protocol; Per Protocol PRN Reason: Hypoglycemia Protocol Insulin Glargine (Lantus) 20 unit SC BID [facility] Last Admin: 06/04/18 10:54 Dose: 20 units Insulin Human Regular (Novolin R) 0 unit SC ACHS [facility] PRN Reason: Protocol Last Admin: 06/04/18 07:04 Dose: 6 u Prednisone (Prednisone Tab) 40 mg PO DAILY [facility] Last Admin: 06/04/18 12:01 Dose: 40 mg Rosuvastatin Calcium (Crestor) 5 mg PO HS [facility] Last Admin: 06/03/18 21:21 Dose: 5 mg - Labs Labs: 06/04/18 06:05 06/04/18 06:05 PT 11.5 SECONDS (9.7-12.2) 05/31/18 14:40 INR 1.1 05/31/18 14:40 APTT 32 SECONDS (21-34) 05/31/18 14:40 - Additional Findings Additional findings: - Constitutional Appears: Non-toxic, No Acute Distress, In Acute Distress - Head Exam Head Exam: NORMAL INSPECTION, NORMOCEPHALIC - Eye Exam Eye Exam: EOMI, Normal appearance. absent: Nystagmus, Scleral icterus - Respiratory Exam Respiratory Exam: Clear to Ausculation Bilateral, NORMAL BREATHING PATTERN. absent: Rales, Rhonchi, Wheezes, Respiratory Distress - Cardiovascular Exam Cardiovascular Exam: REGULAR RHYTHM, +S1, +S2. absent: Tachycardia, Murmur - GI/Abdominal Exam GI & Abdominal Exam: Soft, Normal Bowel Sounds. absent: Distended, Firm, Guarding, Tenderness - Extremities Exam Extremities Exam: Normal Inspection. absent: Calf Tenderness, Pedal Edema - Back Exam Back Exam: NORMAL INSPECTION. absent: CVA tenderness (L), CVA tenderness (R), vertebral tenderness - Neurological Exam Neurological Exam: Alert, Awake, Oriented x3 - Psychiatric Exam Psychiatric exam: Normal Affect, Normal Mood - Skin Skin Exam: Intact, Normal Color Assessment and Plan - Assessment and Plan (Free Text) Assessment: A/P: Patient is a 52 year old male with past medical history of cardiomyopathy s /p AICD, Diabetes Mellitus Type 2, Hypertension, COPD who presented with chest pain associated with shortness of breath. Non Ischemic Cardiomyopathy with Low EF -S/P AICD -Continue ASA 81mg PO daily -Lasix 40mg Q12H IVP -Medical management (Vasotec 2.5mg PO daily, Coreg 6.26mg PO BID) -Monitor I/Os, daily weights -Patient to [facility] with [facility] -05/31/18 Echo : LV is severly dilated with global hypokinesis. LV systolic function is severly impaired. EF is 28-32%. Severe Grade 3 restrictive diastolic dysfunction. Tissue Doppler compatible with severly elevated left atrial pressure. LA is moderately to severely dilated. RV systolic function is normal. RA is moderately dilated. Pacemaker leads seen in the RA. Moderate MR; Moderate pulm HTN; no pericardial effusion -Plan discussed with Dr Yu Headache -CT head negative -Monitor BPs for hypotension Diabetes Mellitus -Lantus 20 units BID -nory MANDUJANO DO PGY-2 <Deepak Yu - Last Filed: 06/04/18 22:04> Objective - Vital Signs/Intake and Output Vital Signs (last 24 hours): Temp Pulse Resp BP Pulse Ox 97.6 F 83 20 119/80 96 06/04/18 15:00 06/04/18 16:00 06/04/18 15:00 06/04/18 17:42 06/04/18 15:00 - Medications Medications: Current Medications Acetaminophen (Tylenol 325mg Tab) 650 mg PO Q6 PRN PRN Reason: Pain, moderate (4-7) Last Admin: 06/04/18 17:59 Dose: 650 mg Albuterol/Ipratropium (Duoneb 3 Mg/0.5 Mg (3 Ml) Ud) 3 ml INH RQ4 [facility] Last Admin: 06/04/18 19:38 Dose: 3 ml Aspirin (Ecotrin) 81 mg PO DAILY [facility] Last Admin: 06/04/18 10:44 Dose: 81 mg Budesonide (Pulmicort Respules) 0.5 mg INH RQ12 [facility] Last Admin: 06/04/18 19:38 Dose: 0.5 mg Carvedilol (Coreg) 6.25 mg PO BID [facility] Last Admin: 06/04/18 17:43 Dose: 6.25 mg Dextrose (Dextrose 50% Inj) 0 ml IV STAT PRN; Protocol PRN Reason: Hypoglycemia Protocol Dextrose (Glutose 15) 0 gm PO ONCE PRN; Protocol PRN Reason: Hypoglycemia Protocol Enalapril Maleate (Vasotec) 2.5 mg PO DAILY [facility] Last Admin: 06/04/18 10:45 Dose: 2.5 mg Enoxaparin Sodium (Lovenox) 40 mg SC DAILY [facility] Last Admin: 06/04/18 10:46 Dose: 40 mg Famotidine (Pepcid) 20 mg PO DAILY [facility] Last Admin: 06/04/18 10:44 Dose: 20 mg Furosemide (Lasix) 40 mg IVP BID [facility] Last Admin: 06/04/18 17:42 Dose: 40 mg Glucagon (Glucagen Diagnostic Kit) 0 mg IM STAT PRN; Protocol PRN Reason: Hypoglycemia Protocol Guaifenesin (Mucinex La) 600 mg PO BID [facility] Last Admin: 06/04/18 17:43 Dose: 600 mg Dextrose (Dextrose 5% In Water 1000 Ml) 1,000 mls @ 0 mls/hr IV .Q0M PRN; Protocol; Per Protocol PRN Reason: Hypoglycemia Protocol Insulin Glargine (Lantus) 20 unit SC BID [facility] Last Admin: 06/04/18 17:43 Dose: 20 units Insulin Human Regular (Novolin R) 0 unit SC ACHS [facility] PRN Reason: Protocol Last Admin: 06/04/18 21:27 Dose: 2 units Oxycodone/Acetaminophen (Percocet 5/325 Mg Tab) 1 tab PO Q4H PRN PRN Reason: Pain, severe (8-10) Stop: 06/07/18 14:49 Last Admin: 06/04/18 19:31 Dose: 1 tab Prednisone (Prednisone Tab) 40 mg PO DAILY [facility] Last Admin: 06/04/18 12:01 Dose: 40 mg Rosuvastatin Calcium (Crestor) 5 mg PO HS [facility] Last Admin: 06/04/18 21:15 Dose: 5 mg - Labs Labs: 06/04/18 06:05 06/04/18 06:05 PT 11.5 SECONDS (9.7-12.2) 05/31/18 14:40 INR 1.1 05/31/18 14:40 APTT 32 SECONDS (21-34) 05/31/18 14:40 Assessment and Plan - Assessment and Plan (Free Text) Assessment: Patient seen and evaluated personally by me. Plan of care d/w the certified medical technician assistant and as documented
[2018-06-04] MEDS ORDERED: (Novolin R) Insulin Human Regular 100 units/ml vial SC SCH (15:31)
[2018-06-04] MEDS: Oxycodone/Acetaminophen 5/325 mg Tab PO PRN ×2 (15:58→19:31)
[2018-06-04 16:06] VITALS: RESP 20
[2018-06-05] MEDS: Albuterol-Ipratrop 3 mg / 0.5 (3 ml) UD INH SCH ×4 (00:08→11:38)
--- NOTE | 2018-06-05 07:00 | CP.PCM.PN ---
Subjective - Date & Time of Evaluation Date of Evaluation: 06/05/18 Time of Evaluation: 09:58 Objective - Vital Signs/Intake and Output Vital Signs (last 24 hours): Temp Pulse Resp BP Pulse Ox 97.7 F 86 20 118/80 96 06/04/18 23:10 06/05/18 04:20 06/04/18 23:10 06/04/18 23:10 06/04/18 23:10 Intake and Output: 06/04/18 06/05/18 18:59 06:59 Intake Total 480 Balance 480 - Medications Medications: Current Medications Acetaminophen (Tylenol 325mg Tab) 650 mg PO Q6 PRN PRN Reason: Pain, moderate (4-7) Last Admin: 06/04/18 17:59 Dose: 650 mg Albuterol/Ipratropium (Duoneb 3 Mg/0.5 Mg (3 Ml) Ud) 3 ml INH RQ4 [facility] Last Admin: 06/05/18 04:45 Dose: Not Given Aspirin (Ecotrin) 81 mg PO DAILY [facility] Last Admin: 06/04/18 10:44 Dose: 81 mg Budesonide (Pulmicort Respules) 0.5 mg INH RQ12 [facility] Last Admin: 06/04/18 19:38 Dose: 0.5 mg Carvedilol (Coreg) 6.25 mg PO BID [facility] Last Admin: 06/04/18 17:43 Dose: 6.25 mg Dextrose (Dextrose 50% Inj) 0 ml IV STAT PRN; Protocol PRN Reason: Hypoglycemia Protocol Dextrose (Glutose 15) 0 gm PO ONCE PRN; Protocol PRN Reason: Hypoglycemia Protocol Enalapril Maleate (Vasotec) 2.5 mg PO DAILY [facility] Last Admin: 06/04/18 10:45 Dose: 2.5 mg Enoxaparin Sodium (Lovenox) 40 mg SC DAILY [facility] Last Admin: 06/04/18 10:46 Dose: 40 mg Famotidine (Pepcid) 20 mg PO DAILY [facility] Last Admin: 06/04/18 10:44 Dose: 20 mg Furosemide (Lasix) 40 mg IVP BID [facility] Last Admin: 06/04/18 17:42 Dose: 40 mg Glucagon (Glucagen Diagnostic Kit) 0 mg IM STAT PRN; Protocol PRN Reason: Hypoglycemia Protocol Guaifenesin (Mucinex La) 600 mg PO BID [facility] Last Admin: 06/04/18 17:43 Dose: 600 mg Dextrose (Dextrose 5% In Water 1000 Ml) 1,000 mls @ 0 mls/hr IV .Q0M PRN; Protocol; Per Protocol PRN Reason: Hypoglycemia Protocol Insulin Glargine (Lantus) 20 unit SC BID [facility] Last Admin: 06/04/18 17:43 Dose: 20 units Insulin Human Regular (Novolin R) 0 unit SC ACHS [facility] PRN Reason: Protocol Last Admin: 06/04/18 21:27 Dose: 2 units Oxycodone/Acetaminophen (Percocet 5/325 Mg Tab) 1 tab PO Q4H PRN PRN Reason: Pain, severe (8-10) Stop: 06/07/18 14:49 Last Admin: 06/04/18 19:31 Dose: 1 tab Prednisone (Prednisone Tab) 40 mg PO DAILY [facility] Last Admin: 06/04/18 12:01 Dose: 40 mg Rosuvastatin Calcium (Crestor) 5 mg PO HS [facility] Last Admin: 06/04/18 21:15 Dose: 5 mg - Labs Labs: 06/04/18 06:05 06/04/18 06:05 PT 11.5 SECONDS (9.7-12.2) 05/31/18 14:40 INR 1.1 05/31/18 14:40 APTT 32 SECONDS (21-34) 05/31/18 14:40 Assessment and Plan - Assessment and Plan (Free Text) Assessment: Patient is a 52 yo male w/ PMH of DM2, CHF, HTN, COPD presents with chest pain for 1.5 weeks a/w shortness of breath; EZRA X 3 negative; echo pending; cardiology consulted Dr. Yu; Cardiac cath was ordered and showed no acute abnormalities; medical management for chf as per Dr. Yu Plan: Acute exacerbation of CHF Aspirin 81mg po daily Carvedilol 6.25mg po bid Enalipril 2.5mg po daily Lasix 40mg IVP bid BNP- 1140 on admission (05/31) EKG x3; EZRA x3 negative 05/31/18 Echo : LV is severly dilated with global hypokinesis. LV systolic function is severly impaired. EF is 28-32%. Severe Grade 3 restrictive diastolic dysfunction. Tissue Doppler compatible with severly elevated left atrial pressure. LA is moderately to severely dilated. RV systolic function is normal. RA is moderately dilated. Pacemaker leads seen in the RA. Moderate MR; Moderate pulm HTN; no pericardial effusion Cardiac cath - no acute abnormalities; manage chf medically Cardiology Consulted: Dr. Yu- recommends medical management of chf Acute exacerbation of COPD Duonebs 3ml inh q4 Pulmicort 0.5 mg inh q12 Mucinex 600mg po bid Headache CT head negative Prednisone 40mg Percocet 5mg q4h prn Pseduophedrine 60mg po stat x 1 Hyperlipidemia Crestor 5mg po HS Diabetes Meillitus Sugars in AM> 300; Lantus 20 unit sc bid ISS-high dose Hypoglycemic protocol; ACHS Prophylaxis DVT prophylaxis: SCDS; Lovenox 40mg sq daily GI prophylaxis: Pepcid 20mg po daily Heart Healthy Diet
[2018-06-05] MEDS: Budesonide 0.5 mg/2 ml Inhal Susp UD INH SCH (07:30)
[2018-06-05 07:53] VITALS: TEMP 97.8
[2018-06-05] MEDS: (Novolin R) Insulin Human Regular 100 units/ml vial SC SCH ×3 (08:30→16:47)
[2018-06-05] MEDS: guaiFENesin 600 mg ER Tab PO SCH (10:38)
[2018-06-05] MEDS: (Lantus) Insulin Glargine, Recombinant SC SCH ×2 (10:38→16:47)
[2018-06-05] MEDS: Enoxaparin 40 mg Syringe SC SCH (10:41)
[2018-06-05] MEDS ORDERED: Tramadol 25 mg PO ONE ×2 (10:51→12:00)
--- NOTE | 2018-06-05 11:59 | CP.PCM.PN ---
Subjective - Date & Time of Evaluation Date of Evaluation: 06/05/18 Time of Evaluation: 11:58 - Subjective Subjective: Cardiology Progress Note - Dr Yu Patient seen and examined at bedside. Per nursing no acute events overnight. Patient is doing well, still reports having intermittent headaches. Patient denies any chest pain or dyspnea. Objective - Vital Signs/Intake and Output Vital Signs (last 24 hours): Temp Pulse Resp BP Pulse Ox 97.8 F 84 20 108/75 96 06/05/18 07:52 06/05/18 07:52 06/05/18 07:52 06/05/18 10:37 06/05/18 07:52 Intake and Output: 06/05/18 06/05/18 06:59 18:59 Intake Total 480 Balance 480 - Medications Medications: Current Medications Acetaminophen (Tylenol 325mg Tab) 650 mg PO Q6 PRN PRN Reason: Pain, moderate (4-7) Last Admin: 06/04/18 17:59 Dose: 650 mg Albuterol/Ipratropium (Duoneb 3 Mg/0.5 Mg (3 Ml) Ud) 3 ml INH RQ4 [facility] Last Admin: 06/05/18 11:38 Dose: Not Given Aspirin (Ecotrin) 81 mg PO DAILY [facility] Last Admin: 06/05/18 10:38 Dose: 81 mg Budesonide (Pulmicort Respules) 0.5 mg INH RQ12 [facility] Last Admin: 06/05/18 07:30 Dose: Not Given Carvedilol (Coreg) 6.25 mg PO BID [facility] Last Admin: 06/05/18 10:37 Dose: 6.25 mg Dextrose (Dextrose 50% Inj) 0 ml IV STAT PRN; Protocol PRN Reason: Hypoglycemia Protocol Dextrose (Glutose 15) 0 gm PO ONCE PRN; Protocol PRN Reason: Hypoglycemia Protocol Enalapril Maleate (Vasotec) 2.5 mg PO DAILY [facility] Last Admin: 06/05/18 10:36 Dose: 2.5 mg Enoxaparin Sodium (Lovenox) 40 mg SC DAILY [facility] Last Admin: 06/05/18 10:41 Dose: 40 mg Famotidine (Pepcid) 20 mg PO DAILY [facility] Last Admin: 06/05/18 10:37 Dose: 20 mg Furosemide (Lasix) 40 mg IVP BID [facility] Last Admin: 06/05/18 10:37 Dose: 40 mg Glucagon (Glucagen Diagnostic Kit) 0 mg IM STAT PRN; Protocol PRN Reason: Hypoglycemia Protocol Guaifenesin (Mucinex La) 600 mg PO BID [facility] Last Admin: 06/05/18 10:38 Dose: 600 mg Dextrose (Dextrose 5% In Water 1000 Ml) 1,000 mls @ 0 mls/hr IV .Q0M PRN; Protocol; Per Protocol PRN Reason: Hypoglycemia Protocol Insulin Glargine (Lantus) 20 unit SC BID [facility] Last Admin: 06/05/18 10:38 Dose: 20 units Insulin Human Regular (Novolin R) 0 unit SC ACHS [facility] PRN Reason: Protocol Last Admin: 06/05/18 08:30 Dose: 8 units Loratadine (Claritin) 10 mg PO ONCE ONE Stop: 06/05/18 12:01 Oxycodone/Acetaminophen (Percocet 5/325 Mg Tab) 1 tab PO Q4H PRN PRN Reason: Pain, severe (8-10) Stop: 06/07/18 14:49 Last Admin: 06/04/18 19:31 Dose: 1 tab Prednisone (Prednisone Tab) 40 mg PO DAILY [facility] Last Admin: 06/05/18 10:41 Dose: 40 mg Rosuvastatin Calcium (Crestor) 5 mg PO HS [facility] Last Admin: 06/04/18 21:15 Dose: 5 mg Tramadol HCl (Ultram) 25 mg PO ONCE ONE Stop: 06/05/18 12:01 - Labs Labs: 06/04/18 06:05 06/04/18 06:05 PT 11.5 SECONDS (9.7-12.2) 05/31/18 14:40 INR 1.1 05/31/18 14:40 APTT 32 SECONDS (21-34) 05/31/18 14:40 - Constitutional Appears: Well, No Acute Distress - Head Exam Head Exam: ATRAUMATIC, NORMAL INSPECTION, NORMOCEPHALIC - Eye Exam Eye Exam: EOMI, Normal appearance Pupil Exam: NORMAL ACCOMODATION - ENT Exam ENT Exam: Mucous Membranes Moist - Neck Exam Neck Exam: Full ROM - Respiratory Exam Respiratory Exam: Clear to Ausculation Bilateral, NORMAL BREATHING PATTERN - Cardiovascular Exam Cardiovascular Exam: REGULAR RHYTHM, +S1, +S2 - GI/Abdominal Exam GI & Abdominal Exam: Soft. absent: Guarding, Rigid, Tenderness - Extremities Exam Extremities Exam: Normal Inspection. absent: Calf Tenderness - Neurological Exam Neurological Exam: Alert, Awake, Oriented x3 - Psychiatric Exam Psychiatric exam: Normal Affect, Normal Mood - Skin Skin Exam: Normal Color, Warm Assessment and Plan - Assessment and Plan (Free Text) Assessment: A/P: Patient is a 52 year old male with past medical history of cardiomyopathy s /p AICD, Diabetes Mellitus Type 2, Hypertension, COPD who presented with chest pain associated with shortness of breath. Non Ischemic Cardiomyopathy with Low EF -S/P AICD -Continue ASA 81mg PO daily -Lasix 40mg Q12H IVP -Repeat BNP ordered for tomorrow -Medical management (Vasotec 2.5mg PO daily, Coreg 6.26mg PO BID) -Monitor I/Os, daily weights -Patient to follow up with [facility] outpatient -05/31/18 Echo : LV is severely dilated with global hypokinesis. LV systolic function is severely impaired. EF is 28-32%. Severe Grade 3 restrictive diastolic dysfunction. Tissue Doppler compatible with severely elevated left atrial pressure. LA is moderately to severely dilated. RV systolic function is normal. RA is moderately dilated. Pacemaker leads seen in the RA. Moderate MR; Moderate pulm HTN; no pericardial effusion -Plan discussed with Dr Yu Headache -CT head negative -Monitor BPs for hypotension -Will recommend Neurology eval if headaches still persistent Diabetes Mellitus -Lantus 20 units BID -ISS, accuchecks ACHS -Patient still with elevated blood sugars, will recommend discontinuing Prednisone Trina Sharp DO PGY-2
[2018-06-05 13:57] LABS: BASO # 0.1 K/uL (0.0-0.2); BASO % 0.4 % (0.0-2.0); EOS # 0.1 K/uL (0.0-0.7); EOS % 0.5 % (0.0-4.0); LYMPH # 2.9 K/uL (1.0-4.3); MEAN CELL VOLUME 89.3 fL (80.0-94.0); MEAN CORPUSCULAR HEMOGLOBIN 30.2 pg (27.0-31.0); MEAN CORPUSCULAR HGB CONC 33.8 g/dL (33.0-37.0); MEAN PLATELET VOLUME 9.1 fL (7.2-11.7); MONO # 1.3 K/uL (0.0-0.8); MONO % 6.8 % (0.0-10.0); NEUT % 77.3 % (50.0-75.0); RBC 5.38 Mil/uL (4.40-5.90); RED CELL DISTRIBUTION WIDTH 13.9 % (11.5-14.5); WHITE BLOOD COUNT 19.4 K/uL (4.8-10.8)
[2018-06-05 13:58] LABS: HEMOGLOBIN 16.3 g/dL (12.0-18.0)
[2018-06-05 14:20] LABS: ALB/GLOB RATIO 1.1 (1.0-2.1); ALBUMIN 4.3 g/dL (3.5-5.0); ALT/SGPT 57 U/L (21-72); AST/SGOT 26 U/L (17-59); BLOOD UREA NITROGEN 38 mg/dL (9-20); CALCIUM 9.3 mg/dl (8.6-10.4); GFR AFRICAN-AMERICAN > 60; GFR NON-AFRICAN AMERICAN > 60
--- NOTE | 2018-06-05 14:49 | CP.PCM.DIS ---
Provider - Provider Date of Admission: 05/31/18 20:42 Attending physician: Javy Lizarraga DO Consults: Dr. Yu Time Spent in preparation of Discharge (in minutes): 45 Hospital Course - Lab Results Lab Results: Micro Results 05/31/18 15:00 Blood Blood Culture - Preliminary NO GROWTH AFTER 4 DAYS Most Recent Lab Values WBC 19.4 K/uL (4.8-10.8) H 06/05/18 13:49 RBC 5.38 Mil/uL (4.40-5.90) 06/05/18 13:49 Hgb 16.3 g/dL (12.0-18.0) D 06/05/18 13:49 Hct 48.1 % (35.0-51.0) 06/05/18 13:49 MCV 89.3 fL (80.0-94.0) 06/05/18 13:49 MCH 30.2 pg (27.0-31.0) 06/05/18 13:49 MCHC 33.8 g/dL (33.0-37.0) 06/05/18 13:49 RDW 13.9 % (11.5-14.5) 06/05/18 13:49 Plt Count 289 K/uL (130-400) 06/05/18 13:49 MPV 9.1 fL (7.2-11.7) 06/05/18 13:49 Neut % (Auto) 77.3 % (50.0-75.0) H 06/05/18 13:49 Lymph % (Auto) 15.0 % (20.0-40.0) L 06/05/18 13:49 Cecil % (Auto) 6.8 % (0.0-10.0) 06/05/18 13:49 Eos % (Auto) 0.5 % (0.0-4.0) 06/05/18 13:49 Baso % (Auto) 0.4 % (0.0-2.0) 06/05/18 13:49 Neut # (Auto) 15.0 K/uL (1.8-7.0) H 06/05/18 13:49 Lymph # (Auto) 2.9 K/uL (1.0-4.3) 06/05/18 13:49 Cecil # (Auto) 1.3 K/uL (0.0-0.8) H 06/05/18 13:49 Eos # (Auto) 0.1 K/uL (0.0-0.7) 06/05/18 13:49 Baso # (Auto) 0.1 K/uL (0.0-0.2) 06/05/18 13:49 Neutrophils % (Manual) 88 % (50-75) H 06/04/18 06:05 Lymphocytes % (Manual) 7 % (20-40) L 06/04/18 06:05 Monocytes % (Manual) 5 % (0-10) 06/04/18 06:05 Toxic Granulation Present 06/03/18 07:43 Platelet Estimate Normal (NORMAL) 06/04/18 06:05 RBC Morphology Normal 06/01/18 06:54 Polychromasia Slight 06/03/18 07:43 Hypochromasia (manual) Slight 06/02/18 07:46 Anisocytosis (manual) Slight 06/03/18 07:43 PT 11.5 SECONDS (9.7-12.2) 05/31/18 14:40 INR 1.1 05/31/18 14:40 APTT 32 SECONDS (21-34) 05/31/18 14:40 Sodium 136 mmol/L (132-148) 06/05/18 13:49 Potassium 4.0 mmol/L (3.6-5.2) 06/05/18 13:49 Chloride 87 mmol/L (98-107) L 06/05/18 13:49 Carbon Dioxide 36 mmol/L (22-30) H 06/05/18 13:49 Anion Gap 17 (10-20) 06/05/18 13:49 BUN 38 mg/dL (9-20) H 06/05/18 13:49 Creatinine 1.2 mg/dL (0.8-1.5) 06/05/18 13:49 Est GFR ( Amer) > 60 06/05/18 13:49 Est GFR (Non-Af Amer) > 60 06/05/18 13:49 POC Glucose (mg/dL) 309 mg/dL (65-110) H 06/05/18 11:25 Random Glucose 341 mg/dL (75-110) H 06/05/18 13:49 Calcium 9.3 mg/dl (8.6-10.4) 06/05/18 13:49 Phosphorus 4.2 mg/dL (2.5-4.5) 06/05/18 13:49 Magnesium 2.0 mg/dL (1.6-2.3) 06/05/18 13:49 Total Bilirubin 0.8 mg/dL (0.2-1.3) 06/05/18 13:49 AST 26 U/L (17-59) 06/05/18 13:49 ALT 57 U/L (21-72) 06/05/18 13:49 Alkaline Phosphatase 135 U/L (38-126) H 06/05/18 13:49 Total Creatine Kinase 198 U/L (55-170) H 06/01/18 03:29 CK-MB (Mass) 2.30 ng/mL (0.0-3.38) 06/01/18 03:29 Troponin I < 0.0120 ng/mL (0.00-0.120) 06/01/18 03:29 NT-Pro-B Natriuret Pep 1140 pg/mL (0-900) H 05/31/18 14:40 Total Protein 8.2 g/dL (6.3-8.3) 06/05/18 13:49 Albumin 4.3 g/dL (3.5-5.0) 06/05/18 13:49 Globulin 3.9 gm/dL (2.2-3.9) 06/05/18 13:49 Albumin/Globulin Ratio 1.1 (1.0-2.1) 06/05/18 13:49 Digoxin < 0.4 ng/mL (0.8-2.0) L 05/31/18 14:44 - Hospital Course Hospital Course: HPI: Patient is a 52 yo male who presents to the ED for evaluation of chest pain a/w shortness of breath. Patient states the pain started 1.5 weeks ago which progressed to worsening chest pain and shortness of breath prompting him to come to the hospital. Patient reports no sleep as laying down makes it more difficult to breathe and exacerbated the chest pain. Patient reports pain in the epigastric region, nonradiating described to be a deep pressure with a pain level of 5/10. Patient states he has not felt this pain prior. Patient reports the pain to be all night especially when he is trying to go to sleep. Patient reports a productive cough with white phlegm. Patient denies fevers or chills. PMH: DM2, CHF, HTN, COPD PSH: Denies FH: Mom (DM), Father (CVD) Meds: Aspirin 81mg po daily; Enalapril 2.5mg po daily, atorvastatin 10mg po daily, carvediolol 6.25mg po bid, Combivent, Furosemide 40mg po daily, Humalog, Lantus Allergies: NKDA Code: Full Code Social: Smokes 1 pack/3 days; social drinker 2-3 beers per event; denies drug use; currently unemployed living with family at home PMD: [facility] Course: 52 yo male came into hospital for evaluation of chest pain associated with shortness of breath. Upon admission, labs showed elevated BNP but no elevated troponins; Cardiology was consulted and patient underwent cardiac cath which showed no abnormalities; Per Dr. Yu it was recommended to manage acute exacerbation of heart failure with medical management. Patient received breathing treatments because he was still having shortness of breath; heart failure and sob improved with treatment however patient had sudden onset of headache; CT head was ordered which showed no bleeding or mass effect to explain headache; Patient was given tylenol, ibuprofen, percocet, and prednisone with no relief of headache; patient stated it felt like it was a sinus headache because he felt congested but no rhinorrhea or cough was present ; Patient was given ultram and claritin and symptoms improved; Patient educated to followup outpatient with heart failure clinic, Dr. Yu, and Dr. Naidu. Discharge Plan: Patient is stable for discharge to home as per Dr. Baptiste. Patient is to followup with Dr. Naidu within 1 week of discharge from hospital. Patient is to followup with [facility] within 1 week from discharge from hospital. Patient is to followup with Dr. Yu within 1 week of discharge from hospital. Patient is to resume all of his home medications as no medication adjustments were made during this admission. Patient is educated to return to hospital if symptoms recur or worsen. Patient understands and agrees to the plan above. Disclaimer: Written above is synopsis of patient current hospital admission. For full report please refer to EMR. Discharge Exam - Head Exam Head Exam: ATRAUMATIC, NORMAL INSPECTION, NORMOCEPHALIC - Eye Exam Eye Exam: Normal appearance. absent: Nystagmus, Scleral icterus - Respiratory Exam Respiratory Exam: NORMAL BREATHING PATTERN. absent: Rales, Rhonchi, Wheezes, Respiratory Distress - Cardiovascular Exam Cardiovascular Exam: REGULAR RHYTHM, +S1, +S2. absent: Tachycardia - GI/Abdominal Exam GI & Abdominal Exam: Normal Bowel Sounds. absent: Distended, Firm, Guarding - Extremities Exam Extremities exam: normal inspection - Back Exam Back exam: NORMAL INSPECTION - Neurological Exam Neurological exam: Alert, Normal Gait, Oriented x3 - Psychiatric Exam Psychiatric exam: Normal Affect, Normal Mood - Skin Skin Exam: Intact, Normal Color Discharge Plan - Discharge Medications Prescriptions: Albuterol/Ipratropium [Duoneb 3 mg/0.5 mg (3 ml) UD] 3 ml INH RQ4 #30 neb Budesonide [Pulmicort Respules] 0.5 mg INH RQ12 #30 neb - Follow Up Plan Condition: FAIR Disposition: HOME/ ROUTINE Instructions: Quitting Smoking for Older Adults, Quitting Smoking, Heart Failure (DC), Heart Failure (GEN), Pacemaker (DC), Pacemaker (GEN), Pulmonary Edema (DC), Pulmonary Edema (GEN), Ascites (DC), Ascites (GEN) Additional Instructions: Patient is stable for discharge to home as per Dr. Baptiste. Patient is to followup with Dr. Naidu within 1 week of discharge from hospital. Patient is to followup with [facility] within 1 week from discharge from hospital. Patient is to followup with Dr. Yu within 1 week of discharge from hospital. Patient is to resume all of his home medications as no medication adjustments were made during this admission. Patient is educated to return to hospital if symptoms recur or worsen. Patient understands and agrees to the plan above. Referrals: [facility] [Outside] Deepak Yu MD [Staff Provider] - Efrain Naidu MD [Staff Provider] -
[2018-06-05 16:08] VITALS: BP 106/74; PULSE 89; O2SAT 97
== END 2018-06-05 17:05 | disposition home or self-care (01) | DRG 287 ==
LOC: C.ER 13:39 → C.9E 16:55 → C.6T 18:23 → OBSVTOIN 20:42
PROVIDERS: ADMIT Hospitalist; ATTEND Hospitalist
PROC: B2151ZZ Fluoroscopy of Left Heart using Low Osmolar Contrast (ICD-10-PCS; 2018-06-01)
PROC: B2111ZZ Fluoroscopy of Multiple Coronary Arteries using Low Osmolar Contrast (ICD-10-PCS; 2018-06-01)
PROC: 4A023N7 Measurement of Cardiac Sampling and Pressure, Left Heart, Percutaneous Approach (ICD-10-PCS; principal; 2018-06-01 10:00)
DX: I11.0 Hypertensive heart disease with heart failure (principal); I50.23 Acute on chronic systolic (congestive) heart failure; J44.1 Chronic obstructive pulmonary disease with (acute) exacerbation; I42.8 Other cardiomyopathies; E11.65 Type 2 diabetes mellitus with hyperglycemia; I27.20 Pulmonary hypertension, unspecified; E78.5 Hyperlipidemia, unspecified; E78.00 Pure hypercholesterolemia, unspecified; F17.210 Nicotine dependence, cigarettes, uncomplicated; Z95.810 Presence of automatic (implantable) cardiac defibrillator; Z79.4 Long term (current) use of insulin; Z79.82 Long term (current) use of aspirin

== ENCOUNTER 2018-06-14 12:26 | Inpatient (IN) | payer MEDICARE ==
[2018-06-14 12:27] VITALS: PULSE 98; BMI 38.5
[2018-06-14 13:35] LABS: BASO # 0.2 K/uL (0.0-0.2); BASO % 0.8 % (0.0-2.0); EOS # 0.3 K/uL (0.0-0.7); EOS % 1.4 % (0.0-4.0); LYMPH # 1.9 K/uL (1.0-4.3); LYMPH % 9.7 % (20.0-40.0); MEAN CORPUSCULAR HEMOGLOBIN 29.9 pg (27.0-31.0); MEAN PLATELET VOLUME 9.3 fL (7.2-11.7); MONO % 4.9 % (0.0-10.0); NEUT # 16.4 K/uL (1.8-7.0); NEUT % 83.2 % (50.0-75.0); PLATELET COUNT 199 K/uL (130-400); RBC 4.15 Mil/uL (4.40-5.90); WHITE BLOOD COUNT 19.7 K/uL (4.8-10.8)
[2018-06-14 13:38] LABS: HEMOGLOBIN 12.4 g/dL (12.0-18.0)
[2018-06-14 13:43] LABS: PROTHROMBIN TIME 10.5 SECONDS (9.7-12.2)
--- NOTE | 2018-06-14 13:45 | RAD ---
Date of service: 06/14/2018 PROCEDURE: CHEST RADIOGRAPH, 1 VIEW HISTORY: SOB COMPARISON: 06/02/2018 FINDINGS: LUNGS: No consolidation. PLEURA: No pneumothorax or pleural fluid seen. CARDIOVASCULAR: Mild cardiomegaly. Mild central pulmonary venous congestion probably slightly less now than before. Position/ configuration of pacemaker OSSEOUS STRUCTURES: No significant abnormalities. VISUALIZED UPPER ABDOMEN: Normal. OTHER FINDINGS: None. IMPRESSION: Cardiomegaly in similar. Pulmonary venous congestion less now
[2018-06-14 13:46] LABS: ALB/GLOB RATIO 1.2 (1.0-2.1); ALBUMIN 3.9 g/dL (3.5-5.0); ALT/SGPT 61 U/L (21-72); AST/SGOT 19 U/L (17-59); BLOOD UREA NITROGEN 20 mg/dL (9-20); CALCIUM 8.7 mg/dl (8.6-10.4); GFR NON-AFRICAN AMERICAN > 60
[2018-06-14 13:48] LABS: BARBITURATES, UR NEGATIVE (NEGATIVE); BENZODIAZEPINES, UR NEGATIVE (NEGATIVE)
[2018-06-14 13:57] LABS: B-TYPE NATRIURETIC PEPTIDE 1950 pg/mL (0-900)
[2018-06-14 13:58] LABS: BANDS 3 % (0-2); BASOPHIL 1 % (0-2); EOSINOPHIL 1 % (0-4); LYMPHOCYTE 9 % (20-40); MONOCYTE 5 % (0-10); NEUTROPHIL 81 % (50-75); PLATELET ESTIMATE NORMAL (NORMAL); TOTAL CELLS COUNTED 100
[2018-06-14 14:09] LABS: OPIATES, UR NEGATIVE (NEGATIVE); PHENCYCLIDINE, UR NEGATIVE (NEGATIVE)
[2018-06-14] MEDS ORDERED: (Novolin R) Insulin Human Regular 100 units/ml vial IV STA (14:10)
[2018-06-14] MEDS ORDERED: (Novolin R) Insulin Human Regular 100 units/ml vial ONE (14:17)
[2018-06-14 14:25] LABS: URINE BILIRUBIN NEGATIVE (NEGATIVE); URINE BLOOD NEGATIVE (NEGATIVE); URINE CLARITY Clear (Clear); URINE COLOR STRAW (YELLOW); URINE GLUCOSE (UA) 100 mg/dL (Normal); URINE PROTEIN NEGATIVE (NEGATIVE); URINE UROBILINOGEN 0.2 mg/dL (0.2-1.0)
[2018-06-14 14:26] LABS: URINE LEUKOCYTE ESTERASE Negative Leu/uL (Negative)
--- NOTE | 2018-06-14 14:35 | C.PDOC ---
History Of Present Illness 52 year old male patient presents to the ER with c/o chest pressure with SOB on exertion. Patient notes he was admitted on May 31 for heart failure. Patient's cardiac catheterization shows normal vessel. Cardiac echo shows severely dilated and global hypokinesia. Patient also states he has left severely impaired 30% ejection fraction, severe diastolic dysfunction, and right ventricular moderate pulmonary HTN. Patient denies fever/chills. intentional weight loss from max 279# to present 239# per pt Quit smoking cigarettes 1 week ago Time Seen by Provider: 06/14/18 13:15 Chief Complaint (Nursing): Chest Pain History Per: Patient History/Exam Limitations: no limitations Onset/Duration Of Symptoms: Days Current Symptoms Are (Timing): Still Present Past Medical History Reviewed: Historical Data, Nursing Documentation, Vital Signs Vital Signs: Last Vital Signs Temp 98 F 06/14/18 12:34 Pulse 95 H 06/14/18 12:34 Resp 20 06/14/18 12:34 BP 89/62 L 06/14/18 12:34 Pulse Ox 96 06/14/18 14:38 - Medical History PMH: Asthma, CHF, Diabetes, HTN, Hypercholesterolemia, Peripheral Edema - [facility] Procedures FLUOROSCOPY OF LEFT HEART USING LOW OSMOLAR CONTRAST (05/31/18) FLUOROSCOPY OF MULT COR ART USING L OSM CONTRAST (05/31/18) MEASURE OF CARDIAC SAMPL & PRESSURE, L HEART, PERC APPROACH (05/31/18) Family History: States: Unknown Family Hx - Social History Hx Tobacco Use: Yes Hx Alcohol Use: Yes Hx Substance Use: No - Immunization History Hx Tetanus Toxoid Vaccination: Yes Hx Influenza Vaccination: Yes Hx Pneumococcal Vaccination: Yes Review Of Systems Except As Marked, All Systems Reviewed And Found Negative. Constitutional: Negative for: Fever, Chills Cardiovascular: Positive for: Chest Pain, Other (30% ejection fraction, dilated and flobal hypokinesia, severe diastolic dysfunction, R ventricular moderat pulmon. HTN) Physical Exam - Physical Exam Appears: Non-toxic, No Acute Distress, Other (obese; over-drinking diuretic w/ free water) Skin: Normal Color, Warm, Dry Head: Atraumatic, Normacephalic Eye(s): bilateral: Normal Inspection Ear(s): Bilateral: Normal Oral Mucosa: Moist Throat: Normal Neck: Normal ROM, Supple Chest: Symmetrical, No Deformity Cardiovascular: Murmur (holosystolic murmur), Other (distant heart sounds ) Respiratory: Rales (mild rale b/l basis ) Gastrointestinal/Abdominal: Soft, No Tenderness, Other (obese ) Back: No CVA Tenderness Extremity: Normal ROM (x4), No Pedal Edema Neurological/Psych: Oriented x3, Normal Speech Gait: Steady ED Course And Treatment - Laboratory Results Result Diagrams: 06/14/18 13:26 06/14/18 13:26 ECG: Interpreted By Me ECG Rhythm: Sinus Rhythm ECG Interpretation: Normal O2 Sat by Pulse Oximetry: 96 (RA) Pulse Ox Interpretation: Normal - Radiology CXR: Interpreted by Me CXR Interpretation: Yes: Heart Size, Other (+CHF) - Physician Consult Information Outcome Of Conversation: 1415: d/w Dr. Lizarraga, Hospitalist covering Clinic pt's and prior admitting doctor. ok to admit. Medical Decision Making Medical Decision Making: CHF overdrinking diuretic, poor insight into fluid restrictions Extensively educated Global hypokenesis EJF 30% gently diureses to optimal euvolemic weight Leukocytosis: WBC 18K w L shift but no source LOW susp of pericarditis, recent echo nl no fevers Prob related to recent abs/steroids for COPD tx. Defer abx for now- no source. follow WBC trend DM: weight loss from max 279# to present 239# (per pt) glu 300 RISS continued weight loss Disposition Doctor Will See Patient In The: Hospital Counseled Patient/Family Regarding: Studies Performed, Diagnosis - Disposition Disposition: HOSPITALIZED Disposition Time: 14:36 Condition: GOOD - Clinical Impression Clinical Impression: Acute exacerbation of CHF (congestive heart failure), Chest discomfort - Scribe Statement The provider has reviewed the documentation as recorded by the Betsy Ying Do Provider Attestation: All medical record entries made by the Betsy were at my direction and personally dictated by me. I have reviewed the chart and agree that the record accurately reflects my personal performance of the history, physical exam, medical decision making, and the department course for this patient. I have also personally directed, reviewed, and agree with the discharge instructions and disposition.
[2018-06-14 14:41] LABS: SQUAMOUS EPITHIAL -1 /hpf (0-5)
--- NOTE | 2018-06-14 15:37 | CP.PCM.HP ---
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 Patient states he has not smoked cigarettes since his last hospital admission on 05/31. Patient was at [facility] on 05/31 for similar symptoms and was treated with diuretics and breathing treatments. Patient reports he was not doing any strenous task when the shortness of breath and instead he was resting. Patient states that he drinks lots of fluid at home and he has not measured his daily weights. Patient reports that he pees alot after taking his morning diuretic but patient states that after his evening dose he does not pee as much. Patient reports that shortness of breath gets worsened by laying down and is currently unable to lay down. Patient states that he tried to take the breathing treatments for his COPD at home however it offered no relief. Patient states that a few days ago he measured his blood pressure and it was in the low 80s and he began to feel lightheaded, diaphoretic, and weak. Patient states the breathing became so difficult since yesterday that he had to come to hospital. PMH: DM2, CHF 2/2 non ischemic cardiomyopathy with AICD (EF of 25-35), HTN, COPD PSH: Denies FH: Mom (DM), Father (CVD) Meds: Aspirin 81mg po daily; Enalapril 2.5mg po daily, atorvastatin 10mg po daily, carvediolol 3.125mg po bid, Combivent, Furosemide 40mg po in AM, Furosemide 20mg po HS, Humalog, Lantus 80 in AM and Lantus 50 in PM Allergies: NKDA Code: Full Code Social: Smokes 1 pack/3 days- recently stopped smoking since last admission on ; social drinker 2-3 beers per event; denies drug use; currently unemployed living with family at home PMD: Dr. Yu Review of Systems Pertinent Positives: palpitations, orthopnea, sob, MCKEON, fatigue Pertinent Negatives: chest pain, headaches, dizziness, lightheadedness, fevers, chills, n/v, constipation or diarrhea Present on Admission - Present on Admission Any Indicators Present on Admission: No Review of Systems - Constitutional Constitutional: Fatigue. absent: Chills, Fever, Headache, Night Sweats - EENT Eyes: absent: Blurred Vision, Change in Vision Ears: absent: Dizziness - Cardiovascular Cardiovascular: Dyspnea, Dyspnea on Exertion, Edema, Orthopnea, Palpitations. absent: Chest Pain, Chest Pain at Rest, Diaphoresis - Respiratory Respiratory: Dyspnea, Dyspnea on Exertion. absent: Cough, Hemoptysis, Wheezing - Gastrointestinal Gastrointestinal: absent: Abdominal Pain, Diarrhea, Nausea, Vomiting - Genitourinary Genitourinary: Urinary Frequency. absent: Difficulty Urinating, Dysuria, Flank Pain, Hematuria, Nocturia Additional comments: in AM increased urinary frequency likely 2/2 Past Patient History - Past Medical History & Family History Past Medical History?: Yes - Past Social History Smoking Status: Light Smoker < 10 Cigarettes Daily - CARDIAC Hx Congestive Heart Failure: Yes Hx Hypercholesterolemia: Yes Hx Hypertension: Yes Hx Peripheral Edema: Yes - PULMONARY Hx Asthma: Yes - NEUROLOGICAL Hx Neurological Disorder: No - HEENT Hx HEENT Problems: Yes Other/Comment: wear reading eyeglasses - RENAL Hx Chronic Kidney Disease: No - ENDOCRINE/METABOLIC Hx Endocrine Disorders: Yes Hx Diabetes Mellitus Type 2: Yes - HEMATOLOGICAL/ONCOLOGICAL Hx Blood Disorders: No - INTEGUMENTARY Hx Dermatological Problems: No - MUSCULOSKELETAL/RHEUMATOLOGICAL Hx Musculoskeletal Disorders: No - GASTROINTESTINAL Hx Gastrointestinal Disorders: No - GENITOURINARY/GYNECOLOGICAL Hx Genitourinary Disorders: No - PSYCHIATRIC Hx Substance Use: No - SURGICAL HISTORY Hx Surgeries: Yes Hx Cardiac Catheterization: Yes Other/Comment: AICD placement 1 1/2 year ago - ANESTHESIA Hx Anesthesia: No Hx Anesthesia Reactions: No Hx Malignant Hyperthermia: No Meds Allergies/Adverse Reactions: Allergies Allergy/AdvReac Type Severity Reaction Status Date / Time No Known Allergies Allergy Verified 05/31/18 13:47 Physical Exam - Constitutional Appears: Non-toxic, No Acute Distress - Head Exam Head Exam: NORMAL INSPECTION, NORMOCEPHALIC - Eye Exam Eye Exam: EOMI, Normal appearance. absent: Nystagmus, Scleral icterus - Respiratory Exam Respiratory Exam: Clear to Auscultation Bilateral, NORMAL BREATHING PATTERN. absent: Rales, Rhonchi, Wheezes - Cardiovascular Exam Cardiovascular Exam: REGULAR RHYTHM, +S1, +S2. absent: Tachycardia - GI/Abdominal Exam GI & Abdominal Exam: Normal Bowel Sounds, Soft. absent: Diminished Bowel Sounds , Distended, Firm, Guarding, Tenderness - Extremities Exam Extremities exam: Positive for: normal inspection. Negative for: calf tenderness, pedal edema - Back Exam Back exam: NORMAL INSPECTION. absent: CVA tenderness (L), CVA tenderness (R) - Neurological Exam Neurological exam: Alert, CN II-XII Intact, Oriented x3 - Psychiatric Exam Psychiatric exam: Normal Affect, Normal Mood - Skin Skin Exam: Intact, Normal Color Results - Vital Signs Recent Vital Signs: Last Vital Signs Temp 98 F 06/14/18 12:34 Pulse 95 H 06/14/18 12:34 Resp 20 06/14/18 12:34 BP 89/62 L 06/14/18 12:34 Pulse Ox 96 06/14/18 15:07 - Labs Result Diagrams: 06/14/18 13:26 06/14/18 13:26 Labs: Laboratory Results - last 24 hr 06/14/18 06/14/18 06/14/18 13:26 13:26 13:26 WBC 19.7 H RBC 4.15 L Hgb 12.4 D Hct 36.5 MCV 88.0 MCH 29.9 MCHC 34.0 RDW 14.0 Plt Count 199 MPV 9.3 Neut % (Auto) 83.2 H Lymph % (Auto) 9.7 L [place] % (Auto) 4.9 Eos % (Auto) 1.4 Baso % (Auto) 0.8 Neut # (Auto) 16.4 H Lymph # (Auto) 1.9 [place] # (Auto) 1.0 H Eos # (Auto) 0.3 Baso # (Auto) 0.2 Neutrophils % (Manual) 81 H Band Neutrophils % 3 H Lymphocytes % (Manual) 9 L Monocytes % (Manual) 5 Eosinophils % (Manual) 1 Basophils % (Manual) 1 Platelet Estimate Normal RBC Morphology Normal PT 10.5 INR 1.0 APTT 31 Sodium 140 Potassium 4.4 Chloride 102 Carbon Dioxide 26 Anion Gap 17 BUN 20 Creatinine 0.8 Est GFR ( Amer) > 60 Est GFR (Non-Af Amer) > 60 Random Glucose 297 H Calcium 8.7 Total Bilirubin 0.7 AST 19 ALT 61 Alkaline Phosphatase 112 Troponin I 0.0670 NT-Pro-B Natriuret Pep 1950 H Total Protein 7.0 Albumin 3.9 Globulin 3.1 Albumin/Globulin Ratio 1.2 Urine Color Urine Clarity Urine pH Ur Specific [place] Urine Protein Urine Glucose (UA) Urine Ketones Urine Blood Urine Nitrate Urine Bilirubin Urine Urobilinogen Ur Leukocyte Esterase Ur Squamous Epith Cells Urine Opiates Screen Urine Methadone Screen Ur Barbiturates Screen Ur Phencyclidine Scrn Ur Amphetamines Screen U Benzodiazepines Scrn U Oth Cocaine Metabols U Cannabinoids Screen Alcohol, Quantitative < 10 06/14/18 06/14/18 13:26 14:14 WBC RBC Hgb Hct MCV MCH MCHC RDW Plt Count MPV Neut % (Auto) Lymph % (Auto) [place] % (Auto) Eos % (Auto) Baso % (Auto) Neut # (Auto) Lymph # (Auto) [place] # (Auto) Eos # (Auto) Baso # (Auto) Neutrophils % (Manual) Band Neutrophils % Lymphocytes % (Manual) Monocytes % (Manual) Eosinophils % (Manual) Basophils % (Manual) Platelet Estimate RBC Morphology PT INR APTT Sodium Potassium Chloride Carbon Dioxide Anion Gap BUN Creatinine Est GFR ( Amer) Est GFR (Non-Af Amer) Random Glucose Calcium Total Bilirubin AST ALT Alkaline Phosphatase Troponin I NT-Pro-B Natriuret Pep Total Protein Albumin Globulin Albumin/Globulin Ratio Urine Color Straw Urine Clarity Clear Urine pH 5.0 Ur Specific [place] 1.010 Urine Protein Negative Urine Glucose (UA) 100 Urine Ketones Negative Urine Blood Negative Urine Nitrate Negative Urine Bilirubin Negative Urine Urobilinogen 0.2 Ur Leukocyte Esterase Negative Ur Squamous Epith Cells -1 L Urine Opiates Screen Negative Urine Methadone Screen Negative Ur Barbiturates Screen Negative Ur Phencyclidine Scrn Negative Ur Amphetamines Screen Negative U Benzodiazepines Scrn Negative U Oth Cocaine Metabols Negative U Cannabinoids Screen Negative Alcohol, Quantitative Assessment & Plan - Assessment and Plan (Free Text) Assessment: Patient is a 52 yo male with PMH of HTN, CAD, CHF, COPD, DM presents to hospital for evaluation of sob; likely 2/2 to CHF exacerbation; recent admission on 05/31 at [facility] for similar symptoms. Plan: Acute Exacerbation of CHF 06/14 Cxray- Cardiomegaly is similar. Pulmonary venous congestion less now 1x dose Lasix 40mg IVP ER Trop .06; EZRA x2 pending Repeat CXray in AM Lasix 20mg IVP bid CTA to rule out PE Consult: Dr. Yu- recommends outpatient HF center at [place] BNP-1950 Hx of COPD Duonebs 3ml inh rq4 prn Solu-medrol 20mg IVP TID jacob DM2 ISS-high dose ACHS Hypoglycemic protocol CAD Crestor 5mg po HS HTN Hypotension on admission Will hold home blood pressure meds for now PPX DVT ppx: Heparin 5000 units sc q8 GI ppx: Not indicated at this time <Javy Lizarraga H - Last Filed: 06/14/18 18:20> Results - Vital Signs Recent Vital Signs: Last Vital Signs Temp 98.0 F 06/14/18 17:00 Pulse 100 H 06/14/18 17:00 Resp 20 06/14/18 17:00 BP 98/65 L 06/14/18 17:22 Pulse Ox 96 06/14/18 17:00 - Labs Result Diagrams: 06/14/18 16:47 06/14/18 16:47 Labs: Laboratory Results - last 24 hr 06/14/18 06/14/18 06/14/18 13:26 13:26 13:26 WBC 19.7 H RBC 4.15 L Hgb 12.4 D Hct 36.5 MCV 88.0 MCH 29.9 MCHC 34.0 RDW 14.0 Plt Count 199 MPV 9.3 Neut % (Auto) 83.2 H Lymph % (Auto) 9.7 L [place] % (Auto) 4.9 Eos % (Auto) 1.4 Baso % (Auto) 0.8 Neut # (Auto) 16.4 H Lymph # (Auto) 1.9 [place] # (Auto) 1.0 H Eos # (Auto) 0.3 Baso # (Auto) 0.2 Neutrophils % (Manual) 81 H Band Neutrophils % 3 H Lymphocytes % (Manual) 9 L Monocytes % (Manual) 5 Eosinophils % (Manual) 1 Basophils % (Manual) 1 Platelet Estimate Normal RBC Morphology Normal PT 10.5 INR 1.0 APTT 31 Sodium 140 Potassium 4.4 Chloride 102 Carbon Dioxide 26 Anion Gap 17 BUN 20 Creatinine 0.8 Est GFR ( Amer) > 60 Est GFR (Non-Af Amer) > 60 POC Glucose (mg/dL) Random Glucose 297 H Calcium 8.7 Total Bilirubin 0.7 AST 19 ALT 61 Alkaline Phosphatase 112 Total Creatine Kinase CK-MB (Mass) Troponin I 0.0670 NT-Pro-B Natriuret Pep 1950 H Total Protein 7.0 Albumin 3.9 Globulin 3.1 Albumin/Globulin Ratio 1.2 Urine Color Urine Clarity Urine pH Ur Specific [place] Urine Protein Urine Glucose (UA) Urine Ketones Urine Blood Urine Nitrate Urine Bilirubin Urine Urobilinogen Ur Leukocyte Esterase Ur Squamous Epith Cells Urine Opiates Screen Urine Methadone Screen Ur Barbiturates Screen Ur Phencyclidine Scrn Ur Amphetamines Screen U Benzodiazepines Scrn U Oth Cocaine Metabols U Cannabinoids Screen Alcohol, Quantitative < 10 06/14/18 06/14/18 06/14/18 13:26 14:14 16:47 WBC 20.8 H RBC 4.42 Hgb 12.9 Hct 38.8 MCV 87.8 MCH 29.3 MCHC 33.4 RDW 13.8 Plt Count 217 MPV 8.7 Neut % (Auto) 82.2 H Lymph % (Auto) 9.7 L [place] % (Auto) 5.6 Eos % (Auto) 1.4 Baso % (Auto) 1.1 Neut # (Auto) 17.1 H Lymph # (Auto) 2.0 [place] # (Auto) 1.2 H Eos # (Auto) 0.3 Baso # (Auto) 0.2 Neutrophils % (Manual) Band Neutrophils % Lymphocytes % (Manual) Monocytes % (Manual) Eosinophils % (Manual) Basophils % (Manual) Platelet Estimate RBC Morphology PT INR APTT Sodium Potassium Chloride Carbon Dioxide Anion Gap BUN Creatinine Est GFR ( Amer) Est GFR (Non-Af Amer) POC Glucose (mg/dL) Random Glucose Calcium Total Bilirubin AST ALT Alkaline Phosphatase Total Creatine Kinase CK-MB (Mass) Troponin I NT-Pro-B Natriuret Pep Total Protein Albumin Globulin Albumin/Globulin Ratio Urine Color Straw Urine Clarity Clear Urine pH 5.0 Ur Specific [place] 1.010 Urine Protein Negative Urine Glucose (UA) 100 Urine Ketones Negative Urine Blood Negative Urine Nitrate Negative Urine Bilirubin Negative Urine Urobilinogen 0.2 Ur Leukocyte Esterase Negative Ur Squamous Epith Cells -1 L Urine Opiates Screen Negative Urine Methadone Screen Negative Ur Barbiturates Screen Negative Ur Phencyclidine Scrn Negative Ur Amphetamines Screen Negative U Benzodiazepines Scrn Negative U Oth Cocaine Metabols Negative U Cannabinoids Screen Negative Alcohol, Quantitative 06/14/18 06/14/18 06/14/18 16:47 16:47 17:06 WBC RBC Hgb Hct MCV MCH MCHC RDW Plt Count MPV Neut % (Auto) Lymph % (Auto) [place] % (Auto) Eos % (Auto) Baso % (Auto) Neut # (Auto) Lymph # (Auto) [place] # (Auto) Eos # (Auto) Baso # (Auto) Neutrophils % (Manual) Band Neutrophils % Lymphocytes % (Manual) Monocytes % (Manual) Eosinophils % (Manual) Basophils % (Manual) Platelet Estimate RBC Morphology PT INR APTT Sodium 139 Potassium 3.7 Chloride 99 Carbon Dioxide 31 H Anion Gap 13 BUN 21 H Creatinine 1.0 Est GFR ( Amer) > 60 Est GFR (Non-Af Amer) > 60 POC Glucose (mg/dL) 157 H 138 H Random Glucose 146 H Calcium 9.2 Total Bilirubin 0.6 AST 19 ALT 46 Alkaline Phosphatase 119 Total Creatine Kinase 117 CK-MB (Mass) 2.12 Troponin I 0.0660 NT-Pro-B Natriuret Pep Total Protein 7.2 Albumin 4.2 Globulin 3.1 Albumin/Globulin Ratio 1.3 Urine Color Urine Clarity Urine pH Ur Specific [place] Urine Protein Urine Glucose (UA) Urine Ketones Urine Blood Urine Nitrate Urine Bilirubin Urine Urobilinogen Ur Leukocyte Esterase Ur Squamous Epith Cells Urine Opiates Screen Urine Methadone Screen Ur Barbiturates Screen Ur Phencyclidine Scrn Ur Amphetamines Screen U Benzodiazepines Scrn U Oth Cocaine Metabols U Cannabinoids Screen Alcohol, Quantitative Attending/Attestation - Attestation I have personally seen and examined this patient.: Yes I have fully participated in the care of the patient.: Yes I have reviewed all pertinent clinical information: Yes Notes (Text): 06/14/18 18:20 Medical attending: Patient was seen and examined by me, agrees the above note by the medical scientist. We saw the patient together in the ER. The patient's family members were at bedside, the patient was okay with family at bedside. This is a patient that's been to the hospitalist service from previous admissions. He's had multiple admissions due to complications with his CHF. He has a very low ejection fraction and has an AICD/pacer. He was coming in due to shortness of breath as well as chest tightness. He explains to us that he's quit smoking and that he is also watching his salt intake. He does tell us that he may be taking too much excess of water. He's also having difficulty laying flat at night. He is to use multiple pillows. Reviewed his current medications, and also reviewed the chest x-ray, he has elevated BNP as well EKG showed that he was ventricularly paced rhythm. We will check additional troponins, also repeat portable film for tomorrow. He will be on IV Lasix, will need to follow I's and O's, daily weights. Because of what he tells us what also check a CTA to assess for potential pulmonary embolism The patient recently had a cardiac cath, as well as a recent 2-D echo Thank you very much, Javy Lizarraga
[2018-06-14] MEDS ORDERED: Albuterol-Ipratrop 3 mg / 0.5 (3 ml) UD INH PRN (16:15)
[2018-06-14] MEDS ORDERED: Glucagon Recombinant 1 mg Inj IM PRN (16:19)
[2018-06-14] MEDS ORDERED: Dextrose 50% SYRINGE Inj (50 ml) IV PRN (16:19)
[2018-06-14 16:53] LABS: BASO # 0.2 K/uL (0.0-0.2); BASO % 1.1 % (0.0-2.0); EOS # 0.3 K/uL (0.0-0.7); EOS % 1.4 % (0.0-4.0); HEMOGLOBIN 12.9 g/dL (12.0-18.0); LYMPH % 9.7 % (20.0-40.0); MEAN CELL VOLUME 87.8 fL (80.0-94.0); MEAN CORPUSCULAR HEMOGLOBIN 29.3 pg (27.0-31.0); MEAN CORPUSCULAR HGB CONC 33.4 g/dL (33.0-37.0); MEAN PLATELET VOLUME 8.7 fL (7.2-11.7); MONO # 1.2 K/uL (0.0-0.8); MONO % 5.6 % (0.0-10.0); NEUT # 17.1 K/uL (1.8-7.0); NEUT % 82.2 % (50.0-75.0); NRBC % 0.1 % (0.0-2.0); RBC 4.42 Mil/uL (4.40-5.90); RED CELL DISTRIBUTION WIDTH 13.8 % (11.5-14.5); WHITE BLOOD COUNT 20.8 K/uL (4.8-10.8)
[2018-06-14 17:10] LABS: ALB/GLOB RATIO 1.3 (1.0-2.1); ALBUMIN 4.2 g/dL (3.5-5.0); ALT/SGPT 46 U/L (21-72); AST/SGOT 19 U/L (17-59); BLOOD UREA NITROGEN 21 mg/dL (9-20); CALCIUM 9.2 mg/dl (8.6-10.4); GFR NON-AFRICAN AMERICAN > 60
[2018-06-14] MEDS: (Novolin R) Insulin Human Regular 100 units/ml vial SC SCH ×2 (17:17→22:01)
[2018-06-14 17:18] LABS: CK-MB 2.12 ng/mL (0.0-3.38)
[2018-06-14] MEDS ORDERED: Iodixanol 320 MG/ML 100 ML BOTTLE IV ONE (17:30)
[2018-06-14] MEDS: MethylPREDNISolone 40 mg Vial IVP SCH (17:55)
--- NOTE | 2018-06-14 18:42 | CT ---
CTA chest PE protocol Indication: Shortness of breath, palpitations Technique: Contiguous axial images were obtained through the chest with intravenous contrast enhancement. Sagittal and coronal reconstructions were generated and reviewed. This CT exam was performed using 1 or more of the following dose reduction techniques: Automated exposure control, adjustment of the MAA and/or kV according to patient size, and/or use of iterative reconstruction technique. IV Contrast: 100 cc Visipaque 320 Radiation dose (DLP): 598.37 MGy-cm. Comparison: Chest x-ray performed 06/14/18 Findings: Visualized portions of the inferior thyroid gland appear unremarkable. The mediastinal and hilar vascular structures appear within normal limits. The heart appears within normal limits of size. No large central or segmental pulmonary embolus evident. No focal consolidation. No pleural effusion. No pneumothorax. Numerous small ground-glass nodular densities measuring up to 6 mm predominantly within the right upper and middle lobes. Limited visualized portions of the upper abdomen appear grossly unremarkable. No acute osseous abnormality is detected. Impression: No large central or segmental pulmonary embolus identified. Incidental note is made of several ground-glass appearing pulmonary nodules predominantly within the right middle and upper lobes. According to the 2017 Fleischner criteria, CT at 3-6 months is recommended. If stable, consider CT at 2 and 4 years.
--- NOTE | 2018-06-14 18:57 | CARD ---
APPROVED REPORT Date of service: 06/14/2018 EKG Measurement Heart [id number] P45 [id number] <Conclusion> Atrial-sensed Ventricular-paced rhythm with occasional premature ventricular complexes Abnormal ECG
[2018-06-14 19:54] LABS: CK-MB 1.96 ng/mL (0.0-3.38); TROPONIN I 0.082 ng/mL (0.00-0.120)
[2018-06-14 22:15] LABS: CK-MB 1.92 ng/mL (0.0-3.38); TROPONIN I 0.067 ng/mL (0.00-0.120)
[2018-06-15] MEDS: (Novolin R) Insulin Human Regular 100 units/ml vial SC SCH ×5 (06:17→21:21)
[2018-06-15 08:23] LABS: BASO # 0.2 K/uL (0.0-0.2); BASO % 1.3 % (0.0-2.0); HEMOGLOBIN 12.4 g/dL (12.0-18.0); LYMPH # 1.1 K/uL (1.0-4.3); LYMPH % 5.9 % (20.0-40.0); MEAN CELL VOLUME 88.7 fL (80.0-94.0); MEAN CORPUSCULAR HEMOGLOBIN 29.8 pg (27.0-31.0); MEAN CORPUSCULAR HGB CONC 33.6 g/dL (33.0-37.0); MEAN PLATELET VOLUME 9.7 fL (7.2-11.7); MONO # 0.7 K/uL (0.0-0.8); MONO % 3.8 % (0.0-10.0); NEUT # 16.3 K/uL (1.8-7.0); PLATELET COUNT 191 K/uL (130-400); RBC 4.15 Mil/uL (4.40-5.90); WHITE BLOOD COUNT 18.4 K/uL (4.8-10.8)
[2018-06-15] MEDS: MethylPREDNISolone 40 mg Vial IVP SCH ×3 (09:20→18:12)
[2018-06-15 09:52] LABS: ALB/GLOB RATIO 1.2 (1.0-2.1); ALBUMIN 3.9 g/dL (3.5-5.0); ALT/SGPT 38 U/L (21-72); AST/SGOT 17 U/L (17-59); BLOOD UREA NITROGEN 22 mg/dL (9-20); CALCIUM 9.2 mg/dl (8.6-10.4); GFR NON-AFRICAN AMERICAN > 60
--- NOTE | 2018-06-15 10:08 | RAD ---
Date of service: 06/15/2018 HISTORY: shortness of breath COMPARISON: Comparison chest 06/14/2018 FINDINGS: LUNGS: Findings suggest minor chronic compensated pulmonary venous congestion. . . PLEURA: No significant pleural effusion identified, no pneumothorax apparent. CARDIOVASCULAR: Heart size within range of normal. Multi lead pacemaker/defibrillator unchanged. OSSEOUS STRUCTURES: No significant abnormalities. VISUALIZED UPPER ABDOMEN: Normal. OTHER FINDINGS: None. IMPRESSION: Findings suggest minor chronic compensated pulmonary venous congestion
--- NOTE | 2018-06-15 10:44 | CP.PCM.PN ---
<Hue Randolph - Last Filed: 06/15/18 13:27> Subjective - Date & Time of Evaluation Date of Evaluation: 06/15/18 Time of Evaluation: 10:43 - Subjective Subjective: PGY-1 Medicine Progress Note for Dr. Lizarraga's service Patient seen and examined at bedside. Patient reports shortness of breath worsened when laying fat. Patient admits to polyuria secondary to lasix. Patient states he has an appointment with HF clinic in [place] next week. Patient denies lightheadedness, dizziness, fevers, chills, sob, n/v, constipation or diarrhea, chest pain. Objective - Vital Signs/Intake and Output Vital Signs (last 24 hours): Temp Pulse Resp BP Pulse Ox 97.4 F L 94 H 20 108/68 95 06/15/18 07:00 06/15/18 07:00 06/15/18 07:00 06/15/18 09:21 06/15/18 07:00 - Medications Medications: Current Medications Albuterol/Ipratropium (Duoneb 3 Mg/0.5 Mg (3 Ml) Ud) 3 ml INH RQ4 PRN PRN Reason: Shortness of Breath Last Admin: 06/14/18 23:40 Dose: 3 ml Dextrose (Dextrose 50% Inj) 0 ml IV STAT PRN; Protocol PRN Reason: Hypoglycemia Protocol Dextrose (Glutose 15) 0 gm PO ONCE PRN; Protocol PRN Reason: Hypoglycemia Protocol Furosemide (Lasix) 20 mg IVP BID [facility] Last Admin: 06/15/18 09:21 Dose: 20 mg Glucagon (Glucagen Diagnostic Kit) 0 mg IM STAT PRN; Protocol PRN Reason: Hypoglycemia Protocol Heparin Sodium (Porcine) (Heparin) 5,000 units SC Q8 [facility] Last Admin: 06/15/18 06:17 Dose: 5,000 units Dextrose (Dextrose 5% In Water 1000 Ml) 1,000 mls @ 0 mls/hr IV .Q0M PRN; Protocol; Per Protocol PRN Reason: Hypoglycemia Protocol Insulin Human Regular (Novolin R) 0 unit SC ACHS [facility] PRN Reason: Protocol Last Admin: 06/15/18 07:14 Dose: Not Given Methylprednisolone (Solu-Medrol) 20 mg IVP TID [facility] Last Admin: 06/15/18 09:20 Dose: 20 mg Rosuvastatin Calcium (Crestor) 5 mg PO HS [facility] Last Admin: 06/14/18 22:08 Dose: 5 mg - Labs Labs: 06/15/18 08:14 06/15/18 08:14 PT 10.5 SECONDS (9.7-12.2) 06/14/18 13:26 INR 1.0 06/14/18 13:26 APTT 31 SECONDS (21-34) 06/14/18 13:26 - Constitutional Appears: Non-toxic, No Acute Distress - Head Exam Head Exam: ATRAUMATIC, NORMAL INSPECTION, NORMOCEPHALIC - Eye Exam Eye Exam: EOMI, Normal appearance - ENT Exam ENT Exam: Mucous Membranes Moist - Respiratory Exam Respiratory Exam: Clear to Ausculation Bilateral, NORMAL BREATHING PATTERN. absent: Rales, Rhonchi, Wheezes - Cardiovascular Exam Cardiovascular Exam: REGULAR RHYTHM, +S1, +S2 - GI/Abdominal Exam GI & Abdominal Exam: Soft, Normal Bowel Sounds. absent: Distended, Firm, Guarding, Rigid, Tenderness - Extremities Exam Extremities Exam: Normal Inspection. absent: Calf Tenderness, Pedal Edema - Back Exam Back Exam: NORMAL INSPECTION. absent: CVA tenderness (L), CVA tenderness (R), tenderness - Neurological Exam Neurological Exam: Alert, Awake, Oriented x3 - Psychiatric Exam Psychiatric exam: Normal Affect, Normal Mood - Skin Skin Exam: Dry, Intact, Normal Color Assessment and Plan - Assessment and Plan (Free Text) Assessment: 52M with a PMH of DM2, CHF, HTN, COPD presents with SOB, likely 2/2 to CHF exacerbation; Upon admission patient had elevated BNP; being treated with Lasix 20mg IV bid Plan: Acute Exacerbation of CHF 06/14 Cxray- Cardiomegaly is similar. Pulmonary venous congestion less now 1x dose Lasix 40mg IVP ER Trop .06; EZRA x2 pending Repeat CXray in AM Lasix 20mg IVP bid CTA to rule out PE Consult: Dr. Yu- recommends outpatient HF center at [place] BNP-1950 Hx of COPD Duonebs 3ml inh rq4 around the clock jacob Solu-medrol 20mg IVP TID jacob DM2 ISS-high dose ACHS Hypoglycemic protocol Lantus 80u AM; Lantus 50u HS CAD Crestor 5mg po HS HTN Hypotension on admission Will hold home blood pressure meds for now Orthostatic BP measurements PPX DVT ppx: Heparin 5000 units sc q8 GI ppx: Not indicated at this time <Javy Lizarraga H - Last Filed: 06/15/18 13:50> Objective - Vital Signs/Intake and Output Vital Signs (last 24 hours): Temp Pulse Resp BP Pulse Ox 97.4 F L 91 H 20 108/68 95 06/15/18 07:00 06/15/18 07:07 06/15/18 07:00 06/15/18 09:21 06/15/18 07:00 - Medications Medications: Current Medications Albuterol/Ipratropium (Duoneb 3 Mg/0.5 Mg (3 Ml) Ud) 3 ml INH RQ4 [facility] Dextrose (Dextrose 50% Inj) 0 ml IV STAT PRN; Protocol PRN Reason: Hypoglycemia Protocol Dextrose (Glutose 15) 0 gm PO ONCE PRN; Protocol PRN Reason: Hypoglycemia Protocol Furosemide (Lasix) 20 mg IVP BID [facility] Last Admin: 06/15/18 09:21 Dose: 20 mg Glucagon (Glucagen Diagnostic Kit) 0 mg IM STAT PRN; Protocol PRN Reason: Hypoglycemia Protocol Heparin Sodium (Porcine) (Heparin) 5,000 units SC Q8 [facility] Last Admin: 06/15/18 06:17 Dose: 5,000 units Dextrose (Dextrose 5% In Water 1000 Ml) 1,000 mls @ 0 mls/hr IV .Q0M PRN; Protocol; Per Protocol PRN Reason: Hypoglycemia Protocol Insulin Glargine (Lantus) 50 unit SC HS [facility] Insulin Glargine (Lantus) 80 unit SC QAM [facility] Last Admin: 06/15/18 11:34 Dose: 80 unit Insulin Human Regular (Novolin R) 0 unit SC ACHS [facility] PRN Reason: Protocol Last Admin: 06/15/18 11:35 Dose: 12 unit Methylprednisolone (Solu-Medrol) 20 mg IVP TID [facility] Last Admin: 06/15/18 09:20 Dose: 20 mg Rosuvastatin Calcium (Crestor) 5 mg PO HS [facility] Last Admin: 06/14/18 22:08 Dose: 5 mg - Labs Labs: 06/15/18 08:14 06/15/18 08:14 PT 10.5 SECONDS (9.7-12.2) 06/14/18 13:26 INR 1.0 06/14/18 13:26 APTT 31 SECONDS (21-34) 06/14/18 13:26 Attending/Attestation - Attestation I have personally seen and examined this patient.: Yes I have fully participated in the care of the patient.: Yes I have reviewed all pertinent clinical information, including history, physical exam and plan: Yes Notes (Text): 06/15/18 13:42 Medical attending: Patient was seen and examined by me. Agree with the above note by the resident The patient was not in any acute distress when I came and saw him. He reported only minimal improvment of his breathing. He is still producing large mount of urine with the lasix 20 mg IV BID. The CXRAY from this morning when I compared to previous looks about the same. The blood sugars were lelavated and the patient it needs to be pointed out has been recently on steroid. He explains to us he did not want to go to another medical center for his ongoing CHF. At this time we explained that the patient was still on IV solumedrol and that we would also try duonebulizers ATC Q4hrs to see if this helps with his breathing. CTA if the chest was begative
[2018-06-15 11:19] LABS: BANDS 1 % (0-2); LYMPHOCYTE 4 % (20-40); MONOCYTE 2 % (0-10); NEUTROPHIL 93 % (50-75); PLATELET ESTIMATE NORMAL (NORMAL); TOTAL CELLS COUNTED 100
[2018-06-15] MEDS: (Lantus) Insulin Glargine, Recombinant SC SCH ×2 (11:34→21:22)
--- NOTE | 2018-06-15 18:06 | PQF ---
PROVIDER RESPONSE TEXT: Acute on chronic Systolic CHF REVIEWER QUERY TEXT: CHF Acuity and Type Congestive Heart Failure is documented in the Medical Record. Please document the type and acuity (in cludes probable or suspected) Such as: Type: -- Systolic -- Diastolic -- Combined -- Other, please specify Acuity: -- Acute -- Chronic -- Acute on chronic -- Other, please specify Also please document the underlying cause of the CHF (includes probable or suspected) The patient's Clinical Indicators include: ?52 year old male patient presents to the ER with c/o chest pressure with SOB on exertion. Patient no tiana he was admitted on May 31 for heart failure". Cardiac echo shows severely dilated and global hypokinesia. Left severely impaired 30% ejection fract ion, severe diastolic dysfunction. Patient discharged on 06/05/2018 with the diagnosis of acute on chronic systolic CHF. Please consider verify and document specifying the CHF. Query created by: Som Painter on 06/15/2018 5:15 PM Electronically signed by: Javy Lizarraga MD 06/15/2018 6:03 PM
[2018-06-15] MEDS: Albuterol-Ipratrop 3 mg / 0.5 (3 ml) UD INH SCH (21:45)
[2018-06-16] MEDS: Albuterol-Ipratrop 3 mg / 0.5 (3 ml) UD INH SCH ×6 (00:03→20:17)
[2018-06-16 01:02] VITALS: RESP 20
[2018-06-16 07:21] LABS: BASO % 0.1 % (0.0-2.0); HEMOGLOBIN 12.3 g/dL (12.0-18.0); LYMPH # 1.1 K/uL (1.0-4.3); LYMPH % 5.4 % (20.0-40.0); MEAN CELL VOLUME 88.3 fL (80.0-94.0); MEAN PLATELET VOLUME 9.5 fL (7.2-11.7); MONO # 0.9 K/uL (0.0-0.8); MONO % 4.2 % (0.0-10.0); NEUT # 18.9 K/uL (1.8-7.0); NEUT % 90.3 % (50.0-75.0); PLATELET COUNT 189 K/uL (130-400); RBC 4.11 Mil/uL (4.40-5.90); RED CELL DISTRIBUTION WIDTH 13.7 % (11.5-14.5); WHITE BLOOD COUNT 20.9 K/uL (4.8-10.8)
[2018-06-16] MEDS ORDERED: (Novolin R) Insulin Human Regular 100 units/ml vial SC ONE (08:15)
[2018-06-16 08:16] LABS: ALB/GLOB RATIO 1.3 (1.0-2.1); ALBUMIN 3.9 g/dL (3.5-5.0); ALT/SGPT 41 U/L (21-72); AST/SGOT 11 U/L (17-59); BLOOD UREA NITROGEN 36 mg/dL (9-20); CALCIUM 9.5 mg/dl (8.6-10.4); GFR NON-AFRICAN AMERICAN > 60
--- NOTE | 2018-06-16 08:33 | RAD ---
Date of service: 06/16/2018 HISTORY: SOB COMPARISON: Portable chest 06/15/2018. FINDINGS: LUNGS: No active pulmonary disease. PLEURA: No significant pleural effusion identified, no pneumothorax apparent. CARDIOVASCULAR: AICD/permanent pacemaker reiterated with mildly prominent cardiac silhouette reiterated as well. Limited pulmonary vascular congestion reiterated. OSSEOUS STRUCTURES: No significant abnormalities. VISUALIZED UPPER ABDOMEN: Normal. OTHER FINDINGS: None. IMPRESSION: Stable limited pulmonary vascular congestion. No acute cardiopulmonary disease appreciable.
[2018-06-16 08:34] LABS: LYMPHOCYTE 6 % (20-40); MONOCYTE 3 % (0-10); NEUTROPHIL 91 % (50-75); TOTAL CELLS COUNTED 100
[2018-06-16 08:40] LABS: PLATELET ESTIMATE NORMAL (NORMAL)
[2018-06-16] MEDS: (Lantus) Insulin Glargine, Recombinant SC SCH ×2 (09:11→22:30)
[2018-06-16] MEDS: (Novolin R) Insulin Human Regular 100 units/ml vial SC SCH ×4 (09:12→22:30)
[2018-06-16] MEDS ORDERED: MethylPREDNISolone 40 mg Vial IVP SCH (10:00)
[2018-06-16] MEDS ORDERED: (Lantus) Insulin Glargine, Recombinant SC SCH (10:00)
[2018-06-16] MEDS: (Novolog) Insulin Aspart, Recombinant 100 u/ml 10 ml vial SC SCH ×3 (10:47→17:29)
--- NOTE | 2018-06-16 11:15 | CP.PCM.PN ---
<Edson Oliver - Last Filed: 06/16/18 11:16> Subjective - Date & Time of Evaluation Date of Evaluation: 06/16/18 Time of Evaluation: 11:15 - Subjective Subjective: PGY-1 Medicine Progress Note for Dr. Lizarraga's Service Patient was seen and examined at bedside. Patient reports that his shortness of breath has improved significantly from yesterday (06/15/18). Patient states he has been urinating very frequently due to the Lasix treatment. Patient states he had some upper abdominal discomfort with deep inspiration, but notes that is it not significant and has only occured twice. On examination, patient denies fever, chills, headache, dizziness, changes in vision, nausea, vomiting, diarrhea, chest pain, palpitations, lightheadedness, or changes in bowel habits. Objective - Vital Signs/Intake and Output Vital Signs (last 24 hours): Temp Pulse Resp BP Pulse Ox 97.6 F 102 H 20 110/68 97 06/16/18 07:00 06/16/18 07:00 06/16/18 07:00 06/16/18 09:12 06/16/18 07:00 Intake and Output: 06/16/18 06/16/18 06:59 18:59 Intake Total 500 Balance 500 - Medications Medications: Current Medications Albuterol/Ipratropium (Duoneb 3 Mg/0.5 Mg (3 Ml) Ud) 3 ml INH RQ4 [facility] Last Admin: 06/16/18 11:09 Dose: Not Given Dextrose (Dextrose 50% Inj) 0 ml IV STAT PRN; Protocol PRN Reason: Hypoglycemia Protocol Dextrose (Glutose 15) 0 gm PO ONCE PRN; Protocol PRN Reason: Hypoglycemia Protocol Furosemide (Lasix) 20 mg IVP BID [facility] Last Admin: 06/16/18 09:12 Dose: 20 mg Glucagon (Glucagen Diagnostic Kit) 0 mg IM STAT PRN; Protocol PRN Reason: Hypoglycemia Protocol Heparin Sodium (Porcine) (Heparin) 5,000 units SC Q8 [facility] Last Admin: 06/16/18 05:57 Dose: 5,000 units Dextrose (Dextrose 5% In Water 1000 Ml) 1,000 mls @ 0 mls/hr IV .Q0M PRN; Protocol; Per Protocol PRN Reason: Hypoglycemia Protocol Insulin Aspart (Novolog) 10 unit SC TID [facility] Last Admin: 06/16/18 10:47 Dose: 10 units Insulin Glargine (Lantus) 50 unit SC HS [facility] Last Admin: 06/15/18 21:22 Dose: 50 units Insulin Glargine (Lantus) 80 unit SC QAM [facility] Last Admin: 06/16/18 09:11 Dose: 80 unit Insulin Human Regular (Novolin R) 0 unit SC ACHS [facility] PRN Reason: Protocol Last Admin: 06/16/18 09:12 Dose: 12 unit Prednisone (Prednisone Tab) 20 mg PO DAILY [facility] Rosuvastatin Calcium (Crestor) 5 mg PO HS [facility] Last Admin: 06/15/18 21:26 Dose: 5 mg - Labs Labs: 06/16/18 07:10 06/16/18 07:10 PT 10.5 SECONDS (9.7-12.2) 06/14/18 13:26 INR 1.0 06/14/18 13:26 APTT 31 SECONDS (21-34) 06/14/18 13:26 - Additional Findings Additional findings: Constitutional Appears: Non-toxic, No Acute Distress - Head Exam Head Exam: ATRAUMATIC, NORMAL INSPECTION, NORMOCEPHALIC - Eye Exam Eye Exam: EOMI, Normal appearance - ENT Exam ENT Exam: Mucous Membranes Moist - Respiratory Exam Respiratory Exam: Clear to Ausculation Bilateral, NORMAL BREATHING PATTERN. absent: Rales, Rhonchi, Wheezes - Cardiovascular Exam Cardiovascular Exam: REGULAR RHYTHM, +S1, +S2 - GI/Abdominal Exam GI & Abdominal Exam: Soft, Normal Bowel Sounds. absent: Distended, Firm, Guarding, Rigid, Tenderness - Extremities Exam Extremities Exam: Normal Inspection. absent: Calf Tenderness, Pedal Edema - Back Exam Back Exam: NORMAL INSPECTION. absent: CVA tenderness (L), CVA tenderness (R), tenderness - Neurological Exam Neurological Exam: Alert, Awake, Oriented x3 - Psychiatric Exam Psychiatric exam: Normal Affect, Normal Mood - Skin Skin Exam: Dry, Intact, Normal Color Assessment and Plan - Assessment and Plan (Free Text) Plan: Assessment: 52M with a PMH of DM2, CHF, HTN, COPD presents with SOB, likely 2/2 to CHF exacerbation; upon admission patient had elevated BNP; being treated with Lasix 20mg IV BID. Plan: Acute exacerbation of CHF 06/14 CXR- cardiomegaly is similar. Pulmonary venous congestion less now 1x dose Lasix 40mg IVP ER Trop 0.06; EZRA x3 negative Repeat CXR in AM (06/16/18); stable limited pulmonary vascular congestion, no acute cardiopulmonary disease appreciable. Lasix 20mg IVP BID CTA to rule out PE Consult: Dr. Yu- recommends outpatient HF center at [place]; appointment made and confirmed with patient for first week of BNP-1950 Hx of COPD Duonebs 3ml inh rq4 around the clock jacob Solu-medrol 20mg IVP TID jacob Prednisone 20mg po daily DM2 ISS- high dose ACHS Hypoglycemic protocol Lantus 80u AM; Lantus 50u HS 06/16/18 AM glucose 475; continue current DM treatment regiment plus 10units of Novolog to ISS CAD Crestor 5mg po HS HTN Hypotension on admission Will hold home blood pressure meds for now Pt denies orthostatic symptoms. monitor for changes PPX DVT ppx: Heparin 5000 units sc q8 GI ppx: Not indicated at this time <Javy Lizarraga H - Last Filed: 06/16/18 14:02> Objective - Vital Signs/Intake and Output Vital Signs (last 24 hours): Temp Pulse Resp BP Pulse Ox 97.6 F 102 H 20 110/68 97 06/16/18 07:00 06/16/18 07:00 06/16/18 07:00 06/16/18 09:12 06/16/18 07:00 Intake and Output: 06/16/18 06/16/18 06:59 18:59 Intake Total 500 Balance 500 - Medications Medications: Current Medications Albuterol/Ipratropium (Duoneb 3 Mg/0.5 Mg (3 Ml) Ud) 3 ml INH RQ4 [facility] Last Admin: 06/16/18 11:09 Dose: Not Given Dextrose (Dextrose 50% Inj) 0 ml IV STAT PRN; Protocol PRN Reason: Hypoglycemia Protocol Dextrose (Glutose 15) 0 gm PO ONCE PRN; Protocol PRN Reason: Hypoglycemia Protocol Furosemide (Lasix) 20 mg IVP BID [facility] Last Admin: 06/16/18 09:12 Dose: 20 mg Glucagon (Glucagen Diagnostic Kit) 0 mg IM STAT PRN; Protocol PRN Reason: Hypoglycemia Protocol Heparin Sodium (Porcine) (Heparin) 5,000 units SC Q8 [facility] Last Admin: 06/16/18 13:42 Dose: 5,000 units Dextrose (Dextrose 5% In Water 1000 Ml) 1,000 mls @ 0 mls/hr IV .Q0M PRN; Protocol; Per Protocol PRN Reason: Hypoglycemia Protocol Insulin Aspart (Novolog) 10 unit SC TID [facility] Last Admin: 06/16/18 13:42 Dose: 10 units Insulin Glargine (Lantus) 50 unit SC HS [facility] Last Admin: 06/15/18 21:22 Dose: 50 units Insulin Glargine (Lantus) 80 unit SC QAM [facility] Last Admin: 06/16/18 09:11 Dose: 80 unit Insulin Human Regular (Novolin R) 0 unit SC ACHS [facility] PRN Reason: Protocol Last Admin: 06/16/18 12:27 Dose: 12 unit Prednisone (Prednisone Tab) 20 mg PO DAILY [facility] Rosuvastatin Calcium (Crestor) 5 mg PO HS [facility] Last Admin: 06/15/18 21:26 Dose: 5 mg - Labs Labs: 06/16/18 07:10 06/16/18 07:10 PT 10.5 SECONDS (9.7-12.2) 06/14/18 13:26 INR 1.0 06/14/18 13:26 APTT 31 SECONDS (21-34) 06/14/18 13:26 Attending/Attestation - Attestation I have personally seen and examined this patient.: Yes I have fully participated in the care of the patient.: Yes I have reviewed all pertinent clinical information, including history, physical exam and plan: Yes Notes (Text): Medical attending: Patient was seen and examined by me. Agree with the above note by the resident The patient was not in any acute distress when I came and saw him. The patient was able to walk with us on exam and he was able to do so without assistance. After walking around the hallway once, he reported he had some moderate shorntess of breath - but denied chest pain, denied palpitation He remains on the IV lasix. He says he is producing a lot of urine. The portable chest XRAY did not look remarably different from before. His blood sugar is elevated, today will stop the IV solumedrol and also add on Novolog TID. Continue with the SSI, maryojitnue with the long acting insulin Javy Lizarraga
[2018-06-17] MEDS: Albuterol-Ipratrop 3 mg / 0.5 (3 ml) UD INH SCH ×4 (00:50→20:34)
[2018-06-17] MEDS ORDERED: (Novolin R) Insulin Human Regular 100 units/ml vial SC ONE (02:06)
[2018-06-17 07:26] LABS: BASO % 0.2 % (0.0-2.0); EOS % 0.2 % (0.0-4.0); HEMOGLOBIN 12.2 g/dL (12.0-18.0); LYMPH # 2.5 K/uL (1.0-4.3); LYMPH % 13.6 % (20.0-40.0); MEAN CELL VOLUME 87.5 fL (80.0-94.0); MEAN CORPUSCULAR HEMOGLOBIN 30.2 pg (27.0-31.0); MEAN CORPUSCULAR HGB CONC 34.5 g/dL (33.0-37.0); MEAN PLATELET VOLUME 9.3 fL (7.2-11.7); MONO % 5.6 % (0.0-10.0); NEUT # 14.6 K/uL (1.8-7.0); NEUT % 80.4 % (50.0-75.0); RBC 4.04 Mil/uL (4.40-5.90); WHITE BLOOD COUNT 18.1 K/uL (4.8-10.8)
--- NOTE | 2018-06-17 08:24 | CP.PCM.DIS ---
Provider - Provider Date of Admission: 06/14/18 14:37 Attending physician: Javy Lizarraga DO Hospital Course - Lab Results Lab Results: Most Recent Lab Values WBC 18.1 K/uL (4.8-10.8) H 06/17/18 07:14 RBC 4.04 Mil/uL (4.40-5.90) L 06/17/18 07:14 Hgb 12.2 g/dL (12.0-18.0) 06/17/18 07:14 Hct 35.3 % (35.0-51.0) 06/17/18 07:14 MCV 87.5 fL (80.0-94.0) 06/17/18 07:14 MCH 30.2 pg (27.0-31.0) 06/17/18 07:14 MCHC 34.5 g/dL (33.0-37.0) 06/17/18 07:14 RDW 14.0 % (11.5-14.5) 06/17/18 07:14 Plt Count 182 K/uL (130-400) 06/17/18 07:14 MPV 9.3 fL (7.2-11.7) 06/17/18 07:14 Neut % (Auto) 80.4 % (50.0-75.0) H 06/17/18 07:14 Lymph % (Auto) 13.6 % (20.0-40.0) L 06/17/18 07:14 [place] % (Auto) 5.6 % (0.0-10.0) 06/17/18 07:14 Eos % (Auto) 0.2 % (0.0-4.0) 06/17/18 07:14 Baso % (Auto) 0.2 % (0.0-2.0) 06/17/18 07:14 Neut # (Auto) 14.6 K/uL (1.8-7.0) H 06/17/18 07:14 Lymph # (Auto) 2.5 K/uL (1.0-4.3) 06/17/18 07:14 [place] # (Auto) 1.0 K/uL (0.0-0.8) H 06/17/18 07:14 Eos # (Auto) 0.0 K/uL (0.0-0.7) 06/17/18 07:14 Baso # (Auto) 0.0 K/uL (0.0-0.2) 06/17/18 07:14 Neutrophils % (Manual) 91 % (50-75) H 06/16/18 07:10 Band Neutrophils % 1 % (0-2) 06/15/18 08:14 Lymphocytes % (Manual) 6 % (20-40) L 06/16/18 07:10 Monocytes % (Manual) 3 % (0-10) 06/16/18 07:10 Eosinophils % (Manual) 1 % (0-4) 06/14/18 13:26 Basophils % (Manual) 1 % (0-2) 06/14/18 13:26 Platelet Estimate Normal (NORMAL) 06/16/18 07:10 RBC Morphology Normal 06/16/18 07:10 PT 10.5 SECONDS (9.7-12.2) 06/14/18 13:26 INR 1.0 06/14/18 13:26 APTT 31 SECONDS (21-34) 06/14/18 13:26 Sodium 132 mmol/L (132-148) 06/16/18 07:10 Potassium 5.1 mmol/L (3.6-5.2) 06/16/18 07:10 Chloride 97 mmol/L (98-107) L 06/16/18 07:10 Carbon Dioxide 22 mmol/L (22-30) 06/16/18 07:10 Anion Gap 18 (10-20) 06/16/18 07:10 BUN 36 mg/dL (9-20) H 06/16/18 07:10 Creatinine 1.0 mg/dL (0.8-1.5) 06/16/18 07:10 Est GFR ( Amer) > 60 06/16/18 07:10 Est GFR (Non-Af Amer) > 60 06/16/18 07:10 POC Glucose (mg/dL) 490 mg/dL (65-110) H* 06/17/18 03:31 Random Glucose 505 mg/dL (75-110) H* 06/16/18 07:10 Calcium 9.5 mg/dl (8.6-10.4) 06/16/18 07:10 Phosphorus 5.4 mg/dL (2.5-4.5) H 06/16/18 07:10 Magnesium 2.0 mg/dL (1.6-2.3) 06/16/18 07:10 Total Bilirubin 0.5 mg/dL (0.2-1.3) 06/16/18 07:10 AST 11 U/L (17-59) L D 06/16/18 07:10 ALT 41 U/L (21-72) 06/16/18 07:10 Alkaline Phosphatase 142 U/L (38-126) H 06/16/18 07:10 Total Creatine Kinase 103 U/L (55-170) 06/14/18 21:43 CK-MB (Mass) 1.92 ng/mL (0.0-3.38) 06/14/18 21:43 Troponin I 0.0670 ng/mL (0.00-0.120) 06/14/18 21:43 NT-Pro-B Natriuret Pep 1950 pg/mL (0-900) H 06/14/18 13:26 Total Protein 6.9 g/dL (6.3-8.3) 06/16/18 07:10 Albumin 3.9 g/dL (3.5-5.0) 06/16/18 07:10 Globulin 3.1 gm/dL (2.2-3.9) 06/16/18 07:10 Albumin/Globulin Ratio 1.3 (1.0-2.1) 06/16/18 07:10 Urine Color Straw (YELLOW) 06/14/18 14:14 Urine Clarity Clear (Clear) 06/14/18 14:14 Urine pH 5.0 (5.0-8.0) 06/14/18 14:14 Ur Specific [place] 1.010 (1.003-1.030) 06/14/18 14:14 Urine Protein Negative mg/dL (NEGATIVE) 06/14/18 14:14 Urine Glucose (UA) 100 mg/dL (Normal) 06/14/18 14:14 Urine Ketones Negative mg/dL (NEGATIVE) 06/14/18 14:14 Urine Blood Negative (NEGATIVE) 06/14/18 14:14 Urine Nitrate Negative (NEGATIVE) 06/14/18 14:14 Urine Bilirubin Negative (NEGATIVE) 06/14/18 14:14 Urine Urobilinogen 0.2 mg/dL (0.2-1.0) 06/14/18 14:14 Ur Leukocyte Esterase Negative Maddie/uL (Negative) 06/14/18 14:14 Ur Squamous Epith Cells -1 /hpf (0-5) L 06/14/18 14:14 Urine Opiates Screen Negative (NEGATIVE) 06/14/18 13:26 Urine Methadone Screen Negative (NEGATIVE) 06/14/18 13:26 Ur Barbiturates Screen Negative (NEGATIVE) 06/14/18 13:26 Ur Phencyclidine Scrn Negative (NEGATIVE) 06/14/18 13:26 Ur Amphetamines Screen Negative (NEGATIVE) 06/14/18 13:26 U Benzodiazepines Scrn Negative (NEGATIVE) 06/14/18 13:26 U Oth Cocaine Metabols Negative (NEGATIVE) 06/14/18 13:26 U Cannabinoids Screen Negative (NEGATIVE) 06/14/18 13:26 Alcohol, Quantitative < 10 mg/dl (0-10) 06/14/18 13:26 Discharge Exam - Head Exam Head Exam: ATRAUMATIC, NORMAL INSPECTION, NORMOCEPHALIC Discharge Plan - Follow Up Plan Condition: GOOD Disposition: HOME/ ROUTINE
[2018-06-17 08:25] LABS: ALB/GLOB RATIO 1.3 (1.0-2.1); ALBUMIN 3.7 g/dL (3.5-5.0); ALT/SGPT 39 U/L (21-72); AST/SGOT 11 U/L (17-59); BLOOD UREA NITROGEN 38 mg/dL (9-20); CALCIUM 9.3 mg/dl (8.6-10.4); GFR NON-AFRICAN AMERICAN > 60
[2018-06-17] MEDS: (Novolog) Insulin Aspart, Recombinant 100 u/ml 10 ml vial SC SCH ×7 (08:29→21:35)
[2018-06-17] MEDS: (Lantus) Insulin Glargine, Recombinant SC SCH (09:13)
[2018-06-17] MEDS ORDERED: (Lantus) Insulin Glargine, Recombinant SC SCH ×3 (10:00→22:00)
--- NOTE | 2018-06-17 10:11 | CP.PCM.PN ---
<Edson Oliver - Last Filed: 06/17/18 17:11> Subjective - Date & Time of Evaluation Date of Evaluation: 06/17/18 Time of Evaluation: 10:08 - Subjective Subjective: Pt seen and examined at bedside. Pt feels he is improving and is able to tolerate 2 laps around floor. Pt describes a new cough today. Pt says he does not feel well enough to go home. Pt reported feeling more tolerant of exertion upon last discharge one month ago. Pt still feels limited and congested in the chest. Pt denies any chest pains, f/c n/v swelling, syncope, dizziness, visual changes, bowel or urinary changes, difficulty breathing at rest. Objective - Vital Signs/Intake and Output Vital Signs (last 24 hours): Temp Pulse Resp BP Pulse Ox 97.5 F L 86 20 112/73 989 H 06/17/18 07:00 06/17/18 09:10 06/17/18 07:00 06/17/18 09:11 06/17/18 07:00 - Medications Medications: Current Medications Acetylcysteine (Acetylcysteine 20%) 4 ml INH Q4H [facility] Albuterol/Ipratropium (Duoneb 3 Mg/0.5 Mg (3 Ml) Ud) 3 ml INH Q4H [facility] Aspirin (Aspirin Chewable) 81 mg PO DAILY [facility] Carvedilol (Coreg) 3.125 mg PO DAILY [facility] Dextrose (Dextrose 50% Inj) 0 ml IV STAT PRN; Protocol PRN Reason: Hypoglycemia Protocol Dextrose (Glutose 15) 0 gm PO ONCE PRN; Protocol PRN Reason: Hypoglycemia Protocol Furosemide (Lasix) 40 mg IVP BID [facility] Glucagon (Glucagen Diagnostic Kit) 0 mg IM STAT PRN; Protocol PRN Reason: Hypoglycemia Protocol Guaifenesin (Mucinex La) 600 mg PO BID [facility] Heparin Sodium (Porcine) (Heparin) 5,000 units SC Q8 [facility] Last Admin: 06/17/18 05:18 Dose: 5,000 units Dextrose (Dextrose 5% In Water 1000 Ml) 1,000 mls @ 0 mls/hr IV .Q0M PRN; Protocol; Per Protocol PRN Reason: Hypoglycemia Protocol Insulin Aspart (Novolog) 15 unit SC TID [facility] Last Admin: 06/17/18 09:13 Dose: 15 units Insulin Aspart (Novolog) 0 unit SC ACHS [facility] PRN Reason: Protocol Last Admin: 06/17/18 08:29 Dose: 12 units Insulin Glargine (Lantus) 50 unit SC HS [facility] Last Admin: 06/16/18 22:30 Dose: 50 units Insulin Glargine (Lantus) 80 unit SC QAM [facility] Last Admin: 06/17/18 09:13 Dose: 80 unit Lisinopril (Zestril) 2.5 mg PO DAILY [facility] Nicotine (Nicoderm Cq) 1 patch TD DAILY [facility] Prednisone (Prednisone Tab) 40 mg PO DAILY [facility] Stop: 06/20/18 10:01 Rosuvastatin Calcium (Crestor) 5 mg PO HS [facility] Last Admin: 06/16/18 22:31 Dose: 5 mg Fluticasone/Salmeterol (Advair Diskus 250/50) 1 puff INH RQ12 [facility] - Labs Labs: 06/17/18 07:14 06/17/18 07:14 PT 10.5 SECONDS (9.7-12.2) 06/14/18 13:26 INR 1.0 06/14/18 13:26 APTT 31 SECONDS (21-34) 06/14/18 13:26 - Additional Findings Additional findings: Constitutional Appears: Non-toxic, No Acute Distress - Head Exam Head Exam: ATRAUMATIC, NORMAL INSPECTION, NORMOCEPHALIC - Eye Exam Eye Exam: EOMI, Normal appearance - ENT Exam ENT Exam: Mucous Membranes Moist - Respiratory Exam Respiratory Exam: NORMAL BREATHING PATTERN. absent: Rales, Rhonchi, Mild Wheezes Lower lung pro bilaterally - Cardiovascular Exam Cardiovascular Exam: REGULAR RHYTHM, +S1, +S2 - GI/Abdominal Exam GI & Abdominal Exam: Soft, Normal Bowel Sounds. absent: Distended, Firm, Guarding, Rigid, Tenderness - Extremities Exam Extremities Exam: Normal Inspection. absent: Calf Tenderness, Pedal Edema - Back Exam Back Exam: NORMAL INSPECTION. absent: CVA tenderness (L), CVA tenderness (R), tenderness - Neurological Exam Neurological Exam: Alert, Awake, Oriented x3 - Psychiatric Exam Psychiatric exam: Normal Affect, Normal Mood - Skin Skin Exam: Dry, Intact, Normal Color Assessment and Plan - Assessment and Plan (Free Text) Assessment: 52M with a PMH of DM2, CHF, HTN, COPD presents with SOB, likely 2/2 to CHF exacerbation; upon admission patient had elevated BNP; being treated with Lasix 20mg IV BID. Plan: Acute exacerbation of CHF -Lasix 40mg IVP BID -Coreg 3.125mg PO daily -lisinopril 2.5mg PO daily 06/14 CXR- cardiomegaly is similar. Pulmonary venous congestion less now 1x dose Lasix 40mg IVP ER Trop 0.06; EZRA x3 negative Repeat CXR in AM (06/16/18); stable limited pulmonary vascular congestion, no acute cardiopulmonary disease appreciable. CTA to rule out PE Consult: Dr. Yu- recommends outpatient HF center at [place]; appointment made and confirmed with patient for first week of BNP-1950, f/u AM BNP Hx of COPD Duonebs 3ml inh q4 Solu-medrol 20mg IVP TID [facility] Prednisone 40mg po 3 days- will taper advair 1 puff q12 DM2 ISS- high dose ACHS Hypoglycemic protocol Lantus 80u AM; Lantus 30u HS Nolovlog 15u TID 06/17/18 AM glucose 445; continue current DM treatment regiment plus 15units of Novolog TID CAD Crestor 5mg po HS HTN Hypotension on admission coreg 3.125mg po daily lisinopril 2.5mg PO daily Pt denies orthostatic symptoms. monitor for changes PPX DVT ppx: Heparin 5000 units sc q8 GI ppx: Not indicated at this time <Kacie Olvera V - Last Filed: 06/17/18 19:01> Objective - Vital Signs/Intake and Output Vital Signs (last 24 hours): Temp Pulse Resp BP Pulse Ox 97.5 F L 98 H 20 104/72 96 06/17/18 15:00 06/17/18 16:05 06/17/18 15:00 06/17/18 17:07 06/17/18 15:00 - Medications Medications: Current Medications Acetylcysteine (Acetylcysteine 20%) 4 ml INH RQ4 [facility] Last Admin: 06/17/18 16:39 Dose: 4 ml Albuterol/Ipratropium (Duoneb 3 Mg/0.5 Mg (3 Ml) Ud) 3 ml INH RQ4 [facility] Last Admin: 06/17/18 16:40 Dose: 3 ml Aspirin (Aspirin Chewable) 81 mg PO DAILY [facility] Last Admin: 06/17/18 11:00 Dose: 81 mg Carvedilol (Coreg) 3.125 mg PO DAILY [facility] Last Admin: 06/17/18 11:00 Dose: 3.125 mg Dextrose (Dextrose 50% Inj) 0 ml IV STAT PRN; Protocol PRN Reason: Hypoglycemia Protocol Dextrose (Glutose 15) 0 gm PO ONCE PRN; Protocol PRN Reason: Hypoglycemia Protocol Furosemide (Lasix) 40 mg IVP BID [facility] Last Admin: 06/17/18 17:07 Dose: 40 mg Glucagon (Glucagen Diagnostic Kit) 0 mg IM STAT PRN; Protocol PRN Reason: Hypoglycemia Protocol Guaifenesin (Mucinex La) 600 mg PO BID [facility] Last Admin: 06/17/18 17:07 Dose: 600 mg Heparin Sodium (Porcine) (Heparin) 5,000 units SC Q8 [facility] Last Admin: 06/17/18 14:02 Dose: 5,000 units Dextrose (Dextrose 5% In Water 1000 Ml) 1,000 mls @ 0 mls/hr IV .Q0M PRN; Protocol; Per Protocol PRN Reason: Hypoglycemia Protocol Insulin Aspart (Novolog) 15 unit SC TID [facility] Last Admin: 06/17/18 17:07 Dose: 15 units Insulin Aspart (Novolog) 0 unit SC ACHS [facility] PRN Reason: Protocol Last Admin: 06/17/18 17:08 Dose: 2 units Insulin Glargine (Lantus) 20 unit SC QAM [facility] Insulin Glargine (Lantus) 20 unit SC HS [facility] Lisinopril (Zestril) 2.5 mg PO DAILY [facility] Last Admin: 06/17/18 11:00 Dose: 2.5 mg Nicotine (Nicoderm Cq) 1 patch TD DAILY [facility] Last Admin: 06/17/18 11:00 Dose: Not Given Prednisone (Prednisone Tab) 40 mg PO DAILY [facility] Stop: 06/20/18 10:01 Last Admin: 06/17/18 11:00 Dose: Not Given Rosuvastatin Calcium (Crestor) 5 mg PO HS [facility] Last Admin: 06/16/18 22:31 Dose: 5 mg Fluticasone/Salmeterol (Advair Diskus 250/50) 1 puff INH RQ12 [facility] - Labs Labs: 06/17/18 07:14 06/17/18 07:14 PT 10.5 SECONDS (9.7-12.2) 06/14/18 13:26 INR 1.0 06/14/18 13:26 APTT 31 SECONDS (21-34) 06/14/18 13:26 Attending/Attestation - Attestation I have personally seen and examined this patient.: Yes I have fully participated in the care of the patient.: Yes I have reviewed all pertinent clinical information, including history, physical exam and plan: Yes Notes (Text): Patient seen, examined, and case discussed with day-time resident. Patient reports he did a lap with me with dyspnea on exertion and he had two laps with the resident prior to my arrival and reported tired. Patient will continue diuresis. Adjusted insulin in light of PO prednisone. Patient previously on Lantus 20 units subqBID on 06/05/18-->lowered long acting insulin given accucheck 197 today. Placed on PO steroid taper. Add Coreg, Lisinopril, and Advair to optimize shortness of breathe Assessment/Plan 1) Acute exacerbation of Combind Systolic and Diastolic Congestive Heart Failure EF: 28-33% Histoey of Pacemaker Assessment/Plan * monitor telemetry * Start lasix 40mg IVP BID * Start Coreg 3.125mg PO daily * Start lisinopril 2.5mg PO daily * Start Aspirin 81mg PO daily * Trop 0.06; EZRA x3 negative * Repeat CXR in AM (06/16/18); stable limited pulmonary vascular congestion, no acute cardiopulmonary disease appreciable. * Consult: Dr. Yu- recommends outpatient HF center at [place]; appointment made and confirmed with patient for first week of june * Patient reports has scheduled outpatient follow-up on Jun 26. * BNP-1950, f/u AM BNP * Echocardiogram (06/01/18):left ventricle is severely dilated with with global hypokinesis. left ventricl systolic function is severely impaired. EF: 28-32%. severely grade III restrictive diastolic dysfunction. Right ventricular systolic function is normal. Right atrium moderately dilated. pacemaker leads seen in RA. Moderate mitral regurgitation. Moderate pulmonary hypertension. No pericardial effusion 2) Hx of COPD with acute bronchitis Assessment/Plan * Duonebs 3ml inh q4H * Mucmyst 4ml INH Q4H * Prednisone 40mg po 3 days, 30mg PO 3 days, 20mg PO daily 3 days * Start advair 250/50 1 puff q12H 3) DM2 Assessment/Plan * poorly controlled secondary to steroids * Novolog sliding scale (Low) * Novolog 15 units TID AC * hgba1c: 6.9 4) History of CAD Assessment/Plan * Crestor 5mg po HS * Start Aspirin 81mg PO daily 5) History of Hypertension Assessment/Plan * Coreg 3.125mg PO daily * Lisinopril 2.5mg PO daily * Start Lasix 40mg IV BID * Pt denies orthostatic symptoms. monitor for changes 6) PPX * DVT ppx: Heparin 5000 units sc q8 * GI ppx: Not indicated at this time
[2018-06-17] MEDS: guaiFENesin 600 mg ER Tab PO SCH ×2 (11:00→17:07)
[2018-06-17] MEDS: Acetylcysteine 20% Inhal Soln (4ml) INH SCH ×3 (11:19→20:33)
[2018-06-17] MEDS: Fluticasone-Salmeterol 250-50mcg Diskus INH SCH (20:34)
[2018-06-17 23:45] VITALS: TEMP 97.6
[2018-06-18] MEDS: Acetylcysteine 20% Inhal Soln (4ml) INH SCH ×4 (00:34→10:59)
[2018-06-18] MEDS: Albuterol-Ipratrop 3 mg / 0.5 (3 ml) UD INH SCH ×2 (00:34→03:22)
[2018-06-18 07:17] LABS: BASO # 0.1 K/uL (0.0-0.2); BASO % 0.6 % (0.0-2.0); EOS # 0.1 K/uL (0.0-0.7); EOS % 0.5 % (0.0-4.0); HEMOGLOBIN 13.4 g/dL (12.0-18.0); LYMPH # 3.2 K/uL (1.0-4.3); LYMPH % 18.2 % (20.0-40.0); MEAN CORPUSCULAR HGB CONC 34.4 g/dL (33.0-37.0); MEAN PLATELET VOLUME 9.1 fL (7.2-11.7); MONO % 5.8 % (0.0-10.0); NEUT # 13.2 K/uL (1.8-7.0); NEUT % 74.9 % (50.0-75.0); NRBC % 0.1 % (0.0-2.0); RBC 4.46 Mil/uL (4.40-5.90); RED CELL DISTRIBUTION WIDTH 14.5 % (11.5-14.5); WHITE BLOOD COUNT 17.6 K/uL (4.8-10.8)
[2018-06-18 07:51] LABS: B-TYPE NATRIURETIC PEPTIDE 1650 pg/mL (0-900)
[2018-06-18 07:55] LABS: ALB/GLOB RATIO 1.2 (1.0-2.1); ALBUMIN 3.9 g/dL (3.5-5.0); ALT/SGPT 35 U/L (21-72); AST/SGOT 14 U/L (17-59); BLOOD UREA NITROGEN 37 mg/dL (9-20); CALCIUM 9.4 mg/dl (8.6-10.4); GFR NON-AFRICAN AMERICAN > 60
[2018-06-18 08:05] VITALS: O2SAT 97
[2018-06-18 09:13] VITALS: BP 104/72; PULSE 98
[2018-06-18] MEDS: guaiFENesin 600 mg ER Tab PO SCH (09:14)
[2018-06-18] MEDS: (Novolog) Insulin Aspart, Recombinant 100 u/ml 10 ml vial SC SCH ×4 (09:15→13:23)
--- NOTE | 2018-06-18 09:39 | CP.PCM.DIS ---
<Trae Tello - Last Filed: 06/18/18 17:40> Provider - Provider Date of Admission: 06/14/18 14:37 Attending physician: Kacie Olvera DO Time Spent in preparation of Discharge (in minutes): 45 Diagnosis - Discharge Diagnosis (1) Acute exacerbation of CHF (congestive heart failure) Status: Acute Comment: Patient was hospitalized for acute shortness of breath 2/2 CHF exacerbation due to nonischemic cardiomyopathy. Hospital Course - Lab Results Lab Results: Most Recent Lab Values WBC 17.6 K/uL (4.8-10.8) H 06/18/18 07:11 RBC 4.46 Mil/uL (4.40-5.90) 06/18/18 07:11 Hgb 13.4 g/dL (12.0-18.0) 06/18/18 07:11 Hct 38.8 % (35.0-51.0) 06/18/18 07:11 MCV 87.0 fL (80.0-94.0) 06/18/18 07:11 MCH 30.0 pg (27.0-31.0) 06/18/18 07:11 MCHC 34.4 g/dL (33.0-37.0) 06/18/18 07:11 RDW 14.5 % (11.5-14.5) 06/18/18 07:11 Plt Count 203 K/uL (130-400) 06/18/18 07:11 MPV 9.1 fL (7.2-11.7) 06/18/18 07:11 Neut % (Auto) 74.9 % (50.0-75.0) 06/18/18 07:11 Lymph % (Auto) 18.2 % (20.0-40.0) L 06/18/18 07:11 Knox % (Auto) 5.8 % (0.0-10.0) 06/18/18 07:11 Eos % (Auto) 0.5 % (0.0-4.0) 06/18/18 07:11 Baso % (Auto) 0.6 % (0.0-2.0) 06/18/18 07:11 Neut # (Auto) 13.2 K/uL (1.8-7.0) H 06/18/18 07:11 Lymph # (Auto) 3.2 K/uL (1.0-4.3) 06/18/18 07:11 Knox # (Auto) 1.0 K/uL (0.0-0.8) H 06/18/18 07:11 Eos # (Auto) 0.1 K/uL (0.0-0.7) 06/18/18 07:11 Baso # (Auto) 0.1 K/uL (0.0-0.2) 06/18/18 07:11 Neutrophils % (Manual) 91 % (50-75) H 06/16/18 07:10 Band Neutrophils % 1 % (0-2) 06/15/18 08:14 Lymphocytes % (Manual) 6 % (20-40) L 06/16/18 07:10 Monocytes % (Manual) 3 % (0-10) 06/16/18 07:10 Eosinophils % (Manual) 1 % (0-4) 06/14/18 13:26 Basophils % (Manual) 1 % (0-2) 06/14/18 13:26 Platelet Estimate Normal (NORMAL) 06/16/18 07:10 RBC Morphology Normal 06/16/18 07:10 PT 10.5 SECONDS (9.7-12.2) 06/14/18 13:26 INR 1.0 06/14/18 13:26 APTT 31 SECONDS (21-34) 06/14/18 13:26 Sodium 134 mmol/L (132-148) 06/18/18 07:11 Potassium 4.5 mmol/L (3.6-5.2) 06/18/18 07:11 Chloride 94 mmol/L (98-107) L 06/18/18 07:11 Carbon Dioxide 29 mmol/L (22-30) 06/18/18 07:11 Anion Gap 16 (10-20) 06/18/18 07:11 BUN 37 mg/dL (9-20) H 06/18/18 07:11 Creatinine 1.1 mg/dL (0.8-1.5) 06/18/18 07:11 Est GFR ( Amer) > 60 06/18/18 07:11 Est GFR (Non-Af Amer) > 60 06/18/18 07:11 POC Glucose (mg/dL) 295 mg/dL (65-110) H 06/18/18 06:32 Random Glucose 299 mg/dL (75-110) H 06/18/18 07:11 Calcium 9.4 mg/dl (8.6-10.4) 06/18/18 07:11 Phosphorus 5.1 mg/dL (2.5-4.5) H 06/18/18 07:11 Magnesium 1.9 mg/dL (1.6-2.3) 06/18/18 07:11 Total Bilirubin 0.6 mg/dL (0.2-1.3) 06/18/18 07:11 AST 14 U/L (17-59) L D 06/18/18 07:11 ALT 35 U/L (21-72) 06/18/18 07:11 Alkaline Phosphatase 109 U/L (38-126) 06/18/18 07:11 Total Creatine Kinase 103 U/L (55-170) 06/14/18 21:43 CK-MB (Mass) 1.92 ng/mL (0.0-3.38) 06/14/18 21:43 Troponin I 0.0670 ng/mL (0.00-0.120) 06/14/18 21:43 NT-Pro-B Natriuret Pep 1650 pg/mL (0-900) H 06/18/18 07:11 Total Protein 7.2 g/dL (6.3-8.3) 06/18/18 07:11 Albumin 3.9 g/dL (3.5-5.0) 06/18/18 07:11 Globulin 3.3 gm/dL (2.2-3.9) 06/18/18 07:11 Albumin/Globulin Ratio 1.2 (1.0-2.1) 06/18/18 07:11 Urine Color Straw (YELLOW) 06/14/18 14:14 Urine Clarity Clear (Clear) 06/14/18 14:14 Urine pH 5.0 (5.0-8.0) 06/14/18 14:14 Ur Specific [place] 1.010 (1.003-1.030) 06/14/18 14:14 Urine Protein Negative mg/dL (NEGATIVE) 06/14/18 14:14 Urine Glucose (UA) 100 mg/dL (Normal) 06/14/18 14:14 Urine Ketones Negative mg/dL (NEGATIVE) 06/14/18 14:14 Urine Blood Negative (NEGATIVE) 06/14/18 14:14 Urine Nitrate Negative (NEGATIVE) 06/14/18 14:14 Urine Bilirubin Negative (NEGATIVE) 06/14/18 14:14 Urine Urobilinogen 0.2 mg/dL (0.2-1.0) 06/14/18 14:14 Ur Leukocyte Esterase Negative Maddie/uL (Negative) 06/14/18 14:14 Ur Squamous Epith Cells -1 /hpf (0-5) L 06/14/18 14:14 Urine Opiates Screen Negative (NEGATIVE) 06/14/18 13:26 Urine Methadone Screen Negative (NEGATIVE) 06/14/18 13:26 Ur Barbiturates Screen Negative (NEGATIVE) 06/14/18 13:26 Ur Phencyclidine Scrn Negative (NEGATIVE) 06/14/18 13:26 Ur Amphetamines Screen Negative (NEGATIVE) 06/14/18 13:26 U Benzodiazepines Scrn Negative (NEGATIVE) 06/14/18 13:26 U Oth Cocaine Metabols Negative (NEGATIVE) 06/14/18 13:26 U Cannabinoids Screen Negative (NEGATIVE) 06/14/18 13:26 Alcohol, Quantitative < 10 mg/dl (0-10) 06/14/18 13:26 - Hospital Course Hospital Course: HPI: 52 M with a PMH of CHF 2/2 non-ischemic cardiomyopathy with AICD (EF of 25-35), DM2, HTN, COPD presents to the hospital for evaluation of SOB that started 06/13 at 1-2pm. Patient states he has not smoked cigarettes since his last hospital admission on 05/31. Patient was seen at [facility] on 05/31 for similar symptoms and was treated with diuretics and breathing treatments. Patient reports he was not doing any strenuous task when the shortness of breath occurred and instead he was resting. Patient states that he drinks lots of fluid at home and he has not measured his daily weight. Patient reports that he pees a lot after taking his morning diuretic but patient states that after his evening dose he does not pee as much. Patient reports that shortness of breath gets worsened by laying down and is currently unable to lay down. Patient states that he tried to take the breathing treatments for his COPD at home however it offered no relief. Patient states that a few days ago he measured his blood pressure and it was in the low 80s and he began to feel lightheaded, diaphoretic, and weak. Patient states the breathing became so difficult since yesterday that he had to come to the hospital. Hospital Course: Upon admission: labs showed elevated BNP 1950, no elevated troponins, and elevated glucose 297 EKG was performed and showed: "atrial-sensed ventricular-paced rhythm with occasional premature ventricular complexes" (see full report) prior EKG (06/01) showed: "atrial-sensed ventricular-paced rhythm" (see full report) CXR was performed and showed: "cardiomegaly is similar and pulmonary venous congestion less now" (see full report) chest CT Angiogram was performed and showed: "no large central or segmental pulmonary embolus, incidental note is made of several ground-glass appearing pulmonary nodules predominantly within the right middle and upper lobes. Recommended via Fleischner criteria for repeat CT at 3-6mo and if stable consider CT at 2-4 years." (see full report). Patient was given start dose of Lasix 40mg IVP in the ER. During hospitalization, patient scheduled for Lasix 20mg IVP bid, solu-medrol 20mg IVP TID, and Duonebs ATC q4hrs. Patient was continued on home insulin regimen consisting of Lantus 80u AM, Lantus 50u PM, and ISS. Repeat CXR (06/15) performed and showed: "minor chronic compensated pulmonary venous congestion." (see full report). Following solu-medrol 20mg IVP TID treatment, patient was started on Prednisone taper with marked improvement of his symptoms. Repeat CXR (06/16) performed and showed: "stabled limited pulmonary vascular congestion and no acute cardiopulmonary disease appreciable." (see full report). Repeat BNP was 1650 and glucose 293 on 06/18. Patient educated to follow up outpatient with heart failure clinic in [place], Dr. Yu, and at the [facility] in [place]. Discharge Plan: Patient is stable for discharge home per Dr. Marcano. Patient is to follow up in the clinic within 7 days after discharge. Patient is also to follow up with CHF clinic at [place]. Patient is to resume his home medications. Patient is to resume his insulin regimen with Lantus 80 unites subcutaneous in the AM and 50 unites PM with sliding scale coverage for meals. He is to write blood sugar log book and check sugar every time he administers insulin, and bring these numbers to his next clinic appointment. He is being given prednisone taper as follows: 30mg/day x2 days, followed by 20mg/day x2 days, followed by 10mg/day x2 days, then taper is complete. Patient is to take Lasix 40mg twice a day. Patient is to weigh himself daily and restrict oral fluid intake. Patient is to return to ER if symptoms reoccur or worsen. This was explained to patient who understands and agrees. Disclaimer: Written above is a synopsis of patients current hospital admission. For full report please refer to EMR. Discharge Exam - Head Exam Head Exam: ATRAUMATIC, NORMAL INSPECTION, NORMOCEPHALIC - Eye Exam Eye Exam: EOMI, Normal appearance Pupil Exam: NORMAL ACCOMODATION, PERRL - ENT Exam ENT Exam: Mucous Membranes Moist - Neck Exam Neck exam: Full Rom, Normal Inspection - Respiratory Exam Respiratory Exam: Clear to PA & Lateral, NORMAL BREATHING PATTERN, UNREMARKABLE. absent: Decreased Breath Sounds, Wheezes - Cardiovascular Exam Cardiovascular Exam: REGULAR RHYTHM, +S1, +S2. absent: Systolic Murmur - GI/Abdominal Exam GI & Abdominal Exam: Normal Bowel Sounds, Soft, Unremarkable. absent: Distended , Firm, Guarding, Rebound, Tenderness - Extremities Exam Extremities exam: normal inspection, pedal pulses present - Neurological Exam Neurological exam: Alert, CN II-XII Intact, Normal Gait, Oriented x3 - Psychiatric Exam Psychiatric exam: Normal Affect, Normal Mood - Skin Skin Exam: Intact, Normal Color, Warm Discharge Plan - Discharge Medications Prescriptions: Carvedilol [Coreg] 3.125 mg PO BID #60 tab Furosemide [Lasix] 40 mg PO BID #60 tab Nicotine 14 mg/24 hr [Nicoderm CQ] 1 each TD DAILY #14 patch predniSONE [predniSONE Tab] 10 mg PO DAILY #12 tab - Follow Up Plan Condition: GOOD Disposition: HOME/ ROUTINE Instructions: Smoking: Not Just Harmful to Your Lungs and Heart, Diabetes Diet , Quitting Smoking, Fluid Restricted Diet, Carvedilol, Furosemide, Prednisone, Heart Failure (DC) Additional Instructions: Patient is stable for discharge home per Dr. Marcano. Patient is to follow up in the clinic within 7 days after discharge. Patient is also to follow up with CHF clinic at [place]. Patient is to resume his home medications. Patient is to resume his insulin regimen with Lantus 80 units subcutaneous in the AM and 50 units PM with sliding scale coverage for meals. He is to write blood sugar log book and check sugar every time he administers insulin, and bring these numbers to his next clinic appointment. He is being given prednisone taper as follows: 30mg/day x2 days, followed by 20mg/day x2 days, followed by 10mg x2 days, then taper is complete. Patient is to take Lasix 40mg twice a day. Patient is to weigh himself daily and restrict oral fluid intake. Patient is to return to ER if symptoms reoccur or worsen. This was explained to patient who understands and agrees. Referrals: [facility] [Outside] <Elicia Marcano - Last Filed: 06/19/18 16:32> Provider - Provider Date of Admission: 06/14/18 14:37 Attending physician: Kacie Olvera DO Hospital Course - Lab Results Lab Results: Most Recent Lab Values WBC 17.6 K/uL (4.8-10.8) H 06/18/18 07:11 RBC 4.46 Mil/uL (4.40-5.90) 06/18/18 07:11 Hgb 13.4 g/dL (12.0-18.0) 06/18/18 07:11 Hct 38.8 % (35.0-51.0) 06/18/18 07:11 MCV 87.0 fL (80.0-94.0) 06/18/18 07:11 MCH 30.0 pg (27.0-31.0) 06/18/18 07:11 MCHC 34.4 g/dL (33.0-37.0) 06/18/18 07:11 RDW 14.5 % (11.5-14.5) 06/18/18 07:11 Plt Count 203 K/uL (130-400) 06/18/18 07:11 MPV 9.1 fL (7.2-11.7) 06/18/18 07:11 Neut % (Auto) 74.9 % (50.0-75.0) 06/18/18 07:11 Lymph % (Auto) 18.2 % (20.0-40.0) L 06/18/18 07:11 Knox % (Auto) 5.8 % (0.0-10.0) 06/18/18 07:11 Eos % (Auto) 0.5 % (0.0-4.0) 06/18/18 07:11 Baso % (Auto) 0.6 % (0.0-2.0) 06/18/18 07:11 Neut # (Auto) 13.2 K/uL (1.8-7.0) H 06/18/18 07:11 Lymph # (Auto) 3.2 K/uL (1.0-4.3) 06/18/18 07:11 Knox # (Auto) 1.0 K/uL (0.0-0.8) H 06/18/18 07:11 Eos # (Auto) 0.1 K/uL (0.0-0.7) 06/18/18 07:11 Baso # (Auto) 0.1 K/uL (0.0-0.2) 06/18/18 07:11 Neutrophils % (Manual) 91 % (50-75) H 06/16/18 07:10 Band Neutrophils % 1 % (0-2) 06/15/18 08:14 Lymphocytes % (Manual) 6 % (20-40) L 06/16/18 07:10 Monocytes % (Manual) 3 % (0-10) 06/16/18 07:10 Eosinophils % (Manual) 1 % (0-4) 06/14/18 13:26 Basophils % (Manual) 1 % (0-2) 06/14/18 13:26 Platelet Estimate Normal (NORMAL) 06/16/18 07:10 RBC Morphology Normal 06/16/18 07:10 PT 10.5 SECONDS (9.7-12.2) 06/14/18 13:26 INR 1.0 06/14/18 13:26 APTT 31 SECONDS (21-34) 06/14/18 13:26 Sodium 134 mmol/L (132-148) 06/18/18 07:11 Potassium 4.5 mmol/L (3.6-5.2) 06/18/18 07:11 Chloride 94 mmol/L (98-107) L 06/18/18 07:11 Carbon Dioxide 29 mmol/L (22-30) 06/18/18 07:11 Anion Gap 16 (10-20) 06/18/18 07:11 BUN 37 mg/dL (9-20) H 06/18/18 07:11 Creatinine 1.1 mg/dL (0.8-1.5) 06/18/18 07:11 Est GFR ( Amer) > 60 06/18/18 07:11 Est GFR (Non-Af Amer) > 60 06/18/18 07:11 POC Glucose (mg/dL) 293 mg/dL (65-110) H 06/18/18 11:08 Random Glucose 299 mg/dL (75-110) H 06/18/18 07:11 Calcium 9.4 mg/dl (8.6-10.4) 06/18/18 07:11 Phosphorus 5.1 mg/dL (2.5-4.5) H 06/18/18 07:11 Magnesium 1.9 mg/dL (1.6-2.3) 06/18/18 07:11 Total Bilirubin 0.6 mg/dL (0.2-1.3) 06/18/18 07:11 AST 14 U/L (17-59) L D 06/18/18 07:11 ALT 35 U/L (21-72) 06/18/18 07:11 Alkaline Phosphatase 109 U/L (38-126) 06/18/18 07:11 Total Creatine Kinase 103 U/L (55-170) 06/14/18 21:43 CK-MB (Mass) 1.92 ng/mL (0.0-3.38) 06/14/18 21:43 Troponin I 0.0670 ng/mL (0.00-0.120) 06/14/18 21:43 NT-Pro-B Natriuret Pep 1650 pg/mL (0-900) H 06/18/18 07:11 Total Protein 7.2 g/dL (6.3-8.3) 06/18/18 07:11 Albumin 3.9 g/dL (3.5-5.0) 06/18/18 07:11 Globulin 3.3 gm/dL (2.2-3.9) 06/18/18 07:11 Albumin/Globulin Ratio 1.2 (1.0-2.1) 06/18/18 07:11 Urine Color Straw (YELLOW) 06/14/18 14:14 Urine Clarity Clear (Clear) 06/14/18 14:14 Urine pH 5.0 (5.0-8.0) 06/14/18 14:14 Ur Specific [place] 1.010 (1.003-1.030) 06/14/18 14:14 Urine Protein Negative mg/dL (NEGATIVE) 06/14/18 14:14 Urine Glucose (UA) 100 mg/dL (Normal) 06/14/18 14:14 Urine Ketones Negative mg/dL (NEGATIVE) 06/14/18 14:14 Urine Blood Negative (NEGATIVE) 06/14/18 14:14 Urine Nitrate Negative (NEGATIVE) 06/14/18 14:14 Urine Bilirubin Negative (NEGATIVE) 06/14/18 14:14 Urine Urobilinogen 0.2 mg/dL (0.2-1.0) 06/14/18 14:14 Ur Leukocyte Esterase Negative Maddie/uL (Negative) 06/14/18 14:14 Ur Squamous Epith Cells -1 /hpf (0-5) L 06/14/18 14:14 Urine Opiates Screen Negative (NEGATIVE) 06/14/18 13:26 Urine Methadone Screen Negative (NEGATIVE) 06/14/18 13:26 Ur Barbiturates Screen Negative (NEGATIVE) 06/14/18 13:26 Ur Phencyclidine Scrn Negative (NEGATIVE) 06/14/18 13:26 Ur Amphetamines Screen Negative (NEGATIVE) 06/14/18 13:26 U Benzodiazepines Scrn Negative (NEGATIVE) 06/14/18 13:26 U Oth Cocaine Metabols Negative (NEGATIVE) 06/14/18 13:26 U Cannabinoids Screen Negative (NEGATIVE) 06/14/18 13:26 Alcohol, Quantitative < 10 mg/dl (0-10) 06/14/18 13:26 Attending/Attestation - Attestation I have personally seen and examined this patient.: Yes I have fully participated in the care of the patient.: Yes I have reviewed all pertinent clinical information, including history, physical exam and plan: Yes Notes (Text): Seen and examined Discharge plan and discharge medication changes discussed with the patient is detail Patient has no complain. He was given instruction to watch fluid intake,watch his weight and follow up discussed about monitoring his insulin and watch for hypoglycemia
[2018-06-18] MEDS ORDERED: (Lantus) Insulin Glargine, Recombinant SC SCH (10:00)
[2018-06-18] MEDS: Fluticasone-Salmeterol 250-50mcg Diskus INH SCH (10:59)
== END 2018-06-18 15:30 | disposition home or self-care (01) | DRG 293 ==
LOC: C.ER 12:26 → C.9E 14:37 → C.5S 16:11
PROVIDERS: ADMIT Hospitalist; ATTEND Hospitalist
DX: I11.0 Hypertensive heart disease with heart failure (principal); I50.43 Acute on chronic combined systolic (congestive) and diastolic (congestive) heart failure; E11.65 Type 2 diabetes mellitus with hyperglycemia; D72.829 Elevated white blood cell count, unspecified; I25.10 Atherosclerotic heart disease of native coronary artery without angina pectoris; I27.20 Pulmonary hypertension, unspecified; I42.0 Dilated cardiomyopathy; I34.0 Nonrheumatic mitral (valve) insufficiency; I49.3 Ventricular premature depolarization; I95.9 Hypotension, unspecified; J44.9 Chronic obstructive pulmonary disease, unspecified; R35.8 Other polyuria; T50.1X5A Adverse effect of loop [high-ceiling] diuretics, initial encounter; T38.0X5A Adverse effect of glucocorticoids and synthetic analogues, initial encounter; E78.00 Pure hypercholesterolemia, unspecified; Z95.810 Presence of automatic (implantable) cardiac defibrillator; Z79.4 Long term (current) use of insulin; Z87.891 Personal history of nicotine dependence

== ENCOUNTER 2018-06-26 13:02 | Observation (INO) | payer MEDICARE ==
[2018-06-26 13:02] VITALS: BMI 38.5
--- NOTE | 2018-06-26 13:43 | C.PDOC ---
History Of Present Illness 52 y/o male presents to ED with c/o chest pain for 2 days associated with sob and cough. Patient denies nausea, leg swelling, vomiting, lightheadedness or any other complaints at this time. Time Seen by Provider: 06/26/18 13:25 Chief Complaint (Nursing): Chest Pain History Per: Patient History/Exam Limitations: no limitations Onset/Duration Of Symptoms: Days Current Symptoms Are (Timing): Still Present Past Medical History Reviewed: Historical Data, Nursing Documentation, Vital Signs Vital Signs: Last Vital Signs Temp 97.4 F L 06/26/18 13:14 Pulse 89 06/26/18 15:13 Resp 21 06/26/18 15:13 BP 95/57 L 06/26/18 15:13 Pulse Ox 98 06/26/18 16:00 - Medical History PMH: Asthma, CHF, Diabetes, HTN, Hypercholesterolemia, Peripheral Edema Surgical History: No Surg Hx - [facility] Procedures FLUOROSCOPY OF LEFT HEART USING LOW OSMOLAR CONTRAST (05/31/18) FLUOROSCOPY OF MULT COR ART USING L OSM CONTRAST (05/31/18) MEASURE OF CARDIAC SAMPL & PRESSURE, L HEART, PERC APPROACH (05/31/18) Family History: States: No Known Family Hx - Social History Hx Tobacco Use: Yes Hx Alcohol Use: Yes Hx Substance Use: No - Immunization History Hx Tetanus Toxoid Vaccination: Yes Hx Influenza Vaccination: Yes Hx Pneumococcal Vaccination: Yes Review Of Systems Except As Marked, All Systems Reviewed And Found Negative. Cardiovascular: Positive for: Chest Pain Respiratory: Positive for: Cough, Shortness of Breath Physical Exam - Physical Exam Appears: Non-toxic, No Acute Distress Skin: Warm, Dry, No Rash Head: Atraumatic, Normacephalic Eye(s): bilateral: Normal Inspection Oral Mucosa: Moist Neck: Normal ROM, Supple Cardiovascular: Rhythm Regular Respiratory: Normal Breath Sounds, No Rales, No Rhonchi, No Wheezing Gastrointestinal/Abdominal: Soft, No Tenderness, No Guarding, No Rebound Extremity: Normal ROM, No Pedal Edema, Capillary Refill (<2 seconds) Neurological/Psych: Oriented x3, Normal Speech, Normal Cognition ED Course And Treatment - Laboratory Results Result Diagrams: 06/26/18 14:37 06/26/18 14:37 ECG: Interpreted By Me, Viewed By Me Interpretation Of ECG: ventricular paced rhythm Rate From EC (BPM) O2 Sat by Pulse Oximetry: 98 (RA) Pulse Ox Interpretation: Normal Medical Decision Making Medical Decision Making: Assessment: Chest pain Progress: Patient admitted for chest pain [address] Bernardo Ellis and patient admitted under his service to Tele-Obs Disposition Discussed With Dr.: Bernardo Ellis Doctor Will See Patient In The: Hospital Counseled Patient/Family Regarding: Studies Performed, Diagnosis - Disposition Disposition: HOSPITALIZED Disposition Time: 16:00 Condition: FAIR Forms: [facility] ([place]) - Clinical Impression Clinical Impression: Chest pain - Scribe Statement The provider has reviewed the documentation as recorded by the Scribe Rashaun Pink All medical record entries made by the Ivanaibmarline were at my direction and personally dictated by me. I have reviewed the chart and agree that the record accurately reflects my personal performance of the history, physical exam, medical decision making, and the department course for this patient. I have also personally directed, reviewed, and agree with the discharge instructions and disposition.
[2018-06-26] MEDS ORDERED: Aspirin 325 mg EC Tablets PO STA (13:44)
--- NOTE | 2018-06-26 14:17 | RAD ---
Date of service: 06/26/2018 PROCEDURE: CHEST RADIOGRAPH, 1 VIEW HISTORY: chest pain COMPARISON: 06/16/2018 FINDINGS: LUNGS: No consolidation. PLEURA: No pneumothorax or pleural fluid seen. CARDIOVASCULAR: Mild cardiomegaly -similar. The prior pulmonary venous congestion appears less now. Position/ configuration of pacemaker Satisfactory.Multiple cardiac related leads present-all similar appearing OSSEOUS STRUCTURES: No significant abnormalities. VISUALIZED UPPER ABDOMEN: Normal. OTHER FINDINGS: None. IMPRESSION: Interval slight decreased pulmonary venous congestion. Cardiomegaly with multiple leads -similar-appearing
[2018-06-26 14:43] LABS: BASO # 0.2 K/uL (0.0-0.2); BASO % 1.3 % (0.0-2.0); EOS # 0.2 K/uL (0.0-0.7); EOS % 1.4 % (0.0-4.0); HEMOGLOBIN 12.6 g/dL (12.0-18.0); LYMPH # 2.1 K/uL (1.0-4.3); LYMPH % 12.6 % (20.0-40.0); MEAN CELL VOLUME 88.5 fL (80.0-94.0); MEAN CORPUSCULAR HEMOGLOBIN 29.7 pg (27.0-31.0); MEAN CORPUSCULAR HGB CONC 33.6 g/dL (33.0-37.0); MEAN PLATELET VOLUME 9.4 fL (7.2-11.7); MONO # 0.8 K/uL (0.0-0.8); MONO % 4.5 % (0.0-10.0); NEUT # 13.4 K/uL (1.8-7.0); NEUT % 80.2 % (50.0-75.0); RBC 4.25 Mil/uL (4.40-5.90); RED CELL DISTRIBUTION WIDTH 14.3 % (11.5-14.5); WHITE BLOOD COUNT 16.7 K/uL (4.8-10.8)
[2018-06-26 14:52] LABS: INR 0.9; PROTHROMBIN TIME 10.2 SECONDS (9.7-12.2)
[2018-06-26 14:59] LABS: ALB/GLOB RATIO 1.3 (1.0-2.1); ALT/SGPT 38 U/L (21-72); AST/SGOT 21 U/L (17-59); BLOOD UREA NITROGEN 27 mg/dL (9-20); CALCIUM 8.9 mg/dl (8.6-10.4); GFR NON-AFRICAN AMERICAN > 60
[2018-06-26 15:05] LABS: B-TYPE NATRIURETIC PEPTIDE 2010 pg/mL (0-900)
[2018-06-26] MEDS ORDERED: Digoxin 500 mcg/2ml (0.5 mg/2ml) Inj IVP ONE (17:40)
[2018-06-26] MEDS ORDERED: Glucagon Recombinant 1 mg Inj IM PRN (17:59)
[2018-06-26] MEDS ORDERED: Dextrose 50% SYRINGE Inj (50 ml) IV PRN (17:59)
[2018-06-26] MEDS ORDERED: Digoxin 250 mcg (0.25 mg) Tab PO ONE (18:00)
[2018-06-26] MEDS ORDERED: Digoxin 250 mcg (0.25 mg) Tab ONE (18:12)
[2018-06-26] MEDS ORDERED: Digoxin 500 mcg/2ml (0.5 mg/2ml) Inj ONE (18:13)
--- NOTE | 2018-06-26 18:21 | CP.PCM.HP ---
<Trae Tello - Last Filed: 06/26/18 18:29> History of Present Illness - History of Present Illness History of Present Illness: PGY-1 History and Physical [address] Lizarraga Patient is a 52 year old male with a PMH of CHF (pacemaker in place), HTN, HLD, and DM, and asthma who presents to the ED sent from [facility], reporting that over the past 2 days he has had progressively worsening shortness of breath exacerbated with exertion. He notes instead of using his inhaler 2 times per day he has had to use it 4 times per day with minimal relief. Last night, at midnight, he woke from sleep because he was having increased difficulty breathing and was unable to continue sleeping, especially while lying flat. He was seen at the [facility] today, after which he was prompted to come to the ED for evaluation. He notes he follows up with Dr. Yu for cardiology and last week he was taken off his Amiodarone and Digoxin. He notes he has been trying to restrict his fluid intake but this has been difficult due to the heat outside. Patient has been taking daily weights and states his weight has been fluctuating significantly on a day to day basis. He is scheduled to follow up with the [facility] within the next week. He denies chest pain, dizziness, palpitations, headache, fever, chills, abdominal pain, nausea, vomiting, diarrhea, or constipation. Patient quit smoking 3 months ago after smoking 2-3 packs/day since he was 14. PMD: Dr. Knapp Home Medications: Carvedilol 3.125 mg BID , ASA 81 mg PO qd , Analapril 2.5 mg PO qd , Atorvastatin 10 mg qd, Lantus 80 mg sq qd am , Lantus 50 mg sq qd pm PMHx: CHF, cardiomyopathy, COPD, asthma PSHx: AICD placement Allergies: NKDA Social: Former 2-3 pack/day smoker since age 14, quit 3 months ago Present on Admission - Present on Admission Any Indicators Present on Admission: No Review of Systems - Constitutional Constitutional: absent: Chills, Fatigue, Fever - EENT Eyes: absent: Blind Spots, Change in Vision, Diplopia Nose/Mouth/Throat: absent: Nasal Congestion, Nasal Discharge - Cardiovascular Cardiovascular: Dyspnea, Dyspnea on Exertion, Orthopnea, Pedal Edema (+ occasional minimal pedal edema). absent: Chest Pain, Chest Pain at Rest, Chest Pain with Activity, Irregular Heart Rhythm, Palpitations, Rapid Heart Rate - Respiratory Respiratory: Dyspnea, Dyspnea on Exertion, Wheezing. absent: Cough, Hemoptysis , Pain on Inspiration, Chest Congestion, Excessive Mucous Production, Change in Mucous Color, Pain with Coughing - Gastrointestinal Gastrointestinal: absent: Abdominal Pain, Diarrhea, Heartburn, Nausea, Vomiting - Musculoskeletal Musculoskeletal: absent: Muscle Weakness, Numbness, Tingling - Neurological Neurological: absent: Abnormal Gait, Dizziness, Numbness, Weakness - Psychiatric Psychiatric: absent: Anxiety, Behavioral Changes - Endocrine Endocrine: absent: Fatigue, Palpitations Past Patient History - Past Medical History & Family History Past Medical History?: Yes - Past Social History Smoking Status: Former Smoker - CARDIAC Hx Congestive Heart Failure: Yes Hx Hypercholesterolemia: Yes Hx Hypertension: Yes Hx Peripheral Edema: Yes - PULMONARY Hx Asthma: Yes - NEUROLOGICAL Hx Neurological Disorder: No - HEENT Hx HEENT Problems: Yes Other/Comment: wear reading eyeglasses - RENAL Hx Chronic Kidney Disease: No - ENDOCRINE/METABOLIC Hx Endocrine Disorders: Yes Hx Diabetes Mellitus Type 2: Yes - HEMATOLOGICAL/ONCOLOGICAL Hx Blood Disorders: No - INTEGUMENTARY Hx Dermatological Problems: No - MUSCULOSKELETAL/RHEUMATOLOGICAL Hx Musculoskeletal Disorders: No Hx Falls: No - GASTROINTESTINAL Hx Gastrointestinal Disorders: No - GENITOURINARY/GYNECOLOGICAL Hx Genitourinary Disorders: No - PSYCHIATRIC Hx Substance Use: No - SURGICAL HISTORY Hx Surgeries: Yes Hx Cardiac Catheterization: Yes Other/Comment: AICD placement 1 1/2 year ago - ANESTHESIA Hx Anesthesia: Yes Hx Anesthesia Reactions: No Hx Malignant Hyperthermia: No Meds Allergies/Adverse Reactions: Allergies Allergy/AdvReac Type Severity Reaction Status Date / Time No Known Allergies Allergy Verified 05/31/18 13:47 Physical Exam - Head Exam Head Exam: ATRAUMATIC, NORMAL INSPECTION - Eye Exam Eye Exam: EOMI, Normal appearance - ENT Exam ENT Exam: Mucous Membranes Moist - Respiratory Exam Respiratory Exam: Decreased Breath Sounds, Clear to Auscultation Bilateral. absent: Accessory Muscle Use, Wheezes (+Rales not appreciated on exam), Stridor - Cardiovascular Exam Cardiovascular Exam: REGULAR RHYTHM, +S1, +S2 - GI/Abdominal Exam GI & Abdominal Exam: Normal Bowel Sounds, Soft. absent: Guarding, Rigid, Tenderness - Extremities Exam Extremities exam: Positive for: normal inspection, pedal pulses present. Negative for: joint swelling, pedal edema - Neurological Exam Neurological exam: Alert, CN II-XII Intact, Normal Gait, Oriented x3, Reflexes Normal - Skin Skin Exam: Dry, Intact, Normal Color, Warm Results - Vital Signs Recent Vital Signs: Last Vital Signs Temp 97.4 F L 06/26/18 13:14 Pulse 91 H 06/26/18 16:15 Resp 16 06/26/18 16:15 BP 102/60 06/26/18 16:15 Pulse Ox 97 06/26/18 16:15 - Labs Result Diagrams: 06/26/18 14:37 06/26/18 14:37 Labs: Laboratory Results - last 24 hr 06/26/18 06/26/18 06/26/18 14:37 14:37 14:37 WBC 16.7 H RBC 4.25 L Hgb 12.6 Hct 37.6 MCV 88.5 MCH 29.7 MCHC 33.6 RDW 14.3 Plt Count 195 MPV 9.4 Neut % (Auto) 80.2 H Lymph % (Auto) 12.6 L [place] % (Auto) 4.5 Eos % (Auto) 1.4 Baso % (Auto) 1.3 Neut # (Auto) 13.4 H Lymph # (Auto) 2.1 [place] # (Auto) 0.8 Eos # (Auto) 0.2 Baso # (Auto) 0.2 PT 10.2 INR 0.9 APTT 27 Sodium 139 Potassium 4.5 Chloride 99 Carbon Dioxide 29 Anion Gap 15 BUN 27 H Creatinine 1.2 Est GFR ( Amer) > 60 Est GFR (Non-Af Amer) > 60 Random Glucose 113 H Calcium 8.9 Total Bilirubin 0.6 AST 21 ALT 38 Alkaline Phosphatase 95 Troponin I 0.0230 NT-Pro-B Natriuret Pep 2010 H Total Protein 7.1 Albumin 4.0 Globulin 3.1 Albumin/Globulin Ratio 1.3 Assessment & Plan - Assessment and Plan (Free Text) Assessment: 1) CHF exacerbation * BNP 2009 * ASA 325 given once in ED * .25 digoxin IVP + .25 digoxin PO given ONCE * Daily labs * CBC w dif, CMP * Cardiology consulted, Dr Yu. Help appreciated. * Prior imaging: * Cardiac Cath 06/17: Normal coronary arteries. Dilated nonischemic cardiomyopathy with EF of 20% LVED pressure is 23. No gradient across the aortic valve * Echo 05/31: The left ventricle is severely dilated with global hypokinesis. LV systolic function is severely impaired. EF is 28-32%. Severe grade III restrictive diastolic function. Tissue doppler compatible with severely elevated LA pressure. RV systolic function is normal. RA is moderately dilated. Pacemaker leads seen in the RA. Moderate mitral regurgitation. Moderate pulmonary hypertension. There is no pericardial effusion. * Home meds restarted: * Carvedilol 3.125 mg BID * ASA 81 mg PO daily * Enalapril 2.5 mg PO daily * Atorvastatin 10 mg daily * Lasix 40 mg PO BID --> Discontinued (BP in 100s/60s, clinically patient is not fluid overloaded) * Lasix 20mg IV daily * Possible transfer to [facility] tomorrow for patient to see CHF specialist , Dr. Camacho 2) COPD/Asthma * Duoneb 3mL INH RQ4 * Pulmicort .25 mg INH RQ12 3) PPx: * None indicated at this time, patient is likely to be transferred tomorrow morning or afternoon Assessment/Plan discussed with Dr. Elham Tello, PGY-1 - Date & Time Date: 06/26/18 Time: 18:50 <Javy Lizarraga - Last Filed: 06/27/18 09:02> Results - Vital Signs Recent Vital Signs: Last Vital Signs Temp 97.4 F L 06/27/18 08:46 Pulse 86 06/27/18 08:46 Resp 20 06/27/18 08:46 BP 107/73 06/27/18 08:46 Pulse Ox 95 06/27/18 08:46 - Labs Result Diagrams: 06/27/18 07:43 06/27/18 07:43 Labs: Laboratory Results - last 24 hr 06/26/18 06/26/18 06/26/18 14:37 14:37 14:37 WBC 16.7 H RBC 4.25 L Hgb 12.6 Hct 37.6 MCV 88.5 MCH 29.7 MCHC 33.6 RDW 14.3 Plt Count 195 MPV 9.4 Neut % (Auto) 80.2 H Lymph % (Auto) 12.6 L [place] % (Auto) 4.5 Eos % (Auto) 1.4 Baso % (Auto) 1.3 Neut # (Auto) 13.4 H Lymph # (Auto) 2.1 [place] # (Auto) 0.8 Eos # (Auto) 0.2 Baso # (Auto) 0.2 PT 10.2 INR 0.9 APTT 27 Sodium 139 Potassium 4.5 Chloride 99 Carbon Dioxide 29 Anion Gap 15 BUN 27 H Creatinine 1.2 Est GFR ( Amer) > 60 Est GFR (Non-Af Amer) > 60 POC Glucose (mg/dL) Random Glucose 113 H Calcium 8.9 Total Bilirubin 0.6 AST 21 ALT 38 Alkaline Phosphatase 95 Troponin I 0.0230 NT-Pro-B Natriuret Pep 2010 H Total Protein 7.1 Albumin 4.0 Globulin 3.1 Albumin/Globulin Ratio 1.3 Urine Color Urine Clarity Urine pH Ur Specific [place] Urine Protein Urine Glucose (UA) Urine Ketones Urine Blood Urine Nitrate Urine Bilirubin Urine Urobilinogen Ur Leukocyte Esterase Urine WBC (Auto) Hyaline Casts 06/26/18 06/26/18 06/26/18 18:38 19:29 21:35 WBC RBC Hgb Hct MCV MCH MCHC RDW Plt Count MPV Neut % (Auto) Lymph % (Auto) [place] % (Auto) Eos % (Auto) Baso % (Auto) Neut # (Auto) Lymph # (Auto) [place] # (Auto) Eos # (Auto) Baso # (Auto) PT INR APTT Sodium Potassium Chloride Carbon Dioxide Anion Gap BUN Creatinine Est GFR ( Amer) Est GFR (Non-Af Amer) POC Glucose (mg/dL) 351 H 337 H Random Glucose Calcium Total Bilirubin AST ALT Alkaline Phosphatase Troponin I NT-Pro-B Natriuret Pep Total Protein Albumin Globulin Albumin/Globulin Ratio Urine Color Straw Urine Clarity Clear Urine pH 5.0 Ur Specific [place] 1.011 Urine Protein Negative Urine Glucose (UA) 2+ H Urine Ketones Negative Urine Blood Negative Urine Nitrate Negative Urine Bilirubin Negative Urine Urobilinogen Normal Ur Leukocyte Esterase Neg Urine WBC (Auto) < 1 Hyaline Casts 0-2 06/27/18 06/27/18 06/27/18 02:22 06:29 07:43 WBC 14.7 H RBC 3.95 L Hgb 11.8 L Hct 35.2 MCV 89.3 MCH 29.9 MCHC 33.5 RDW 14.1 Plt Count 179 MPV 9.1 Neut % (Auto) 66.4 Lymph % (Auto) 25.3 [place] % (Auto) 5.7 Eos % (Auto) 1.8 Baso % (Auto) 0.8 Neut # (Auto) 9.8 H Lymph # (Auto) 3.7 [place] # (Auto) 0.8 Eos # (Auto) 0.3 Baso # (Auto) 0.1 PT INR APTT Sodium Potassium Chloride Carbon Dioxide Anion Gap BUN Creatinine Est GFR ( Amer) Est GFR (Non-Af Amer) POC Glucose (mg/dL) 273 H 187 H Random Glucose Calcium Total Bilirubin AST ALT Alkaline Phosphatase Troponin I NT-Pro-B Natriuret Pep Total Protein Albumin Globulin Albumin/Globulin Ratio Urine Color Urine Clarity Urine pH Ur Specific [place] Urine Protein Urine Glucose (UA) Urine Ketones Urine Blood Urine Nitrate Urine Bilirubin Urine Urobilinogen Ur Leukocyte Esterase Urine WBC (Auto) Hyaline Casts 06/27/18 07:43 WBC RBC Hgb Hct MCV MCH MCHC RDW Plt Count MPV Neut % (Auto) Lymph % (Auto) [place] % (Auto) Eos % (Auto) Baso % (Auto) Neut # (Auto) Lymph # (Auto) [place] # (Auto) Eos # (Auto) Baso # (Auto) PT INR APTT Sodium 136 Potassium 4.3 Chloride 97 L Carbon Dioxide 31 H Anion Gap 12 BUN 27 H Creatinine 1.2 Est GFR ( Amer) > 60 Est GFR (Non-Af Amer) > 60 POC Glucose (mg/dL) Random Glucose 220 H Calcium 9.0 Total Bilirubin 0.5 AST 22 ALT 38 Alkaline Phosphatase 116 Troponin I NT-Pro-B Natriuret Pep Total Protein 6.7 Albumin 3.8 Globulin 3.0 Albumin/Globulin Ratio 1.3 Urine Color Urine Clarity Urine pH Ur Specific [place] Urine Protein Urine Glucose (UA) Urine Ketones Urine Blood Urine Nitrate Urine Bilirubin Urine Urobilinogen Ur Leukocyte Esterase Urine WBC (Auto) Hyaline Casts Attending/Attestation - Attestation I have personally seen and examined this patient.: Yes I have fully participated in the care of the patient.: Yes I have reviewed all pertinent clinical information: Yes Notes (Text): 06/27/18 08:51\ Medical attending: Patient was seen and examined by me. The patient was not in any acute distress however he did not look comfortable. The patient has had multiple admission with regards to his severe CHF. The patient as mentioned above has a EF of 20% as of an May 2018 cardiac catherization. He already has a pacer/AICD. His systolic BP remains low in the 90s, at home he says sometimes he's afraid to give himself his medications due to the blood pressure being the way it is. The last time the patient was here he was suggested possible transfer to [facility] to see a CHF specialist there however he did not want to go. He is now more open to the idea and I told him I would try to reach out to them. Because of the low BP will only do lasix 20 once a day. The CXRAY do show congestion, however not worse than previous admissions. Also the patient on exam he does not have lower extremity edema. He is a larger lavon, obesity - however he did not come across as fluid overload
[2018-06-26] MEDS: (Lantus) Insulin Glargine, Recombinant SC SCH (18:46)
[2018-06-26] MEDS ORDERED: (Lantus) Insulin Glargine, Recombinant SC ONE (18:47)
[2018-06-26 18:58] VITALS: RESP 20
[2018-06-26 19:38] LABS: URINE BILIRUBIN NEGATIVE (NEGATIVE); URINE BLOOD NEGATIVE (NEGATIVE); URINE CLARITY Clear (Clear); URINE COLOR Straw (YELLOW); URINE GLUCOSE (UA) 2+ mg/dL (Normal); URINE HYALINE CAST 0-2 /lpf (0-2); URINE LEUKOCYTE ESTERASE NEG Leu/uL (Negative); URINE PROTEIN NEGATIVE (NEGATIVE); URINE UROBILINOGEN NORMAL mg/dL (0.2-1.0)
[2018-06-26] MEDS: (Novolog) Insulin Aspart, Recombinant 100 u/ml 10 ml vial SC SCH (21:57)
[2018-06-27] MEDS: Albuterol-Ipratrop 3 mg / 0.5 (3 ml) UD INH SCH ×6 (00:05→19:52)
--- NOTE | 2018-06-27 07:41 | CP.PCM.CON ---
<María Tom - Last Filed: 06/27/18 15:20> History of Present Illness - History of Present Illness History of Present Illness: Cardiology Consult Note- Dr. Yu's service Reason for consult: dyspnea on exertion 52 year old male with past medical history significant for CHF, Non-ischemic cardiomyopathy, HTN, COPD and Diabetes Mellitus presents with complaints of shortness of breath over the past couple of days. Patient states that it got to the point that he stopped taking his Lasix medication because his blood pressure was low (systolic 80s-90s) and he was worried about dehydration due to the hot weather outside. Patient states that he went to visit the [facility] where he was told that he should go to the emergency room if he continued to experience shortness of breath. Patient states that he sleeps with two pillows at night. Further, he states that he can barely walk 1/ 2 a block before he begins feeling short of breath. Patient denies palpitations , chest pain, nausea, headaches at this time. PMHx: as stated above PSH: AICD placement Fam Hx: Mom (DM), Father (CVD) Meds: Aspirin 81mg po daily; Enalapril 2.5mg po daily, atorvastatin 10mg po daily, carvedilol 6.25mg po bid, Combivent, Furosemide 40mg po daily, Humalog, Lantus Allergies: NKDA Social: Former smoker. Quit last month; social drinker 2-3 beers per event; denies drug use; currently unemployed living with family at home PMD: [facility] Finishing Area Operator: Dr. Yu Review of Systems - Constitutional Constitutional: absent: Headache - EENT Eyes: absent: Change in Vision, Dry Eye Ears: absent: Ear Discharge, Ear Pain Nose/Mouth/Throat: absent: Nasal Congestion, Nasal Trauma - Cardiovascular Cardiovascular: Dyspnea, Dyspnea on Exertion. absent: Chest Pain, Chest Pain at Rest - Respiratory Respiratory: Dyspnea, Dyspnea on Exertion - Gastrointestinal Gastrointestinal: absent: Nausea, Vomiting - Genitourinary Genitourinary: absent: Dysuria - Musculoskeletal Musculoskeletal: absent: Back Pain - Integumentary Integumentary: absent: Skin Pain, Wounds - Neurological Neurological: absent: Tremor, Weakness Past Patient History - Past Medical History & Family History Past Medical History?: Yes - Past Social History Smoking Status: Former Smoker Alcohol: Social - CARDIAC Hx Congestive Heart Failure: Yes Hx Hypercholesterolemia: Yes Hx Hypertension: Yes Hx Peripheral Edema: Yes - PULMONARY Hx Asthma: Yes - NEUROLOGICAL Hx Neurological Disorder: No - HEENT Hx HEENT Problems: Yes Other/Comment: wear reading eyeglasses - RENAL Hx Chronic Kidney Disease: No - ENDOCRINE/METABOLIC Hx Endocrine Disorders: Yes Hx Diabetes Mellitus Type 2: Yes - HEMATOLOGICAL/ONCOLOGICAL Hx Blood Disorders: No - INTEGUMENTARY Hx Dermatological Problems: No - MUSCULOSKELETAL/RHEUMATOLOGICAL Hx Musculoskeletal Disorders: No Hx Falls: No - GASTROINTESTINAL Hx Gastrointestinal Disorders: No - GENITOURINARY/GYNECOLOGICAL Hx Genitourinary Disorders: No - PSYCHIATRIC Hx Substance Use: No - SURGICAL HISTORY Hx Surgeries: Yes Hx Cardiac Catheterization: Yes Other/Comment: AICD placement 1 1/2 year ago - ANESTHESIA Hx Anesthesia: Yes Hx Anesthesia Reactions: No Hx Malignant Hyperthermia: No Meds Allergies/Adverse Reactions: Allergies Allergy/AdvReac Type Severity Reaction Status Date / Time No Known Allergies Allergy Verified 05/31/18 13:47 - Medications Medications: Current Medications Albuterol/Ipratropium (Duoneb 3 Mg/0.5 Mg (3 Ml) Ud) 3 ml INH RQ4 [facility] Last Admin: 06/27/18 04:20 Dose: 3 ml Aspirin (Aspirin Chewable) 81 mg PO DAILY [facility] Stop: 07/02/18 23:59 Budesonide (Pulmicort Respules) 0.25 mg INH RQ12 [facility] Carvedilol (Coreg) 3.125 mg PO BID [facility] Stop: 07/07/18 10:01 Last Admin: 06/26/18 19:05 Dose: 3.125 mg Dextrose (Dextrose 50% Inj) 0 ml IV STAT PRN; Protocol PRN Reason: Hypoglycemia Protocol Dextrose (Glutose 15) 0 gm PO ONCE PRN; Protocol PRN Reason: Hypoglycemia Protocol Enalapril Maleate (Vasotec) 2.5 mg PO DAILY [facility] Stop: 07/02/18 23:59 Furosemide (Lasix) 20 mg IVP DAILY [facility] Glucagon (Glucagen Diagnostic Kit) 0 mg IM STAT PRN; Protocol PRN Reason: Hypoglycemia Protocol Dextrose (Dextrose 5% In Water 1000 Ml) 1,000 mls @ 0 mls/hr IV .Q0M PRN; Protocol; Per Protocol PRN Reason: Hypoglycemia Protocol Insulin Aspart (Novolog) 0 unit SC ACHS [facility] PRN Reason: Protocol Last Admin: 06/26/18 21:57 Dose: 2 u Insulin Glargine (Lantus) 50 unit SC QPM [facility] Last Admin: 06/26/18 18:46 Dose: 50 unit Insulin Glargine (Lantus) 80 unit SC QAM [facility] Rosuvastatin Calcium (Crestor) 5 mg PO HS [facility] Stop: 07/02/18 22:00 Last Admin: 06/26/18 21:17 Dose: 5 mg Physical Exam - Constitutional Appears: Non-toxic, No Acute Distress - Head Exam Head Exam: ATRAUMATIC, NORMAL INSPECTION - Eye Exam Eye Exam: EOMI, Normal appearance, PERRL Pupil Exam: NORMAL ACCOMODATION - ENT Exam ENT Exam: Mucous Membranes Moist - Neck Exam Neck exam: Positive for: Full Rom - Respiratory Exam Respiratory Exam: absent: Wheezes, Stridor Additional comments: poor inspiratory effort - Cardiovascular Exam Cardiovascular Exam: +S1, +S2. absent: Bradycardia, Tachycardia, Irregular Rhythm, JVD - GI/Abdominal Exam GI & Abdominal Exam: Normal Bowel Sounds, Soft. absent: Tenderness - Extremities Exam Extremities exam: Positive for: full ROM, normal capillary refill, pedal pulses present. Negative for: pedal edema, tenderness - Back Exam Back exam: FULL ROM - Neurological Exam Neurological exam: Alert, CN II-XII Intact, Oriented x3 - Psychiatric Exam Psychiatric exam: Normal Affect, Normal Mood - Skin Skin Exam: Dry, Normal Color, Warm Results - Vital Signs Recent Vital Signs: Last Vital Signs Temp 98.3 F 06/27/18 03:07 Pulse 83 06/27/18 03:13 Resp 20 06/27/18 03:07 BP 90/64 L 06/27/18 03:07 Pulse Ox 98 06/27/18 03:07 - Labs Result Diagrams: 06/27/18 07:43 06/27/18 07:43 Labs: Laboratory Results - last 24 hr 06/26/18 06/26/18 06/26/18 14:37 14:37 14:37 WBC 16.7 H RBC 4.25 L Hgb 12.6 Hct 37.6 MCV 88.5 MCH 29.7 MCHC 33.6 RDW 14.3 Plt Count 195 MPV 9.4 Neut % (Auto) 80.2 H Lymph % (Auto) 12.6 L [place] % (Auto) 4.5 Eos % (Auto) 1.4 Baso % (Auto) 1.3 Neut # (Auto) 13.4 H Lymph # (Auto) 2.1 [place] # (Auto) 0.8 Eos # (Auto) 0.2 Baso # (Auto) 0.2 PT 10.2 INR 0.9 APTT 27 Sodium 139 Potassium 4.5 Chloride 99 Carbon Dioxide 29 Anion Gap 15 BUN 27 H Creatinine 1.2 Est GFR ( Amer) > 60 Est GFR (Non-Af Amer) > 60 POC Glucose (mg/dL) Random Glucose 113 H Calcium 8.9 Total Bilirubin 0.6 AST 21 ALT 38 Alkaline Phosphatase 95 Troponin I 0.0230 NT-Pro-B Natriuret Pep 2010 H Total Protein 7.1 Albumin 4.0 Globulin 3.1 Albumin/Globulin Ratio 1.3 Urine Color Urine Clarity Urine pH Ur Specific [place] Urine Protein Urine Glucose (UA) Urine Ketones Urine Blood Urine Nitrate Urine Bilirubin Urine Urobilinogen Ur Leukocyte Esterase Urine WBC (Auto) Hyaline Casts 06/26/18 06/26/18 06/26/18 18:38 19:29 21:35 WBC RBC Hgb Hct MCV MCH MCHC RDW Plt Count MPV Neut % (Auto) Lymph % (Auto) [place] % (Auto) Eos % (Auto) Baso % (Auto) Neut # (Auto) Lymph # (Auto) [place] # (Auto) Eos # (Auto) Baso # (Auto) PT INR APTT Sodium Potassium Chloride Carbon Dioxide Anion Gap BUN Creatinine Est GFR ( Amer) Est GFR (Non-Af Amer) POC Glucose (mg/dL) 351 H 337 H Random Glucose Calcium Total Bilirubin AST ALT Alkaline Phosphatase Troponin I NT-Pro-B Natriuret Pep Total Protein Albumin Globulin Albumin/Globulin Ratio Urine Color Straw Urine Clarity Clear Urine pH 5.0 Ur Specific [place] 1.011 Urine Protein Negative Urine Glucose (UA) 2+ H Urine Ketones Negative Urine Blood Negative Urine Nitrate Negative Urine Bilirubin Negative Urine Urobilinogen Normal Ur Leukocyte Esterase Neg Urine WBC (Auto) < 1 Hyaline Casts 0-2 06/27/18 06/27/18 02:22 06:29 WBC RBC Hgb Hct MCV MCH MCHC RDW Plt Count MPV Neut % (Auto) Lymph % (Auto) [place] % (Auto) Eos % (Auto) Baso % (Auto) Neut # (Auto) Lymph # (Auto) [place] # (Auto) Eos # (Auto) Baso # (Auto) PT INR APTT Sodium Potassium Chloride Carbon Dioxide Anion Gap BUN Creatinine Est GFR ( Amer) Est GFR (Non-Af Amer) POC Glucose (mg/dL) 273 H 187 H Random Glucose Calcium Total Bilirubin AST ALT Alkaline Phosphatase Troponin I NT-Pro-B Natriuret Pep Total Protein Albumin Globulin Albumin/Globulin Ratio Urine Color Urine Clarity Urine pH Ur Specific [place] Urine Protein Urine Glucose (UA) Urine Ketones Urine Blood Urine Nitrate Urine Bilirubin Urine Urobilinogen Ur Leukocyte Esterase Urine WBC (Auto) Hyaline Casts Assessment & Plan (1) Acute exacerbation of CHF (congestive heart failure) Assessment and Plan: Patient has known history of CHF. Cardiac Cath 06/17: Normal coronary arteries. Dilated nonischemic cardiomyopathy with EF of 20% LVED pressure is 23. Refer to complete report. Echo 05/31: The left ventricle is severely dilated with global hypokinesis. LV systolic function is severely impaired. EF is 28-32%. refer to complete report. CXR- Decreased venous congestion; cardiomegaly BNP elevated on admission On Coreg, Digoxin, Enalapril and Lasi- will need to monitor blood pressures closely Recommendations on prior admissions for follow up in heart Failure clinic. - Patient has not followed up Patient has not followed up in outpatient Cardiology office either. At this time, recommendations were made for transfer to [facility]- (heart failure specialy center) for follow up care and continuing management. Accepting cardiology physician will be Dr. Joaquin Camacho. Awaiting transfer. Will optimize in the meantime. Status: Chronic (2) Diabetes mellitus Assessment and Plan: On Insulin regiment Accuchecks Hgb a1c has improved to 6.9 Cont to monitor Recommendations for strict outpatient diet and exercise modifications- as tolerated Status: Chronic (3) Prophylactic measure Assessment and Plan: Heparin SC No indications for GI prophylaxis at this time Status: Acute <Deepak Yu - Last Filed: 06/27/18 21:52> Results - Vital Signs Recent Vital Signs: Last Vital Signs Temp 98.5 F 06/27/18 15:00 Pulse 104 H 06/27/18 16:00 Resp 20 06/27/18 15:00 BP 105/58 L 06/27/18 17:26 Pulse Ox 97 06/27/18 15:00 - Labs Result Diagrams: 06/27/18 07:43 06/27/18 07:43 Labs: Laboratory Results - last 24 hr 06/27/18 06/27/18 06/27/18 02:22 06:29 07:43 WBC 14.7 H RBC 3.95 L Hgb 11.8 L Hct 35.2 MCV 89.3 MCH 29.9 MCHC 33.5 RDW 14.1 Plt Count 179 MPV 9.1 Neut % (Auto) 66.4 Lymph % (Auto) 25.3 [place] % (Auto) 5.7 Eos % (Auto) 1.8 Baso % (Auto) 0.8 Neut # (Auto) 9.8 H Lymph # (Auto) 3.7 [place] # (Auto) 0.8 Eos # (Auto) 0.3 Baso # (Auto) 0.1 Sodium Potassium Chloride Carbon Dioxide Anion Gap BUN Creatinine Est GFR ( Amer) Est GFR (Non-Af Amer) POC Glucose (mg/dL) 273 H 187 H Random Glucose Calcium Total Bilirubin AST ALT Alkaline Phosphatase Total Protein Albumin Globulin Albumin/Globulin Ratio 06/27/18 06/27/18 06/27/18 07:43 11:45 16:08 WBC RBC Hgb Hct MCV MCH MCHC RDW Plt Count MPV Neut % (Auto) Lymph % (Auto) [place] % (Auto) Eos % (Auto) Baso % (Auto) Neut # (Auto) Lymph # (Auto) [place] # (Auto) Eos # (Auto) Baso # (Auto) Sodium 136 Potassium 4.3 Chloride 97 L Carbon Dioxide 31 H Anion Gap 12 BUN 27 H Creatinine 1.2 Est GFR ( Amer) > 60 Est GFR (Non-Af Amer) > 60 POC Glucose (mg/dL) 207 H 211 H Random Glucose 220 H Calcium 9.0 Total Bilirubin 0.5 AST 22 ALT 38 Alkaline Phosphatase 116 Total Protein 6.7 Albumin 3.8 Globulin 3.0 Albumin/Globulin Ratio 1.3 Assessment & Plan - Assessment and Plan (Free Text) Assessment: Patient seen and evaluated personally by me. Plan of care d/w the medical records administrator and as documented
[2018-06-27 08:01] LABS: BASO # 0.1 K/uL (0.0-0.2); BASO % 0.8 % (0.0-2.0); EOS # 0.3 K/uL (0.0-0.7); EOS % 1.8 % (0.0-4.0); HEMOGLOBIN 11.8 g/dL (12.0-18.0); LYMPH # 3.7 K/uL (1.0-4.3); LYMPH % 25.3 % (20.0-40.0); MEAN CELL VOLUME 89.3 fL (80.0-94.0); MEAN CORPUSCULAR HEMOGLOBIN 29.9 pg (27.0-31.0); MEAN CORPUSCULAR HGB CONC 33.5 g/dL (33.0-37.0); MEAN PLATELET VOLUME 9.1 fL (7.2-11.7); MONO # 0.8 K/uL (0.0-0.8); MONO % 5.7 % (0.0-10.0); NEUT # 9.8 K/uL (1.8-7.0); NEUT % 66.4 % (50.0-75.0); NRBC % 0.1 % (0.0-2.0); RBC 3.95 Mil/uL (4.40-5.90); RED CELL DISTRIBUTION WIDTH 14.1 % (11.5-14.5); WHITE BLOOD COUNT 14.7 K/uL (4.8-10.8)
[2018-06-27 08:13] LABS: ALB/GLOB RATIO 1.3 (1.0-2.1); ALBUMIN 3.8 g/dL (3.5-5.0); ALT/SGPT 38 U/L (21-72); AST/SGOT 22 U/L (17-59); BLOOD UREA NITROGEN 27 mg/dL (9-20); GFR NON-AFRICAN AMERICAN > 60
[2018-06-27] MEDS: (Novolog) Insulin Aspart, Recombinant 100 u/ml 10 ml vial SC SCH ×3 (09:59→17:22)
[2018-06-27] MEDS ORDERED: (Lantus) Insulin Glargine, Recombinant SC SCH ×2 (10:00)
[2018-06-27] MEDS: Budesonide 0.25 mg/2 ml Inhal Susp UD INH SCH ×2 (14:38→19:52)
--- NOTE | 2018-06-27 17:03 | CARD ---
APPROVED REPORT Date of service: 06/26/2018 EKG Measurement Heart [id number] <Conclusion> Ventricular-paced rhythm Abnormal ECG
[2018-06-27 17:06] VITALS: TEMP 98.5; O2SAT 97
[2018-06-27 17:26] VITALS: BP 105/58
[2018-06-27 17:28] VITALS: PULSE 104
[2018-06-27] MEDS ORDERED: Digoxin 250 mcg (0.25 mg) Tab PO SCH (18:00)
[2018-06-27] MEDS ORDERED: MethylPREDNISolone 40 mg Vial IV SCH (18:00)
--- NOTE | 2018-06-27 18:35 | CP.PCM.PN ---
<Alo Hanks - Last Filed: 06/27/18 18:27> Subjective - Date & Time of Evaluation Date of Evaluation: 06/27/18 Time of Evaluation: 11:50 - Subjective Subjective: PGY-1 Medicine Progress Note for Dr. Lizarraga Patient was seen and examined sitting by bedside this AM. No acute events reported overnight. Continues to c/o of shortness of breath, asks to be given lasix to help with breathing. Pt has a history of CHF and decreased ejection fraction, and it was discussed with pt that he will be held here until transferred to [facility] (heart failure speciality center) for advanced CHF care. Pt denies headaches, dizziness, chest pain, palpitations, cough, nausea/vomiting/diarrhea, or constipation. Objective - Vital Signs/Intake and Output Vital Signs (last 24 hours): Temp Pulse Resp BP Pulse Ox 98.5 F 95 H 20 105/58 L 97 06/27/18 15:00 06/27/18 15:00 06/27/18 15:00 06/27/18 17:26 06/27/18 15:00 - Medications Medications: Current Medications Albuterol/Ipratropium (Duoneb 3 Mg/0.5 Mg (3 Ml) Ud) 3 ml INH RQ4 [facility] Last Admin: 06/27/18 11:45 Dose: Not Given Aspirin (Aspirin Chewable) 81 mg PO DAILY [facility] Stop: 07/02/18 23:59 Last Admin: 06/27/18 09:56 Dose: 81 mg Budesonide (Pulmicort Respules) 0.25 mg INH RQ12 [facility] Last Admin: 06/27/18 14:38 Dose: Not Given Carvedilol (Coreg) 3.125 mg PO BID [facility] Stop: 07/07/18 10:01 Last Admin: 06/27/18 09:58 Dose: Not Given Dextrose (Dextrose 50% Inj) 0 ml IV STAT PRN; Protocol PRN Reason: Hypoglycemia Protocol Dextrose (Glutose 15) 0 gm PO ONCE PRN; Protocol PRN Reason: Hypoglycemia Protocol Digoxin (Lanoxin) 0.25 mg PO DAILY@1800 [facility] Last Admin: 06/27/18 17:27 Dose: 0.25 mg Enalapril Maleate (Vasotec) 2.5 mg PO DAILY [facility] Stop: 07/02/18 23:59 Last Admin: 06/27/18 10:00 Dose: Not Given Furosemide (Lasix) 20 mg IVP DAILY [facility] Last Admin: 06/27/18 17:26 Dose: 20 mg Glucagon (Glucagen Diagnostic Kit) 0 mg IM STAT PRN; Protocol PRN Reason: Hypoglycemia Protocol Heparin Sodium (Porcine) (Heparin) 5,000 units SC Q8 [facility] Last Admin: 06/27/18 13:46 Dose: 5,000 units Dextrose (Dextrose 5% In Water 1000 Ml) 1,000 mls @ 0 mls/hr IV .Q0M PRN; Protocol; Per Protocol PRN Reason: Hypoglycemia Protocol Insulin Aspart (Novolog) 0 unit SC ACHS [facility] PRN Reason: Protocol Last Admin: 06/27/18 17:22 Dose: 3 units Insulin Glargine (Lantus) 50 unit SC QPM [facility] Last Admin: 06/26/18 18:46 Dose: 50 unit Insulin Glargine (Lantus) 80 unit SC QAM [facility] Last Admin: 06/27/18 09:57 Dose: 80 units Methylprednisolone (Solu-Medrol) 20 mg IV BID [facility] Last Admin: 06/27/18 17:23 Dose: 20 mg Rosuvastatin Calcium (Crestor) 5 mg PO HS [facility] Stop: 07/02/18 22:00 Last Admin: 06/26/18 21:17 Dose: 5 mg - Labs Labs: 06/27/18 07:43 06/27/18 07:43 PT 10.2 SECONDS (9.7-12.2) 06/26/18 14:37 INR 0.9 06/26/18 14:37 APTT 27 SECONDS (21-34) 06/26/18 14:37 - Constitutional Appears: Non-toxic, No Acute Distress - Head Exam Head Exam: ATRAUMATIC, NORMAL INSPECTION, NORMOCEPHALIC - Eye Exam Eye Exam: EOMI, Normal appearance Pupil Exam: NORMAL ACCOMODATION - ENT Exam ENT Exam: Mucous Membranes Moist, Normal Exam - Respiratory Exam Respiratory Exam: absent: Wheezes, Stridor Additional comments: poor inspiratory effort - Cardiovascular Exam Cardiovascular Exam: +S1, +S2 - GI/Abdominal Exam GI & Abdominal Exam: Soft, Normal Bowel Sounds. absent: Distended, Firm, Guarding, Rigid, Tenderness, Rebound - Extremities Exam Extremities Exam: Full ROM, Normal Capillary Refill. absent: Pedal Edema, Tenderness - Back Exam Back Exam: NORMAL INSPECTION - Neurological Exam Neurological Exam: Alert, Awake, Oriented x3 - Psychiatric Exam Psychiatric exam: Normal Affect, Normal Mood - Skin Skin Exam: Dry, Intact, Normal Color, Warm Assessment and Plan - Assessment and Plan (Free Text) Assessment: 52 yo M with PMHx of CHF (pacemaker in place), HTN, HLD, DM, and asthma presenting to ED sent from [facility] for progressively worsening SOB exacerbated with exertion. Plan: 1. CHF exacerbation -BNP 2009 -ASA 325 given once in ED -.25 digoxin IVP + .25 digoxin PO given ONCE on admission -monitor daily labs -Cardiology recs (Dr. Yu) appreciated -Prior imaging: * Cardiac Cath 06/17: Normal coronary arteries. Dilated nonischemic cardiomyopathy with EF of 20% LVED pressure is 23. No gradient across the aortic valve * Echo 05/31: The left ventricle is severely dilated with global hypokinesis. LV systolic function is severely impaired. EF is 28-32%. Severe grade III restrictive diastolic function. Tissue doppler compatible with severely elevated LA pressure. RV systolic function is normal. RA is moderately dilated. Pacemaker leads seen in the RA. Moderate mitral regurgitation. Moderate pulmonary hypertension. There is no pericardial effusion. * At this time, recommendations were made for transfer to [facility]- (heart failure [facility]) for follow up care and continuing management. * Accepting cardiology physician will be Dr. Joaquin Camacho. Awaiting transfer. Will optimize in the meantime. -Medications * Carvedilol 3.125 mg BID * ASA 81 mg PO daily * Enalapril 2.5 mg PO daily * Atorvastatin 10 mg daily * Lasix 20 mg PO once daily if SBP> 90 * solumedrol 20 mg IV BID * digoxin daily -f/u repeat portable CXR tomorrow 2. COPD/Asthma * Duoneb 3mL INH RQ4 * Pulmicort .25 mg INH RQ12 3. PPx, diet, disposition * None indicated at this time, patient is likely to be transferred tomorrow morning or afternoon * Recommendations were made for transfer to [facility] - (heart failure [facility]y [facility]) for follow up care and continuing management. * Accepting cardiology physician will be Dr. Joaquin Camacho. Awaiting transfer. Will optimize in the meantime. Case discussed with Dr. Elham Hanks PGY-1 <Javy Lizarraga H - Last Filed: 06/27/18 19:11> Objective - Vital Signs/Intake and Output Vital Signs (last 24 hours): Temp Pulse Resp BP Pulse Ox 98.5 F 95 H 20 105/58 L 97 06/27/18 15:00 06/27/18 15:00 06/27/18 15:00 06/27/18 17:26 06/27/18 15:00 - Medications Medications: Current Medications Albuterol/Ipratropium (Duoneb 3 Mg/0.5 Mg (3 Ml) Ud) 3 ml INH RQ4 [facility] Last Admin: 06/27/18 11:45 Dose: Not Given Aspirin (Aspirin Chewable) 81 mg PO DAILY [facility] Stop: 07/02/18 23:59 Last Admin: 06/27/18 09:56 Dose: 81 mg Budesonide (Pulmicort Respules) 0.25 mg INH RQ12 [facility] Last Admin: 06/27/18 14:38 Dose: Not Given Carvedilol (Coreg) 3.125 mg PO BID [facility] Stop: 07/07/18 10:01 Last Admin: 06/27/18 09:58 Dose: Not Given Dextrose (Dextrose 50% Inj) 0 ml IV STAT PRN; Protocol PRN Reason: Hypoglycemia Protocol Dextrose (Glutose 15) 0 gm PO ONCE PRN; Protocol PRN Reason: Hypoglycemia Protocol Digoxin (Lanoxin) 0.25 mg PO DAILY@1800 [facility] Last Admin: 06/27/18 17:27 Dose: 0.25 mg Enalapril Maleate (Vasotec) 2.5 mg PO DAILY [facility] Stop: 07/02/18 23:59 Last Admin: 06/27/18 10:00 Dose: Not Given Furosemide (Lasix) 20 mg IVP DAILY [facility] Last Admin: 06/27/18 17:26 Dose: 20 mg Glucagon (Glucagen Diagnostic Kit) 0 mg IM STAT PRN; Protocol PRN Reason: Hypoglycemia Protocol Heparin Sodium (Porcine) (Heparin) 5,000 units SC Q8 [facility] Last Admin: 06/27/18 13:46 Dose: 5,000 units Dextrose (Dextrose 5% In Water 1000 Ml) 1,000 mls @ 0 mls/hr IV .Q0M PRN; Protocol; Per Protocol PRN Reason: Hypoglycemia Protocol Insulin Aspart (Novolog) 0 unit SC ACHS [facility] PRN Reason: Protocol Last Admin: 06/27/18 17:22 Dose: 3 units Insulin Glargine (Lantus) 50 unit SC QPM [facility] Last Admin: 06/26/18 18:46 Dose: 50 unit Insulin Glargine (Lantus) 80 unit SC QAM [facility] Last Admin: 06/27/18 09:57 Dose: 80 units Methylprednisolone (Solu-Medrol) 20 mg IV BID [facility] Last Admin: 06/27/18 17:23 Dose: 20 mg Rosuvastatin Calcium (Crestor) 5 mg PO HS [facility] Stop: 07/02/18 22:00 Last Admin: 06/26/18 21:17 Dose: 5 mg - Labs Labs: 06/27/18 07:43 06/27/18 07:43 PT 10.2 SECONDS (9.7-12.2) 06/26/18 14:37 INR 0.9 06/26/18 14:37 APTT 27 SECONDS (21-34) 06/26/18 14:37 Attending/Attestation - Attestation I have personally seen and examined this patient.: Yes I have fully participated in the care of the patient.: Yes I have reviewed all pertinent clinical information, including history, physical exam and plan: Yes Notes (Text): 06/27/18 19:11 Medical attending: Patient was seen and examined by me, agrees the above note by the veterinary medical officer. This morning I spoke with the [facility]. With CHF specialist Dr. Joaquin Camacho. I reviewed the case with Dr. Rivera he's decided that the patient does need to be transferred over to [place]. I also spoke with the transfer center as well were just pending for them to give us a call to bring him over. It may take 1 or 2 days before this happened. I did explain this to the patient The patient's systolic blood pressure remains low in the low 90s and high 80s. He is able to stand up and walk around however he easily becomes short winded over some distance. We are rather reluctant to give this patient a large amount of Lasix since his blood pressure is working so well with this. And on exam he doesn't have any lower extremity edema and the chest x-rays well he does show some pulmonary congestion is not worse than previous chest x-rays. On telemetry he remains completely ventricularly paced thank you Javy Lizarraga
[2018-06-27 19:17] VITALS: PULSE 104
[2018-06-27] MEDS: (Lantus) Insulin Glargine, Recombinant SC SCH (19:19)
--- NOTE | 2018-06-28 09:30 | CP.PCM.DIS ---
<Alo Hanks - Last Filed: 06/28/18 13:32> Provider - Provider Date of Admission: 06/26/18 16:00 Attending physician: Javy Lizarraga DO Time Spent in preparation of Discharge (in minutes): 40 Hospital Course - Lab Results Lab Results: Micro Results 06/26/18 19:29 Urine,Random Urine Culture - Final No Growth (<1,000 CFU/ML) Most Recent Lab Values WBC 14.7 K/uL (4.8-10.8) H 06/27/18 07:43 RBC 3.95 Mil/uL (4.40-5.90) L 06/27/18 07:43 Hgb 11.8 g/dL (12.0-18.0) L 06/27/18 07:43 Hct 35.2 % (35.0-51.0) 06/27/18 07:43 MCV 89.3 fL (80.0-94.0) 06/27/18 07:43 MCH 29.9 pg (27.0-31.0) 06/27/18 07:43 MCHC 33.5 g/dL (33.0-37.0) 06/27/18 07:43 RDW 14.1 % (11.5-14.5) 06/27/18 07:43 Plt Count 179 K/uL (130-400) 06/27/18 07:43 MPV 9.1 fL (7.2-11.7) 06/27/18 07:43 Neut % (Auto) 66.4 % (50.0-75.0) 06/27/18 07:43 Lymph % (Auto) 25.3 % (20.0-40.0) 06/27/18 07:43 Phillips % (Auto) 5.7 % (0.0-10.0) 06/27/18 07:43 Eos % (Auto) 1.8 % (0.0-4.0) 06/27/18 07:43 Baso % (Auto) 0.8 % (0.0-2.0) 06/27/18 07:43 Neut # (Auto) 9.8 K/uL (1.8-7.0) H 06/27/18 07:43 Lymph # (Auto) 3.7 K/uL (1.0-4.3) 06/27/18 07:43 Phillips # (Auto) 0.8 K/uL (0.0-0.8) 06/27/18 07:43 Eos # (Auto) 0.3 K/uL (0.0-0.7) 06/27/18 07:43 Baso # (Auto) 0.1 K/uL (0.0-0.2) 06/27/18 07:43 PT 10.2 SECONDS (9.7-12.2) 06/26/18 14:37 INR 0.9 06/26/18 14:37 APTT 27 SECONDS (21-34) 06/26/18 14:37 Sodium 136 mmol/L (132-148) 06/27/18 07:43 Potassium 4.3 mmol/L (3.6-5.2) 06/27/18 07:43 Chloride 97 mmol/L (98-107) L 06/27/18 07:43 Carbon Dioxide 31 mmol/L (22-30) H 06/27/18 07:43 Anion Gap 12 (10-20) 06/27/18 07:43 BUN 27 mg/dL (9-20) H 06/27/18 07:43 Creatinine 1.2 mg/dL (0.8-1.5) 06/27/18 07:43 Est GFR ( Amer) > 60 06/27/18 07:43 Est GFR (Non-Af Amer) > 60 06/27/18 07:43 POC Glucose (mg/dL) 211 mg/dL (65-110) H 06/27/18 16:08 Random Glucose 220 mg/dL (75-110) H 06/27/18 07:43 Calcium 9.0 mg/dl (8.6-10.4) 06/27/18 07:43 Total Bilirubin 0.5 mg/dL (0.2-1.3) 06/27/18 07:43 AST 22 U/L (17-59) 06/27/18 07:43 ALT 38 U/L (21-72) 06/27/18 07:43 Alkaline Phosphatase 116 U/L (38-126) 06/27/18 07:43 Troponin I 0.0230 ng/mL (0.00-0.120) 06/26/18 14:37 NT-Pro-B Natriuret Pep 2010 pg/mL (0-900) H 06/26/18 14:37 Total Protein 6.7 g/dL (6.3-8.3) 06/27/18 07:43 Albumin 3.8 g/dL (3.5-5.0) 06/27/18 07:43 Globulin 3.0 gm/dL (2.2-3.9) 06/27/18 07:43 Albumin/Globulin Ratio 1.3 (1.0-2.1) 06/27/18 07:43 Urine Color Straw (YELLOW) 06/26/18 19:29 Urine Clarity Clear (Clear) 06/26/18 19:29 Urine pH 5.0 (5.0-8.0) 06/26/18 19:29 Ur Specific Ch[place] 1.011 (1.003-1.030) 06/26/18 19:29 Urine Protein Negative mg/dL (NEGATIVE) 06/26/18 19:29 Urine Glucose (UA) 2+ mg/dL (Normal) H 06/26/18 19:29 Urine Ketones Negative mg/dL (NEGATIVE) 06/26/18 19:29 Urine Blood Negative (NEGATIVE) 06/26/18 19:29 Urine Nitrate Negative (NEGATIVE) 06/26/18 19:29 Urine Bilirubin Negative (NEGATIVE) 06/26/18 19:29 Urine Urobilinogen Normal mg/dL (0.2-1.0) 06/26/18 19:29 Ur Leukocyte Esterase Neg Maddie/uL (Negative) 06/26/18 19:29 Urine WBC (Auto) < 1 /hpf (0-5) 06/26/18 19:29 Hyaline Casts 0-2 /lpf (0-2) 06/26/18 19:29 - Hospital Course Hospital Course: HPI: Patient is a 52 year old male with a PMH of CHF (pacemaker in place), HTN, HLD, and DM, and asthma who presents to the ED sent from [facility], reporting that over the past 2 days he has had progressively worsening shortness of breath exacerbated with exertion. He notes instead of using his inhaler 2 times per day he has had to use it 4 times per day with minimal relief. Last night, at midnight, he woke from sleep because he was having increased difficulty breathing and was unable to continue sleeping, especially while lying flat. He was seen at the [facility] today, after which he was prompted to come to the ED for evaluation. He notes he follows up with Dr. Yu for cardiology and last week he was taken off his Amiodarone and Digoxin. He notes he has been trying to restrict his fluid intake but this has been difficult due to the heat outside. Patient has been taking daily weights and states his weight has been fluctuating significantly on a day to day basis. He is scheduled to follow up with the [facility] within the next week. He denies chest pain, dizziness, palpitations, headache, fever, chills, abdominal pain, nausea, vomiting, diarrhea, or constipation. Patient quit smoking 3 months ago after smoking 2-3 packs/day since he was 14. Hospital Course: Patient was admitted on 06/26/18 for CHF exacerbation with worsening shortness of breath over the past two days. He was given ASA 325 mg PO once in the ED as well as 0.25 mg digoxin IVP and 0.25 digoxin mg PO once. BNP value was 2010. All home meds were restarted, including carvedilol 3.125 mg BID, ASA 81 mg PO daily, enalapril 2.5 mg PO daily, crestor 5 mg PO HS. Solumedrol 20 mg IV BID was added for his worsening shortness of breath. His systolic BPs remained low in the 90s during the course of admission. Because of the low BP, lasix 20 mg IV once daily was given only if SBP remained above 90. CXR performed on admission did show congestion, although there were no acute changes from his prior imaging. On examination, the patient did not demonstrate any overt lower extremity edema. The patient has had multiple admissions in the past with regards to his severe CHF. The patient has an EF of 20%, as per cardiac catheterization done in May 2018. He already has a pacer/AICD in place. On last admission, the possibility of transfer over to [facility] was discussed with the patient for further management with an advanced CHF specialist; however, the patient did not want to go. On current admission, the patient was more willing and communications were made with [facility] about possible transfer of care to orthopaedic technologist Dr. Joaquin Camacho. Patient was made aware of plans for transfer, including the risks associated with transport. The patient has the capacity to make this informed decision and understood my explanation of the current treatment plan. He was given time to think about his decision and all questions were answered. Patient agreed on transfer to [facility] for advanced CHF care and signed an EMTALA form, per Dr. Lizarraga. Patient was medically stable for transfer, as per Dr. Lizarraga. This is a summary of course of admission. For full detail, please refer to EMR. Discharge Exam - Head Exam Head Exam: ATRAUMATIC, NORMAL INSPECTION, NORMOCEPHALIC - Eye Exam Eye Exam: EOMI, Normal appearance - ENT Exam ENT Exam: Mucous Membranes Moist, Normal Exam - Respiratory Exam Respiratory Exam: absent: Wheezes, Stridor Additional comments: Poor inspiratory effort - Cardiovascular Exam Cardiovascular Exam: +S1, +S2 - GI/Abdominal Exam GI & Abdominal Exam: Normal Bowel Sounds, Soft, Unremarkable. absent: Distended , Firm, Guarding, Rebound, Tenderness - Extremities Exam Extremities exam: normal inspection, pedal pulses present - Back Exam Back exam: NORMAL INSPECTION - Neurological Exam Neurological exam: Alert, Normal Gait, Oriented x3 - Skin Skin Exam: Dry, Intact, Normal Color, Warm Discharge Plan - Follow Up Plan Condition: FAIR Disposition: Trans to Other Acute Care Hosp <Javy Lizarraga - Last Filed: 06/28/18 14:04> Provider - Provider Date of Admission: 06/26/18 16:00 Attending physician: Javy Lizarraga DO Hospital Course - Lab Results Lab Results: Micro Results 06/26/18 19:29 Urine,Random Urine Culture - Final No Growth (<1,000 CFU/ML) Most Recent Lab Values WBC 14.7 K/uL (4.8-10.8) H 06/27/18 07:43 RBC 3.95 Mil/uL (4.40-5.90) L 06/27/18 07:43 Hgb 11.8 g/dL (12.0-18.0) L 06/27/18 07:43 Hct 35.2 % (35.0-51.0) 06/27/18 07:43 MCV 89.3 fL (80.0-94.0) 06/27/18 07:43 MCH 29.9 pg (27.0-31.0) 06/27/18 07:43 MCHC 33.5 g/dL (33.0-37.0) 06/27/18 07:43 RDW 14.1 % (11.5-14.5) 06/27/18 07:43 Plt Count 179 K/uL (130-400) 06/27/18 07:43 MPV 9.1 fL (7.2-11.7) 06/27/18 07:43 Neut % (Auto) 66.4 % (50.0-75.0) 06/27/18 07:43 Lymph % (Auto) 25.3 % (20.0-40.0) 06/27/18 07:43 Phillips % (Auto) 5.7 % (0.0-10.0) 06/27/18 07:43 Eos % (Auto) 1.8 % (0.0-4.0) 06/27/18 07:43 Baso % (Auto) 0.8 % (0.0-2.0) 06/27/18 07:43 Neut # (Auto) 9.8 K/uL (1.8-7.0) H 06/27/18 07:43 Lymph # (Auto) 3.7 K/uL (1.0-4.3) 06/27/18 07:43 Phillips # (Auto) 0.8 K/uL (0.0-0.8) 06/27/18 07:43 Eos # (Auto) 0.3 K/uL (0.0-0.7) 06/27/18 07:43 Baso # (Auto) 0.1 K/uL (0.0-0.2) 06/27/18 07:43 PT 10.2 SECONDS (9.7-12.2) 06/26/18 14:37 INR 0.9 06/26/18 14:37 APTT 27 SECONDS (21-34) 06/26/18 14:37 Sodium 136 mmol/L (132-148) 06/27/18 07:43 Potassium 4.3 mmol/L (3.6-5.2) 06/27/18 07:43 Chloride 97 mmol/L (98-107) L 06/27/18 07:43 Carbon Dioxide 31 mmol/L (22-30) H 06/27/18 07:43 Anion Gap 12 (10-20) 06/27/18 07:43 BUN 27 mg/dL (9-20) H 06/27/18 07:43 Creatinine 1.2 mg/dL (0.8-1.5) 06/27/18 07:43 Est GFR ( Amer) > 60 06/27/18 07:43 Est GFR (Non-Af Amer) > 60 06/27/18 07:43 POC Glucose (mg/dL) 211 mg/dL (65-110) H 06/27/18 16:08 Random Glucose 220 mg/dL (75-110) H 06/27/18 07:43 Calcium 9.0 mg/dl (8.6-10.4) 06/27/18 07:43 Total Bilirubin 0.5 mg/dL (0.2-1.3) 06/27/18 07:43 AST 22 U/L (17-59) 06/27/18 07:43 ALT 38 U/L (21-72) 06/27/18 07:43 Alkaline Phosphatase 116 U/L (38-126) 06/27/18 07:43 Troponin I 0.0230 ng/mL (0.00-0.120) 06/26/18 14:37 NT-Pro-B Natriuret Pep 2010 pg/mL (0-900) H 06/26/18 14:37 Total Protein 6.7 g/dL (6.3-8.3) 06/27/18 07:43 Albumin 3.8 g/dL (3.5-5.0) 06/27/18 07:43 Globulin 3.0 gm/dL (2.2-3.9) 06/27/18 07:43 Albumin/Globulin Ratio 1.3 (1.0-2.1) 06/27/18 07:43 Urine Color Straw (YELLOW) 06/26/18 19:29 Urine Clarity Clear (Clear) 06/26/18 19:29 Urine pH 5.0 (5.0-8.0) 06/26/18 19:29 Ur Specific Challis 1.011 (1.003-1.030) 06/26/18 19:29 Urine Protein Negative mg/dL (NEGATIVE) 06/26/18 19:29 Urine Glucose (UA) 2+ mg/dL (Normal) H 06/26/18 19:29 Urine Ketones Negative mg/dL (NEGATIVE) 06/26/18 19:29 Urine Blood Negative (NEGATIVE) 06/26/18 19:29 Urine Nitrate Negative (NEGATIVE) 06/26/18 19:29 Urine Bilirubin Negative (NEGATIVE) 06/26/18 19:29 Urine Urobilinogen Normal mg/dL (0.2-1.0) 06/26/18 19:29 Ur Leukocyte Esterase Neg Maddie/uL (Negative) 06/26/18 19:29 Urine WBC (Auto) < 1 /hpf (0-5) 06/26/18 19:29 Hyaline Casts 0-2 /lpf (0-2) 06/26/18 19:29 Attending/Attestation - Attestation I have personally seen and examined this patient.: Yes I have fully participated in the care of the patient.: Yes I have reviewed all pertinent clinical information, including history, physical exam and plan: Yes Notes (Text): 06/28/18 14:04 Medical attending: Patient was seen and examined by me, agrees the above note by the medical records tech. The patient was not in any acute distress when we saw, earlier in the morning I had called [facility] and I spoke with the CHF specialist Dr. Joaquin Camacho. I explained to Dr. Camacho the patient's most recent echocardiograms as well as the recent cardiac cath and I furthermore explained that he's been admitted several times recently for the CHF. We discussed the patient's echo was over the past 2 years and we've observed that his ejection fractions have slowly decreased most recent cardiac cath shows that his ejection fraction is about 20% at this time. I asked him if he could potentially be transferred over to [facility] due to the ongoing low systolic blood pressure. And he was accepted. I spoke again with the transfer center, and EMTALA were filled out. Hopefully the patient will have some benficial outcome at [facility] Thank you very much, Javy Lizarraga
== END 2018-06-27 20:25 | disposition short-term general hospital (02) ==
LOC: C.ER 13:02 → C.9E 16:00 → C.6T 18:55
PROVIDERS: ADMIT Hospitalist; ATTEND Hospitalist
DX: I11.0 Hypertensive heart disease with heart failure (principal); I50.9 Heart failure, unspecified; E78.00 Pure hypercholesterolemia, unspecified; E11.9 Type 2 diabetes mellitus without complications; I27.20 Pulmonary hypertension, unspecified; I42.0 Dilated cardiomyopathy; E66.9 Obesity, unspecified; Z68.41 Body mass index [BMI] 40.0-44.9, adult; J44.9 Chronic obstructive pulmonary disease, unspecified; I34.0 Nonrheumatic mitral (valve) insufficiency; Z87.891 Personal history of nicotine dependence; Z95.0 Presence of cardiac pacemaker
CPT/HCPCS: 36415; 71045; 80053; 81001; 82948; 83880; 84484; 85025; 85610; 85730; 87086; 93005; 94640; 96372; 96374; 99285; G0378; J1160; J1644; J1940; J2920

== ENCOUNTER 2018-12-17 00:31 | Emergency (ER) | payer MEDICARE, MEDICAID ==
[2018-12-17 00:32] VITALS: PULSE 104; BMI 40.3
--- NOTE | 2018-12-17 01:11 | C.PDOC ---
History Of Present Illness 53 year old male presents to the ED c/o hoarseness and trouble speaking. Patient reports vocal cord injury s/p intubation for a previous surgery. Patient was seen by ENT on Monday and states being fine until today. Patient denies fever, chills, nausea, vomit, CP, SOB. Chief Complaint (Nursing): Shortness Of Breath History Per: Patient History/Exam Limitations: no limitations Onset/Duration Of Symptoms: Hrs Current Symptoms Are (Timing): Still Present Initiating Event: Other Quality: Tightness Recent travel outside of the [facility]: No Additional History Per: Patient Past Medical History Reviewed: Historical Data, Nursing Documentation, Vital Signs Vital Signs: Last Vital Signs Temp 97.8 F 12/17/18 00:43 Pulse 91 H 12/17/18 00:43 Resp 20 12/17/18 00:43 BP 132/82 12/17/18 00:43 Pulse Ox 97 12/17/18 00:43 - Medical History PMH: Asthma, CHF, Diabetes, HTN, Hypercholesterolemia, Peripheral Edema Denies: Chronic Kidney Disease Surgical History: No Surg Hx - [facility] Procedures FLUOROSCOPY OF LEFT HEART USING LOW OSMOLAR CONTRAST (05/31/18) FLUOROSCOPY OF MULT COR ART USING L OSM CONTRAST (05/31/18) MEASURE OF CARDIAC SAMPL & PRESSURE, L HEART, PERC APPROACH (05/31/18) Family History: States: Unknown Family Hx - Social History Hx Tobacco Use: Yes Hx Alcohol Use: No Hx Substance Use: No - Immunization History Hx Tetanus Toxoid Vaccination: Yes Hx Influenza Vaccination: Yes Hx Pneumococcal Vaccination: Yes Review Of Systems Constitutional: Negative for: Fever, Chills ENT: Positive for: Throat Pain, Throat Swelling Cardiovascular: Negative for: Chest Pain Respiratory: Negative for: Cough, Shortness of Breath Gastrointestinal: Negative for: Nausea, Vomiting, Abdominal Pain Skin: Negative for: Rash Neurological: Negative for: Weakness, Numbness, Headache Physical Exam - Physical Exam Appears: Non-toxic, No Acute Distress Skin: Normal Color, Warm, Dry Head: Atraumatic, Normacephalic Eye(s): bilateral: Normal Inspection Oral Mucosa: Moist Throat: Erythema, No Exudate, No Drooling Neck: Normal ROM, Supple Chest: Symmetrical Cardiovascular: Rhythm Regular Respiratory: Normal Breath Sounds, No Rales, No Rhonchi, No Wheezing, Other (good air entry) Extremity: Normal ROM, No Tenderness, No Swelling Neurological/Psych: Oriented x3, Normal Speech, Normal Cognition Gait: Steady ED Course And Treatment - Laboratory Results Result Diagrams: 12/17/18 01:24 12/17/18 01:24 O2 Sat by Pulse Oximetry: 97 (On RA) Pulse Ox Interpretation: Normal - CT Scan/US CT neck Other Rad Studies (CT/US): Read By Radiologist, Radiology Report Reviewed CT/US Interpretation: PROCEDURE: CT SOFT TISSUE NECK WITHOUT CONTRAST. REASON FOR EXAM: Patient with artificial heart; no contrast used was on vent 3 mos tube removed and was having trouble breathing or speaking 2 days ago went to ENT and was given a shot to left vocal cord to inflate now having hoarseness and pain mid anterior neck (Hx). TECHNIQUE: The patient was scanned in a multi- detector CT scanner. High resolution transaxial imaging was performed without intravenous administration of contrast material. Sagittal and coronal images were reconstructed. COMPARISON: None. FINDINGS: Mild chronic mucosal inflammatory changes in the maxillary sinuses and ethmoid air cells. Mild subcutaneous thickening and stranding. This is identified in the mid aspect of the anterior neck. Thickening of the left vocal cord. Left para midline position of the left vocal cord. Obliteration of left piriform sinus. Normal bilateral parotid glands. Normal bilateral candles pourer spaces. Normal bilateral parapharyngeal spaces. Normal bilateral carotid spaces. Normal bilateral sublingual and submandibular glands. Normal visualized nasopharynx. Normal retropharyngeal space. Normal perivertebral space. Normal visualized bilateral faucial tonsils. The visualized tongue, tongue base and oropharynx are normal. The visualized cervical lymph nodes (levels I-) are within normal size limits, and maintain normal morphology. Normal epiglottis, bilateral vallecula and hypopharynx. The pre-epiglottic and paraglottic adipose spaces are normal. Normal subglottic trachea. Normal bilateral lobes of the thyroid gland. Normal visualized pulmonary apices. Normal visualized paranasal sinuses. Normal visualized cervical spine. IMPRESSION: Mild chronic mucosal inflammatory changes in the maxillary sinuses and ethmoid air cells. Mild subcutaneous thickening and stranding. This is identified in the mid aspect of the anterior neck. A mild cellulitis without fluid collection. Thickening of the left vocal cord. Possibly secondary to an inflammatory pathology. Left para midline position of the left vocal cord. This can be secondary to cord paralysis. Obliteration of left piriform sinus. Possibly secondary to inflammatory pathology with the secretions. Cord paralysis could be contributing. Followup exam is recommended to exclude underlying neoplastic pathology. . Electronically signed on Dec 17, 2018 2:31:24 AM EST by: Bjorn Nickerson, Certified by CHRYSTAL, MSK, Neuroradiology Medical Decision Making Medical Decision Making: Plan: * Labs * CT neck Disposition Discussed With Dr.: Dr. Styles Comment: for transfer to [facility] Doctor Will See Patient In The: Hospital - Disposition Referrals: Hussein Martinez DO [Primary Care Provider] - Disposition: Trans to Other Acute Care Hosp Disposition Time: 04:00 Condition: STABLE Forms: [employer] (Qatari) - Clinical Impression Clinical Impression: Cellulitis of neck, Left ventricular dysfunction, LVAD (left ventricular assist device) present - Scribe Statement The provider has reviewed the documentation as recorded by the Scribe Ga Reddy All medical record entries made by the Scribe were at my direction and personally dictated by me. I have reviewed the chart and agree that the record accurately reflects my personal performance of the history, physical exam, medical decision making, and the department course for this patient. I have also personally directed, reviewed, and agree with the discharge instructions and disposition.
[2018-12-17 01:29] LABS: BASO # 0.2 K/uL (0.0-0.2); BASO % 1.6 % (0.0-2.0); EOS # 0.3 K/uL (0.0-0.7); EOS % 2.7 % (0.0-4.0); LYMPH % 15.6 % (20.0-40.0); MEAN CELL VOLUME 88.1 fL (80.0-94.0); MEAN CORPUSCULAR HEMOGLOBIN 28.8 pg (27.0-31.0); MEAN CORPUSCULAR HGB CONC 32.7 g/dL (33.0-37.0); MONO # 0.9 K/uL (0.0-0.8); MONO % 7.1 % (0.0-10.0); NEUT # 9.4 K/uL (1.8-7.0); NRBC % 0.1 % (0.0-2.0); RBC 3.93 Mil/uL (4.40-5.90); RED CELL DISTRIBUTION WIDTH 14.9 % (11.5-14.5); WHITE BLOOD COUNT 12.9 K/uL (4.8-10.8)
[2018-12-17 01:31] LABS: HEMOGLOBIN 11.3 g/dL (12.0-18.0)
[2018-12-17 01:38] LABS: ALB/GLOB RATIO 1.3 (1.0-2.1); ALBUMIN 4.1 g/dL (3.5-5.0); ALT/SGPT 13 U/L (21-72); AST/SGOT 14 U/L (17-59); BLOOD UREA NITROGEN 16 mg/dL (9-20); CALCIUM 8.9 mg/dl (8.6-10.4); GFR NON-AFRICAN AMERICAN > 60
[2018-12-17] MEDS ORDERED: cefTRIAXone IV 1 gm in Dextros 50 ML IVPB ONE (03:11)
[2018-12-17 04:12] VITALS: BP 112/68; PULSE 92; RESP 20; TEMP 98.7
--- NOTE | 2018-12-17 10:32 | CT ---
Date of service: 12/17/2018 PROCEDURE: CT NECK WITHOUT CONTRAST HISTORY: swelling of throat COMPARISON: None available. TECHNIQUE: CT of the neck without intravenous contrast. Coronal and sagittal reformats generated. Radiation dose: Total exam DLP = 489.11 mGy-cm. This CT exam was performed using one or more of the following dose reduction techniques: Automated exposure control, adjustment of the mA and/or kV according to patient size, and/or use of iterative reconstruction technique. FINDINGS: NASOPHARYNX: Mild adenoid hypertrophy. SUPRAHYOID NECK: Unremarkable oropharynx, oral cavity, parapharyngeal space and retropharyngeal space. INFRAHYOID NECK: The right larynx, hypopharynx, and supraglottic space are grossly unremarkable. There is asymmetric abnormal soft tissue in the left piriform sinus, along the left areae epiglottic fold involving the false cord and true left vocal cord with thickening and paramedian position of the left vocal cord with apparent abnormal soft-tissue in the left lateral and paramedian posterior glottis. Mild soft tissue thickening and subcutaneous fat stranding anterior to the strap muscles. GLANDS: Parotid and submandibular glands unremarkable. Normal size thyroid gland, without nodule. There are few surgical clips anterior to the right inferior isthmus. LYMPH NODES: No lymphadenopathy. CERVICAL SPINE: No fracture or focal lesion. OTHER FINDINGS: None. IMPRESSION: This examination is limited in the absence of intravenous contrast. Allowing for this, abnormal soft tissue in the left piriform sinus, along the left aryepiglottic fold, false cord and involving the left true vocal cord extending posterior laterally. Findings are nonspecific and with the stated clinical history could be related to nonspecific infection, inflammation or neoplasm. Clinical follow-up and endoscopic correlation is advised. A preliminary report was provided by [employer].
[2018-12-17 16:46] VITALS: O2SAT 97
== END 2018-12-17 04:29 | disposition short-term general hospital (02) ==
LOC: SUPCPDRO 00:31 → C.ER 00:31
DX: L03.221 Cellulitis of neck (principal); I51.9 Heart disease, unspecified; Z95.811 Presence of heart assist device